=== PATIENT | female | born 1950 | race Caucasian/White ===

== ENCOUNTER 2022-01-05 12:50 | Day surgery (SDC) | payer MEDICARE, BC, SELFPAY ==
[2022-01-05] VITALS (12 sets, daily range): BP systolic 99–163; BP diastolic 64–82; PULSE 49–64; RESP 16–20; O2SAT 93–97; BMI 22.2
--- NOTE | 2022-01-05 | IR_ITS ---
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 Patient had recalcitrant angina therefore was transferred immediately to an interventional hospital for cardiac catheterization Informed consent was obtained prior to the procedure. COMPLICATIONS None Estimated Blood Loss: Less than 10 mls TECHNIQUE One percent lidocaine used to anesthetize the right anterior aspect of the wrist. The right radial artery was accessed via the Seldinger technique. A 6 Greenlandic sheath was placed in the right radial artery. 2.5 mg of verapamil, 800 mcg of nitroglycerin, 1mg Lidocaine and 5000 U Heparin were given through the arterial sheath. The papa catheter was also used to perform left heart catheterization, left ventriculogram and selective coronary angiogram. At the end of the procedure the sheath was removed good hemostasis was achieved using Traclet band, patient was transferred to the postop holding area in stable condition. ANGIOGRAPHIC RESULTS The left main artery Normal The left anterior descending artery Proximal 10% luminal irregularities with mid vessel 10% luminal regularities The circumflex artery Dominant normal The right coronary artery Nondominant yet still large with a proximal eccentric 30 to 40% stenosis The LIEBERMAN ventriculogram reveals Normal 65% The left ventricular end-diastolic pressure 10 mmHg IMPRESSION Mild to moderate single-vessel coronary disease as described above Normal ejection fraction Normal left ventricular end-diastolic pressure PLAN 1. Aggressive medical management 2. Maximize high intensity statin therapy with a goal LDL less than 55 3. Empiric usage of PPI 4. Evaluation of noncardiac symptoms Electronically signed by : Jose Schultz MD 01/05/2022 15:47:27
== END 2022-01-05 16:52 | disposition home or self-care (01) ==
PROVIDERS: PCP Family Medicine; Visit Provider Internal Medicine
DX: I25.118 Atherosclerotic heart disease of native coronary artery with other forms of angina pectoris (principal); I44.0 Atrioventricular block, first degree; I10 Essential (primary) hypertension; K21.9 Gastro-esophageal reflux disease without esophagitis
CPT/HCPCS: 93458; 99152; C1725; C1769; J1644; Q9967

== ENCOUNTER → 2022-01-12 12:57 | Outpatient (CLI) | payer MEDICARE, BC, SELFPAY ==
[2022-01-12 14:11] LABS: Monoscreen (Rapid) Negative (Negative)
[2022-01-12 14:25] LABS: Erythrocyte Sedimentation Rate 15 mm/hr (0-30)
[2022-01-12 14:36] LABS: C-Reactive Protein 0.8 mg/L (0-4)
[2022-01-12 15:36] LABS: Vitamin B12 810 pg/mL (239-931)
[2022-01-12 15:38] LABS: Folate > 20.00 ng/mL
[2022-01-14 14:10] LABS: EBV Ab VCA, IgG >600.0 U/mL (0.0-17.9); EBV Ab VCA, IgM <36.0 U/mL (0.0-35.9)
[2022-01-18 15:13] LABS: 1,25 Dihydroxy Vitamin D 60 pg/mL (.); 1,25-Dihydroxy, Vitamin D-2 <10 pg/mL (.); 1,25-Dihydroxy, Vitamin D-3 60 pg/mL (.)
== END ==
PROVIDERS: PCP Family Medicine; Visit Provider Internal Medicine
DX: I10 Essential (primary) hypertension (principal); I25.118 Atherosclerotic heart disease of native coronary artery with other forms of angina pectoris; K21.9 Gastro-esophageal reflux disease without esophagitis; R07.89 Other chest pain; I44.0 Atrioventricular block, first degree; R79.89 Other specified abnormal findings of blood chemistry
CPT/HCPCS: 36415; 82607; 82652; 82746; 85651; 86140; 86318; 86664; 86665; 93225; 93226

== ENCOUNTER → 2022-05-11 12:45 | Outpatient (CLI) | payer MEDICARE, BC, SELFPAY ==
[2022-05-11 13:35] VITALS: PULSE 66; PULSE 70
== END ==
PROVIDERS: PCP Family Medicine; Visit Provider Internal Medicine Pulmonary Disease
DX: R06.09 Other forms of dyspnea (principal)
CPT/HCPCS: 94060; 94618; 94640; 94727; 94729

== ENCOUNTER 2024-05-07 12:56 | Outpatient (CLI) | payer MEDICARE, BC, SELFPAY ==
--- OUTSIDE RECORDS SUMMARY | 2024-05-07 12:58 | XMS_ITS | Clinical Summary ---
Author Organization [facility] Address [address] [place] [address] Phone Care Team Providers Care Diesel Pile Driver Operator Name Role Phone LATA LERMA, ELISA Rodriguez Unavailable [phone] Cam LERMA, Giovanni Cortez Unavailable [phone] Reason for Visit and Chief Complaint The Chief Complaint is: thoracic pain Problems Includes: Problems addressed during this encounter and other active Problems Current Visit Onset Date Resolved Date Provider Kaylinitibarbara pham Status Pain Radiating To Thoracic Region 02/08/2024 Vern Vinson PA-C Active Last Documented On 4 11:20AM ; [facility] Plan of Treatment - Patient screened for future fall risk: documentation of any fall with injury in past year - Last Documented On 02/08/2024 12:50PM ; [facility] Fall Risk Assessment: This patient has been identified as a fall risk. Balance/gait along with postural blood pressure, vision and home fall hazards have been assessed. Medications have been reviewed, and recommendations made with regard to contributing factors for future falls. Plan of care: Consideration of vitamin D supplementation along with balance and strength training with consideration for formal physical therapy has been discussed with the patient. - Last Documented On 02/08/2024 12:50PM ; [facility] Patient was seen by myself Vern Vinson PA-C. Patient will follow up tomorrow with myself and Dr. Levy after we get a stat MRI of the lumbar spine and he had hurt his see him due to this signal that she is having in the thoracic spine. 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 - Last Documented On 02/08/2024 12:50PM ; [facility], [facility] L4-L5 spondylolisthesis - Last Documented On 02/08/2024 12:50PM ; [facility], [facility] Medical Equipment - Implanted Devices Includes: Current Devices No Medical Equipment Recorded Medications Includes: Medications discussed during this encounter and other current Medications Discontinued / Stopped on this date ELISA GUIDO MD on 07/24/2023 Lisinopril 5 MG Oral Tablet Provider: ELISA GUIDO MD Diagnosis: Last Documented On 4 11:21AM By Ann Zepeda ; [facility], [facility] Current Medications (continue as prescribed) Asmanex (60 Metered Doses) 2 20 MCG/ACT Inhalation Aerosol Powder Breath Activated 02/03/2024 Provider: ELISA GUIDO MD Diagnosis: Last Documented On 4 11:21AM By Ann Zepeda ; [facility], [facility] Ondansetron 8 MG Oral Tablet Disintegrating 02/02/2024 Provider: ELISA GUIDO MD Diagnosis: Last Documented On 4 11:21AM By Ann Zepeda ; [facility] Gabapentin 300 MG Oral Capsule 01/30/2024 Provider: ELISA GUIDO MD Diagnosis: Last Documented On 4 11:21AM By Ann Zepeda ; [facility], [facility] Albuterol Sulfate HFA 108 (9 0 Base) MCG/ACT Inhalation Aerosol Solution 01/23/2024 Provider: ELSIA GALVEZ MD Diagnosis: Last Documented On 4 11:21AM By Ann Zepeda ; [facility] Breyna 160-4.5 MCG/ACT Inhalation Aerosol 01/10/2024 Provider: ELISA GUIDO MD Diagnosis: Last Documented On 4 11:21AM By Ann Zepeda ; [facility], [facility] Meloxicam 7.5 MG Oral Tablet 01/09/2024 Provider: Clau Johnston DPM Diagnosis: Last Documented On 4 11:21AM By Ann Zepeda ; [facility] Drysol 20% External Solution 12/29/2023 Provider: Clau Johnston DPM Diagnosis: Last Documented On 4 11:21AM By Ann Zepeda ; [facility] Lisinopril 5 MG Oral Tablet 11/07/2023 Provider: ELISA GUIDO MD Diagnosis: Last Documented On 4 11:21AM By Ann Zepeda ; [facility] Rizatriptan Benzoate 10 MG O ral Tablet Disintegrating 09/12/2023 Provider: ELISA GUIDO MD Diagnosis: Last Documented On 4 11:21AM By Ann Zepeda ; [facility] Medications Administered Includes: Administered Medications from this encounter No Administered Medications Recorded Vital Signs Includes: Vital Signs from this encounter Vital Name 02/08/2024 11:21A Height (in) 65 Weight (lb) 130 Body Mass Index 21.6 Body Surface Area 1.6 Pain Level 10 Note: Last Documented: On 02/08/2024 11:22A M ; [facility] Results Includes: Results discussed during this encounter No Results Recorded For Specified Dates History of Present Illness Includes: History of Present Illness from this encounter BERTRAND Burton is a 74 year old female. - Symptoms muscle relaxers makes the pain better walking, lifting makes the pain worse. - Allergy list reviewed - Problem list reviewed - Medication list reviewed - Previous history of new onset pain 01/25/2024 Injury is not work related or an automotive accident - Sharp pain Symptoms - Stabbing - Pain is dull, aching - Patient pain level from 1-10: 10 - Yes, previous treatment. PCP - - Review of medications documented Patient is here today with complaints of thoracic back pain and bilateral leg pain that is some difficulties walking and numbness down both legs.. She was thrown up against wall while trying to hold a full for some vaccines. Since that time she has had back pain associated with this along with some numbness in both legs and some difficulties walking she has tried ketorolac baclofen in his on gabapentin. No previous back surgery no previous fracture for her back. She does feel that she has some balance issues. Pain will radiate across her chest area also. Social History Description Last Updated Caffeine use 02/08/2024 Last Documented On 4 12:50PM ; [facility] Exercising regularly 02/08/2024 Last Documented On 4 12:50PM ; [facility] No recent change in diet 02/08/2024 Last Documented On 4 12:50PM ; [facility] Not a current smoker. 02/08/2024 Last Documented On 4 12:50PM ; [facility] Not using alcohol 02/08/2024 Last Documented On 4 12:50PM ; [facility] Not using drugs 02/08/2024 Last Documented On 4 12:50PM ; [facility] Smoking Status Unknown Procedures and Surgical History Includes: Procedures from this encounter Procedures Code Diagnosis Performing Provider Service Location Service Date X-RAY EXAM OF LOWER SPINE 4-5 [id number] [id number] Spondylolisthes is, lumbar region Vern Vinson PA-C [facility] 02/08/2024 Last Documented On 4 3:50PM ; [facility] X-RAY EXAM OF THORACIC SPINE 2 [id number] [id number] Pain in thoracic spine eVrn Vinson PA-C [facility] 02/08/2024 Last Documented On 4 3:50PM ; [facility] CT scan 02/01/2024 [facility] [id number] Last Documented On 4 11:23AM ; [facility] an MRI was performed 02/04/2024 [facility] [id number] Last Documented On 4 11:23AM ; [facility] Surgical History Last Updated History of Previous Fractures 02/08/2024 Last Documented On 4 12:50PM ; [facility] Past Surgical History: Right ACL Repair ~Fusion of distal phalangeal joint ~Right hand 3rd digit 02/08/2024 Last Documented On 4 12:50PM ; [facility] Medical History Includes: Medical History addressed during this encounter Description Last Updated History of arthritis 02/08/2024 Last Documented On 4 12:50PM ; [facility], [facility] History of asthma 02/08/2024 Last Documented On 4 12:50PM ; [facility], [facility] History of diverticulitis of colon 02/07 Last Documented On 4 12:50PM ; [facility], [facility] History of Fractures 02/08/2024 Last Documented On 4 12:50PM ; [facility], [facility] History of Heartburn / Acid Reflux 02/07 Last Documented On 4 12:50PM ; [facility], [facility] History of History of Blood Clots 2023 Last Documented On 4 12:50PM ; [facility], [facility] History of History of Blood Transfusion 02/08/2024 Last Documented On 4 12:50PM ; [facility], [facility] History of History of Cancer 02/08/2024 Last Documented On 4 12:50PM ; [facility], [facility] Family History Includes: Family History addressed during this encounter Description Last Updated Family history of cancer 02/08/2024 Last Documented On 4 12:50PM ; [facility], [facility] Family history of heart disease 02/08/20 24 Last Documented On 4 12:50PM ; [facility], [facility] Family history of osteoporosis 4 Last Documented On 4 12:50PM ; [facility], [facility] Family history of systemic hypertension 02/08/2024 Last Documented On 4 12:50PM ; [facility], [facility] Family history of thromboembolic disease 02/08/2024 Last Documented On 4 12:50PM ; [facility], [facility] Review of Systems Includes: Review of Systems from this encounter Systemic: Not feeling tired, no recent weight loss, and no recent weight gain. Head: Headache. No sinus pain. Eyes: No vision problems, no Cataracts, no Glasses/Contacts, and no Glaucoma. Otolaryngeal: No hearing loss and no tinnitus. Cardiovascular: No chest pain or discomfort, no palpitations, no Hypertension, and no High Cholesterol. Pulmonary: Daytime asthma symptoms. No chronic cough. No wheezing. Gastrointestinal: No heartburn and no abdominal pain. No Indigestion, no Peptic Ulcer, no GI Stomach Bleed, and no Ulcers. Acid Reflux. Endocrine: No hot flashes, no muscle weakness, no Diabetes, no Hypothyroid, and no Hyperthyroid. Hematologic: No easy bleeding, no tendency for easy bruising, and no Anemia. Musculoskeletal: Arthritis. No lower back pain. No soft tissue swelling. Pain localized to one or more joints. Neurological: No dizziness, no convulsions, and no numbness. Psychological: No anxiety, no emotional lability, no depression, and no insomnia. Not crying for no reason. Skin: No dry skin. No Ulcers, no Scars, and no rash. Allergic and Immunologic: No complaint of seasonal allergic reaction. Mental Status Includes: Mental Status from this encounter Description No anxiety Functional Status Includes: Functional Status from this encounter No Functional Status Recorded Physical Exam Includes: Physical Exam from this encounter Allergies Includes: Active Allergies Substance Type Reaction Onset Date Resolved Date Statu s Nitrofurantoin Macrocrystal Allergy 02/08/2024 Active Last Documented On 4 11:18AM ; [facility], [facility] Encounters Encounter Provider Location Date Check-In Time Check-Out Time Diagnosis Physician Specified Vern Vinson PA-C [facility] 02/08/20 24 10:58AM 11:48AM Insurance Includes: Active Insurance Policies Plan Name Member ID Group # Subscriber Relationship Effect sana Dates 1 - Medicare Part B [facility] [id number] Jasmyn Burton Self 2 - [facility] [id number] Jasmyn Burton Self Clinical Notes Includes: Clinical Notes from this encounter * Progress note Date Encounter Last Documented by 02/08/2024 Physician Specified Last andry bishop on 02/08/2024; 12:50 PM, Vern Vinson PA-C; [facility] Active Problems & Conditions - Pain Radiating To Thoracic Region Chief Complaint The Chief Complaint is: Thoracic pain. Referred Here Referred by PCP. History of Present Illness Jasmyn Burton is a 74 year old female. - Symptoms muscle relaxers makes the pain better walking, lifting makes the pain worse. - Allergy list reviewed - Problem list reviewed - Medication list reviewed - Previous history of new onset pain 01/25/2024 Injury is not work related or an automotive accident - Sharp pain Symptoms - Stabbing - Pain is dull, aching - Patient pain level from 1-10: 10 - Yes, previous treatment. PCP - - Review of medications documented Patient is here today with complaints of thoracic back pain and bilateral leg pain that is some difficulties walking and numbness down both legs.. She was thrown up against wall while trying to hold a full for some vaccines. Since that time she has had back pain associated with this along with some numbness in both legs and some difficulties walking she has tried ketorolac baclofen in his on gabapentin. No previous back surgery no previous fracture for her back. She does feel that she has some balance issues. Pain will radiate across her chest area also. Current Medication - Albuterol Sulfate HFA 108 (90 Base) MCG/ACT Inhalation Aerosol Solution 16 days, 0 refills - Asmanex (60 Metered Doses) 220 MCG/ACT Inhalation Aerosol Powder Breath Activated 30 days, 0 refills - Breyna 160-4.5 MCG/ACT Inhalation Aerosol 90 days, 0 refills - Drysol 20% External Solution 15 days, 0 refills - Gabapentin 300 MG Oral Capsule 30 days, 0 refills - Lisinopril 5 MG Oral Tablet 90 days, 0 refills - Meloxicam 7.5 MG Oral Tablet 30 days, 0 refills - Ondansetron 8 MG Oral Tablet Disintegrating 10 days, 0 refills - Rizatriptan Benzoate 10 MG Oral Tablet Disintegrating 9 days, 0 refills Past Medical/Surgical History Reported: History of Fractures. Diagnoses: Asthma History of Blood Clots History of Blood Transfusion History of Cancer Heartburn / Acid Reflux. Diverticulitis of colon. Arthritis Surgical: - Past Surgical History: Right ACL Repair Fusion of distal phalangeal joint Right hand 3rd digit - Previous Fractures Social History Not a current smoker. Current diet: No recent change in diet. Caffeine use: Caffeine use. Alcohol: Not using alcohol. Drug Use: Not using drugs. Habits: Exercising regularly. Allergies - Nitrofurantoin Macrocrystal Family History Cancer Heart disease Systemic hypertension Thromboembolic disease Osteoporosis Review Of Systems Systemic: Not feeling tired, no recent weight loss, and no recent weight gain. Head: Headache. No sinus pain. Eyes: No vision problems, no Cataracts, no Glasses/Contacts, and no Glaucoma. Otolaryngeal: No hearing loss and no tinnitus. Cardiovascular: No chest pain or discomfort, no palpitations, no Hypertension, and no High Cholesterol. Pulmonary: Daytime asthma symptoms. No chronic cough. No wheezing. Gastrointestinal: No heartburn and no abdominal pain. No Indigestion, no Peptic Ulcer, no GI Stomach Bleed, and no Ulcers. Acid Reflux. Endocrine: No hot flashes, no muscle weakness, no Diabetes, no Hypothyroid, and no Hyperthyroid. Hematologic: No easy bleeding, no tendency for easy bruising, and no Anemia. Musculoskeletal: Arthritis. No lower back pain. No soft tissue swelling. Pain localized to one or more joints. Neurological: No dizziness, no convulsions, and no numbness. Psychological: No anxiety, no emotional lability, no depression, and no insomnia. Not crying for no reason. Skin: No dry skin. No Ulcers, no Scars, and no rash. Allergic and Immunologic: No complaint of seasonal allergic reaction. Physical Findings - Vitals taken 02/08/2024 11:21 am lc Height 65 in Weight 130 lbs Body Mass Index 21.6 kg/m2 Body Surface Area 1.6 m2 Pain Level 10 She does walk with a wide-based gait Some tenderness across midthoracic spine 4+ out of 5 EHL gastrocs quadriceps tibialis anterior strength bilaterally No long tract findings 1+ Achilles and patellar reflexes bilaterally negative beats of clonus Tests Four views lumbar spine shows a spondylolisthesis at L4-L5 which he is aware of the she has had before 02/08/2024 Two views of the thoracic spine show no significant collapse of any level. 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 MRI Scan: An MRI was performed 02/04/2024 [facility]. Available previous imaging studies were reviewed Available previous history reviewed Counseling/Education - Tobacco non-user - Use of tobacco assessment performed Plan StartCited - Pain, unspecified Radiology/MRI: MRI Lumbar Spine Instructions: *STAT* MRI LSPINE EndCited - Patient screened for future fall risk: documentation of any fall with injury in past year Fall Risk Assessment: This patient has been identified as a fall risk. Balance/gait along with postural blood pressure, vision and home fall hazards have been assessed. Medications have been reviewed, and recommendations made with regard to contributing factors for future falls. Plan of care: Consideration of vitamin D supplementation along with balance and strength training with consideration for formal physical therapy has been discussed with the patient. Patient was seen by myself Vern Vinson PA-C. Patient will follow up tomorrow with myself and Dr. Levy after we get a stat MRI of the lumbar spine and he had hurt his see him due to this signal that she is having in the thoracic spine. Notes This dictation was done with voice recognition software and may contain errors and omissions. Care Team - ELISA GUIDO MD - Distribution Systems Serviceperson
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
--- OUTSIDE RECORDS SUMMARY | 2024-05-07 12:58 | XMS_ITS | Clinical Summary ---
Author Organization [facility] , [facility] Address [address] [place] [address] Phone Care Team Providers Care Colorer Hides And Skins Name Role Phone LATA LERMA, ELISA Rodriguez Unavailable [phone] Cam LERMA, Giovanni Cortez Unavailable [phone] Reason for Visit and Chief Complaint MRI Problems Includes: Problems addressed during this encounter and other active Problems All Visits Onset Date Resolved Date Provider Condition S tatus Pain Radiating To Thoracic Region 02/08/2024 Vern Vinson PA-C Active Last Documented On 4 11:20AM ; [facility], [facility] Plan of Treatment No Plan of Treatment Recorded Assessments Includes: Assessments from this encounter No Assessments Recorded Medical Equipment - Implanted Devices Includes: Current Devices No Medical Equipment Recorded Medications Includes: Medications discussed during this encounter and other current Medications Current Medications (continue as prescribed) Asmanex (60 Metered Doses) 2 20 MCG/ACT Inhalation Aerosol Powder Breath Activated 02/03/2024 Provider: ELISA GUIDO MD Diagnosis: Last Documented On 4 11:21AM By Ann Zepeda ; [facility] Ondansetron 8 MG Oral Tablet Disintegrating 02/02/2024 Provider: ELISA GUIDO MD Diagnosis: Last Documented On 4 11:21AM By Ann Zepeda ; [facility] Gabapentin 300 MG Oral Capsule 01/30/2024 Provider: ELISA GUIDO MD Diagnosis: Last Documented On 4 11:21AM By Ann Zepeda ; [facility] Albuterol Sulfate HFA 108 (9 0 Base) MCG/ACT Inhalation Aerosol Solution 01/23/2024 Provider: ELISA GALVEZ MD Diagnosis: Last Documented On 4 11:21AM By Ann Zepeda ; [facility] Breyna 160-4.5 MCG/ACT Inhalation Aerosol 01/10/2024 Provider: ELISA GUIDO MD Diagnosis: Last Documented On 4 11:21AM By Ann Zepeda ; [facility] Meloxicam 7.5 MG Oral Tablet 01/09/2024 Provider: Clau Johnston DPM Diagnosis: Last Documented On 4 11:21AM By Ann Zepeda ; [facility] Drysol 20% External Solution 12/29/2023 Provider: Clau Johnston DPM Diagnosis: Last Documented On 4 11:21AM By Ann Zepeda ; [facility] Lisinopril 5 MG Oral Tablet 11/07/2023 Provider: ELISA GUIDO MD Diagnosis: Last Documented On 4 11:21AM By Ann Zepeda ; [facility] Rizatriptan Benzoate 10 MG O ral Tablet Disintegrating 09/12/2023 Provider: ELISA GUIDO MD Diagnosis: Last Documented On 4 11:21AM By Ann Zepeda ; [facility] Medications Administered Includes: Administered Medications from this encounter No Administered Medications Recorded Results Includes: Results discussed during this encounter No Results Recorded For Specified Dates History of Present Illness Includes: History of Present Illness from this encounter No History of Present Illness Recorded Social History No Social History Recorded - Smoking Status Unknown Procedures and Surgical History Includes: Procedures from this encounter Procedures Code Diagnosis Performing Provider Service Location Service Date MRI LUMBAR SPINE W/O DYE 33050 Low back pain, unspecified Giovanni Levy MD [facility] 02/09/2024 Last Documented On 4 5:31AM ; [facility] Medical History Includes: Medical History addressed during this encounter No Medical History Recorded Family History Includes: Family History addressed during this encounter No Family History Recorded Review of Systems Includes: Review of Systems from this encounter No Review of Systems Recorded Mental Status Includes: Mental Status from this encounter No Mental Status Recorded Functional Status Includes: Functional Status from this encounter No Functional Status Recorded Physical Exam Includes: Physical Exam from this encounter No Physical Exam Recorded Allergies Includes: Active Allergies Substance Type Reaction Onset Date Resolved Date Statu s Nitrofurantoin Macrocrystal Allergy 02/08/2024 Active Last Documented On 11:18AM ; [facility] Encounters Encounter Provider Location Date Check-In Time Check-Out Time Diagnosis MRI [facility] 02/09/2024 6:44AM 7:29AM Insurance Includes: Active Insurance Policies Plan Name Member ID Group # Subscriber Relationship Effect sana Dates 1 - Medicare Part B [facility] [id number] Jasmyn Potter Self 2 - [facility] [id number] Jasmyn Potter Self Clinical Notes Includes: Clinical Notes from this encounter No Clinical Notes Recorded
--- OUTSIDE RECORDS SUMMARY | 2024-05-07 12:58 | XMS_ITS ---
Author Organization [facility] , [facility] Address [address] [place] [address] Phone Care Team Providers Care Exercise Physiologist Name Role Phone LATA LERMA, ELISA Rodriguez Unavailable [phone] Cam LERMA, Giovanni Cortez Unavailable [phone] Problems Includes: Active, inactive, and resolved Problems All Visits Onset Date Resolved Date Provider Condition S tatus Pain Radiating To Thoracic Region 02/08/2024 Vern Vinson PA-C Active Last Documented On 4 11:20AM ; [facility] Plan of Treatment Findings Encounter Date Patient screened for future fall risk: documentation of any fall with injury in past year Follow Up with Giovanni Levy MD 02/09/2024 Last Documented On 4 2:01PM ; [facility] Patient screened for future fall risk: documentation of any fall with injury in past year Physician Specified with Vern Vinson PA-C 02/08/2024 Last Documented On 4 12:50PM ; [facility] Pending Tests Order Diagnosis Results Due Ordering P rovider Radiology - MRI MRI Lumbar Spine Pain, unspecified 4 Vern Vinson PA-C Last Documented On 4 12:50PM ; [facility] Assessments Includes: Assessments for all patient encounters No Assessments Recorded Medical Equipment - Implanted Devices Includes: Current and historical Devices No Medical Equipment Recorded Medications Includes: Current and historical Medications Current Medications (continue as prescribed) Asmanex (60 Metered Doses) 2 20 MCG/ACT Inhalation Aerosol Powder Breath Activated 02/03/2024 Provider: ELISA GUIDO MD Diagnosis: Last Documented On 4 11:21AM By Ann Zepeda ; [facility] Ondansetron 8 MG Oral Tablet Disintegrating 02/02/2024 Provider: ELISA GUIDO MD Diagnosis: Last Documented On 4 11:21AM By Ann Zepeda ; [facility], [facility] Gabapentin 300 MG Oral Capsule 01/30/2024 Provider: ELISA GUIDO MD Diagnosis: Last Documented On 4 11:21AM By Ann Zepeda ; [facility], [facility] Albuterol Sulfate HFA 108 (9 0 Base) MCG/ACT Inhalation Aerosol Solution 01/23/2024 Provider: ELISA GALVEZ MD Diagnosis: Last Documented On 4 11:21AM By Ann Zepeda ; [facility], [facility] Breyna 160-4.5 MCG/ACT Inhalation Aerosol 01/10/2024 Provider: ELISA GUIDO MD Diagnosis: Last Documented On 4 11:21AM By Ann Zepeda ; [facility], [facility] Meloxicam 7.5 MG Oral Tablet 01/09/2024 Provider: Clau Johnston DPM Diagnosis: Last Documented On 4 11:21AM By Ann Zepeda ; [facility], [facility] Drysol 20% External Solution 12/29/2023 Provider: Clau Johnston DPM Diagnosis: Last Documented On 4 11:21AM By Ann Zepeda ; [facility], [facility] Lisinopril 5 MG Oral Tablet 11/07/2023 Provider: ELISA GUIDO MD Diagnosis: Last Documented On 4 11:21AM By Ann Zepeda ; [facility], [facility] Rizatriptan Benzoate 10 MG O ral Tablet Disintegrating 09/12/2023 Provider: ELISA GUIDO MD Diagnosis: Last Documented On 4 11:21AM By Ann Zepeda ; [facility], [facility] Past Medications on file Lisinopril 5 MG Oral Tablet 07/24/2023 - 02/08/2024 Pr ovider: ELISA GUIDO MD Diagnosis: Last Documented On 4 11:21AM By Ann Zepeda ; [facility], [facility] Medications Administered Includes: Administered Medications in patient's chart No Administered Medications Recorded Vital Signs Includes: Vital Signs from 05/07/2023 through 05/07/2024 Vital Name 02/08/2024 11:21A Height (in) 65 Weight (lb) 130 Body Mass Index 21.6 Body Surface Area 1.6 Pain Level 10 Note: Last Documented: On 02/08/2024 11:22A M ; [facility] Results Includes: Results from 05/07/2023 through 05/07/2024 No Results Recorded For Specified Dates History of Present Illness History of Present Illness not supported for this document type No History of Present Illness Recorded Social History Description Last Updated Caffeine use 02/08/2024 Last Documented On 4 12:50PM ; [facility] Exercising regularly 02/08/2024 Last Documented On 4 12:50PM ; [facility] No recent change in diet 02/08/2024 Last Documented On 4 12:50PM ; [facility] Not a current smoker. 02/08/2024 Last Documented On 4 12:50PM ; [facility] Not using alcohol 02/08/2024 Last Documented On 4 12:50PM ; [facility] Not using drugs 02/08/2024 Last Documented On 4 12:50PM ; [facility] Smoking Status Unknown Procedures and Surgical History Includes: Procedures from 05/07/2023 through 05/07/2024 Procedures Code Diagnosis Performing Provider Service Location Service Date MRI LUMBAR SPINE W/O DYE 96648 Low back pain, unspecified Giovanni Levy MD [facility] 02/09/2024 Last Documented On 4 5:31AM ; [facility] X-RAY EXAM OF LOWER SPINE 4-5 VIEWS 94062 Spondylolisthesis, lumbar region Vern Vinson PA-C [facility] 02/08/2024 Last Documented On 4 3:50PM ; [facility] X-RAY EXAM OF THORACIC SPINE 2 VIEWS 94764 Pain in thoracic spine Vern Vinson PA-C [facility] 02/08/2024 Last Documented On 4 3:50PM ; [facility], [facility] Surgical History Last Updated History of Previous Fractures 02/08/2024 Last Documented On 4 12:50PM ; [facility], [facility] Past Surgical History: Right ACL Repair ~Fusion of distal phalangeal joint ~Right hand 3rd digit 02/08/2024 Last Documented On 4 12:50PM ; [facility], [facility] Medical History Includes: Medical History in patient's chart Description Last Updated History of arthritis 02/08/2024 Last Documented On 4 12:50PM ; [facility], [facility] History of asthma 02/08/2024 Last Documented On 4 12:50PM ; [facility], [facility] History of diverticulitis of colon 02/07 Last Documented On 4 12:50PM ; [facility], [facility] History of Fractures 02/08/2024 Last Documented On 4 12:50PM ; [facility], [facility] History of Heartburn / Acid Reflux 02/07 Last Documented On 4 12:50PM ; [facility], [facility] History of History of Blood Clots 2023 Last Documented On 4 12:50PM ; [facility], [facility] History of History of Blood Transfusion 02/08/2024 Last Documented On 4 12:50PM ; [facility], [facility] History of History of Cancer 02/08/2024 Last Documented On 4 12:50PM ; [facility], [facility] Family History Includes: Family History in patient's chart Description Last Updated Family history of cancer 02/08/2024 Last Documented On 4 12:50PM ; [facility] Family history of heart disease 02/08/20 24 Last Documented On 4 12:50PM ; [facility], [facility] Family history of osteoporosis 4 Last Documented On 4 12:50PM ; [facility], [facility] Family history of systemic hypertension 02/08/2024 Last Documented On 4 12:50PM ; [facility] Family history of thromboembolic disease 02/08/2024 Last Documented On 4 12:50PM ; [facility] Review of Systems Review of Systems not supported for this document type No Review of Systems Recorded Mental Status Description No anxiety Functional Status No Functional Status Recorded Physical Exam Physical Exam not supported for this document type No Physical Exam Recorded Allergies Includes: Active, inactive, and resolved Allergies Substance Type Reaction Onset Date Resolved Date Statu s Nitrofurantoin Macrocrystal Allergy 02/08/2024 Active Last Documented On 4 11:18AM ; [facility] Encounters Includes: Encounters from 05/07/2023 through 05/07/2024 Encounter Provider Location Date Check-In Time Check-Out Time Diagnosis Follow Up Giovanni Levy MD [facility] 02/09/20 11:18AM 12:24PM MRI [facility] 02/09/20 6:44AM 7:29AM Physician Specified Vern Vinson PA-C [facility] 02/08/20 10:58AM 11:48AM Insurance Includes: Active Insurance Policies Plan Name Member ID Group # Subscriber Relationship Effect sana Dates 1 - Medicare Part B [facility] [id number] Jasmyn Burton Self 2 - [facility] [id number] Jasmyn Agee Clinical Notes Includes: Signed Clinical Notes starting from 06/03/2022 * Progress note Date Encounter Last Documented by 02/08/2024 Physician Specified Last documen dario on 02/08/2024; 12:50 PM, Vern Vinson PA-C; [facility] Active Problems & Conditions - [...] Tests Imaging: CT Scan: CT scan 02/01/2024 [facility]. MRI Scan: An MRI was performed 02/04/2024 [facility]. Available previous imaging studies were [...] Care Team - ELISA GUIDO MD - Observatory Director
--- OUTSIDE RECORDS SUMMARY | 2024-05-07 12:58 | XMS_ITS | Encounter Summary ---
Author Organization [facility] Address [address] [place] [address] Care Team Providers Care Commercial Loan Underwriter Name Role Phone Jeanine Forbes MD Primary Care Provider + Encounter Details Date Type Department Care Team (Latest Contact Info) Description 04/03/2024 Travel Social History Tobacco Use Types Packs/Day Years Used Date Smoking Tobacco: Never Passive Smoke Exposure: Never Smokeless Tobacco: Never Alcohol Use Standard Drinks/Week Comments Yes 7 (1 standard drink = 0.6 oz pur e alcohol) AUDIT-C Answer Date Recorded Q1: How often do you have a drink containing alc ohol? Never 11/06/2019 Q2: How many drinks containi ng alcohol do you have on a typical day when you are drinking? 1 or 2 11/06/2019 Q3: How often do you have six or more drinks on one occasion? Weekly 11/06/2019 Abuse Screen Answer Date Recorded Unsafe at Home or Work/School Not on file Feels Threatened by Someone? Not on file 05/2023 Does Anyone Keep You from Co ntacting Others or Doint Things Outside the Home? Not on file 03/31/2023 Physical Sign of Abuse Present Not on file 1 Housing Stability Answer Date Recorded Current Living Arrangements Not on file 03/20 Potentially Unsafe Housing Conditions Not on ranjana e 03/31/2023 Family and Community Support Answer Rajiv e Recorded Help with Day-to-Day Activities Not on file 03/31/2023 Lonely or Isolated Not on file 03/31/2023 Employment Answer Date Recorded Do you want help finding or keeping work or a shannan b? Not on file 03/31/2023 Disabilities Answer Date Recorded Concentrating, Remembering, or Making Decisions Difficulty Not on file 03/31/2023 Doing Errands Independently Difficulty Not on fi le 03/31/2023 Education Answer Date Recorded Help with school or training? Not on file Preferred Language Not on file 03/31/2023 Comments No Sex and Gender Information Value Date Recorded Sex Assigned at Not on file Legal Sex Female 9:40 AM EDT Gender Identity Not on file Sexual Orientation Not on file documented as of this encounter Plan of Treatment Upcoming Encounters Date Type Department Care Team (Late st Contact Info) Description 08/09/2024 3:00 PM EST Office Visit [facility] MED[facility] RHEUMATOLOGY [address] [facility] [address] [place] [address] Ken Devries MD [address] [facility] [address] [place] [address] documented as of this encounter Visit Diagnoses Not on filedocumented in this encounter Care Teams Commercial Loan Underwriter Relationship Specialty Start Date End Date Jeanine Forbes MD [address] [address] PCP - General Family Medicine 11/06/19 documented as of this encounter
--- OUTSIDE RECORDS SUMMARY | 2024-05-07 12:58 | XMS_ITS ---
Care Plan - [facility], [facility] Created on: May 07, 2024 Jasmyn Burton : 1950 Sex: Female Author Organization [facility] Address [address] [place] [address] Phone Care Team Providers Care Directional Bore Operator Name Role Phone LATA LERMA, ELISA Rodriguez Unavailable [phone] Cam LERMA, Giovanni Cortez Unavailable [phone]
--- OUTSIDE RECORDS SUMMARY | 2024-05-07 12:58 | XMS_ITS | Clinical Summary ---
Author Organization [facility] Address [address] [place] [address] Care Team Providers Care Case Manager Specialist Name Role Phone Jeanine Forbes MD Primary Care Provider + Allergies Active Allergy Reactions Criticality Noted Date Comments Nitrofurantoin Unknown - High Severity 02/08/20 24 Medications ASMANEX, 30 METERED DOSES, 220 MCG/INH inhaler INL 1 PUFF PO BID UTD PRN 11/01/19 20 Active omeprazole (priLOSEC) 20 MG capsule Take 1 capsule by mouth Daily. Active Multiple Vitamins-Minerals (MULTIVITAMIN WITH MINERALS) tablet tablet Take 1 tablet by mouth Daily. Active cholecalciferol (VITAMIN D3) 25 MCG (1000 UT) tablet Take 1 tablet by mouth Daily. Active vitamin C (ASCORBIC ACID) 250 MG tablet Take 1 tablet by mouth Daily. Active Biotin 10 MG tablet Take 1 tablet by mouth Daily. Active rizatriptan QUALITY ASSURANCE SUPERVISOR BODY (MAXALT-QUALITY ASSURANCE SUPERVISOR BODY) [address] 1 T ON THE TONGUE UNTIL DISSOLVED ONCE DAILY IF NEEDED 08/28/19 20 Active ondansetron ODT (ZOFRAN-ODT) 8 MG disintegrating tablet 1 tablet. 02/02/20 24 Active albuterol (ACCUNEB) 0.63 MG/3ML nebulizer solution Inhale 3 mL Every 6 (Six) Hours As Needed. Active albuterol (PROVENTIL) (2.5 MG/3ML) 0.083% nebulizer solution Inhale 3 mL 3 times a day by nebulization route as needed for 30 days. 01/13/20 24 Active azelastine (ASTELIN) 0.1 % nasal spray azelastine 137 mcg (0.1 %) nasal spray aerosol INSTILL 1 SPRAY INTO BOTH NOSTRILS TWICE DAILY 12/23/19 23 Active baclofen (LIORESAL) 10 MG tablet 1 tablet. 01/30/20 24 Active EPINEPHrine (EPIPEN) 0.3 MG/0.3ML solution auto-injector injection Take 1 auto as needed by injection route as needed. Active gabapentin (NEURONTIN) 300 MG capsule 1 capsule. 01/30/20 24 Active montelukast (SINGULAIR) 10 MG tablet Take 1 tablet by mouth Every Evening. Active predniSONE (DELTASONE) 20 MG tablet 1 tablet. 03/23/20 24 Active Active Problems Problem Noted Date Diagnosed Date Chest pain, atypical 11/06/2019 Hyperlipidemia LDL goal <100 11/06/2019 Family history of early CAD 11/06/2019 Abnormal EKG 11/06/2019 Encounters Date Type Department Care Team Description 04/03/2024 3:20 PM EDT Office Visit [facility] NEUROSURGERY [address] [address] Zeke Saleh MD Mid back pain (Primary Dx); Lumbar disc disease 04/03/2024 Travel 03/14/2024 4:22 PM EDT - 03/14/2024 11:59 PM EDT Hospital Encounter [facility] MRI AT [address] [place] [id number] Zeke Saleh MD Cervical radicular pain Discharge Disposition: Home or Self Care 03/02/2024 3:20 PM EDT Office Visit [facility] NE[facility]ERY [facility] [address] [place] [address] Zeke Saleh MD Mid back pain (Primary Dx); Multilevel degenerative disc disease; Cervical radicular pain from Last 3 Months Family History Medical History Relation Name Comments Heart disease Father Heart failure Father Hypertension Father Heart disease Mother Heart failure Mother Hypertension Mother Breast cancer Neg Hx Ovarian cancer Neg Hx Relation Name Status Comments Father Mother Social History Tobacco Use Types Packs/Day Years Used Date Smoking Tobacco: Never Passive Smoke Exposure: Never Smokeless Tobacco: Never Tobacco Cessation:Counseling Given: Not Answered Alcohol Use Standard Drinks/Week Comments Yes 7 [...] on file Sexual Orientation Not on file Last Filed Vital Signs Vital Sign Reading Time Taken Comments Blood Pressure 128/72 11/06/2019 2:25 PM EDT Pulse 62 11/06/2019 2:25 PM EDT Temperature 36.3 ??C (97.3 ??F) 04/03/2024 3:22 PM ED T Respiratory Rate - - Oxygen Saturation - - Inhaled Oxygen Concentration - - Weight 61.7 kg (136 lb) 04/03/2024 3:22 PM EDT Height 167.6 cm (5' 6 ) 04/03/2024 3:22 PM EDT Body Mass Index 21.95 04/03/2024 3:22 PM EDT Plan of Treatment Upcoming Encounters Date Type Department Care Team (Late st Contact Info) Description 08/09/2024 3:00 PM EST Office Visit [facility] RHEUMATOLOGY [address] [facility] [address] [place] [id number] Ken Devries MD [address] [facility] [address] [place] [address] Health Maintenance Due Date Last Done Comments COLOGUARD 1950 COLON CANCER SCREENING 5 YEA R SIGMOIDOSCOPY 1950 CT COLONOGRAPHY 1950 DXA SCAN 1950 FECAL OCCULT BLOOD TEST 1950 FIT Testing (1 year) 1950 LIPID PANEL 1950 Pneumococcal Vaccine 65+ (1 of 2 - PCV) 02/01/1956 ANNUAL WELLNESS VISIT 08/30/2019 HEPATITIS C SCREENING 08/30/2019 PT PLAN OF CARE 01/26/2023 MAMMOGRAM 01/12/2024 01/11/2023 COVID-19 Vaccine (4 - 2023-2 5 season) 2024 05/11/2021, 08/12/2020, 07/19/2020 TDAP/TD VACCINES (2 - Td or Tdap) 05/23/2027 017 COLONOSCOPY 01/27/2032 01/26/2022, 06/20, 06/20/2011 COLORECTAL CANCER SCREENING 01/27/2032 ZOSTER VACCINE Completed 05/26/2023, 10/20, 10/18/2022 INFLUENZA VACCINE Completed 03/06/2024, , 02/19/2022, Additional history exists Procedures Procedure Name Priority Date/Time Associated Diagnosis Comments SCANNED - LABS 03/24/2024 MRI CERVICAL SPINE WO CONTRAST Routine 03/14/2024 5:25 PM EDT Cervical radicular pain MRI OUTSIDE FILMS Routine 02/09/2024 12: 00 AM EDT SCANNED - IMAGING 02/09/2024 MAMMO DIAGNOSTIC DIGITAL TOMOSYNTHESIS BILATERAL W CAD Routine 01/11/2023 9:46 AM EDT Abnormal findings on diagnostic imaging of breast from Last 3 Months or Most Recently Relevant to Health Maintenance Results * LABS SCANNED (03/24/2024) [facility] Onbase LAB BLOOD ORDERABLES Final Re sult * MRI Cervical Spine Without Contrast (03/14/2024 5:25 PM EDT) Anatomical Region Laterality Modality Spine, C-spine N/A Magnetic Resonan ce 03/15/2024 10:0 7 AM EDT Impressions 03/15/2024 10:12 AM EDT Impression: Multilevel cervical spondylosis is noted as above. There is no evidence of high- grade spinal canal narrowing. There is moderate to severe narrowing of the left-sided neural foramina at C4-5 and C5-6. Electronically Signed: Sandeep Solis MD 03/15/2024 10:12 AM EDT Workstation ID: [id number] Narrative 03/15/2024 10:12 AM EDT MRI CERVICAL SPINE WO CONTRAST Date of Exam: 03/14/2024 4:42 PM EDT Indication: neuropathic pain. Comparison: None available. Technique: ??Routine multiplanar/multisequence sequence images of the cervical spine were obtained without contrast administration. ?? Findings: T1 marrow signal is preserved, without evidence of fracture or suspicious marrow replacing lesion. Straightening is present, without evidence of listhesis or subluxation. The cervical spinal cord demonstrates no focal areas of intramedullary signal abnormality. The paraspinal soft tissues demonstrate no acute or suspicious findings. Multilevel spondylosis change is present, with areas of involvement noted including C2-3, no significant spinal canal or neuroforaminal impingement. C3-4, left-sided facet arthropathy with some mild left neuroforaminal narrowing. Patent spinal canal. C4-5, disc osteophyte complex formation, eccentric to the left with some mild narrowing of the left aspect of the spinal canal and moderate to severe narrowing of the left neural foramen. C5-6, disc osteophyte complex and bilateral facet arthropathy. There is mild to moderate spinal canal narrowing in addition to moderate to severe left and mild to moderate right neuroforaminal narrowing. C6-7, disc osteophyte complex and bilateral facet arthropathy. There is mild spinal canal narrowing in addition to mild to moderate left and mild right neuroforaminal stenosis. Procedure Note Sukhdev Solis MD - 03/15/2024 MRI CERVICAL SPINE WO CONTRAST Date of Exam: 03/14/2024 4:42 PM EDT Indication: neuropathic pain. Comparison: None available. Technique: Routine multiplanar/multisequence sequence images of thecervical spine were obtained without contrast administration. Findings: T1 marrow signal is preserved, without evidence of fracture or suspiciousmarrow replacing lesion. Straightening is present, without evidence oflisthesis or subluxation. The cervical spinal cord demonstrates no focalareas of intramedullary signal abnormality. The paraspinal soft tissues demonstrate no acute orsuspicious findings. Multilevel spondylosis change is present, with areasof involvement noted including C2-3, no significant spinal canal or neuroforaminal impingement. C3-4, left-sided facet arthropathy with some mild left neuroforaminalnarrowing. Patent spinal canal. C4-5, disc osteophyte complex formation, eccentric to the left with somemild narrowing of the left aspect of the spinal canal and moderate tosevere narrowing of the left neural foramen. C5-6, disc osteophyte complex and bilateral facet arthropathy. There ismild to moderate spinal canal narrowing in addition to moderate to severeleft and mild to moderate right neuroforaminal narrowing. C6-7, disc osteophyte complex and bilateral facet arthropathy. There ismild spinal canal narrowing in addition to mild to moderate left and mildright neuroforaminal stenosis. IMPRESSION: Impression: Multilevel cervical spondylosis is noted as above. There is no evidence ofhigh- grade spinal canal narrowing. There is moderate to severe narrowingof the left-sided neural foramina at C4-5 and C5-6. Electronically Signed: Sandeep Solis MD 03/15/2024 10:12 AM EDT Workstation ID: [id number] us Zeke Saleh MD IMG MRI ORDERABLES Final Resu lt * IMAGING SCANNED (02/09/2024) Anatomical Region Laterality Modality Radiographic Cathi ging [facility] New Onbase IMG DIAGNOSTIC IMAGING ORDERA BLES Final Result * MRI outside films (02/09/2024 12:00 AM EDT) Narrative SYSTEMGENERATED, DOCUMENTATION - 03/02/2024 3:27 PM EDT This procedure was auto-finalized with no dictation required. Zeke Saleh MD IMG MRI ORDERABLES Final Resu lt * (ABNORMAL) Mammo Diagnostic Digital Tomosynthesis Bilateral With CAD (01/11/2023 9:46 AM EDT) Anatomical Region Laterality Modality Breast Bilateral Mammography 01/11/2023 11:2 2 AM EDT Addenda Addendum by Onelia Flores MD on 01/24/2023 9:28 AM EDT Pathology is now available for the recently performed biopsies and is as follows: Right breast, 5/6:00, coil clip: Invasive ductal carcinoma. Atypical lobular hyperplasia. Malignant pathology is concordant with the imaging findings. Recommend appropriate surgical/oncologic action. It is noted on the MRI there is immediately subjacent similar-appearing subcentimeter areas of enhancement, possibly of the same process, and to consider at time of study if breast conservation is desired. 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 No evidence of malignancy. High risk pathology is concordant with the imaging findings. Recommend surgical excision. Please note that the patient has fixed left nipple inversion as detailed on the original diagnostic and procedure report. In light of above findings, clinical management is recommended. Results and recommendations were called to the patient by the breast care nurse. This report was finalized on 01/24/2023 10:28 AM by Onelia Flores MD. Impressions 01/11/2023 11:30 AM EDT 1. Right breast: Hypoechoic mass in the 5/6:00 right breast thought to represent the correlate for the MRI enhancement in this region. Ultrasound-guided core needle biopsy is recommended for tissue sampling. This was performed today please see subsequent report below. 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 Pending pathology of above recommended biopsy, additional recommendations can be made. 2. Left breast: Persistent distortion in the left breast with subtle correlate in the 2:00 left breast on ultrasound, thought to represent the correlate for the enhancement distortion on recent breast MRI. As this is better seen on mammography, tomosynthesis guided biopsy is recommended. This was performed today. Please see subsequent report below. On clinical evaluation the patient's nipple is inverted, change to the patient noted 18 months to 2 years ago. This is nonspecific. On today's ultrasound no subareolar mass is identified. The asymmetric enhancement of the nipple on MRI may be related to the fact that the nipple is inverted and fixed. Recommend clinical management of this finding. 3. Today's findings and recommendations were discussed with the patient at the time of the examination by myself. SITE A: 5:00/6:00 RIGHT BREAST, COIL CLIP ULTRASOUND GUIDED CORE NEEDLE BIOPSY, PROCEDURE: The procedure was explained to the patient. Written and verbal consent was. A timeout was performed. Preprocedure ultrasound confirmed the finding. The breast was prepped and draped in the usual sterile fashion. Local anesthesia was obtained with 1% lidocaine and 1% lidocaine with epinephrine. A small skin incision was made with a scalpel. A 12-gauge spring-loaded biopsy device was inserted and into the mass under direct sonographic guidance. A total of 3 core samples were obtained and sent to pathology. A coil shaped biopsy marker clip was placed. Pressure was held until hemostasis was obtained. A sterile bandage was applied. Post procedure mammogram demonstrated the biopsy marker clip in the expected location. SITE B, LEFT BREAST UPPER OUTER QUADRANT: 10G SENO-RX VACUUM ASSISTED STEREOTACTIC/TOMOSYNTHESIS GUIDED BIOPSY: ??AFFIRM PROCEDURE: The procedure was explained to the patient. Written and verbal consent was obtained for stereotactic biopsy/tomosynthesis guided biopsy of the left breast. ?? Time-out was observed to verify patient's identity and correct location of the breast abnormality. The patient was placed on the prone on the tomographic/stereotactic core biopsy table and superintendent stations images were obtained. The area undergoing biopsy was identified and targeted. The breast was sterilized with Chloraprep and 1% lidocaine with (10 cc) and without (15 cc) epinephrine was utilized for local anesthesia. ??A small skin incision was made with a scalpel and a 10 gauge Seno-Rx biopsy probe was advanced into the breast. ??The position of the needle was confirmed with tomosynthesis/stereotactic images. A total of 6 core samples were obtained at the biopsy site. Specimen radiograph demonstrated calcifications and varying densities contained within the sample. A twenty-nine palms shaped biopsy marker clip was placed. Pressure was held hemostasis was obtained. A sterile bandage was applied. Postprocedure mammogram demonstrated the biopsy marker clip in the expected location with small postbiopsy hematoma. Post biopsy instructions were reviewed with the patient by our clinical breast imaging staff. A written copy of these instructions was also given to the patient. The patient tolerated the procedure well and no immediate complications occurred. SUMMARY: 1. Technically successful ultrasound-guided core needle biopsy right breast. Pathology is pending. Please see radiology pathology addendum for final recommendations. 2. technically successful stereotactic/tomosynthesis guided vacuum assisted core biopsy of distortion located in the left breast. Pathology results are pending. Please see radiology pathology addendum for final recommendations. This report was finalized on 01/11/2023 12:30 PM by Onelia Flores MD. Narrative 01/11/2023 11:30 AM EDT EXAM: MAMMO DIAGNOSTIC DIGITAL TOMOSYNTHESIS BILATERAL W CAD, Limited bilateral breast ultrasound, ultrasound-guided right breast biopsy, stereotactic left breast biopsy, post clip mammogram bilaterally, specimen radiograph left breast.- DATE:01/11/2023 8:51 AM INDICATION: Patient is a 72-year-old female who presents for second look diagnostic mammogram and bilateral breast ultrasound for enhancement on recent breast MRI. COMPARISON: Comparison is made to recent breast MRI dated 12/23/2022 as well as multiple prior mammograms dating back to 06/11/2019. TECHNIQUE: 2D/3D CC and MLO views of each breast were obtained. 2D/3D spot right and left CC and MLO views as well as 2D/3D true lateral images of each breast were obtained. FINDINGS: The breast tissue is heterogeneously dense. Right breast: Suspected density in the 5/6:00 right breast subtly persist on today's spot compression imaging and is best seen on spot compression right CC #17 of 61 and spot compression right MLO image #23 of 58. Suspected density in the superior right breast completely presses out with today's spot compression imaging. ??Biopsy marker clip is noted in the 9:00 region of the right breast. Left breast: Questioned distortion in the 2/3:00 region of the left breast persists on today's spot compression imaging and is best seen on spot compression left CC image #26 of 60 and left true lateral image #17 of 56. A few loosely grouped calcifications are seen in association. The left nipple appears partially inverted but mammographically appears similar compared to prior studies. This may be a chronic finding. Targeted sonographic imaging of each breast was performed by the technologist and myself. On clinical evaluation the patient's left nipple is inverted. She reports that it has been this way for 18 months to 2 years. Right breast: In the 5/6:00 right breast adjacent to the nipple periareolar region there is an oval hypoechoic mass. On some of the images the margins are quite indistinct. This measures up to 11 mm in maximum dimension. This is thought to correlate with the enhancement seen in this region on breast MRI. In the 9:00 right breast 3 to 4 cm from the nipple there is an oval circumscribed nearly isoechoic mass measuring up to 8 mm. There appears to be subtle clip on real-time imaging in this region. This is thought to correlate with the possible fibroadenoma noted in the 9:00 region on the breast MRI. Left breast: Sonographic imaging of the subareolar left breast demonstrates normal arborizing anechoic ducts. The nipple appears inverted, although no discrete mass is identified in this region. In the 2:00 left breast 6 to 7 cm from the nipple there is a vague non-mass area of subtle distortion difficult to measure but subcentimeter on ultrasound. This is thought to correlate with the area of distortion noted on the recent mammogram and breast MRI. Onelia Flores MD IMG MAMMOGRAPHY NISHA MUJICA Edited Result - Final from Last 3 Months or Most Recently Relevant to Health Maintenance Insurance MEDICARE A & B Member Subscriber Plan / Payer (Ef fective 2015-Present) Name:Jasmyn Burton Member ID:[id number] Relation to Subscriber:Self Name:Jasmyn Burton Subscriber ID:[id number] Payer ID:[id number] Group ID:Not on file Type:Not on file Address: [facility] [id number] [address] PPO Care Teams Case Manager Specialist Relationship Specialty Start Date End Date Jeanine Forbes MD [address] [address] PCP - General Family Medicine 11/06/19
--- OUTSIDE RECORDS SUMMARY | 2024-05-07 12:59 | XMS_ITS | Encounter Summary ---
Author Organization [facility] Address [address] [place] [address] Care Team Providers Care Bridge Repairer Name Role Phone Jeanine Forbes MD Primary Care Provider + Reason for Referral * MRI/CAT/PET Scan (Routine) - Closed Specialty Diagnoses / Procedures Referred By Contac t Referred To Contact Radiology Diagnoses Cervical radicular pain Procedures MRI Cervical Spine Without Contrast Zeke Saleh MD [address] [place] [address] Phone: tel: fax: [facility] [address] [place] [address] Phone: tel: Referral ID Status Reason Start Date Expiration Date Visits Re quested Visits Authorized [id number] Closed 03/02/2024 03/02/2025 1 1 Reason for Visit * Reason Comments Back Pain Neck Pain Arm Pain Numbness Tingling BUE/RLE * Consultation (Routine) - Pending Review Specialty Diagnoses / Procedures Referred By Contac t Referred To Contact Neurosurgery Diagnoses ANTERIOR WEDGING AT T9, T10, T11 Jeanine Forbes MD [address] [address] Phone: tel: fax: Zeke Saleh MD [address] [place] [address] Phone: tel: fax: Referral ID Status Reason Start Date Expiration Date V isits Requested Visits Authorized [id number] Pending Review 02/02/2024 02/01/2025 2 2 Encounter Details Date Type Department Care Team (Late st Contact Info) Description 03/02/2024 3:20 PM EDT Office Visit [facility] NEUR[facility]ERY [address] [facility] [address] [place] [address] Zeke Saleh MD [address] [facility] [address] [place] [address] Mid back pain (Primary Dx); Multilevel degenerative disc disease; Cervical radicular pain Social History Tobacco Use Types Packs/Day Years [...] on file documented as of this encounter Last Filed Vital Signs Vital Sign Reading Time Taken Comments Blood Pressure - - Pulse - - Temperature 36.6 ??C (97.8 ??F) 03/02/2024 3:07 PM ED T Respiratory Rate - - Oxygen Saturation - - Inhaled Oxygen Concentration - - Weight 61.7 kg (136 lb) 03/02/2024 3:07 PM EDT Height 167.6 cm (5' 6 ) 03/02/2024 3:07 PM EDT Body Mass Index 21.95 03/02/2024 3:07 PM EDT documented in this encounter Progress Notes * Zeke Saleh MD - 03/02/2024 3:20 PM EDT Patient: Jasmyn Burton : 1950 Primary Care Provider: Jeanine Forbes MD Requesting Provider: As above History Chief Complaint: Mid back and bilateral arm/hand pain. 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 She was thrown up against a wall. She developed severe fullness and pain in the thoracic region just medial to the left scapula. She describes a bandlike feeling that extends aroundher chest. For last 7 to 10 days she has had a burning dysesthetic pain involving her hands and forearms. She does have neck pain. She has low back pain. She has some pain radiating in a stabbing fashion into the right leg. The physical therapy session made her worse. She has been taking gabapentinand titrating that medicine up. She is now up to 1200 mg a day. She is taking baclofen. She took a Medrol Dosepak which helped a little bit. She has taken NSAIDs. She is worse with sitting, lying flat, or with movement. Of note in the mid she had bilateral pulmonary emboli and then developedbilateral brachial plexitis with prominent symptoms for a while. She had bilateral phrenic nerve involvement at that time as well. In the past she underwent bilateral carpal tunnel release. The last 7-10 days she has had some bowel and bladder incontinence. Review of Systems Constitutional: Negative for activity change, appetite change, chills, diaphoresis, fatigue, fever and unexpected weight change. HENT: Negative for congestion, dental problem, drooling, ear discharge, ear pain, facial swelling, hearing loss, mouth sores, nosebleeds, postnasal drip, rhinorrhea, sinus pressure, sinus pain, sneezing, sore throat, tinnitus, trouble swallowing and voice change. Eyes: Negative for photophobia, pain, discharge, redness, itching and visual disturbance. Respiratory: Negative for apnea, cough, choking, chest tightness, shortness of breath, wheezing andstridor. Cardiovascular: Negative for chest pain, palpitations and leg swelling. Gastrointestinal: Negative for abdominal distention, abdominal pain, anal bleeding, blood in stool,constipation, diarrhea, nausea, rectal pain and vomiting. Endocrine: Negative for cold intolerance, heat intolerance, polydipsia, polyphagia and polyuria. Genitourinary: Negative for decreased urine volume, difficulty urinating, dyspareunia, dysuria, enuresis, flank pain, frequency, genital sores, hematuria, menstrual problem, pelvic pain, urgency, vaginal bleeding, vaginal discharge and vaginal pain. Musculoskeletal: Positive for neck pain and neck stiffness. Negative for arthralgias, back pain, gait problem, joint swelling and myalgias. Skin: Negative for color change, pallor, rash and wound. Allergic/Immunologic: Negative for environmental allergies, food allergies and immunocompromised state. Neurological: Positive for weakness. Negative for dizziness, tremors, seizures, syncope, facial asymmetry, speech difficulty, light-headedness, numbness and headaches. Hematological: Negative for adenopathy. Does not bruise/bleed easily. Psychiatric/Behavioral: Negative for agitation, behavioral problems, confusion, decreased concentration, dysphoric mood, hallucinations, self-injury, sleep disturbance and suicidal ideas. The patientis not nervous/anxious and is not hyperactive. The patient's past medical history, past surgical history, family history, and social history have been reviewed at length in the electronic medical record. Physical Exam: Temp 97.8 ??F (36.6 ??C) (Infrared) Ht 167.6 cm (66 ) Wt 61.7 kg (136 lb) BMI 21.95 kg/m?? CONSTITUTIONAL: Patient is well-nourished, pleasant and appears stated age. MUSCULOSKELETAL: Neck tenderness to palpation is not observed. ROM in the neck is normal. There is some tenderness just left of midline in the upper thoracic region adjacent to the scapula. Straight leg raising is negative. Guerrero signs are negative. NEUROLOGICAL: Orientation, memory, attention span, language function, and cognition have been examined and are intact. Strength is intact in the upper and lower extremities to direct testing. Muscle tone is normal throughout. Station and gait are normal. Sensation is intact to light touch testing throughout. Deep tendon reflexes are 2+ and symmetrical. Zev's Sign is negative bilaterally. No clonus is elicited. Coordination is intact. Medical Decision Making Data Review: (All imaging studies were personally reviewed unless stated otherwise) MRI of the thoracic spine dated 02/04/2024 demonstrates a kyphosis with some degenerative wedging. There was some question about compression fractures but frankly I think those are more degenerative in nature and not more subacute to acute fractures. Minimal findings are noted on the STIR sequences.There is some more rightward disc bulging at what I believed to be T9-10. There may be slight effacement of the cord. This is more visible on the sagittal imaging. The radiologist raise the specter of there being some signal change within the cord but I am not particularly impressed with that. MRI of the lumbar spine dated 02/09/2024 demonstrates a very low-grade listhesis of L4 on L5 there is some paracentral prominent disc bulging on the left at L5-S1. Diagnosis: 1. Diffuse spinal pain. 2. Dysesthetic symptoms involving the arms and hands. 3. Lumbar spondylolisthesis. 4. Lumbar degenerative disc disease. Treatment Options: I am going to check an MRI of the cervical spine to ensure that there is not overt cord compressionthat could explain some of her symptoms although I do not see long track signs on examination. I think it is too early to pursue electrodiagnostic studies to further address her arm and hand symptoms. I agree with the gabapentin and with increasing the dose as necessary. Further recommendations will ensue and follow-up. There may not be a structural lesion that requires surgical intervention. Scribed for Zeke Saleh MD by Kalani Ybarra CMA on 03/02/2024 15:40 EDT I, Dr. Saleh, personally performed the services described in the documentation, as scribed in my presence, and it is both accurate and complete. documented in this encounter Plan of Treatment Upcoming Encounters Date Type Department Care Team (Late st Contact Info) Description 08/09/2024 3:00 PM EST Office Visit [facility] RHEUMATOLOGY [address] [facility] [address] [place] [address] Ken Devries MD [address] [facility] [address] [place] [address] documented as of this encounter Results * MRI Cervical Spine Without Contrast (03/14/2024 [...] MD 03/15/2024 10:12 AM EDT Workstation ID: [id number] Narrative 03/15/2024 10:12 AM EDT MRI CERVICAL [...] MD 03/15/2024 10:12 AM EDT Workstation ID: [id number] Zeke Saleh MD IMG MRI ORDERABLES Final Resu lt * MRI outside films (02/09/2024 12:00 AM EDT) Narrative SYSTEMGENERATED, DOCUMENTATION - 03/02/2024 3:27 PM EDT This procedure was auto-finalized with no dictation required. us Zeke Saleh MD IMG MRI ORDERABLES Final Resu lt * MRI outside films (02/04/2024 12:00 AM EDT) Narrative SYSTEMGENERATED, DOCUMENTATION - 03/02/2024 3:23 PM EDT This procedure was auto-finalized with no dictation required. Zeke Saleh MD IMG MRI ORDERABLES Final Resu lt * CT outside films (02/01/2024 12:00 AM EDT) Narrative SYSTEMGENERATED, DOCUMENTATION - 03/02/2024 3:20 PM EDT This procedure was auto-finalized with no dictation required. Zeke Saleh MD IMG CT ORDERABLES Final Resul t documented in this encounter Visit Diagnoses Diagnosis Mid back pain- Primary Multilevel degenerative disc disease Cervical radicular pain Cervical radicular pain documented in this encounter Care Teams Bridge Repairer Relationship Specialty Start Date End Date Jeanine Forbes MD [address] [place] [id number] PCP - General Family Medicine 11/06/19 documented as of this encounter
--- OUTSIDE RECORDS SUMMARY | 2024-05-07 12:59 | XMS_ITS | Encounter Summary ---
Author Organization [facility] Address [address] [place] [address] Care Team Providers Care University Registrar Name Role Phone Jeanine Forbes MD Primary Care Provider + Reason for Referral * Diagnostic Imaging (Routine) - Closed Specialty Diagnoses / Procedures Referred By Willow howard Referred To Contact Radiology Diagnoses Abnormal findings on diagnostic imaging of breast Procedures Mammo Post Device Placement Right Aniyah Falcon MD [address] [place] [address] Phone: tel: fax: Referral ID Status Reason Start Date Expiration Date Visits Re quested Visits Authorized [id number] Closed 01/11/2023 01/11/2024 1 1 Reason for Visit * Diagnostic Imaging (Routine) - Closed Specialty Diagnoses / Procedures Referred By Willow howard Referred To Contact Radiology Diagnoses Abnormal findings on diagnostic imaging of breast Procedures Mammo Post Device Placement Right Aniyah Falcon MD [address] [place] [phone] Phone: tel: fax: Referral ID Status Reason Start Date Expiration Date Visits Re quested Visits Authorized [id number] Closed 01/11/2023 01/11/2024 1 1 Encounter Details Date Type Department Care Team (Latest Contact Info) Description 01/11/2023 11:17 AM EDT - 01/11/2023 11:59 PM EDT Hospital Encounter [facility] [address] [place] [address] Abnormal findings on diagnostic imaging of breast Discharge Disposition: Home or Self Care Social History Tobacco Use Types Packs/Day Years Used Date Smoking Tobacco: Never Smokeless Tobacco: Never Alcohol Use Standard [...] more drinks on one occasion? Weekly 11/06/2019 Comments No Sex and Gender Information Value Date Recorded Sex Assigned at Not on file Legal Sex Female 9:40 AM EDT Gender Identity Not on file Sexual Orientation Not on file documented as of this encounter Medications at Time of Discharge ASMANEX, 30 METERED DOSES, 220 MCG/INH inhaler INL 1 PUFF PO BID UTD PRN 11/01/2019 azelastine (ASTELIN) 0.1 % nasal spray azelastine 137 mcg (0.1 %) nasal spray aerosol INSTILL 1 SPRAY INTO BOTH NOSTRILS TWICE DAILY 12/22/2022 Biotin 10 MG tablet Take 1 tablet by mouth Daily. cholecalciferol (VITAMIN D3) 25 MCG (1000 UT) tablet Take 1 tablet by mouth Daily. Multiple Vitamins-Minerals (MULTIVITAMIN WITH MINERALS) tablet tablet Take 1 tablet by mouth Daily. omeprazole (priLOSEC) 20 MG capsule Take 1 capsule by mouth Daily. rizatriptan TELEMARKETING FUNDRAISER (MAXALT-TELEMARKETING FUNDRAISER) [address] 1 T ON THE TONGUE UNTIL DISSOLVED ONCE DAILY IF NEEDED 08/28/2019 vitamin C (ASCORBIC ACID) 250 MG tablet Take 1 tablet by mouth Daily. diphenhydrAMINE (BENADRYL) 25 mg capsule Take 25 mg by mouth Every 6 (Six) Hours As Needed for Itching. 4 ezetimibe (ZETIA) 10 MG tablet Take 10 mg by mouth Daily. 08/28/2019 4 fluticasone (FLONASE) 50 MCG/ACT nasal spray SHAKE LQ AND U 1 SPR IEN QD PRN 11/01/2019 4 documented as of this encounter Plan of Treatment Upcoming Encounters Date Type Department Care Team (Late st Contact Info) Description 08/09/2024 3:00 PM EST Office Visit [facility] [address] [facility] [address] [place] [address] Ken Devries MD [address] [facility] [address] [place] [address] documented as of this encounter Procedures Procedure Name Priority Date/Time Associated Diagnosis Comments MAMMO POST DEVICE PLACEMENT RIGHT Routine 01/11/2023 11:42 AM EDT Abnormal findings on diagnostic imaging of breast documented in this encounter Results * (ABNORMAL) Mammo Post Device Placement Right (01/11/2023 11:42 AM EDT) Anatomical Region Laterality Modality Breast Right Mammography 01/11/2023 11:2 2 AM EDT Addenda [...] conservation is desired. Left breast: Stereotactic biopsy, poarch clip: Lobular carcinoma in situ involving a [...] on the tomographic/stereotactic core biopsy table and merchandise clerk images were obtained. The area undergoing biopsy [...] varying densities contained within the sample. A poarch shaped biopsy marker clip was placed. Pressure [...] MAMMOGRAPHY NISHA MUJICA Edited Result - Final documented in this encounter Visit Diagnoses Diagnosis Abnormal findings on diagnostic imaging of breast Other (abnormal) findings on radiological examination of breast documented in this encounter Care Teams University Registrar Relationship Specialty Start Date End Date Jeanine Forbes MD [address] [address] PCP - General Family Medicine 11/06/19 documented as of this encounter
--- OUTSIDE RECORDS SUMMARY | 2024-05-07 12:59 | XMS_ITS | Encounter Summary ---
Author Organization [facility] Address [address] [place] [address] Care Team Providers Care Peoplesoft Name Role Phone Jeanine Forbes MD Primary Care Provider + Reason for Referral * Diagnostic Imaging (Routine) - Closed Specialty Diagnoses / Procedures Referred By Willow howard Referred To Contact Radiology Diagnoses Abnormal findings on diagnostic imaging of breast Procedures Mammo Breast Specimen Aniyah Falcon MD [address] [place] [address] Phone: tel: fax: Referral ID Status Reason Start Date Expiration Date Visits Re quested Visits Authorized [id number] Closed 01/11/2023 01/11/2024 1 1 Reason for Visit * Diagnostic Imaging (Routine) - Closed Specialty Diagnoses / Procedures Referred By Willow howard Referred To Contact Radiology Diagnoses Abnormal findings on diagnostic imaging of breast Procedures Mammo Breast Specimen Aniyah Falcon MD [address] [place] [address] Phone: tel: fax: Referral ID Status Reason Start Date Expiration Date Visits Re quested Visits Authorized [id number] Closed 01/11/2023 01/11/2024 1 1 Encounter Details Date Type Department Care Team (Latest Contact Info) Description 01/11/2023 11:44 AM EDT - 01/11/2023 11:59 PM EDT Hospital Encounter [facility] [address] [facility] [address] [place] [phone] Abnormal findings on diagnostic imaging of breast [...] Take 1 capsule by mouth Daily. rizatriptan BORDER INSPECTOR (MAXALT-BORDER INSPECTOR) [address] 1 T [...] Description 08/09/2024 3:00 PM EST Office Visit [facility] R[facility]UM[facility]OLOGY [address] [facility] [address] [place] [address] Ken Devries MD [address] [facility] [address] [place] [address] documented as of this encounter Procedures Procedure Name Priority Date/Time Associated Diagnosis Comments MAMMO BREAST SPECIMEN Routine 01/11/2023 12:04 PM EDT Abnormal findings on diagnostic imaging of breast documented in this encounter Results * (ABNORMAL) Mammo Breast Specimen (01/11/2023 12:04 PM EDT) Anatomical Region Laterality Modality Breast N/A Other 01/11/2023 11:2 2 AM EDT Addenda Addendum [...] conservation is desired. Left breast: Stereotactic biopsy, [place] apache clip: Lobular carcinoma in situ involving a [...] on the tomographic/stereotactic core biopsy table and jewelry bearing maker images were obtained. The area undergoing biopsy [...] varying densities contained within the sample. A [place] apache shaped biopsy marker clip was placed. Pressure [...] mammogram and breast MRI. Onelia Flores MD IM MAMMOGRAPHY NISHA MUJICA Edited Result - Final documented in this encounter Visit Diagnoses Diagnosis Abnormal findings on diagnostic imaging of breast Other (abnormal) findings on radiological examination of breast documented in this encounter Care Teams Peoplesoft Relationship Specialty Start Date End Date Jeanine Forbes MD [address] [place] [id number] PCP - General Family Medicine 11/06/19 documented as of this encounter
--- OUTSIDE RECORDS SUMMARY | 2024-05-07 12:59 | XMS_ITS | Encounter Summary ---
Author Organization [facility] Address [address] [place] [address] Care Team Providers Care Oil Well Service Unit Operator Name Role Phone Jeanine Forbes MD Primary Care Provider + Reason for Referral * MRI/CAT/PET Scan (Emergency) - Closed Specialty Diagnoses / Procedures Referred By Willow howard Referred To Contact Radiology Diagnoses Abnormal findings on diagnostic imaging of breast Procedures MRI breast bilateral diagnostic [place] [address] [place] [address] Phone: tel: fax: Referral ID Status Reason Start Date Expiration Date Visits Re quested Visits Authorized [id number] Closed 12/17/2022 12/17/2023 1 1 Reason for Visit * MRI/CAT/PET Scan (Emergency) - Closed Specialty Diagnoses / Procedures Referred By Willow howard Referred To Contact Radiology Diagnoses Abnormal findings on diagnostic imaging of breast Procedures MRI breast bilateral diagnostic w wo contrast Aniyah Falcon MD [address] [facility] [place] [address] Phone: tel: fax: Referral ID Status Reason Start Date Expiration Date Visits Re quested Visits Authorized [id number] Closed 12/17/2022 12/17/2023 1 1 Encounter Details Date Type Department Care Team (Late st Contact Info) Description 12/23/2022 2:06 PM EDT - 12/23/2022 11:59 PM EDT Hospital Encounter [facility] [address] [place] [address] Aniyah Falcon MD [address] [place] [address] Abnormal findings on diagnostic imaging of breast [...] Take 1 capsule by mouth Daily. rizatriptan HOSPICE REGISTERED NURSE (MAXALT-HOSPICE REGISTERED NURSE) [address] 1 T [...] Description 08/09/2024 3:00 PM EST Office Visit [facility]HE[facility]OLOGY [address] [facility] [address] [place] [address] Ken Devries MD [address] [facility] [address] [place] [address] documented as of this encounter Procedures Procedure Name Priority Date/Time Associated Diagnosis Comments MRI BREAST BILATERAL DIAGNOSTIC W WO CONTRAST(INACTIVE) STAT 12/23/2022 3:34 PM EDT Abnormal findings on diagnostic imaging of breast POCT CREATININE Routine 12/23/2022 3:01 PM EDT documented in this encounter Results * (ABNORMAL) MRI Breast Bilateral Diagnostic With & Without Contrast(INACTIVE) (12/23/2022 3:34 PM EDT) Anatomical Region Laterality Modality Breast Bilateral Magnetic Resonan ce 12/27/2022 4:03 PM EDT Impressions 12/27/2022 4:25 PM EDT 1. Right breast: Oval mass in the 9:00 right breast, possibly a fibroadenoma. Recommend diagnostic mammogram with tomosynthesis and second look ultrasound is recommended for further evaluation and to assess for associated clip artifact as a biopsy marker clip is noted on mammogram but not seen in this area on MRI. Additionally, there is a dominant mass with indistinct margins in the 5:30/6:00 right breast. Second look ultrasound is recommended for further evaluation to assess for correlate. If a sonographic correlate is not found, MRI guided biopsy should be considered. There are 2 subjacent subcentimeter enhancing foci just lateral and superior. Further evaluation with second look ultrasound is recommended as well. 2. Left breast: Focal non-mass enhancement with subtle suggestion of distortion in the lateral left breast. Recommend diagnostic left mammogram with tomosynthesis and possible left breast ultrasound for further evaluation. If a mammographic/sonographic correlate is not found, MRI guided biopsy should be considered. Asymmetric enhancement of the left nipple which appears partially inverted. Recommend correlation with a diagnostic left mammogram and second Look left breast ultrasound for further evaluation. BI-RADS Category 0: Need additional imaging. Bilateral diagnostic imaging is recommended as detailed above. This report was finalized on 12/27/2022 5:25 PM by Onelia Flores MD. Narrative 12/27/2022 4:25 PM EDT BILATERAL BREAST MRI WITH AND WITHOUT ??CONTRAST CLINICAL HISTORY: Patient is a 72-year-old female who presents for diagnostic MRI for history of abnormal findings on outside mammogram. TECHNIQUE: ??Pre-contrast spin-echo T1 weighted and T2 sequences were obtained in the axial plane. ??Routine dynamic images were performed following the administration of 13 ml of Multihance contrast. ??No contrast complications occurred. ??Delayed high resolution post contrast T1 weighted sagittal images were also obtained. ?? A CAD system ([employer]ern[employer]ift) was utilized for data analysis. COMPARISON: Exam is correlated to outside prior mammogram dated 06/11/2019, 06/17/2020, 07/01/2021, 07/28/2022 as well as diagnostic left mammogram dated 08/04/2022 and left breast ultrasound dated 08/04/2022. FINDINGS: Contrast is seen in the heart and great vessels consistent with adequate contrast bolus. There is moderate symmetric background parenchymal enhancement of the patient's heterogeneously dense breast tissue. Right breast: There is an oval circumscribed enhancing mass in the upper outer quadrant of the right breast at posterior depth, 9:00 region, measuring up to 8 mm. There is subtle suggestion of internal dark septations. This may represent a fibroadenoma. This is best seen on PACS series 7 image #92. A biopsy marker clip is seen in the upper outer quadrant on mammogram, although clip artifact is not definitely seen on today's MRI. ??In the 5:30/6:00 right breast, there is a dominant enhancing mass with indistinct margins measuring up to 10 mm in maximum dimension. This is best seen on PACS series 7 image #104. There are 2 similar-appearing subcentimeter dominant enhancing foci just lateral and slightly superior, best seen on PACS series 7 images #94 and #103. There is no axillary lymphadenopathy. Left breast: There is focal non-mass enhancement and subtle suggestion of distortion in the central lateral left breast 3:00 region measuring up to 17 mm. This is best seen on PACS series 7, image #83. Additionally, there is asymmetric enhancement of the left nipple and subareolar region. 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 This is best appreciated on PACS series 7 image #91. There is no axillary lymphadenopathy. Procedure Note Onelia Flores MD - 01/03/2024 BILATERAL BREAST MRI WITH AND WITHOUT CONTRAST CLINICAL HISTORY: Patient is a 72-year-old female who presents for diagnostic MRI for history of abnormal findings on outside mammogram. TECHNIQUE: Pre-contrast spin-echo T1 weighted and T2 sequences were obtained in the axial plane. Routine dynamic images were performed following the administration of 13 ml of Multihance contrast. No contrast complications occurred. Delayed high resolution post contrast T1 weighted sagittal images were also obtained. A CAD system ([employer]ernstift) was utilized for data analysis. COMPARISON: Exam is correlated to outside prior mammogram dated 06/11/2019, 06/17/2020, 07/01/2021, 07/28/2022 as well as diagnostic left mammogram dated 08/04/2022 and left breast ultrasound dated 08/04/2022. FINDINGS: Contrast is seen in the heart and great vessels consistent with adequate contrast bolus. There is moderate symmetric background parenchymal enhancement of the patient's heterogeneously dense breast tissue. Right breast: There is an oval circumscribed enhancing mass in the upper outer quadrant of the right breast at posterior depth, 9:00 region, measuring up to 8 mm. There is subtle suggestion of internal dark septations. This may represent a fibroadenoma. This is best seen on PACS series 7 image #92. A biopsy marker clip is seen in the upper outer quadrant on mammogram, although clip artifact is not definitely seen on today's MRI. In the 5:30/6:00 right breast, there is a dominant enhancing mass with indistinct margins measuring up to 10 mm in maximum dimension. This is best seen on PACS series 7 image #104. There are 2 similar-appearing subcentimeter dominant enhancing foci just lateral and slightly superior, best seen on PACS series 7 images #94 and #103. There is no axillary lymphadenopathy. Left breast: There is focal non-mass enhancement and subtle suggestion of distortion in the central lateral left breast 3:00 region measuring up to 17 mm. This is best seen on PACS series 7, image #83. Additionally, there is asymmetric enhancement of the left nipple and subareolar region. 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 This is best appreciated on PACS series 7 image #91. There is no axillary lymphadenopathy. IMPRESSION: 1. Right breast: Oval mass in the 9:00 right breast, possibly a fibroadenoma. Recommend diagnostic mammogram with tomosynthesis and second look ultrasound is recommended for further evaluation and to assess for associated clip artifact as a biopsy marker clip is noted on mammogram but not seen in this area on MRI. Additionally, there is a dominant mass with indistinct margins in the 5:30/6:00 right breast. Second look ultrasound is recommended for further evaluation to assess for correlate. If a sonographic correlate is not found, MRI guided biopsy should be considered. There are 2 subjacent subcentimeter enhancing foci just lateral and superior. Further evaluation with second look ultrasound is recommended as well. 2. Left breast: Focal non-mass enhancement with subtle suggestion of distortion in the lateral left breast. Recommend diagnostic left mammogram with tomosynthesis and possible left breast ultrasound for further evaluation. If a mammographic/sonographic correlate is not found, MRI guided biopsy should be considered. Asymmetric enhancement of the left nipple which appears partially inverted. Recommend correlation with a diagnostic left mammogram and second Look left breast ultrasound for further evaluation. BI-RADS Category 0: Need additional imaging. Bilateral diagnostic imaging is recommended as detailed above. This report was finalized on 12/27/2022 5:25 PM by Onelia Flores MD. us Aniyah Falcon MD IMG MRI ORDERABLES Edited Result - Final * POC Creatinine (12/23/2022 3:01 PM EDT) Creatinine 0.90 0.60 - 1.30 mg/dL 12/23/2022 3:49 PM EDT [facility] Comment:Serial Number: [id number] [id number] Blood 12/23/2022 3:01 PM EDT 12/23/2022 3:49 PM EDT Aniyah Falcon MD POINT OF CARE TEST ORDERA BLES Final Result [facility]
[address] [place] [address], documented in this encounter Visit Diagnoses Diagnosis Abnormal findings on diagnostic imaging of breast Other (abnormal) findings on radiological examination of breast documented in this encounter Administered Medications Inactive Administered Medications - up to 3 most recent administrations Medication Order MAR Action Action Date Dose Rate Site gadobenate dimeglumine (MULTIHANCE) injection 13 mL 13 mL, Intravenous, Once in Imaging, On Amanda 12/23/22 at 1519, For 1 dose, Vesicant; admin as rapid bolus; flush with 5 mL NS after admin or 20 mL for renal or aortoiliofemoral vasculature Given 12/23/2022 3:27 PM EDT 13 mL documented in this encounter Care Teams Oil Well Service Unit Operator Relationship Specialty Start Date End Date Jeanine Forbes MD [address] [place], [place] [phone] PCP - General Family Medicine 11/06/19 documented as of this encounter
--- OUTSIDE RECORDS SUMMARY | 2024-05-07 12:59 | XMS_ITS | Encounter Summary ---
Author Organization [facility] Address [address] [place] [address] Care Team Providers Care Paper Maker Name Role Phone Jeanine Forbes MD Primary Care Provider + Reason for Referral * Diagnostic Imaging (Routine) - Closed Specialty Diagnoses / Procedures Referred By Contac t Referred To Contact Diagnoses Chest pain, atypical Abnormal EKG Procedures Adult Stress Echo W/ Cont or Stress Agent if Necessary Per Protocol Adult Stress Echo W/ Cont or Stress Agent if Necessary Per Protocol Zunilda Guajardo APRN Phone: tel: fax: [address] [address] Phone: tel: Referral ID Status Reason Start Date Expiration Date Visits Re quested Visits Authorized [id number] Closed 11/06/2019 11/05/2020 1 1 Reason for Visit * Diagnostic Imaging (Routine) - Closed Specialty Diagnoses / Procedures Referred By Contac t Referred To Contact Diagnoses Chest pain, atypical Abnormal EKG Procedures Adult Stress Echo W/ Cont or Stress Agent if Necessary Per Protocol Adult Stress Echo W/ Cont or Stress Agent if Necessary Per Protocol Zunilda Guajardo APRN Phone: tel: fax: [address] [address] Phone: tel: Referral ID Status Reason Start Date Expiration Date Visits Re quested Visits Authorized [id number] Closed 11/06/2019 11/05/2020 1 1 Encounter Details Date Type Department Care Team (Late st Contact Info) Description 12/10/2019 2:00 PM EDT - 12/10/2019 11:59 PM EDT Hospital Encounter [facility] [address] [facility] 3rd floor [place] [phone] Zunilda Guajardo, STATE ASSESSED PROPERTIES DIRECTOR [address] [place] [address] Chest pain, atypical; Abnormal EKG Discharge Disposition: Home or Self Care Social [...] drinks on one occasion? Weekly 11/06/2019 Comments Unknown Sex and Gender Information Value Date Recorded Sex Assigned at Not on file Legal Sex Female 9:40 AM EDT Gender Identity Not on file Sexual Orientation Not on file documented as of this encounter Last Filed Vital Signs Vital Sign Reading Time Taken Comments Blood Pressure - - Pulse - - Temperature - - Respiratory Rate - - Oxygen Saturation - - Inhaled Oxygen Concentration - - Weight 66.2 kg (146 lb) 12/10/2019 4:24 PM EDT Height 167.6 cm (5' 6 ) 12/10/2019 4:24 PM EDT Body Mass Index 23.57 12/10/2019 4:24 PM EDT documented in this encounter Medications at Time of Discharge ASMANEX, 30 METERED DOSES, 220 MCG/INH inhaler INL 1 PUFF PO BID UTD PRN 11/01/2019 Biotin 10 MG tablet Take 1 tablet by mouth Daily. cholecalciferol (VITAMIN D3) 25 MCG (1000 UT) tablet Take 1 tablet by mouth Daily. Multiple Vitamins-Minerals (MULTIVITAMIN WITH MINERALS) tablet tablet Take 1 tablet by mouth Daily. omeprazole (priLOSEC) 20 MG capsule Take 1 capsule by mouth Daily. rizatriptan THROAT CUTTER (MAXALT-THROAT CUTTER) [address] 1 T [...] Description 08/09/2024 3:00 PM EST Office Visit [facility] [address] [facility] [place] [address] [place] [phone] Ken Devries MD [address] [place] [address] [place] [phone] documented as of this encounter Procedures Procedure Name Priority Date/Time Associated Diagnosis Comments SE QUAD ONLY W/ CONTRAST AND EXERCISE Routine 12/10/2019 3:47 PM EDT Chest pain, atypical Abnormal EKG documented in this encounter Results * SE QUAD ONLY W/ CONTRAST AND EXERCISE (12/10/2019 3:47 PM EDT) [facility] CV STRESS PROTOCOL 1 Leon [facility] Stage 1 1 [facility] Duration Min Stage 1 3 [facility] Grade Stage 1 10 [facility] Speed Stage 1 1.7 [facility] CV STRESS METS STAGE 1 5 [facility] Baseline HR 63 bpm [facility] Baseline BP 126/86 mmHg [facility] HR Stage 1 89 [facility] BP Stage 1 146/90 [facility] O2 Stage 1 98 [facility] Stage 2 2 [facility] HR Stage 2 101 [facility] BP Stage 2 162/94 [facility] O2 Stage 2 [facility] Min [facility] 2 [facility] Grade Stage 2 12 [facility] Speed Stage 2 2.5 [facility] CV STRESS METS STAGE 2 7.5 [facility] Stage 3 3 [facility] HR Stage 3 142 [facility] BP Stage 3 170/102 [facility] O2 Stage 3 [facility] Duration Min Stage 3 3 [facility] Grade Stage 3 14 [facility] Speed Stage 3 3.4 [facility] CV STRESS METS STAGE 3 10.0 [facility] Stage 4 4 [facility] O2 Stage 4 98 [facility] Duration Sec Stage 4 33 [facility] Grade Stage 4 16 [facility] Speed Stage 4 4.2 [facility] CV STRESS METS STAGE 4 13.5 [facility] O2 sat peak 98 % [facility] Recovery BP 154/82 mmHg [facility] Recovery O2 99 % [facility] HR Stage 4 153 [facility] Peak HR 153 bpm [facility] Peak BP 170/102 mmHg [facility] Recovery HR 73 bpm [facility] Exercise duration (min) 9 min [facility] Exercise duration (sec) 33 sec [facility] Estimated workload 11.8 METS [facility] BSA 1.7 m^2 [facility] IVSd 0.85 cm [facility] LVIDd 4.8 cm [facility] LVIDs 3.0 cm [facility] LVPWd 1.0 cm [facility] IVS/LVPW 0.85 [facility] FS 37.7 % [facility] EDV(Teich) 109.0 [facility] ESV(Teich) 35.2 ml [facility] EF(Teich) 67.7 % [facility] EDV(cubed) 112.5 ml [facility] ESV(cubed) 27.2 ml [facility] EF(cubed) 75.9 % [facility] LV mass(C)d 155.6 grams [facility] LV mass(C)dI 88.9 grams/m^2 [facility] SV(Teich) 73.8 ml [facility] SI(Teich) 42.2 ml/m^2 [facility] SV(cubed) 85.4 ml [facility] SI(cubed) 48.8 ml/m^2 [facility] CV ECHO NBA - BZI_BMI 23.6 kilograms/ m^2 [facility] CV ECHO BNA - BSA(ZOLFO [place]) 1.8 m^2 [facility] CV ECHO NBA - BZI_METRIC_WEI GHT 66.2 kg [facility] CV ECHO NBA - BZI_METRIC_HEI GHT 167.6 cm [facility] Percent Target HR 119 % [facility] Percent Max Pred HR 101.32 % [facility] Target HR (85%) 128 bpm [facility] Max. Pred. HR (100%) 151 bpm [facility] CV VAS BP RIGHT ARM 126/86 mmHg [facility] Echo EF Estimated 55 % [facility] Anatomical Region Laterality Modality Other 12/10/2019 3:24 PM EDT Narrative 12/12/2019 12:32 PM EDT ?? Estimated EF = 55%. ?? Left ventricular systolic function is normal. ?? Pt denied chest pain, pressure and dyspnea during procedure ?? Expected exercise duration = 5:50, Actual exercise duration = 9:33 ?? THR of 128 achieved at 7:36, pt request to stop due to fatigue ?? No ST segment shift from baseline with exercise ?? An appropriate augmentation of myocardial contractility was seen in all segments with exercise. ?? No evidence of inducible ischemia by clinical, electrocardiographic or echocardiographic criteria. ?? This is a low risk study for future cardiac events. Left Ventricle Left ventricular systolic function is normal. Estimated EF appears to be in the range of 56 - 60%. Estimated EF = 55%. Normal left ventricular cavity size and wall thickness noted. Right Ventricle Appears normal. Left Atrium Appears normal. Right Atrium Appears normal. Mitral Valve The mitral valve is normal in structure. [id number] mitral valve regurgitation is present. No significant mitral valve stenosis is present. Tricuspid Valve The tricuspid valve is normal. Trace tricuspid valve regurgitation is present. Aortic Valve The aortic valve is structurally normal. The valve appears trileaflet. Trace aortic valve regurgitation is present. No aortic valve stenosis is present. Pulmonic Valve The pulmonic valve is structurally normal. There is no significant pulmonic valve stenosis present. There is no significant pulmonic valve regurgitation present. Pericardium The pericardium is normal. There is no evidence of pericardial effusion. Additional Study Details A two-dimensional stress echocardiogram with complete color flow and Doppler was performed. Echocardiographic images were obtained before and after stress. The study is technically good for diagnosis.Verbal consent was obtained from the patient to use Lumason contrast in order to optimize the study. The use of Lumason was indicated to improve delineation of the left ventricular endocardial border. A total of 5 mL Lumason was administered. Normal sinus was the predominant rhythm observed during the procedure. Greater Vessels No dilation of the aortic root is present. No dilation of the sinuses of Valsalva is present. Rest ECG EKG at baseline showed normal sinus rhythm at a rate of 62 bpm with a first- degree AV block and a low voltage QRS throughout but was otherwise normal EKG.. PACs and PVCs noted. Stress ECG During exercise occasional PVCs were seen. Several ventricular couplets were seen in stage III as well as isolated PVCs. The EKG at peak heart rate showed sinus tachycardia at a rate of 151 bpm with 1 PVC and no significant ST segment shift from baseline.. Arrhythmias during stress: occasional PVCs, couplets. Ventricle Size / Description Segment augmentation had a normal response to stress. Stress Description A stress test was performed following the Leon protocol. The patient achieved the target heart rate. The patient requested the test to be stopped because the patient experienced fatigue. The patient reported no symptoms during the stress test. Recovery ECG During recovery, the patient complained of no significant symptoms following stress. Sinus rhythm was noted during recovery. Arrhythmias during stress: rare PVC's, couplets. Procedure Note Anat Moreira MD - 12/12/2019 ?? Estimated EF = 55%. ?? Left ventricular systolic function is normal. ?? Pt denied chest pain, pressure and dyspnea during procedure ?? Expected exercise duration = 5:50, Actual exercise duration = 9:33 ?? THR of 128 achieved at 7:36, pt request to stop due to fatigue ?? No ST segment shift from baseline with exercise ?? An appropriate augmentation of myocardial contractility was seen in allsegments with exercise. ?? No evidence of inducible ischemia by clinical, electrocardiographic orechocardiographic criteria. ?? This is a low risk study for future cardiac events. Zunilda Guajardo APRN CV ECHO ORDERABLES Fi nal Result documented in this encounter Visit Diagnoses Diagnosis Chest pain, atypical Abnormal EKG Nonspecific abnormal electrocardiogram (ECG) (EKG) documented in this encounter Administered Medications Inactive Administered Medications - up to 3 most recent administrations Medication Order MAR Action Action Date Dose Rate Site Sulfur Hexafluoride Microsph 60.7-25 MG reconstituted suspension 5 mL 5 mL, Intravenous, Once, On 12/10/19 at 1627, For 1 dose Given 12/10/2019 4:27 PM EDT 5 mL documented in this encounter Care Teams Paper Maker Relationship Specialty Start Date End Date Jeanine Forbes MD [address] [place] [address] [phone] PCP - General Family Medicine 11/06/19 documented as of this encounter
--- OUTSIDE RECORDS SUMMARY | 2024-05-07 12:59 | XMS_ITS | Encounter Summary ---
Author Organization [facility] Address [address] [place] [address] Care Team Providers Care Shipping And Receiving Associate Name Role Phone Jeanine Forbes MD Primary Care Provider + Encounter Details Date Type Department Care Team (Late st Contact Info) Description 01/14/2023 Telephone [facility] [address] [place], [place] [phone] Che Stark RN MSN Social History Tobacco Use Types Packs/Day Years [...] on file documented as of this encounter Miscellaneous Notes * Telephone Encounter - Che Stark RN MSN - 01/14/2023 10:21 AM EDT Late Note: 01.13.23 @ 1550: Referring provider's office notified pathology returned as cancer and patient will be notified. Patient notified of pathology results and recommendation. Verbalizes understanding. Denies discomfort.. Denies signs and symptoms of infection. Patient established with Dr Joleen Falcon. Patient notified of surgical consult appointment on 01.26.23 @ 6751. Patient verbalized understanding. Patient given office contact & location information. Told to bring photo ID, list of prescription & OTC medications and insurance information. May be accompanied by family member or friend for support. Reviewed what would be discussed at surgical consult visit, including detailed explanation of pathology report & imaging reports; treatment options & pros/cons, availability of breast nurse navigator. Patient encouraged to call back or contact breast nurse navigator with questions or concerns. Patient verbalized understanding. Breast cancer information packet offered and accepted. Patientinformation sent to breast nurse navigator for evaluation. documented in this encounter Plan of Treatment Upcoming Encounters Date Type Department Care Team (Late st Contact Info) Description 08/09/2024 3:00 PM EST Office Visit [facility] RHEUMATOLOGY [address] [phone] Ken Devries MD [address] [place] [address] [place] [address] [place] [address] documented as of this encounter Visit Diagnoses Not on filedocumented in this encounter Care Teams Shipping And Receiving Associate Relationship Specialty Start Date End Date Jeanine Forbes MD [address] [place] [address] PCP - General Family Medicine 11/06/19 documented as of this encounter
--- OUTSIDE RECORDS SUMMARY | 2024-05-07 12:59 | XMS_ITS | Encounter Summary ---
Author Organization [facility] Address [address] [place] [address] Care Team Providers Care Gluer And Wedger Name Role Phone Jeanine Forbes MD Primary Care Provider + Reason for Referral * Diagnostic Imaging (Routine) - Closed Specialty Diagnoses / Procedures Referred By Willow howard Referred To Contact Radiology Diagnoses Abnormal findings on diagnostic imaging of breast Procedures Mammo Stereotactic Breast Biopsy Initial With & Without Device Aniyah Falcon MD [address] [place] [address] Phone: tel: fax: Referral ID Status Reason Start Date Expiration Date Visits Re quested Visits Authorized [id number] Closed 01/11/2023 01/11/2024 1 1 Reason for Visit * Diagnostic Imaging (Routine) - Closed Specialty Diagnoses / Procedures Referred By Willow howard Referred To Contact Radiology Diagnoses Abnormal findings on diagnostic imaging of breast Procedures Mammo Stereotactic Breast Biopsy Initial With & Without Device Aniyah Falcon MD [address] [place] [address] Phone: tel: fax: Referral ID Status Reason Start Date Expiration Date Visits Re quested Visits Authorized [id number] Closed 01/11/2023 01/11/2024 1 1 Encounter Details Date Type Department Care Team (Latest Contact Info) Description 01/11/2023 11:23 AM EDT - 01/11/2023 11:59 PM EDT Hospital Encounter [facility] BREAST [facility]ENTER [address] [place] [address] Abnormal findings on diagnostic imaging of breast [...] Take 1 capsule by mouth Daily. rizatriptan AVIATION SURVIVAL TECHNICIAN (MAXALT-AVIATION SURVIVAL TECHNICIAN) [address] 1 T [...] 11/01/2019 4 documented as of this encounter Progress Notes * Celia Parnell RN - 01/11/2023 11:25 AM EDT Alert and orientated. Denies discomfort, no active bleeding, steri-strips not visualized, gauze dressing intact at both sites. Cold packs given. Verbalizes and demonstrates understanding of post-careinstructions, written copy given. documented in this encounter Plan of Treatment Upcoming Encounters Date Type Department Care Team (Late st Contact Info) Description 08/09/2024 3:00 PM EST Office Visit [facility] RHEUMATOLOGY [address] [phone] Ken Devries MD 3000 [facility] [address] [place] [address] documented as of this encounter Procedures Procedure Name Priority Date/Time Associated Diagnosis Comments MAMMO STEREOTACTIC BREAST BIOPSY INITIAL W WO DEVICE Routine 01/11/2023 12:03 PM EDT Abnormal findings on diagnostic imaging of breast TISSUE PATHOLOGY EXAM Routine 01/11/2023 12:01 PM EDT documented in this encounter Results * (ABNORMAL) Mammo Stereotactic Breast Biopsy Initial With & Without Device (01/11/2023 12:03 PM EDT) Anatomical Region Laterality Modality Breast [...] conservation is desired. Left breast: Stereotactic biopsy, tejon clip: Lobular carcinoma in situ involving a [...] on the tomographic/stereotactic core biopsy table and criminal research specialist images were obtained. The area undergoing biopsy [...] varying densities contained within the sample. A tejon shaped biopsy marker clip was placed. Pressure [...] on the recent mammogram and breast MRI. us Onelia Flores MD IMG MAMMOGRAPHY NISHA MUJICA Edited Result - Final * Tissue Pathology Exam (01/11/2023 12:01 PM EDT) Case Report Surgical Pathology Report ? Case: [id number] ? Authorizing Provider: ??Onelia Flores, Collected: ? 01/11/2023 12:01 PM ? MD ? Ordering Location: ? [facility] ?? Received: ?01/11/2023 12:55 PM ? BREAST CENTER ? Pathologist: ? Ras Lucas MD ? Specimen: ?Breast, Left, left breast area of distortion ? 01/13/2023 12:05 PM EDT [facility] Clinical Information Left breast area of distortion 01/13/2023 12:05 PM EDT [facility] Final Diagnosis 1. 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 No evidence of malignancy. 01/13/2023 12:05 PM T [facility] Comment This report was sent to the radiologist at [facility] on 01/13/2023. 01/13/2023 12:05 PM EDT [facility] Gross Description 1. Breast, Left. Received in formalin labeled left breast stereotactic biopsy are 2 cassettes, 1 of which is designated with Steri-Strip. The undesignated cassette contains a 2.2 x 2 x 0.5 cm aggregate of stroud-pink fibrofatty breast tissue cores placed in formalin at 1201 on 01/11/2023 and submitted in block 1A. The designated cassette contains a 2 x 2 x 0.4 cm aggregate of stroud-pink fibrofatty breast tissue cores placed in formalin at 1201 on 01/11/2023 now submitted in block 1B. The cold ischemic time is less than 60 minutes, the total time in formalin is greater than 6 and less than 72 hours. HDM 01/13/2023 12:05 PM EDT [facility] Special Stains Four immunohistochemical stains are performed with appropriate controls. P63 and smooth muscle myosin heavy chain on block 1A show an intact myoepithelial layer around the epithelial proliferation. P40 on block 1B also shows an intact myoepithelial layer. The proliferation is negative for E-cadherin. 01/13/2023 12:05 PM EDT [facility] Microscopic Description The slides are reviewed and demonstrate histopathologic features supporting the above rendered diagnosis. 01/13/2023 12:05 PM EDT [facility] Tissue Left breast structure / Unknown Collection / Unknown 01/11/2023 12:01 PM EDT 01/11/2023 12:55 PM EDT Onelia Flores MD PATHOLOGY/CYTOLOGY O RDERABLES Final Result [facility]
[address] [place] [address], documented in this encounter Visit Diagnoses Diagnosis Abnormal findings on diagnostic imaging of breast Other (abnormal) findings on radiological examination of breast documented in this encounter Administered Medications Inactive Administered Medications - up to 3 most recent administrations Medication Order MAR Action Action Date Dose Rate Site lidocaine (XYLOCAINE) 1 % injection 10 mL 10 mL, Injection, Once, On Tue01/11/23 at 1149, For 1 dose Given 01/11/2023 11:49 AM EDT 10 mL lidocaine (XYLOCAINE) 1 % injection 5 mL 5 mL, Injection, Once, On Tue01/11/23 at 1153, For 1 dose Given 01/11/2023 11:51 AM EDT 5 mL lidocaine 1% - EPINEPHrine 1:585563 (XYLOCAINE W/EPI) 1 %-1:918666 injection 10 mL 10 mL, Injection, Once, On Tue01/11/23 at 1149, For 1 dose Given 01/11/2023 11:49 AM EDT 10 mL documented in this encounter Care Teams Gluer And Wedger Relationship Specialty Start Date End Date Jeanine Forbes MD [address] [place], [place] [phone] PCP - General Family Medicine 11/06/19 documented as of this encounter
--- OUTSIDE RECORDS SUMMARY | 2024-05-07 12:59 | XMS_ITS | Encounter Summary ---
Author Organization [facility] Address [address] [place] [address] Care Team Providers Care Trust Officer Name Role Phone Unavailable Primary Care Provider Unavailabl e Reason for Visit * Reason Onset Date Comments REFERRAL 08/30/2019 Encounter Details Date Type Department Care Team (Late st Contact Info) Description 08/30/2019 Telephone [facility] CARDIOLOG[facility] [address] [facility] [address] [place] [phone] Anat Moreira MD [address] [facility] [address] [place] [address] REFERRAL Social History Tobacco Use Types Packs/Day Years Used Date Smoking Tobacco: Never Assessed Comments Unknown Sex and Gender Information Value Date Recorded Sex Assigned at Not on file Legal Sex Female 9:40 AM EDT Gender Identity Not on file Sexual Orientation Not on file documented as of this encounter Miscellaneous Notes * Telephone Encounter - Jeff Nguyễn RegSched Rep - 08/30/2019 9:48 AM EDT REFERRED BY ELISA GUIDO PH. [phone] (ALL REC REQ 08/29) *PREVIOUS AMMONIA NITRATE OPERATOR: NO *TESTING: LABS documented in this encounter Plan of Treatment Upcoming Encounters Date Type Department Care Team (Late st Contact Info) Description 08/09/2024 3:00 PM EST Office Visit [facility] RHE[facility] 3000 [facility] [address] [place] [address] Ken Devries MD 3000 [facility] [address] [place], [place] [phone] documented as of this encounter Visit Diagnoses Not on filedocumented in this encounter
--- OUTSIDE RECORDS SUMMARY | 2024-05-07 12:59 | XMS_ITS | Encounter Summary ---
Author Organization [facility] Address [address] [place] [address] Care Team Providers Care Tool And Die Assembler Name Role Phone Jeanine Forbes MD Primary Care Provider + Reason for Visit * Reason Comments Peripheral Neuropathy Encounter Details Date Type Department Care Team (Late st Contact Info) Description 04/03/2024 3:20 PM EDT Office Visit [facility] NEUROSURGERY [address] [phone] Zeke Saleh MD [address] [facility] [address] [place] [phone] Mid back pain (Primary Dx); Lumbar disc disease Social History Tobacco Use Types Packs/Day Years [...] Pressure - - Pulse - - Temperature 36.3 ??C (97.3 ??F) 04/03/2024 3:22 PM ED T Respiratory Rate - - Oxygen Saturation - - Inhaled Oxygen Concentration - - Weight 61.7 kg (136 lb) 04/03/2024 3:22 PM EDT Height 167.6 cm (5' 6 ) 04/03/2024 3:22 PM EDT Body Mass Index 21.95 04/03/2024 3:22 PM EDT documented in this encounter Progress Notes * Zeke Saleh MD - 04/03/2024 3:20 PM EDT Patient: Jasmyn Burton : 1950 Primary Care Provider: Jeanine Forbes MD Requesting Provider: As above History Chief Complaint: Mid back and bilateral arm/hand pain. 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 She was thrown up against a wall. She had presented with the above-noted complaints. She had a bandlike feeling around her chest. She had dysesthetic symptoms involvingher hands and forearms. She also had neck and low back pain. She did utilize gabapentin and baclofen. In the interim she has had COVID. At 1 point all of her finger swelled up severely and she has been on prednisone and many of her complaints have dissipated. Reportedly her sed rate was significantly elevated. Review of Systems Constitutional: Negative for activity [...] bleeding, vaginal discharge and vaginal pain. Musculoskeletal: Negative for arthralgias, back pain, gait problem, joint swelling, myalgias, neck pain and neck stiffness. Skin: Negative for color change, pallor, rash and wound. Allergic/Immunologic: Negative for environmental allergies, food allergies and immunocompromised state. Neurological: Positive for numbness. Negative for dizziness, tremors, seizures, syncope, facial asymmetry, speech difficulty, weakness, light-headedness and headaches. Hematological: Negative for adenopathy. Does not bruise/bleed easily. Psychiatric/Behavioral: Negative for agitation, behavioral problems, confusion, decreased concentration, dysphoric mood, hallucinations, self-injury, sleep disturbance and suicidal ideas. The patientis not nervous/anxious and is not hyperactive. The patient's past medical history, past surgical history, family history, and social history have been reviewed at length in the electronic medical record. Physical Exam: Temp 97.3 ??F (36.3 ??C) Ht 167.6 cm (66 ) Wt 61.7 kg (136 lb) BMI 21.95 kg/m?? Zev signs are negative. Her gait is normal. Medical Decision Making Data Review: (All imaging studies were personally reviewed unless stated otherwise) MRI of the cervical spine demonstrates some subtle disc disease and spondylosis. There is a little bit of recess narrowing on the left at C4-5 and C5-6. There is no high-grade root or certainly cord compromise. MRI of the thoracic spine dated 02/04/2024 [...] L5-S1. Diagnosis: 1. Diffuse spinal pain. 2. Myofascial symptoms. 3. Potential rheumatologic disease. Treatment Options: I do not see a structural compressive lesion in her spinal axis and I think her symptoms are in part due to trauma and in part due to an inflammatory process. She does not require surgical intervention. She might benefit from rheumatology evaluation. Scribed for Zeke Saleh MD by Kalani Ybarra CMA on 04/03/2024 15:27 EDT I, Dr. Saleh, personally performed the services described in the documentation, as scribed in my presence, and it is both accurate and complete. documented in this encounter Plan of Treatment Upcoming Encounters Date Type Department Care Team (Late st Contact Info) Description 08/09/2024 3:00 PM EST Office Visit [facility] RHEUM[facility]OLOGY 3000 [facility] [address] [place] [phone] Ken Devries MD 3000 [facility] [address] [place], [place] [phone] documented as of this encounter Visit Diagnoses Diagnosis Mid back pain- Primary Lumbar disc disease Other and unspecified disc disorder of lumbar region documented in this encounter Care Teams Tool And Die Assembler Relationship Specialty Start Date End Date Jeanine Forbes MD [address] [place] [address] PCP - General Family Medicine 11/06/19 documented as of this encounter
--- OUTSIDE RECORDS SUMMARY | 2024-05-07 12:59 | XMS_ITS | Encounter Summary ---
Author Organization [facility] Address [address] [place] [address] Care Team Providers Care Reservations Manager Name Role Phone Jeanine Forbes MD Primary Care Provider Peggy Rogers MD Unavailable [phone] Encounter Details Date Type Department Care Team (Late st Contact Info) Description 01/05/2024 Documentation [facility] - [place] [address] [place] [phone] Donna Webb, CHRIS Social History Tobacco Use Types Packs/Day Years Used Date Smoking Tobacco: Never Smokeless Tobacco: Never Alcohol Use Standard Drinks/Week Comments Yes 0 (1 standard drink = 0.6 oz pur e alcohol) Occasional PHQ-2 Answer Date Recorded PHQ-2 Total Score 0 02/04/2023 PRAPARE - Transportation Answer Date Re corded In the past 12 months, has l ack of transportation kept you from medical appointments or from getting medications? No 02/15/2023 Lack of Transportation (Non-Medical) Not on file 02/15/2023 Housing Stability Vital Sign Answer Rajiv e Recorded In the last 12 months, was t here a time when you were not able to pay the mortgage or rent on time? No 02/15/2023 Number of Places Lived in the Last Year Not on f ile 02/15/2023 In the last 12 months, was t here a time when you did not have a steady place to sleep or slept in a fpc (including now)? No 02/15/2023 Interpersonal Safety Answer Date Record ed Family or friends hurt you Not on file 06/29 Family or friends insult you Not on file 03/2024 Family or friends threaten you Not on file 0 06/29/2023 Family or friends scream or curse at you Not on file 06/29/2023 Housing Stability Answer Date Recorded Living situation today Not on file Living situation problems Not on file 2023 Food Insecurity Answer Date Recorded Food run out past 12 months Not on file 06/20 Food did not last past 12 months Not on file 06/29/2023 Employment Answer Date Recorded Help finding and keeping a job Not on file 0 06/29/2023 Family and Community Support Answer Rajiv e Recorded Help with Day to Day Activities Not on file 06/29/2023 Feeling Lonely or Isolated Not on file 06/29 Educational Attainment Answer Date Alvaro rded Speak language other than Turkish at home Not on file 06/29/2023 Want help with school or training Not on file 06/29/2023 Depression Answer Date Recorded PHQ-2 Risk Not on file 06/29/2023 Disabilities Answer Date Recorded Difficulty concentrating Not on file 024 Difficulty doing errands alone Not on file 0 06/29/2023 Substance Use Answer Date Recorded Used prescription meds for non-medical reasons N ot on file 06/29/2023 Used illegal drugs past 12 months Not on file 06/29/2023 Comments No Sex and Gender Information Value Date Recorded Sex Assigned at Not on file Legal Sex Female 5:48 PM CDT Gender Identity Not on file Sexual Orientation Not on file Occupation Industry Job Start Date Job End Date Not on file Not on file Not on file Not on file documented as of this encounter Progress Notes * Donna Webb RN - 01/05/2024 9:17 AM EDT Xray report scanned into patient chart. documented in this encounter Plan of Treatment Upcoming Encounters Date Type Department Care Team (Late st Contact Info) Description 08/30/2024 2:30 PM EDT Office Visit [facility] [address] [place] [phone] Sudhir Barnett MD [address] [facility] [address] [place] [address] 08/30/2024 3:00 PM EDT Office Visit [facility] - [address] [facility] [address] [place] [address] Peggy Rogers MD [address] [place] [address] documented as of this encounter Visit Diagnoses Not on filedocumented in this encounter Care Teams Reservations Manager Relationship Specialty Start Date End Date Jeanine Forbes MD [address] [place] [address] [address] [place] [phone] PCP - General Family Medicine 01/27/23 Peggy Rogers MD [address] [place] [address] Medical Oncologist Hematology and Oncology 02/02/23 documented as of this encounter
--- OUTSIDE RECORDS SUMMARY | 2024-05-07 12:59 | XMS_ITS | Encounter Summary ---
Author Organization [facility] Address [address] [place] [address] Care Team Providers Care Angledozer Operator Name Role Phone Jeanine Forbes MD Primary Care Provider + Encounter Details Date Type Department Care Team (Late Contact Info) Description 01/27/[address] [facility] HEMATOLOGY & ONCOLOGY [address] [facility] [address] [place] [phone] Zita Bingham, RN Social History Tobacco Use Types Packs/Day Years [...] Description 08/09/2024 3:00 PM EST Office Visit [facility] RHEUMATOLOGY 3000 [facility] [address] [place] [phone] Ken Devries MD 3000 [facility] [address] [place] [address] documented as of this encounter Visit Diagnoses Not on filedocumented in this encounter Care Teams Angledozer Operator Relationship Specialty Start Date End Date Jeanine Forbes MD [address] [address] PCP - General Family Medicine 11/06/19 documented as of this encounter
--- OUTSIDE RECORDS SUMMARY | 2024-05-07 12:59 | XMS_ITS | Referral Summary ---
Author Organization [facility] Address [address] [place] [address] Care Team Providers Care Meat Slicer Name Role Phone Jeanine Forbes MD Primary Care Provider Peggy Rogers MD Unavailable [phone] Allergies Active Allergy Reactions Criticality Noted Date Comments Nitrofurantoin Other (See Comments) High 11/17/2022 Other reaction(s): headache, Other Medications omeprazole (PriLOSEC) 20 MG capsule Take 1 capsule (20 mg total) by mouth daily as needed. 3 Active mometasone (Asmanex Twisthaler) 220 mcg/ actuation (60) AePB breath activated powder inhaler Asmanex Twisthaler 220 mcg/actuation(6 0 doses) breath activated inhalr Active lisinopriL (PRINIVIL,ZESTR IL) 5 MG tablet Take 1 tablet (5 mg total) by mouth daily. 3 Active rosuvastatin (CRESTOR) 20 MG tablet SMARTSI Tablet(s) By Mouth Every Evening 3 Active montelukast (SINGULAIR) 10 mg tablet SMARTSI Tablet(s) By Mouth Every Evening 3 Active aspirin 81 MG EC tablet Take 1 tablet (81 mg total) by mouth every other day. Active ascorbic acid, vitamin C, (VITAMIN C) 250 MG tablet Take 2 tablets (500 mg total) by mouth 2 (two) times daily. Active cholecalciferol (VITAMIN D3) 25 mcg (1,000 unit) tablet Take 1 tablet (1,000 Units total) by mouth. 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, estrogen receptor positive 02/04/2023 Cancer Staging:Clinical:Stage IA(cT1c, cN0, cM0, G1, ER+, GA+, HER2-) - Signed by Peggy Rogers MD on 02/04/2023 Encounter for general adult medical examination without abnormal findings 01/27/2023 Gastroesophageal reflux disease 01/27/2023 Essential hypertension 11/25/2022 Mild CAD 11/25/2022 Abdominal pain 11/17/2022 Acute bronchitis 11/17/2022 Asthma 11/17/2022 Difficult or painful urination 11/17/2022 Disorder of tendon of biceps 11/17/2022 Disorder of urinary tract 11/17/2022 Diverticulitis of colon 11/17/2022 Fatigue 11/17/2022 Increased frequency of urination 11/17/2022 Malaise and fatigue 11/17/2022 Migraine 11/17/2022 Multiple joint pain 11/17/2022 Onychomycosis 11/17/2022 Skin nodule 11/17/2022 Abnormal EKG 11/06/2019 Chest pain, atypical 11/06/2019 Family history of early CAD 11/06/2019 Hyperlipidemia 11/06/2019 Social History Tobacco Use Types Packs/Day Years Used Date Smoking Tobacco: Never Smokeless Tobacco: Never Tobacco Cessation:Counseling Given: Not Answered Alcohol Use Standard Drinks/Week Comments Yes 0 [...] place to sleep or slept in a penitentiary (including now)? No 02/15/2023 Interpersonal Safety Answer [...] Date Alvaro rded Speak language other than Estonian at home Not on file 06/29/2023 Want [...] file Not on file Not on file Last Filed Vital Signs Vital Sign Reading Time Taken Comments Blood Pressure 106/62 12/26/2023 2:57 PM EDT Pulse 61 12/26/2023 2:57 PM EDT Temperature 37 ??C (98.6 ??F) 12/26/2023 2:57 PM EDT Respiratory Rate 16 12/26/2023 2:57 PM EDT Oxygen Saturation 96% 12/26/2023 2:57 PM EDT RA Inhaled Oxygen Concentration - - Weight 60 kg (132 lb 3.2 oz) 12/26/2023 2:57 PM EDT Height 165.1 cm (5' 5 ) 12/26/2023 2:57 PM EDT Body Mass Index 22 12/26/2023 2:57 PM EDT Plan of Treatment Upcoming Encounters Date Type Department Care Team (Late st Contact Info) Description 08/30/2024 2:30 PM EDT Office Visit [facility] [address] [place] [address] Sudhir Barnett MD [address] [place] [address] 08/30/2024 3:00 PM EDT Office Visit [facility] [address] [place] [address] Peggy Rogers MD [address] [place] [address] Medical Devices Implanted Type Area Demonstrator Sewing [employer] Device Identifier Shelf Expiration Date Model / Serial / Lot Clip Lig Hemclp Med Ti X1 [id number] - [id number] Implanted:Qty: 2 on 02/15/2023 by Sudhir Barnett MD at [facility] N/A: Breast TELEFLEX MED:W[employer]K [employer] SYS [id number] / / 123 Insurance MEDICARE PART A B BLUE CROSS/BLUE SHIELD Care Teams Meat Slicer Relationship Specialty Start Date End Date Jeanine Forbes MD [address] [place] [id number] PCP - General Family Medicine 01/27/23 Peggy Rogers MD [address] [facility] [address] [place] [address] Medical Oncologist Hematology and Oncology 02/02/23
--- OUTSIDE RECORDS SUMMARY | 2024-05-07 12:59 | XMS_ITS | Encounter Summary ---
Author Organization [facility] Address [address] [place] [id number] Care Team Providers Care Senior Accounting Specialist Name Role Phone Jeanine Forbes MD [...] Protocol Zunilda Guajardo APRN Phone: tel: fax: [address] [phone] Phone: tel: Referral ID Status Reason Start Date Expiration Date Visits Re quested Visits Authorized [id number] Closed 11/06/2019 11/05/2020 1 1 Reason for Visit * Reason Comments Chest Pain * Consultation (Routine) - Closed Specialty Diagnoses / Procedures Referred By Contac t Referred To Contact Cardiology Diagnoses Chest pain CON DX CHEST PAIN REF R JIMENA [phone] (NO CARDIO) Procedures CONSULT Jeanine Forbes MD [address] [address] Phone: tel: fax: Anat Moreira MD [address] [place] [address] Phone: tel: fax: Referral ID Status Reason Start Date Expiration Date Visits Re quested Visits Authorized [id number] Closed 10/31/2019 10/30/2020 1 1 Encounter Details Date Type Department Care Team (Late st Contact Info) Description 11/06/2019 2:00 PM EDT Consult [facility] CARDIOLOGY [address] [place] [address] Anat Moreira MD [address] [facility] [address] [place] [address] Chest pain, atypical (Primary Dx); Hyperlipidemia LDL goal <100; Family history of early CAD; Abnormal EKG Social History Tobacco Use Types Packs/Day Years [...] Pulse 62 11/06/2019 2:25 PM EDT Temperature - - Respiratory Rate - - Oxygen Saturation - - Inhaled Oxygen Concentration - - Weight 66.2 kg (146 lb) 11/06/2019 2:25 PM EDT Height 167.6 cm (5' 6 ) 11/06/2019 2:25 PM EDT Body Mass Index 23.57 11/06/2019 2:25 PM EDT documented in this encounter Progress Notes * Anat Moreira MD - 11/06/2019 2:00 PM EDTAssociated Order(s): ECG 12 Lead [facility] Cardiology Subjective: Encounter Date:11/06/2019 Patient ID: Jasmyn Burton is a 69 y.o. female. Referring provider: Jeanine Forbes MD Reason for consultation: Chief Complaint Patient presents with ??? Chest Pain PROBLEM LIST: 1. Chest pain a. Stress test 2006, no ischemia -data deficit b. Stress test 2010, no ischemia- data deficit 2. Hyperlipidemia a. FLP 08/2019: TC 260, HDL 69, Trig 93, LDL 170. Started on Zetia. b. Previously intolerant to statins. 3. Diverticulosis, sigmoid. 4. Asthma 5. GERD 6. History of bilateral pulmonary embolus. a. S/p ACL when she developed the PE. 7. Benign esophageal strictures a. S/p balloon dilation No Known Allergies Current Outpatient Medications: ??? ASMANEX, 30 METERED DOSES, 220 MCG/INH inhaler, INL 1 PUFF PO BID UTD PRN, Disp: , Rfl: ??? Biotin 10 MG tablet, Take 1 tablet by mouth Daily., Disp: , Rfl: ??? cholecalciferol (VITAMIN D3) 25 MCG (1000 UT) tablet, Take 1,000 Units by mouth Daily., Disp: ,Rfl: ??? diphenhydrAMINE (BENADRYL) 25 mg capsule, Take 25 mg by mouth Every 6 (Six) Hours As Needed forItching., Disp: , Rfl: ??? ezetimibe (ZETIA) 10 MG tablet, Take 10 mg by mouth Daily., Disp: , Rfl: ??? fluticasone (FLONASE) 50 MCG/ACT nasal spray, SHAKE LQ AND U 1 SPR IEN QD PRN, Disp: , Rfl: ??? Multiple Vitamins-Minerals (MULTIVITAMIN WITH MINERALS) tablet tablet, Take 1 tablet by mouth Daily., Disp: , Rfl: ??? omeprazole (priLOSEC) 20 MG capsule, Take 20 mg by mouth Daily., Disp: , Rfl: ??? vitamin C (ASCORBIC ACID) 250 MG tablet, Take 250 mg by mouth Daily., Disp: , Rfl: ??? rizatriptan PROPERTY MANAGEMENT BOOKKEEPER (MAXALT-PROPERTY MANAGEMENT BOOKKEEPER) 10 MG disintegrating tablet, PLACE 1 T ON THE TONGUE UNTIL DISSOLVED ONCE DAILY IF NEEDED, Disp: , Rfl: HPI: Jasmyn Burton is a 69 y.o. female who is seen in consultation today at the request of Jeanine Forbes MD for chest pain. Several stress tests and echo done in the past. 2006, 2010. [facility] [place]. Both were normal. Never had LHC. Both stress tests were ordered for non chest pain related issues. She started having chest pain offand on a few months ago. She describes left sided. Comes on at rest. Gripping sensation. Some SOB. No radiation. Passes with time. Not like her GERD or esophageal spasm. Some improvement with rest. Usually lasts for about 1-2 minutes. None for the last 4 weeks. Father had his first SD in 50's. Cardiac Risk Factors: HLD Family h/o CAD Social History Socioeconomic History ??? Marital status: Spouse name: Not on file ??? Number of children: Not on file ??? Years of education: Not on file ??? Highest education level: Not on file Tobacco Use ??? Smoking status: Never Smoker ??? Smokeless tobacco: Never Used Substance and Sexual Activity ??? Alcohol use: Yes Alcohol/week: 7.0 standard drinks Types: 7 Standard drinks or equivalent per week Frequency: Never Drinks per session: 1 or 2 Binge frequency: Weekly ??? Drug use: Never ??? Sexual activity: Defer Family History Problem Relation Age of Onset ??? Heart disease Mother ??? Heart failure Mother ??? Hypertension Mother ??? Hypertension Father ??? Heart failure Father ??? Heart disease Father Review of Systems: The following portions of the patient's history were reviewed and updated as appropriate: allergies, current medications and problem list. Constitution: Negative for chills, fatigue, fever, and generalized weakness. Cardiovascular: See HPI Respiratory: See HPI HENT: Negative for ear pain, nosebleeds, and tinnitus. Gastrointestinal: Negative for abdominal pain, constipation, diarrhea, nausea and vomiting. Genitourinary: No urinary symptoms. Musculoskeletal: Negative for muscle cramps. Neurological: Negative for dizziness, headaches, loss of balance, numbness, and symptoms of stroke. Psychiatric: Negative for depression, anxiety. Objective: Vitals: 11/06/19 1425 BP: 128/72 Pulse: 62 GENERAL: This is a well-developed, well-nourished, male who is in no acute distress. Alert and oriented x3. Normal mood and affect. SKIN: [place] and warm without rash or abnormality noted. HEENT: Head is normocephalic and atraumatic. Pupils are equal and reactive to light bilaterally. Mucous membranes are pink and moist. NECK: Supple without lymphadenopathy or thyromegaly. There is no jugular venous distention at 30??. LUNGS: Clear to auscultation bilaterally without wheezing, rhonchi, or rales noted. CARDIOVASCULAR: The heart has a regular rate with a normal S1 and S2. There is no murmur, gallop, rub, or click appreciated. The PMI is nondisplaced. Carotid upstrokes are 2+ and symmetrical without bruits. ABDOMEN: Soft and nondistended with positive bowel sounds x4. The patient denies tenderness of palpitation. MUSCULOSKELETAL: There are no obvious bony abnormalities. Normal range of tenderness to palpation. NEUROLOGICAL: Nonfocal. PERIPHERAL VASCULAR: Femoral pulses are 2+ and symmetrical without bruits. Posterior tibial and dorsalis pedis pulses are 2+ and symmetrical. There is no peripheral edema. ECG 12 Lead Date/Time: 11/06/2019 3:07 PM Performed by: Zunilda Guajardo APRN Authorized by: Zunilda Guajardo APRN Comparison: not compared with previous ECG Previous ECG: no previous ECG available Rhythm: sinus rhythm BPM: 62 Conduction: 1st degree AV block Clinical impression: abnormal EKG Comments: Late transition in precordial leads Advance Care Planning ACP discussion was declined by the patient. Patient does not have an advance directive, declines further assistance. Assessment: ICD-10-CM ICD-9-CM 1. Chest pain, atypical R07.89 786.59 2. Hyperlipidemia LDL goal <100 E78.5 272.4 3. Family history of early CAD Z82.49 V17.3 4. Abnormal EKG R94.31 794.31 Plan: 1. Continue Zetia for HLD 2. Patient was counseled to begin aerobic exercise 30 min per day for at least 4 days per week. 3. Will arrange for stress echocardiogram to further evaluate ischemia for which I would like to bepresent. 4. Follow-up PRN. Scribed for Anat Moreira MD by Brittany Guajardo, LISBETH. 11/06/2019 15:25 I Anat Moreira MD personally performed the services described in this documentation as scribed by the above individual in my presence, and it is both accurate and complete. Anat Moreira MD, FACC documented in this encounter Plan of Treatment Upcoming Encounters Date Type Department Care Team (Late st Contact Info) Description 08/09/2024 3:00 PM EST Office Visit [facility] R[facility]UMATOLOGY [address] [facility] [address] [place] [address] Ken Devries MD [address] [facility] [address] [place] [address] documented as of this encounter Procedures Procedure Name Priority Date/Time Associated Diagnosis Comments ECG 12-LEAD Routine 11/06/2019 Chest pain, atypical documented in this encounter Results * SE QUAD ONLY W/ CONTRAST AND EXERCISE (12/10/2019 3:47 PM EDT) Pathologist [facility] CV STRESS PROTOCOL 1 Leon [facility] RAD[facility] Stage 1 1 [facility] Duration Min Stage 1 3 [facility] RAD[facility] Grade Stage 1 10 [facility] RAD[facility] Speed Stage 1 1.7 [facility] CV STRESS METS STAGE 1 5 [facility] Baseline HR 63 bpm [facility] Baseline BP 126/86 mmHg [facility] HR Stage 1 89 [facility] BP Stage 1 146/90 [facility] O2 Stage 1 98 [facility] Stage 2 2 [facility] HR Stage 2 101 [facility] BP Stage 2 162/94 [facility] O2 Stage 2 98 [facility] Duration Min Stage 2 3 [facility] Grade Stage 2 12 [facility] Speed Stage 2 2.5 [facility] CV STRESS METS STAGE 2 7.5 [facility] Stage 3 3 [facility] HR Stage 3 142 [facility] BP Stage 3 170/102 [facility] O2 Stage 3 98 [facility] Duration Min Stage 3 3 [facility] Grade Stage 3 14 [facility] Speed Stage 3 3.4 [facility] CV STRESS METS STAGE 3 10.0 [facility] Stage 4 4 [facility] O2 Stage 4 98 [facility] Duration Sec Stage 4 33 [facility] Grade Stage 4 16 [facility] Speed Stage 4 4.2 [facility] CV STRESS METS STAGE 4 13.5 [facility] RAD[facility] O2 sat peak 98 % [facility] Recovery BP 154/82 mmHg [facility] Recovery O2 99 % [facility] HR Stage 4 153 [facility] Peak HR 153 bpm [facility] Peak BP 170/102 mmHg [facility] Recovery HR 73 bpm [facility] Exercise duration (min) 9 min [facility] Exercise duration (sec) 33 sec [facility] Estimated workload 11.8 METS [facility] BSA 1.7 m^2 [facility] IVSd 0.85 cm [facility] LVIDd 4.8 cm [facility] LVIDs 3.0 cm [facility] LVPWd 1.0 cm [facility] IVS/LVPW 0.85 [facility] FS 37.7 % [facility] EDV(Teich) 109.0 ml [facility] ESV(Teich) 35.2 ml [facility] EF(Teich) 67.7 % [facility] EDV(cubed) 112.5 ml [facility] ESV(cubed) 27.2 ml [facility] EF(cubed) 75.9 % [facility] LV mass(C)d 155.6 grams [facility] LV mass(C)dI 88.9 grams/m^2 [facility] SV(Teich) 73.8 ml [facility] SI(Teich) 42.2 ml/m^2 [facility] SV(cubed) 85.4 ml [facility] SI(cubed) 48.8 ml/m^2 [facility] CV ECHO NBA - BZI_BMI 23.6 kilograms/ m^2 [facility] CV ECHO NBA - BSA([place]) 1.8 m^2 [facility] CV ECHO NBA - BZI_METRIC_WEI GHT 66.2 kg [facility] CV ECHO NBA - BZI_METRIC_HEI GHT 167.6 cm [facility] Percent Target HR 119 % [facility] Percent Max Pred HR 101.32 % [facility] Target HR (85%) 128 bpm [facility] Max. Pred. HR (100%) 151 bpm [facility] CV VAS BP RIGHT ARM 126/86 mmHg [facility] Echo EF Estimated 55 % [facility] Anatomical Region Laterality Modality Other 12/10/2019 3:24 [...] The mitral valve is normal in structure. [id number]-de-[id number] mitral valve regurgitation is present. No significant [...] APRN CV ECHO ORDERABLES Fi nal Result * (ABNORMAL) ECG 12-LEAD (11/06/2019) Narrative 11/06/2019 Anat Moreira MD ? 11/06/2019 ??3:27 PM ECG 12 Lead Date/Time: 11/06/2019 3:07 PM Performed by: Zunilda Guajardo APRN Authorized by: Zunilda Guajardo APRN Comparison: not compared with previous ECG Previous ECG: no previous ECG available Rhythm: sinus rhythm BPM: 62 Conduction: 1st degree AV block Clinical impression: abnormal EKG Comments: Late transition in precordial leads Procedure Note Anat Moreira MD - 11/06/2019 2:00 PM EDT [facility] Cardiology Subjective: Encounter Date:11/06/2019 Patient ID: Jasmyn Burton is a 69 y.o. female. Referring provider: Jeanine Forbes MD Reason for consultation: Chief Complaint Patient presents with ? ? Chest Pain PROBLEM LIST: 1. Chest pain a. Stress test 2006, no ischemia -data deficit b. Stress test 2010, no ischemia- data deficit 2. Hyperlipidemia a. FLP 08/2019: TC 260, HDL 69, Trig 93, LDL 170. Started on Zetia. b. Previously intolerant to statins. 3. Diverticulosis, sigmoid. 4. Asthma 5. GERD 6. History of bilateral pulmonary embolus. a. S/p ACL when she developed the PE. 7. Benign esophageal strictures a. S/p balloon dilation No Known Allergies Current Outpatient Medications: ? ? ASMANEX, 30 METERED DOSES, 220 MCG/INH inhaler, INL 1 PUFF PO BID UTDPRN, Disp: , Rfl: ? ? Biotin 10 MG tablet, Take 1 tablet by mouth Daily., Disp: , Rfl: ? ? cholecalciferol (VITAMIN D3) 25 MCG (1000 UT) tablet, Take 1,000 Unitsby mouth Daily., Disp: , Rfl: ? ? diphenhydrAMINE (BENADRYL) 25 mg capsule, Take 25 mg by mouth Every 6(Six) Hours As Needed for Itching., Disp: , Rfl: ? ? ezetimibe (ZETIA) 10 MG tablet, Take 10 mg by mouth Daily., Disp: ,Rfl: ? ? fluticasone (FLONASE) 50 MCG/ACT nasal spray, SHAKE LQ AND U 1 SPR IENQD PRN, Disp: , Rfl: ? ? Multiple Vitamins-Minerals (MULTIVITAMIN WITH MINERALS) tablet tablet,Take 1 tablet by mouth Daily., Disp: , Rfl: ? ? omeprazole (priLOSEC) 20 MG capsule, Take 20 mg by mouth Daily., Disp:, Rfl: ? ? vitamin C (ASCORBIC ACID) 250 MG tablet, Take 250 mg by mouth Daily.,Disp: , Rfl: ? ? rizatriptan PROPERTY MANAGEMENT BOOKKEEPER (MAXALT-PROPERTY MANAGEMENT BOOKKEEPER) 10 MG disintegrating tablet, PLACE 1 T ONTHE TONGUE UNTIL DISSOLVED ONCE DAILY IF NEEDED, Disp: , Rfl: HPI: Jasmyn Burton is a 69 y.o. female who is seen in consultation today atthe request of Jeanine Forbes MD for chest pain. Several stress tests and echo done in the past. 2006, 2010. [facility] [place]. Both were normal. Never had LHC. Both stress tests were ordered for non chest pain related issues. Shestarted having chest pain off and on a few months ago. She describes leftsided. Comes on at rest. Gripping sensation. Some SOB. No radiation.Passes with time. Not like her GERD or esophageal spasm. Some improvementwith rest. Usually lasts for about 1-2 minutes. None for the last 4 weeks.Father had his first SD in 50's. Cardiac Risk Factors: HLD Family h/o CAD Social History Socioeconomic History ? ? Marital status: Spouse name: Not on file ? ? Number of children: Not on file ? ? Years of education: Not on file ? ? Highest education level: Not on file Tobacco Use ? ? Smoking status: Never Smoker ? ? Smokeless tobacco: Never Used Substance and Sexual Activity ? ? Alcohol use: Yes Alcohol/week: 7.0 standard drinks Types: 7 Standard drinks or equivalent per week Frequency: Never Drinks per session: 1 or 2 Binge frequency: Weekly ? ? Drug use: Never ? ? Sexual activity: Defer Family History Problem Relation Age of Onset ? ? Heart disease Mother ? ? Heart failure Mother ? ? Hypertension Mother ? ? Hypertension Father ? ? Heart failure Father ? ? Heart disease Father Review of Systems: The following portions of the patient's history were reviewed and updatedas appropriate: allergies, current medications and problem list. Constitution: Negative for chills, fatigue, fever, and generalizedweakness. Cardiovascular: See HPI Respiratory: See HPI HENT: Negative for ear pain, nosebleeds, and tinnitus. Gastrointestinal: Negative for abdominal pain, constipation, diarrhea,nausea and vomiting. Genitourinary: No urinary symptoms. Musculoskeletal: Negative for muscle cramps. Neurological: Negative for dizziness, headaches, loss of balance,numbness, and symptoms of stroke. Psychiatric: Negative for depression, anxiety. Objective: Vitals: 11/06/19 1425 BP: 128/72 Pulse: 62 GENERAL: This is a well-developed, well-nourished, male who is in no acutedistress. Alert and oriented x3. Normal mood and affect. SKIN: [place] and warm without rash or abnormality noted. HEENT: Head is normocephalic and atraumatic. Pupils are equal and reactiveto light bilaterally. Mucous membranes are pink and moist. NECK: Supple without lymphadenopathy or thyromegaly. There is no jugularvenous distention at 30??. LUNGS: Clear to auscultation bilaterally without wheezing, rhonchi, orrales noted. CARDIOVASCULAR: The heart has a regular rate with a normal S1 and S2.There is no murmur, gallop, rub, or click appreciated. The PMI isnondisplaced. Carotid upstrokes are 2+ and symmetrical without bruits. ABDOMEN: Soft and nondistended with positive bowel sounds x4. The patientdenies tenderness of palpitation. MUSCULOSKELETAL: There are no obvious bony abnormalities. Normal range oftenderness to palpation. NEUROLOGICAL: Nonfocal. PERIPHERAL VASCULAR: Femoral pulses are 2+ and symmetrical without bruits.Posterior tibial and dorsalis pedis pulses are 2+ and symmetrical. Thereis no peripheral edema. ECG 12 Lead Date/Time: 11/06/2019 3:07 PM Performed by: Zunilda Guajardo APRN Authorized by: Zunilda Guajardo APRN Comparison: not compared with previous ECG Previous ECG: no previous ECG available Rhythm: sinus rhythm BPM: 62 Conduction: 1st degree AV block Clinical impression: abnormal EKG Comments: Late transition in precordial leads Advance Care Planning ACP discussion was declined by the patient. Patient does not have anadvance directive, declines further assistance. Assessment: ICD-10-CM ICD-9-CM 1. Chest pain, atypical R07.89 786.59 2. Hyperlipidemia LDL goal <100 E78.5 272.4 3. Family history of early CAD Z82.49 V17.3 4. Abnormal EKG R94.31 794.31 Plan: 1. Continue Zetia for HLD 2. Patient was counseled to begin aerobic exercise 30 min per day for atleast 4 days per week. 3. Will arrange for stress echocardiogram to further evaluate ischemia forwhich I would like to be present. 4. Follow-up PRN. Scribed for Anat Moreira MD by Brittany Guajardo APRN.11/06/2019 15:25 I Anat Moreira MD personally performed the services described inthis documentation as scribed by the above individual in my presence, andit is both accurate and complete. Anat Moreira MD, [facility] Zunilda Guajardo APRN ECG ORDERABLES Edite d Result - Final documented in this encounter Visit Diagnoses Diagnosis Chest pain, atypical- Primary Hyperlipidemia LDL goal <100 Other and unspecified hyperlipidemia Family history of early CAD Family history of ischemic heart disease Abnormal EKG Nonspecific abnormal electrocardiogram (ECG) (EKG) Chest pain, atypical Abnormal EKG Nonspecific abnormal electrocardiogram (ECG) (EKG) documented in this encounter Care Teams Senior Accounting Specialist Relationship Specialty Start Date End Date Jeanine Forbes MD [address] [place] [id number] PCP - General Family Medicine 11/06/19 documented as of this encounter
--- OUTSIDE RECORDS SUMMARY | 2024-05-07 12:59 | XMS_ITS | Clinical Summary ---
Author Organization [employer] Address [address] [place] [address] Care Team Providers Care Supervisor Anodizing Name Role Phone Jeanine Forbes MD Primary Care Provider Peggy Rogers MD Unavailable [phone] Allergies Active Allergy Reactions Criticality Noted [...] Cancer Staging:Clinical:Stage IA(cT1c, cN0, cM0, G1, ER+, VA+, HER2-) - Signed by Peggy Rogers MD [...] history of early CAD 11/06/2019 Hyperlipidemia 11/06/2019 Family History Medical History Relation Name Comments Colon cancer Brother 1 Bill Prostate cancer Brother 1 Bill Heart disease Father Hypertension Father Clotting disorder Mother Heart disease Mother Hypertension Mother Melanoma Son Relation Name Status Comments Brother 1 Bill Alive Brother 2 Anuel Alive Father Maternal Aunt Maternal Grandfather Maternal Grandmother Maternal Uncle Mother Paternal Aunt Paternal Grandfather Paternal Grandmother Sister Jacqueline Alive Son Alive Social History Tobacco Use Types Packs/Day Years [...] place to sleep or slept in a senior living (including now)? No 02/15/2023 Interpersonal Safety Answer [...] Date Alvaro rded Speak language other than Chinese at home Not on file 06/29/2023 Want [...] 2:30 PM EDT Office Visit [facility] [address] [place] [address] Sudhir Barnett MD [address] [place] [phone] 08/30/2024 3:00 PM EDT Office Visit [facility] [address] [facility] [address] [place] [phone] Peggy Rogers MD [address] [place] [address] Health Maintenance Due Date Last Done Comments CT Colonography 1950 Colonoscopy 1950 Colorectal Cancer Screening 1950 DXA SCAN 1950 FOBT/FIT 1950 Fit-DNA (Cologuard) 1950 Sigmoidoscopy 1950 Depression Screening (12+) 1962 Hepatitis C Screening 02/01/1968 Respiratory Syncytial Virus (RSV) Adult or (1 - Risk 60-74 years 1-dose series) 2010 Medicare Initial AWV [id number] 01/20/2016 Falls Risk Screening 06/20/2023 COVID-19 VACCINE (4 2023-2 5 season) 2024 05/11/2021, 08/12/2020, 08/12/2020, Additional history exists Influenza Vaccine (#1) 2024 3, 02/19/2022, 03/05/2021, Additional history exists Tobacco Cessation Counseling and Screening (12+) 12/25/2024 12/26/2023 DTAP/TDAP/TD VACCINES (2 - T d or Tdap) 05/23/2027 05/23/2017 Pneumococcal 65+ years Completed 3, 05/10/2016, 04/14/2015, Additional history exists Breast Cancer Screening Discontinued 01/12/20, 01/11/2023, 01/11/2023 Shingles Vaccine (Zoster) Completed 2022, 11/17/2022, 10/18/2022 Medical Devices Implanted Type Area Window Framer Device Identifier Shelf Expiration Date Model / Serial / Lot Clip Lig Hemclp Med Ti X1 [id number] - [id number] Implanted:Qty: 2 on 02/15/2023 by Sudhir Barnett MD at [facility] N/A: Breast TELEFLEX MED:WECK CLOSURE SYS [id number] / / 123 Insurance MEDICARE PART A B BLUE CROSS/BLUE SHIELD Care Teams Supervisor Anodizing Relationship Specialty Start Date End Date Jeanine Forbes MD [address] [place] [phone] PCP - General Family Medicine 01/27/23 Peggy Rogers MD [address] [address] Medical Oncologist Hematology and Oncology 02/02/23
--- OUTSIDE RECORDS SUMMARY | 2024-05-07 12:59 | XMS_ITS | Encounter Summary ---
Author Organization [facility] Address [address] [place] [address] Care Team Providers Care Slumber Room Attendant Name Role Phone Jeanine Forbes MD Primary Care Provider + Reason for Referral * Diagnostic Imaging (Routine) - Closed Specialty Diagnoses / Procedures Referred By Willow howard Referred To Contact Radiology Diagnoses Abnormal findings on diagnostic imaging of breast Procedures Mammo Diagnostic Digital Tomosynthesis Bilateral With CAD Aniyah Falcon MD [address] [place] [address] Phone: tel: fax: Referral ID Status Reason Start Date Expiration Date Visits Re quested Visits Authorized [id number] Closed 12/28/2022 12/28/2023 1 1 Reason for Visit * Diagnostic Imaging (Routine) - Closed Specialty Diagnoses / Procedures Referred By Willow howard Referred To Contact Radiology Diagnoses Abnormal findings on diagnostic imaging of breast Procedures Mammo Diagnostic Digital Tomosynthesis Bilateral With CAD Aniyah Falcon MD [address] [facility] [place] [address] Phone: tel: fax: Referral ID Status Reason Start Date Expiration Date Visits Re quested Visits Authorized [id number] Closed 12/28/2022 12/28/2023 1 1 Encounter Details Date Type Department Care Team (Latest Contact Info) Description 01/11/2023 7:46 AM EDT - 01/11/2023 11:59 PM EDT Hospital Encounter [facility] [address] [place] [address] Abnormal findings on diagnostic imaging of breast [...] Take 1 capsule by mouth Daily. rizatriptan ADVERTISING INSERTER (MAXALT-ADVERTISING INSERTER) [address] 1 T [...] Description 08/09/2024 3:00 PM EST Office Visit [facility] RHEUM[facility]OLOGY [address] [facility] [address] [place] [address] Ken Devries MD [address] [facility] [address] [place] [address] documented as of this encounter Procedures Procedure Name Priority Date/Time Associated Diagnosis Comments MAMMO DIAGNOSTIC DIGITAL TOMOSYNTHESIS BILATERAL W CAD Routine 01/11/2023 9:46 AM EDT Abnormal findings on diagnostic imaging of breast documented in this encounter Results * (ABNORMAL) Mammo Diagnostic Digital Tomosynthesis Bilateral [...] conservation is desired. Left breast: Stereotactic biopsy, shawnee clip: Lobular carcinoma in situ involving a [...] on the tomographic/stereotactic core biopsy table and electronic publishing specialist images were obtained. The area undergoing [...] varying densities contained within the sample. A shawnee shaped biopsy marker clip was placed. Pressure [...] breast documented in this encounter Care Teams Slumber Room Attendant Relationship Specialty Start Date End Date Jeanine Forbes MD [address] [place] [address] PCP - General Family Medicine 11/06/19 documented as of this encounter
--- OUTSIDE RECORDS SUMMARY | 2024-05-07 12:59 | XMS_ITS | Encounter Summary ---
Author Organization [facility] Address [address] [place] [address] Care Team Providers Care Children'S Tutor Nursery Name Role Phone Jeanine Forbes MD Primary Care Provider [phone] Peggy Rogers MD Unavailable [phone] Encounter Details Date Type Department Care Team (Latest Contact Info) Description 12/26/2023 Travel Social History Tobacco Use Types Packs/Day [...] place to sleep or slept in a assisted (including now)? No 02/15/2023 Interpersonal Safety Answer [...] Date Alvaro rded Speak language other than Colombian at home Not on file 06/29/2023 Want [...] Description 08/30/2024 2:30 PM EDT Office Visit [facility] [address] [place] [address] Sudhir Barnett MD [address] [facility] [address] [place] [address] 08/30/2024 3:00 PM EDT Office Visit [facility] [place] [address] [place] [address] Peggy Rogers MD [address] [facility] [address] [place] [address] documented as of this encounter Visit Diagnoses Not on filedocumented in this encounter Care Teams Children'S Tutor Nursery Relationship Specialty Start Date End Date Jeanine Forbes MD [address] [place] [phone] PCP - General Family Medicine 01/27/23 Peggy Rogers MD [address] [facility] [address] [place] [address] Medical Oncologist Hematology and Oncology 02/02/23 documented as of this encounter
--- OUTSIDE RECORDS SUMMARY | 2024-05-07 12:59 | XMS_ITS | Encounter Summary ---
Author Organization [facility] Address [address] [place] [address] Care Team Providers Care Supervisor Parach[employer] Manufacturing Name Role Phone Jeanine Forbes MD Primary Care Provider + Reason for Visit * Physical Therapy (Routine) - Closed Specialty Diagnoses / Procedures Referred By Contthang t Referred To Contact Physical Therapy Diagnoses Malignant neoplasm of right female breast, unspecified estrogen receptor status, unspecified site of breast Procedures CO OFFICE/OUTPATIENT NEW MODERATE MDM 45-59 MINUTES Aniyah Falcon MD [address] [address] Phone: tel: fax: [facility] [address] [place] [address] Phone: tel: fax: Referral ID Status Reason Start Date Expiration Date V isits Requested Visits Authorized [id number] Closed Specialty Services Required 01/25/2023 01/25/2024 1 1 Encounter Details Date Type Department Care Team (Late st Contact Info) Description 01/26/2023 2:30 PM EDT - 01/26/2023 11:59 PM EDT Hospital Encounter [facility] [address] [place] [address] Linda Newton Malignant neoplasm of right female breast, unspecified estrogen receptor status, unspecified site of breast (Primary Dx) Discharge Disposition: Home or Self Care Social [...] - Inhaled Oxygen Concentration - - Weight 65.3 kg (144 lb) 01/26/2023 2:30 PM EDT Height 167.6 cm (5' 6 ) 01/26/2023 2:30 PM EDT Body Mass Index 23.24 01/26/2023 2:30 PM EDT documented in this encounter Discharge Summaries * Linda Newton - 01/26/2023 2:30 PM EDT Outpatient Physical Therapy Lymphedema Initial Evaluation & Discharge [facility] Patient Name: Jasmyn Burton : 1950 Today's Date: 01/26/2023 Visit Date: 01/26/2023 Visit Dx: ICD-10-CM ICD-9-CM 1. Malignant neoplasm of right female breast, unspecified estrogen receptor status, unspecified site of breast C50.911 174.9 Patient Active Problem List Diagnosis Chest pain, atypical Hyperlipidemia LDL goal <100 Family history of early CAD Abnormal EKG Past Medical History: Diagnosis Date Acid reflux Asthma Heart murmur Hyperlipidemia Past Surgical History: Procedure Laterality Date BREAST BIOPSY Bilateral MTP JOINT FUSION Lymphedema Row Name 01/26/23 1430 Subjective Pain Able to rate subjective pain? yes -KG Pre-Treatment Pain Level 0 -KG Post-Treatment Pain Level 0 -KG Subjective Comments Subjective Comments Pt is 72 yo old female with R sided BrCA planning for mastectomy and SLNB. 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 Currently no UE deficitsother than slight R elbow contracture. -KG Lymphedema Assessment Lymphedema Assessment Comments RUE at risk -KG Posture/Observations Posture- WNL Posture is WNL -KG General ROM GENERAL ROM COMMENTS WNL -KG MMT (Manual Muscle Testing) General MMT Comments WNL -KG Lymphedema Edema Assessment Edema Assessment Comment no edema currently present -KG Skin Changes/Observations Location/Assessment Upper Quadrant;Lower Extremity -KG Upper Quadrant Conditions bilateral:;normal -KG Upper Quadrant Color/Pigment bilateral:;normal -KG Lower Extremity Conditions bilateral:;normal -KG Lower Extremity Color/Pigment bilateral:;normal -KG Lymphedema Sensation Lymphedema Sensation Comments normal -KG L-Dex Bioimpedence Screening L-Dex Measurement Extremity RUE -KG L-Dex Patient Position Standing -KG L-Dex UE Dominate Side Right -KG L-Dex UE At Risk Side Right -KG L-Dex UE Baseline Score 0 -KG L-Dex UE Comment The patient had SOZO measurement which I reviewed today. The score is in normal limits, see scanned to EMR. Bioimpedance spectroscopy helps identify the onset of lymphedema in an armor leg before patients experience noticeable swelling. Research has shown that the early detection of lymphedema using L-Dex combined with treatment can reduce progression to chronic lymphedema by 95% in breast cancer patients. Whenever possible, patients are tested for baseline L-Dex score before cancer treatment begins and then are reassessed during regular follow-up visits using the SOZO device. Otherwise, this can be started postoperatively and continued during regular follow-up visits. If the patient???s L-Dex score increases above normal levels, that is a sign that lymphedema is developing and a referral is made to occupational or physical therapy for further evaluation and early compression treatment. Lymphedema assessment with the SOZO L-Dex score is recommended to be done every 3months for the first 3 years and then every 6 months for years 4 and 5 followed by annually afterwards. -KG Skeletal Muscle Mass (%) 27.8 % -KG Fat Mass (%) 28.2 % -KG Hy-dex 3.6 -KG Height 167.6 cm (66 ) -KG Weight 65.3 kg (144 lb) -KG BMI (Calculated) 23.3 -KG User Chance (r) = Recorded By, (t) = Taken By, (c) = Cosigned By Initials Name Provider Type Linda Clifton Physical Therapist Therapy Education Education Details: Pt edu on prehab evaluation assessments including bioimpedance. Pt was provided w/ HABs materials where she will attend free education class to learn more about lymphedema, exercises, etc Given: Symptoms/condition management, Posture/body mechanics Program: New How Provided: Verbal Provided to: Patient Level of Understanding: Verbalized OP Exercises Row Name 01/26/23 1430 Subjective Comments Subjective Comments Pt is 72 yo old female with R sided BrCA planning for mastectomy and SLNB. 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 Currently no UE deficitsother than slight R elbow contracture. -KG Subjective Pain Able to rate subjective pain? yes -KG Pre-Treatment Pain Level 0 -KG Post-Treatment Pain Level 0 -KG User Chance (r) = Recorded By, (t) = Taken By, (c) = Cosigned By Initials Name Provider Type Linda Clifton Physical Therapist PT OP Goals Row Name 01/26/23 1600 PT Short Term Goals STG Date to Achieve 02/25/23 -KG STG 1 Goal 1: Pt demonstrates awareness of post-operative movement restrictions and HEP to facilitate lymphatic regeneration and reduce the risk of seroma formation, axillary web syndrome, and lymphedema while ensuring shoulder joint mobility. -KG STG 1 Progress Met -KG STG 2 goal 2: pt demonstrates understeanding of post-operative basic lymphedema precautions -KG STG 2 Progress Met -KG User Chance (r) = Recorded By, (t) = Taken By, (c) = Cosigned By Initials Name Provider Type Linda Clifton Physical Therapist PT Assessment/Plan Row Name 01/26/23 1430 PT Assessment Assessment Comments Ms Burton presents to PT pre-operatively for planned BrCA surgery scheduled in a couple weeks. baseline ROM, postureal and bioimpedance measurements were taken today to be compared to measurements retaken 3-4 weeks post surgery. At that time, any reduced movement, decline in function or postural issues will be addressed wtih skilled care and new goals will be estabilished. Personal risk factors for lymphedema post-operatively for the R* upper extremity and trunk were also assessed and lymphedema precautions were dischussed. A more detailed discussion regarding personal lymphedema risk factors will take place post-operatively once the number of lymp nodes removed and planfor further medical care is known -KG Please refer to paper survey for additional self-reported information Yes -KG Rehab Potential Good -KG Patient/caregiver participated in establishment of treatment plan and goals Yes -KG Patient would benefit from skilled therapy intervention Yes -KG PT Plan Planned CPT's? PT EVAL MOD COMPLELITY: 75010;PT BIS XTRACELL FLUID ANALYSIS: 18422 -KG Physical Therapy Interventions (Optional Details) patient/family education;postural re-education;ROM (Range of Motion);stretching -KG PT Plan Comments Ms. Burton may return to PT 3-4 weeks post operatively for re- evaluation measurements to be compared to measurements taken today, at her pre- operative evaluation. In addition, she will be examined for possible post-BrCA surgery sequelae such as axillary web syndrome, scar adhesions, edema, worsened posture, scapular winging, pain, and reduced ROM and function. At that time, a future plan and goals will be established and skilled care continued if indicated. Currently, Ms. Burton has been provided with additional information for healing after BrCA surgery in order to facilitate recovery and reduce the risk of post-operative sequelae -KG User Chance (r) = Recorded By, (t) = Taken By, (c) = Cosigned By Initials Name Provider Type Linda Clifton Physical Therapist Outcome Measure Options: Quick DASH Quick DASH Open a tight or new jar.: Moderate Difficulty Do heavy deck and hull assembler (e.g., wash [place], wash floors): No Difficulty Carry a shopping bag or briefcase: No Difficulty Wash your back: No Difficulty Use a knife to cut food: No Difficulty Recreational activities in which you take some force or impact through your arm, should or hand (e.g. golf, hammering, tennis, etc.): No Difficulty During the past week, to what extent has your arm, shoulder, or hand problem interfered with your normal social activites with family, friends, neighbors or groups?: Not at all During the past week, were you limited in your work or other regular daily activities as a result of your arm, shoulder or hand problem?: Not limited at all Arm, Shoulder, or hand pain: None Tingling (pins and needles) in your arm, shoulder, or hand: None During the past week, how much difficulty have you had sleeping because of the pain in your arm, shoulder or hand?: No difficulty Number of Questions Answered: 11 Quick DASH Score: 4.55 Time Calculation: Start Time: 1430 Therapy Charges for Today Code Description Service Date Service Provider Modifiers Qty [id number] HC PT EVAL MOD COMPLEXITY 4 01/26/2023 Linda Newton GP 1 [id number] HC PT BIS XTRACELL FLUID ANALYSIS 01/26/2023 Linda Newton 1 PT G-Codes Outcome Measure Options: Quick DASH Quick DASH Score: 4.55 Linda Newton 01/26/2023 documented in this encounter Medications at Time [...] Take 1 capsule by mouth Daily. rizatriptan UNDERCAR SPECIALIST (MAXALT-UNDERCAR SPECIALIST) [address] 1 T [...] Description 08/09/2024 3:00 PM EST Office Visit [facility] [address] [facility] [address] [place] [phone] Ken Devries MD [address] [facility] [address] [place] [address] documented as of this encounter Visit Diagnoses Diagnosis Malignant neoplasm of right female breast, unspecified estrogen receptor status, unspecified site of breast- Primary documented in this encounter Care Teams Supervisor [employer] Relationship Specialty Start Date End Date Jeanine Forbes MD [address] [place] [address] PCP - General Family Medicine 11/06/19 documented as of this encounter
--- OUTSIDE RECORDS SUMMARY | 2024-05-07 12:59 | XMS_ITS | Encounter Summary ---
Author Organization [facility] Address [address] [place] [address] Care Team Providers Care Retail Visual Merchandiser Name Role Phone eJanine Forbes MD Primary Care Provider + Reason for Referral * Diagnostic Imaging (Routine) - Closed Specialty Diagnoses / Procedures Referred By Willow howard Referred To Contact Radiology Diagnoses Abnormal findings on diagnostic imaging of breast Procedures Mammo Post Device Placement Left Aniyah Falcon MD [address] [place] [address] Phone: tel: fax: Referral ID Status Reason Start Date Expiration Date Visits Re quested Visits Authorized [id number] Closed 01/11/2023 01/11/2024 1 1 Reason for Visit * Diagnostic Imaging (Routine) - Closed Specialty Diagnoses / Procedures Referred By Willow howard Referred To Contact Radiology Diagnoses Abnormal findings on diagnostic imaging of breast Procedures Mammo Post Device Placement Left Aniyah Falcon MD [address] [facility] [place] [address] Phone: tel: fax: Referral ID Status Reason Start Date Expiration Date Visits Re quested Visits Authorized [id number] Closed 01/11/2023 01/11/2024 1 1 Encounter Details Date Type Department Care Team (Latest Contact Info) Description 01/11/2023 11:31 AM EDT - 01/11/2023 11:59 PM EDT Hospital Encounter [facility] [address] [place] [address] Abnormal findings on diagnostic imaging of breast [...] Take 1 capsule by mouth Daily. rizatriptan COAT BASTER (MAXALT-COAT BASTER) [address] 1 T [...] Description 08/09/2024 3:00 PM EST Office Visit [facility] RHE[facility] [address] [facility] [address] [place] [address] Ken Devries MD [address] [facility] [address] [place], [place] [id number] documented as of this encounter Procedures Procedure Name Priority Date/Time Associated Diagnosis Comments MAMMO POST DEVICE PLACEMENT LEFT Routine 01/11/2023 12:13 PM EDT Abnormal findings on diagnostic imaging of breast documented in this encounter Results * (ABNORMAL) Mammo Post Device Placement Left (01/11/2023 12:13 PM EDT) Anatomical Region Laterality Modality Breast Left Mammography 01/11/2023 11:2 2 AM EDT Addenda [...] conservation is desired. Left breast: Stereotactic biopsy, paimiut clip: Lobular carcinoma in situ involving a [...] on the tomographic/stereotactic core biopsy table and piston maker images were obtained. The area undergoing [...] varying densities contained within the sample. A paimiut shaped biopsy marker clip was placed. Pressure [...] breast MRI. Onelia Flores MD IMG MAMMOGRAPHY ORDE RABLES Edited Result - Final documented in this encounter Visit Diagnoses Diagnosis Abnormal findings on diagnostic imaging of breast Other (abnormal) findings on radiological examination of breast documented in this encounter Care Teams Retail Visual Merchandiser Relationship Specialty Start Date End Date Jeanine Forbes MD [address] [place] [address] PCP - General Family Medicine 11/06/19 documented as of this encounter
--- OUTSIDE RECORDS SUMMARY | 2024-05-07 12:59 | XMS_ITS | Encounter Summary ---
Author Organization [facility] Address [address] [place] [address] Care Team Providers Care Emergency Department Clinician Name Role Phone Jeanine Forbes MD Primary Care Provider + Encounter Details Date Type Department Care Team (Late st Contact Info) Description 12/28/2022 Telephone [facility] MRI AT [address] [address] Lisa Jung Social History Tobacco Use Types Packs/Day Years [...] encounter Miscellaneous Notes * Telephone Encounter - Lisa Jung - 12/28/2022 3:47 PM EDT Patient was recommended from her MRI Breast for a Bilateral Diagnostic Mammogram and Bilateral 2nd look ultrasound. Scheduled for 01/11/2023 at 8:00 with 7:45 arrival at [address] [place] [address]. 81mg Aspirin and instructed not to stop with radiologist requirements. Encouraged to call with any further questions. documented in this encounter Plan of Treatment Upcoming Encounters Date Type Department Care Team (Late st Contact Info) Description 08/09/2024 3:00 PM EST Office Visit [facility] [address] [facility] [address] [place] [phone] Ken Devries MD [address] [facility] [address] [place] [address] documented as of this encounter Visit Diagnoses Not on filedocumented in this encounter Care Teams Emergency Department Clinician Relationship Specialty Start Date End Date Jeanine Forbes MD [address] [place] [address] PCP - General Family Medicine 11/06/19 documented as of this encounter
--- OUTSIDE RECORDS SUMMARY | 2024-05-07 12:59 | XMS_ITS | Encounter Summary ---
Author Organization [facility] Address [address] [place] [address] Care Team Providers Care Traffic Agent Name Role Phone Jeanine Forbes MD Primary Care Provider + Reason for Referral * Diagnostic Imaging (Routine) - Closed Specialty Diagnoses / Procedures Referred By Willow howard Referred To Contact Radiology Diagnoses Abnormal findings on diagnostic imaging of breast Procedures US Guided Breast Biopsy With & Without Device initial Aniyah Falcon MD [address] [place] [address] Phone: tel: fax: Referral ID Status Reason Start Date Expiration Date Visits Re quested Visits Authorized [id number] Closed 12/28/2022 12/28/2023 1 1 Reason for Visit * Diagnostic Imaging (Routine) - Closed Specialty Diagnoses / Procedures Referred By Willow howard Referred To Contact Radiology Diagnoses Abnormal findings on diagnostic imaging of breast Procedures US Guided Breast Biopsy With & Without Device initial Aniyah Falcon MD [address] [facility] [place] [address] Phone: tel: fax: Referral ID Status Reason Start Date Expiration Date Visits Re quested Visits Authorized [id number] Closed 12/28/2022 12/28/2023 1 1 Encounter Details Date Type Department Care Team (Late st Contact Info) Description 01/11/2023 7:47 AM EDT - 01/11/2023 11:59 PM EDT Hospital Encounter [facility] [address] [place] [address] Onelia Flores MD [address] [place] [address] Abnormal findings on diagnostic imaging of breast [...] Take 1 capsule by mouth Daily. rizatriptan PADDED BOX SEWER (MAXALT-PADDED BOX SEWER) [address] 1 T [...] 3:00 PM EST Office Visit [facility] R[facility]OLOGY [address] [facility] [address] [place] [address] Ken Devries MD [address] [facility] [address] [place] [address] documented as of this encounter Procedures Procedure Name Priority Date/Time Associated Diagnosis Comments US GUIDED BREAST BIOPSY W WO DEVICE INITIAL Routine 01/11/2023 11:41 AM EDT Abnormal findings on diagnostic imaging of breast TISSUE PATHOLOGY EXAM Routine 01/11/2023 11:17 AM EDT documented in this encounter Results * (ABNORMAL) US Guided Breast Biopsy With & Without Device initial (01/11/2023 11:41 AM EDT) Anatomical Region Laterality Modality Breast N/A Ultrasound Tissue 01/11/2023 11:2 2 AM EDT Addenda Addendum [...] conservation is desired. Left breast: Stereotactic biopsy, muckleshoot clip: Lobular carcinoma in situ involving a [...] on the tomographic/stereotactic core biopsy table and brown stock washer images were obtained. The area undergoing biopsy [...] varying densities contained within the sample. A muckleshoot shaped biopsy marker clip was placed. Pressure [...] and breast MRI. us Onelia Flores MD [facility] ORDERABLES Ed ited Result - Final * Tissue Pathology Exam (01/11/2023 11:17 AM EDT) Case Report Surgical Pathology Report ? Case: [id number] ? Authorizing Provider: ??Onelia Flores, Collected: ? 01/11/2023 11:17 AM ? MD ? Ordering Location: ? [facility] ?? Received: ?01/11/2023 12:55 PM ? BREAST CENTER [address] ? ULTRASOUND ? Pathologist: ? Ras Lucas MD ? Specimen: ?Breast, Right, mass right breast 5:00 - 6:00 region ? 01/13/2023 12:06 PM EDT [facility] Clinical Information Right breast mass 5:00-6:00 region 01/13/2023 12:06 PM EDT [facility] Final Diagnosis 1. RIGHT BREAST, 5-6:00, MASS, ULTRASOUND-GUIDED CORE NEEDLE BIOPSIES: Invasive ductal carcinoma, preliminary Maxine grade 1 (tubular score 1, nuclear score 1, mitotic score 1), measuring up to 3.5 mm on glass slides. Biomarkers: ER positive, ND positive, HER2 negative. Atypical lobular hyperplasia. 01/13/2023 12:06 PM EDT [facility] Comment This report was sent to the radiologist at [facility] on 01/13/2023. 01/13/2023 12:06 PM EDT [facility] Gross Description 1. Breast, Right. Received in formalin labeled right breast mass 5-6:00 ultrasound biopsy is a 1 x 0.6 x 0.3 cm aggregate of yellow-pink fibrofatty breast tissue fragments placed in formalin at 1117 on 01/11/2023, now submitted in block 1A. The cold ischemic time is less than 60 minutes, total time in formalin is greater than 6 and less than 72 hours. HDM 01/13/2023 12:06 PM [facility] Special Stains Immunohistochemical stains are performed with appropriate controls. P63 and smooth muscle myosin heavy chain demonstrate an absence of a myoepithelial cell layer around the invasive carcinoma E-cadherin appears intact in the invasive carcinoma and shows partial loss on the intraductal proliferation, consistent with atypical lobular hyperplasia.. See below for hormone receptors: IMMUNOHISTOCHEMICAL RESULTS (IHC): Estrogen Receptor RESULT: positive 100% 3+ (INTENSITY SCORE) Progesterone Receptor RESULT: positive 2% 80+ (INTENSITY SCORE) Her2/Addy oncoprotein RESULT: negative 10% 1+ (INTENSITY SCORE) Tissue cold time prior to fixation: less than 60 minutes Total fixation time (neutral buffered formalin): greater than 6 hours and less than 72 hours HER-2/addy oncoprotein (Puxico clone [id number], polymer, IVD). Test is performed on formalin fixed, paraffin embedded tissue. NEGATIVE TEST is 0+ or 1+ staining. POSITIVE TEST is 3+ staining, with at least 10% of tumor showing strong and uniform membranous staining. EQUIVOCAL TEST is 2+ or questionable 3+ staining and is submitted for testing by DEYANIRA method for HER2/addy oncogene amplification. ER clone Puxico SP1, ND clone IE2, polymer, IVD approved immunohistochemical stains are performed on formalin-fixed, paraffin-embedded tissue. 1-10% of nuclei staining of any intensity is considered a low positive test, and 11% or greater nuclear staining of any intensity is considered positive in our laboratory. Estrogen, Progesterone Receptors and Her2/addy testing is scored and reported as per ASCO/CAP guidelines published in Arch Pathol Lab Med. doi: 10.5858/arpa.2019-090 4-SA (2019 update). The reference values for positive, low positive, negative and equivocal are listed above. These assays are FDA cleared when performed on formalin-fixed, paraffin-embedded (FFPE) tissues within the latest ASCO/CAP guideline limits on fixation time. The reliability of the assays for therapeutic predictive value in other circumstances is diminished. This includes short or extended fixation time, decalcification, or fixation in other than 10% neutral buffered formalin. 01/13/2023 12:06 PM [facility] Microscopic Description The slides are reviewed and demonstrate histopathologic features supporting the above rendered diagnosis. 01/13/2023 12:06 PM [facility] Tissue Right breast structure / Unknown Collection / Unknown 01/11/2023 11:17 AM EDT 01/11/2023 12:55 PM EDT Onelia Flores MD PATHOLOGY/CYTOLOGY O RDERABLES Final Result [facility]
[address] [place] [address], documented in this encounter Visit Diagnoses Diagnosis Abnormal findings on diagnostic imaging of breast Other (abnormal) findings on radiological examination of breast documented in this encounter Administered Medications Inactive Administered Medications - up to 3 most recent administrations Medication Order MAR Action Action Date Dose Rate Site lidocaine (XYLOCAINE) 1 % injection 5 mL 5 mL, Injection, Once, On Tue01/11/23 at 1141, For 1 dose Given 01/11/2023 11:39 AM EDT 3 mL lidocaine 1% - EPINEPHrine 1:946874 (XYLOCAINE W/EPI) 1 %-1:341779 injection 10 mL 10 mL, Injection, Once, On Tue01/11/23 at 1141, For 1 dose Given 01/11/2023 11:39 AM EDT 4 mL documented in this encounter Care Teams Traffic Agent Relationship Specialty Start Date End Date Jeanine Forbes MD [address] [place] [address] PCP - General Family Medicine 11/06/19 documented as of this encounter
--- OUTSIDE RECORDS SUMMARY | 2024-05-07 12:59 | XMS_ITS | Encounter Summary ---
Author Organization [facility] Address [address] [place] [address] Care Team Providers Care Plant Operations Manager Name Role Phone Jeanine Forbes MD Primary Care Provider + Reason for Referral * MRI/CAT/PET Scan (Routine) - Closed Specialty Diagnoses / Procedures Referred By Contac t Referred To Contact Radiology Diagnoses Cervical radicular pain Procedures MRI Cervical Spine Without Contrast Zeke Saleh MD [address] [place] [address] Phone: tel: fax: [facility] [address] [place] [address] Phone: tel: Referral ID Status Reason Start Date Expiration Date Visits Re quested Visits Authorized [id number] Closed 03/02/2024 03/02/2025 1 1 Reason for Visit * MRI/CAT/PET Scan (Routine) - Closed Specialty Diagnoses / Procedures Referred By Contac t Referred To Contact Radiology Diagnoses Cervical radicular pain Procedures MRI Cervical Spine Without Contrast Zeke Saleh MD [address] [place] [id number] Phone: tel: fax: [facility] [address] [place] [address] Phone: tel: Referral ID Status Reason Start Date Expiration Date Visits Re quested Visits Authorized [id number] Closed 03/02/2024 03/02/2025 1 1 Encounter Details Date Type Department Care Team (Late st Contact Info) Description 03/14/2024 4:22 PM EDT - 03/14/2024 11:59 PM EDT Hospital Encounter [facility] AT [address] [place] [address] Zeke Saleh MD [address] [facility] [address] [place] [id number] Cervical radicular pain Discharge Disposition: Home or Self Care Social [...] this encounter Medications at Time of Discharge albuterol (ACCUNEB) 0.63 MG/3ML nebulizer solution Inhale 3 mL Every 6 (Six) Hours As Needed. albuterol (PROVENTIL) (2.5 MG/3ML) 0.083% nebulizer solution Inhale 3 mL 3 times a day by nebulization route as needed for 30 days. 4 ASMANEX, 30 METERED DOSES, 220 MCG/INH inhaler INL 1 PUFF PO BID UTD PRN 0 azelastine (ASTELIN) 0.1 % nasal spray azelastine 137 mcg (0.1 %) nasal spray aerosol INSTILL 1 SPRAY INTO BOTH NOSTRILS TWICE DAILY 3 baclofen (LIORESAL) 10 MG tablet 1 tablet. 4 Biotin 10 MG tablet Take 1 tablet by mouth Daily. cholecalciferol (VITAMIN D3) 25 MCG (1000 UT) tablet Take 1 tablet by mouth Daily. EPINEPHrine (EPIPEN) 0.3 MG/0.3ML solution auto-injector injection Take 1 auto as needed by injection route as needed. gabapentin (NEURONTIN) 300 MG capsule 1 capsule. 4 montelukast (SINGULAIR) 10 MG tablet Take 1 tablet by mouth Every Evening. Multiple Vitamins-Minerals (MULTIVITAMIN WITH MINERALS) tablet tablet Take 1 tablet by mouth Daily. omeprazole (priLOSEC) 20 MG capsule Take 1 capsule by mouth Daily. ondansetron ODT (ZOFRAN-ODT) 8 MG disintegrating tablet 1 tablet. 4 rizatriptan SOUND SYSTEM INSTALLER (MAXALT-SOUND SYSTEM INSTALLER) [address] 1 T ON THE TONGUE UNTIL DISSOLVED ONCE DAILY IF NEEDED 0 vitamin C (ASCORBIC ACID) 250 MG tablet Take 1 tablet by mouth Daily. aspirin 81 MG EC tablet Take 1 tablet by mouth. 04/03/20 24 ketorolac (TORADOL) 10 MG tablet Take 1 tablet every day by oral route at bedtime for 5 days. 4 04/03/20 lisinopril (PRINIVIL,ZESTRIL) 5 MG tablet 1 tablet. 4 04/03/20 rosuvastatin (CRESTOR) 20 MG tablet Take 1 tablet by mouth Every Evening. 04/03/20 documented as of this encounter Plan of Treatment Upcoming Encounters Date Type Department Care Team (Late st Contact Info) Description 08/09/2024 3:00 PM EST Office Visit [facility] RHEUMATOLOGY [address] [facility] [address] [place] [phone] Ken Devries MD [address] [facility] [address] [place] [address] documented as of this encounter Procedures Procedure Name Priority Date/Time Associated Diagnosis Comments MRI CERVICAL SPINE WO CONTRAST Routine 03/14/2024 5:25 PM EDT Cervical radicular pain documented in this encounter Results * MRI Cervical Spine [...] MD 03/15/2024 10:12 AM EDT Workstation ID: [id number] Narrative 03/15/2024 10:12 AM EDT MRI CERVICAL [...] MD 03/15/2024 10:12 AM EDT Workstation ID: [id number] us Zeke Saleh MD IMG MRI ORDERABLES Final Resu lt documented in this encounter Visit Diagnoses Diagnosis Cervical radicular pain documented in this encounter Care Teams Plant Operations Manager Relationship Specialty Start Date End Date Jeanine Forbes MD [address] [place] [id number] PCP - General Family Medicine 11/06/19 documented as of this encounter
--- OUTSIDE RECORDS SUMMARY | 2024-05-07 13:00 | XMS_ITS | Encounter Summary ---
Author Organization [employer] Address [address] [place] [address] Care Team Providers Care Commercial Baker Helper Name Role Phone Jeanine Forbes MD Primary Care Provider Peggy Rogers MD Unavailable [phone] Lisa Arreola RN Unavailable Unavailable Encounter Details Date Type Department Care Team (Late st Contact Info) Description 06/08/2023 Patient Outreach [facility] [address] [place] [address] Lisa Arreola, RN Social History Tobacco Use Types Packs/Day [...] place to sleep or slept in a halfway (including now)? No 02/15/2023 Interpersonal Safety Answer [...] Date Alvaro rded Speak language other than [place] at home Not on file 06/29/2023 Want [...] as of this encounter Progress Notes * Lisa Arreola, RN - 06/08/2023 11:59 PM EST Survivorship Care Plan PATIENT NAME: Jasmyn Burton DATE OF : 1950 Introduction This Survivorship plan has been created for you by your oncology team. It contains information on how to contact your team, a summary of your diagnosis and treatment, a list of any appointments you have scheduled, recommendations for your follow up care as well as information about maintaining a healthy lifestyle. Over time, the plan for your care and recommendations may change. We will provide you with a new plan as needed. This plan contains your medical history and you should keep the information confidential. Care Team Department Medical Oncologist: Peggy Rogers MD. Nurse Navigator: MARCIAL Conley, RN, Transmission Tester: Shelbi Capo, Financial Counselor: Allen Knight, Cancer Surgeon: Sudhir Barnett MD, Primary care physician: Jeanine Forbes MD Diagnosis & Staging Cancer Staging Malignant neoplasm of lower-inner quadrant of right breast of female, estrogen receptor positive (HCC) Staging form: Breast, AJCC 8th Edition - Clinical: Stage IA (cT1c, cN0, cM0, G1, ER+, NJ+, HER2-) - Signed by Peggy Rogers MD on 02/04/2023 Estrogen Receptor Status: positive Progesterone Receptor Status: positive Her2 addy Status: negative Mammoprint FFPE results, +0.574 low risk Cancer Surgery and Biopsies: 01/11/2023: Right breast biopsy, invasive ductal carcinoma, grade 1, ER+ NJ+HER2- 02/15/2023: Right breast mastectomy, invasive ductal carcinoma, grade1, 1.4cm in greatest dimension, margins uninvolved, Right axilla sentinel lymph node biopsy, 1 lymph nodes negative for metastaticcarcinoma, Left breast mastectomy, ductal carcinoma in situ, grade3, 1cm in greatest dimension, margins uninvolved T N M Pathologic staging pT1c pN0 cM0 Genetic Testing Recommended: yes Assay: CancerNext-Expanded?? +RNAinsight??: Analyses of 77 Genes Associated with Hereditary Cancer Results: negative Treatment Plan History Chemotherapy: not indicated Oral Chemotherapy: not indicated Radiation: not indicated Hormone Therapy: Recommended, pt declined Active Medication List Current Outpatient Medications Medication Instructions ??? anastrozole (ARIMIDEX) 1 mg, Oral, Daily ??? ascorbic acid (vitamin C) (VITAMIN C) 250 mg, Oral ??? aspirin 81 mg, Oral ??? cholecalciferol (VITAMIN D3) 1,000 Units, Oral ??? gabapentin (NEURONTIN) 100 mg, Oral, 3 times daily ??? HYDROcodone-acetaminophen (NORCO 5-325) 5-325 mg per tablet 1 tablet, Oral, Every 4 hours PRN ??? lisinopriL (PRINIVIL,ZESTRIL) 5 mg, Oral, Daily ??? mometasone (Asmanex Twisthaler) 220 mcg/ actuation (60) AePB breath activated powder inhaler Asmanex Twisthaler 220 mcg/actuation(60 doses) breath activated inhalr ??? montelukast (SINGULAIR) 10 mg tablet SMARTSI Tablet(s) By Mouth Every Evening ??? omeprazole (PRILOSEC) 20 mg, Oral, Daily as needed ??? rosuvastatin (CRESTOR) 20 MG tablet SMARTSI Tablet(s) By Mouth Every Evening Medication Allergies Allergies Allergen Reactions ??? Nitrofurantoin Other (See Comments) Other reaction(s): headache, Other Recommendations - Visit your doctor every 3 to 6 months for the first 3 years after the first treatment, every 6 to12 months for years 4 and 5, and every year thereafter. - No additional breast imaging is required, but recommend close follow up with oncologist for chestwall exams. - Perform a breast self examination every month. This procedure is not a substitute for mammograms. Upcoming Appointments Next office visit: 12/26/2023 at 2:30 Next bone density: Need to schedule [facility] Resources: - farmworker field crop, can help with access to practical assistance, including counseling, support groups, and services for home care and transportation. Assistance with disability and leave of absence available as well. - Certified travel director to help with continued eating and hydration concerns, weight loss/gain, chewing and swallowing challenges. - Financial navigators, to assist with understanding health insurance, bills, and financial detailsof cancer journey. - Mari Palmer support group for women with any cancer. Features speakers, activities such as art therapy, relaxation, and pottery, and shared conversation. Virtual group, weekly. - Oncology rehabilitation program referral for any patients suffering ongoing loss of function/continued pain/swelling after cancer treatment or surgery. - Many [facility] facilities partner with [facility] to offer a cancer exercise program to customize exercise as patients regain strength from cancer treatment. Breast Cancer Navigator: Available for continued need related to potential ongoing issues survivorsmay experience. Examples of Potential Ongoing Issues: emotional or mental health, physical functioning, insurance, financial advice or assistance, schoolor work, parenting, fertility, weight changes or stopping smoking. If you have any concerns in these or other areas, please speak with your doctors or oncology team to find out how you can get help with them. Symptoms of Recurrence All survivors should be doing a monthly exam of breast tissue, skin, and lymph node areas. Report any new symptoms to your doctor: new lumps in the breast, nipple discharge, rash on breast, changes in skin, bone pain, chest pain, shortness of breath or difficulty breathing, abdominal pain or persistent headaches. Risk You should continue to follow up with your physician because the risk of breast cancer returning continues for more than 15 years after remission, and because, if you have not had bilateral mastectomies, you are at higher risk to develop new, unrelated, breast cancer at some time in the future. Cancer Surveillance and Other Recommended Related Tests Please continue to see your primary care provider for all general health care recommended for a person your age, including cancer screening tests. Any new or persistent symptoms should be brought to the attention of your oncology team. No surveillance imaging (CT scans or PET scans) or labs are recommended for breast cancer follow up aside from mammography. Risk Modification A number of lifestyles/behaviors can affect your ongoing health, including the risk for the cancer coming back or developing another cancer. Lifestyle recommendations for cancer prevention include: - Avoid tobacco products. Smoking cessation resources are available at 1-800-QUIT NOW. Please notify your provider if interested in nicotine replacement or other medicines to help you quit. Long termsmokers over age 55 should undergo yearly low dose CT scans to detect lung cancer early. - Use alcohol in moderation or not at all - Strive for ideal body weight - Well balanced diet - Sunscreen use-SPF 30 or above - Regular physical activity Follow up with primary care provider regularly for other cancer screenings such as skin exams, Pap smears, colonoscopy, low dose CT for lung cancer screening. Potential Late and Combination Machine Tool Operator Effects of Treatments Make certain to document symptoms to discuss at your next visit. Call your care team if symptoms change suddenly, or call 911 if necessary. Appetite (hunger) changes Breathing Problems Bone pain Change in concentration Dental concerns Headaches Hearing changes Heart problems Hormone changes Sexual health changes Low energy or fatigue Memory changes Pain Sadness Skin changes Changes in sleep Swollen arms or legs Urinary problems Worry Numbness of hands or feet Other: Resources Life After Cancer https://www.cancer.org/treatment/iflwnezbnzjb-mrengr-xmq-after-treatment/be-heal yok-bmpxu-xdrqkltnn/svpp-zuesh-ccftnq.html What is Cancer Rehab https://www.cancer.org/treatment/thcbtflbzlaj-pkxqpt-jql-after-treatment/be-hea dvlz-ebonp-sojvtiykw/mviy-bq-umfcpz-rehabilitation.html [employer], Healthy 10 Challenge Https://prkuvpt48jzsvhdglk.org/ Lymphedema Risk https://www.oncolink.org/support/side-effects/lymphedema/qiwtewafdb-oupu-kuk-nee d-to-know/xeohzetnoisuy-htu-jiqkevkbjg-lymphedema-risk Body Image and Sexuality after Breast Cancer https://www.cancer.org/cancer/breast-cancer/qzdtaj-tm-b-bhcsyq-zqdqxm-yaaeobki/b iah-suxki-hgm-kavpczrdm-byxki-rrynsl-cancer.html Smoking Cessation https://www.cancer.org/healthy/yhqj-jqig-rhcj-tobacco.html Y INTERVENTION SPECIALIST Y INTERVENTION SPECIALIST Y INTERVENTION SPECIALIST * Lisa Arreola RN - 06/08/2023 11:59 PM EST Patient seen by Provider during appointment. Patient seen by Navigator during appointment SCP plan, along with resources on Nutrition, Livestrong program, Mari Ring support group, and Physical Therapy given.. Encouraged to continue monthly self exams with hanging calendar tool. Navigatorcard given for continued questions. Patient has not been taking her anastrozole, so will re-evaluate and update SCP at next appt. Lisa Arreola RN Y INTERVENTION SPECIALIST documented in this encounter Plan of Treatment Upcoming Encounters Date Type Department Care Team (Late st Contact Info) Description 08/30/2024 2:30 PM EDT Office Visit [facility] [address] [place] [phone] Sudhir Barnett MD [address] [facility] [address] [place] [address] 08/30/2024 3:00 PM EDT Office Visit [facility] [address] [facility] [address] [place] [address] Peggy Rogers MD [address] [facility] [address] [place], [place] [phone] documented as of this encounter Visit Diagnoses Not on filedocumented in this encounter Care Teams Commercial Baker Helper Relationship Specialty Start Date End Date Jeanine Forbes MD [address] [place] [address] [address] [place] [address] PCP - General Family Medicine 01/27/23 Peggy Rogers MD [address] [facility] [address] [place] [address] Medical Oncologist Hematology and Oncology 02/02/23 Maxwell, Lisa Morales, RN Nurse Navigator 02/02/23 12/18/23 documented as of this encounter
--- OUTSIDE RECORDS SUMMARY | 2024-05-07 13:00 | XMS_ITS | Encounter Summary ---
Author Organization [employer] Address [address] [place] [address] Care Team Providers Care Financial Institution Manager Name Role Phone Jeanine Forbes MD Primary Care Provider [phone] Gaby Rogers MD Unavailable [phone] Lisa Arreola RN Unavailable Unavailable Reason for Visit * Reason Comments Follow-up Surg path f/u Breast Cancer Encounter Details Date Type Department Care Team (Late st Contact Info) Description 02/24/2023 2:30 PM EDT Office Visit [facility] [address] [place] [address] [address] [place] [id number] Gaby Rogers MD [address] [facility] [address] [place] [address] Malignant neoplasm of lower-inner quadrant of right breast of female, estrogen receptor positive (HCC) (Primary Dx); Osteopenia of lumbar spine Social History Tobacco Use Types Packs/Day Years [...] in a penitentiary (including now)? No 02/15/2023 Comments No Sex and Gender Information Value Date Recorded Sex Assigned at Not on file Legal Sex Female 5:48 PM CDT Gender Identity Not on file Sexual Orientation Not on file Occupation Industry Job Start Date Job End Date Not on file Not on file Not on file Not on file COVID-19 Exposure Response Date Recorded In the last 10 days, have yo u been in contact with someone who was confirmed or suspected to have Coronavirus/COVID-19? No / Unsure 02/24/2023 1:41 PM EDT documented as of this encounter Last Filed Vital Signs Vital Sign Reading Time Taken Comments Blood Pressure 110/56 02/24/2023 2:30 PM EDT Pulse 63 02/24/2023 2:30 PM EDT Temperature 36.5 ??C (97.7 ??F) 02/24/2023 2:30 PM ED T Respiratory Rate 18 02/24/2023 2:30 PM EDT Oxygen Saturation 98% 02/24/2023 2:30 PM EDT Inhaled Oxygen Concentration - - Weight 64.4 kg (142 lb) 02/24/2023 2:30 PM EDT Height 165.1 cm (5' 5 ) 02/24/2023 2:30 PM EDT Body Mass Index 23.63 02/24/2023 2:30 PM EDT documented in this encounter Progress Notes * Gaby Rogers MD - 02/24/2023 2:30 PM EDT [facility] On[facility] Clinic Note Cancer History: 1. Screening mammography with vague abnormality in dense breast tissue. MRI with 1 cm mass in rightbreast and distortion in left. 2. Right breast with G1 IDC, ER/AK positive and HER2 negative, background ALH. Left breast with ALHand radial scar. Follow-up (Surg path f/u) and Breast Cancer History of Present Illness: Jasmyn Burton is a 73 y.o. female Returns for follow up of breast cancer after bilateral mastectomy. She is healing well, denies any pain. Drains removed earlier today. Past Medical History: Diagnosis Date ??? Asthma ??? Ectopic ??? High cholesterol History of PE Past Surgical History: Procedure Laterality Date ??? ANTERIOR CRUCIATE LIGAMENT REPAIR ??? HAND FUSION ??? MASTECTOMY,TOTAL UNILATERAL Left 02/15/2023 Procedure: MASTECTOMY, UNILATERAL, SIMPLE; Surgeon: Dina Odonnell MD; Location: [facility] OR; Service: General Surgery; Laterality: Left; Social History Socioeconomic History ??? Marital status: Spouse name: Not on file ??? Number of children: Not on file ??? Years of education: Not on file ??? Highest education level: Not on file Occupational History Comment: Retired physican Tobacco Use ??? Smoking status: Never ??? Smokeless tobacco: Never Vaping Use ??? Vaping Use: Never used Substance and Sexual Activity ??? Alcohol use: Yes Comment: Occasional ??? Drug use: Not on file ??? Sexual activity: Not on file Other Topics Concern ??? Not on file Social History Narrative ??? Not on file Social Determinants of Health Financial Resource Strain: Not on file Food Insecurity: Not on file Transportation Needs: Unknown ??? Lack of Transportation (Medical): No ??? Lack of Transportation (Non-Medical): Not on file Physical Activity: Not on file Stress: Not on file Social Connections: Not on file Intimate Partner Violence: Not on file Housing Stability: Unknown ??? Unable to Pay for Housing in the Last Year: No ??? Number of Places Lived in the Last Year: Not on file ??? Unstable Housing in the Last Year: No Family History Problem Relation Age of Onset ??? Hypertension Mother ??? Heart disease Mother ??? Clotting disorder Mother ??? Hypertension Father ??? Heart disease Father ??? Colon cancer Brother Allergies: Nitrofurantoin Medications: Current Outpatient Medications on File Prior to Visit Medication Sig Dispense Refill ??? ascorbic acid, vitamin C, (VITAMIN C) 250 MG tablet Take 1 tablet (250 mg total) by mouth. ??? aspirin 81 MG EC tablet Take 1 tablet (81 mg total) by mouth. ??? cholecalciferol (VITAMIN D3) 25 mcg (1,000 unit) tablet Take 1 tablet (1,000 Units total) by mouth. ??? HYDROcodone-acetaminophen (NORCO 5-325) 5-325 mg per tablet Take 1 tablet by mouth every 4 (four) hours as needed for Pain for up to 20 doses. Max Daily Amount: 6 tablets 20 tablet 0 ??? lisinopriL (PRINIVIL,ZESTRIL) 5 MG tablet Take 1 tablet (5 mg total) by mouth daily. ??? mometasone (Asmanex Twisthaler) 220 mcg/ actuation (60) AePB breath activated powder inhaler Asmanex Twisthaler 220 mcg/actuation(60 doses) breath activated inhalr ??? montelukast (SINGULAIR) 10 mg tablet SMARTSI Tablet(s) By Mouth Every Evening ??? omeprazole (PriLOSEC) 20 MG capsule Take 1 capsule (20 mg total) by mouth daily as needed. ??? rosuvastatin (CRESTOR) 20 MG tablet SMARTSI Tablet(s) By Mouth Every Evening No current facility-administered medications on file prior to visit. Review of Systems: 10 systems reviewed and negative except as noted per HPI Vitals Vitals: 02/24/23 1430 BP: 110/56 Pulse: 63 Resp: 18 Temp: 97.7 ??F (36.5 ??C) SpO2: 98% Weight: 64.4 kg (142 lb) Height: 1.651 m (5' 5 ) Gain/Loss Since Last Wt (Kgs): -1 kg Physical Exam Vitals and nursing note reviewed. Constitutional: General: She is not in acute distress. Appearance: Normal appearance. She is not toxic-appearing. HENT: Head: Normocephalic and atraumatic. Nose: Nose normal. Mouth/Throat: Mouth: Mucous membranes are moist. Pharynx: Oropharynx is clear. Eyes: Extraocular Movements: Extraocular movements intact. Pupils: Pupils are equal, round, and reactive to light. Cardiovascular: Rate and Rhythm: Normal rate and regular rhythm. Heart sounds: Normal heart sounds. Pulmonary: Effort: Pulmonary effort is normal. No respiratory distress. Breath sounds: Normal breath sounds. No wheezing, rhonchi or rales. Abdominal: General: Bowel sounds are normal. There is no distension. Palpations: Abdomen is soft. Tenderness: There is no abdominal tenderness. Musculoskeletal: General: No swelling or deformity. Normal range of motion. Cervical back: Normal range of motion and neck supple. Right lower leg: No edema. Left lower leg: No edema. Lymphadenopathy: Cervical: No cervical adenopathy. Skin: General: Skin is warm and dry. Coloration: Skin is not jaundiced or pale. Findings: No rash. Neurological: General: No focal deficit present. Mental Status: She is alert and oriented to person, place, and time. Motor: No weakness. Psychiatric: Mood and Affect: Mood normal. Behavior: Behavior normal. Thought Content: Thought content normal. Judgment: Judgment normal. Relevant Results: Admission on 02/15/2023, Discharged on 02/16/2023 Component Date Value Ref Range Status ??? AP RESULT 02/15/2023 See Note: Final Comment: [facility] [address] [place] [address] or [phone] Rivera Paz M.D., Mixing Place Supervisor PATIENT NAME LAB[facility]ATORY [address] [id number] [id number] AGE SEX SSN CLIENT REF # [facility] 73 [phone] F [id number] [address] REQUESTING Barbie [place] [address] DINA ODONNELL DATE COLLECTED DATE RECEIVED DATE REPORTED 02/15/2023 02/16/2023 02/22/2023 DIAGNOSIS: A. BREAST, SIMPLE MASTECTOMY, RIGHT: Invasive ductal adenocarcinoma Maximum dimensions: 14 x 11 x 7 mm Margins negative for tumor Negative for dermal/epidermal involvement Areas of atypical lobular hyperplasia See CAP template B. SENTINEL NODE, RIGHT AXILLA: One l ymph node negative for metastatic carcinoma, (0/1) C. 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 Receptors performed on initial biopsy ([id number]): IMMUNOHISTOCHEMICAL RESULTS (IHC): Estrogen Receptor RESULT: positive 100% 3+ (INTENSITY SCORE) Progesterone Receptor RESULT: positive 2% 80+ (INTENSITY SCORE) Her2/Natalie oncoprotein RESULT: negative 10% 1+ (INTENSITY SCORE) Tissue cold time prior to fixation: less than 60 minutes Total fixation time (neutral buffered formalin): greater than 6 hours and less than 72 hours HER-2/natalie oncoprotein (Emlyn clone 4B5, polymer, IVD). Test is performed on formalin fixed, paraffin embedded tissue. NEGATIVE TEST is 0+ or 1+ staining. POSITIVE TEST is 3+ staining, with at least 10% of tumor showing strong and uniform membranous staining. EQUIVOCAL TEST is 2+ or questionable 3+ staining and is submitted for testing by DEYANIRA method for HER2/natalie oncogene amplification. ER clone Emlyn SP1, AK clone IE2, polymer, IVD approved immunohistochemical stains are performed on formalin-fixed, paraffin- embedded tissue. 1-10% of nuclei staining of any intensity is considered a low positive test, and 11% or greater nuclear staining of any intensity is considered positive in our laboratory. C. A selection of (3) immunohistochemical stains is performed, evaluated with the appropriate controls, with the following results: (C3) I-azbdybvc-eowpmfwd positive within area of interest, calponin B-highlights retained myoepithelial cells, smooth muscle myosin heavy chain-highlights retained myoepithelial cells. INVASIVE CARCINOMA OF THE BREAST SPECIMEN: A Proc edure: Total mastectomy Specimen Laterality: Right TUMOR: Tumor Site: - Clock position; 5 o'clock, 6 o'clock Histologic Type: Invasive carcinoma of no special type (ductal) Histologic Grade (Fitzgerald Histologic Score): Glandular (Acinar) / Tubular Differentiation: Score 1 Nuclear Pleomorphism: Score 2 Mitotic Rate: Score 1 Overall Grade: Grade 1 (scores of 3, 4 or 5) Tumor Size: 14 mm x 11 mm x 7 mm Tumor Focality: Single focus of invasive carcinoma Ductal Carcinoma In Situ (DCIS): Not identified Lobular Carcinoma In Situ (LCIS): Not identified Lymphovascular Invasion: Not identified Treatment Effect in the Breast: No known presurgical therapy MARGINS: Margin Status for Invasive Carcinoma: - All margins negative for invasive carcinoma Distance from Invasive Carcinoma to Closest Margin: Exact distance Closest Margin(s) to Invasive Carcinoma: Posterior REGIONAL LYMPH NODES: Regional Lymph Node Status: All regional lymph nodes negative for tumor Total Numb er of Lymph Nodes Examined (sentinel and non-sentinel): 1 Number of Stowell Nodes Examined: 1 PATHOLOGIC STAGE CLASSIFICATION (pTNM, AJCC 8th Edition): pT1c N0(sn) Reporting of pT, pN, and (when applicable) pM categories is based on information available to the pathologist at the time the report is issued. As per the AJCC (Chapter 1, 8th Ed.) it is the managing physician-s responsibility to establish the final pathologic stage based upon all pertinent information, including but potentially not limited to this pathology report. DCIS OF THE BREAST SPECIMEN: C Procedure: Total mastectomy Specimen Laterality: Left TUMOR: Tumor Site: Central Histologic Type: Ductal carcinoma in situ Size (Extent) of DCIS: 10 mm x 7 mm x 10 mm Architectural Patterns: Comedo, Solid Nuclear Grade: Grade II (intermediate) to Grade III (high grade) Necrosis: Present, central (expansive comedo necrosis) MARGINS: Margin Status: - All margins negative for DCIS Distance from DC IS to Closest Margin: 10 mm Closest Margin(s) to DCIS: Posterior REGIONAL LYMPH NODES: Regional Lymph Node Status: Not applicable (no regional lymph nodes submitted or found) PATHOLOGIC STAGE CLASSIFICATION (pTNM, AJCC 8th Edition): pTis NX Reporting of pT, pN, and (when applicable) pM categories is based on information available to the pathologist at the time the report is issued. As per the AJCC (Chapter 1, 8th Ed.) it is the managing physician-s responsibility to establish the final pathologic stage based upon all pertinent information, including but potentially not limited to this pathology report. CLINICAL HISTORY: Malignant neoplasm of unspecified site of right female breast SPECIMENS RECEIVED: A. BREAST, SIMPLE MASTECTOMY, RIGHT B. SENTINEL NODE, RIGHT AXILLA C. BREAST, SIMPLE MASTECTOMY, LEFT MICROSCOPIC DESCRIPTION: A. Tissue blocks are prepared and slides are examined microscopically on all specimens. See diagnosis for details. C. IMMUNOHI STOCHEMICAL RESULTS (IHC): Estrogen Receptor RESULT: Positive >95% 3+ (INTENSITY SCORE) Progesterone Receptor RESULT: Positive 80% 2+ (INTENSITY SCORE) Tissue cold time prior to fixation: Estimated <10 minutes Total fixation time (neutral buffered formalin): Estimated 24 hours HER-2/natalie oncoprotein (Emlyn clone 4B5, polymer, IVD). Test is performed on formalin fixed, paraffin embedded tissue. NEGATIVE TEST is 0+ or 1+ staining. POSITIVE TEST is 3+ staining, with at least 10% of tumor showing strong and uniform membranous staining. EQUIVOCAL TEST is 2+ or questionable 3+ staining and is submitted for testing by DEYANIRA method for HER2/natalie oncogene amplification. ER clone Emlyn SP1, AK clone IE2, polymer, IVD approved immunohistochemical stains are performed on formalin-fixed, paraffin- embedded tissue. 1-10% of nuclei staining of any intensity is considered a low positive test, and 11% or greater nuclear staining of any intensity is considered posit sana in our laboratory. Estrogen, Progesterone Receptors and Her2/natalie testing is scored and reported as per ASCO/CAP guidelines published in Arch Pathol Lab Med. doi: 10.5858/arpa.1998-2949-CU (2019 update). The reference values for positive, [...] in other than 10% neutral buffered formalin. The internal and external (both positive and negative) controls reacted appropriately. Some of our immunohistochemical and in situ hybridization studies are performed as analyte specific reagents. The following statement applies to those tests: This test was developed, and its performance characterist ics determined by [facility]. It has not been cleared or approved by the US Food and Drug Administration. However, the FDA has determined that approval and clearance are not necessary. Professional interpretation rendered by Juliet Serrano M.D., F.C.A.P. at [facility], [facility], [address] [place] [address]. GROSS DESCRIPTION: A. Specimen received in formalin labeled right breast and consists of a 467 g, 15.0 x 15.0 x 4.0 cm breast mastectomy specimen having an attached ellipse of skin (11.5 x 6.0 cm) oriented with a suture at 12:00. The skin surface is stroud and wrinkled with a centrally located 1.0 x 1.0 x 0.3 cm nipple. The remainder of the skin surface is grossly unremarkable. The anterior surgical margin is inked blue, the posterior surgical margin is inked green. Sectioning reveals located within the inferior medial quadrant a 1.0 x 1.0 x 0.9 cm dense fibrotic mass lesion that extends to within 0.5 cm from the nearest posterior margin having an embedded coiled metallic clip. The surrounding tissue appears partially fibrous. Centrally located within the breast parenchyma is a separate (3.5 cm away) pink-stroud nodule measuring 0.5 x 0.5 x 0.5 cm. This nodule measures 1.5 cm from the nearest posterior margin. The remainder of the breast parenchyma is otherwise grossly unremarkable. No infarcts or other discrete mass lesions are grossly identified. Solutions Manager sections are submitted in 10 cassettes as follows: A1-nipple [id number] of mass with nearest posterior margin in A2, A5-entirety of central nodule A6-posterior margin nearest central nodule [id number] sections with superior lateral in A7, superior medial in A8, inferior lateral in A9, inferior medial in A10. Time in formalin approximately 24 hours. B. Received in formalin labeled right axillary sentinel lymph node is a fatty encased sentinel lymph node excision containing a lymph node candidate measuring 1.0 x 0.7 x 0.6 cm. The ca ndidate is step sectioned perpendicular to the long axis at approximately 2-mm intervals. The cut surface shows no discrete lesion. Sections are submitted entirely in 2 cassettes. C. Specimen received in formalin labeled left breast and consists of a 492 g, 16.0 x 16.0 x 3.8 cm breast mastectomy specimen having an attached ellipse of skin (12.0 x 5.0 cm) oriented with a suture at 12:00. The skin surface is stroud and wrinkled with a invaginated nipple (0.7 x 0.6 x 0.4 cm). There is a 0.2 x 0.2 cm pink papule located 1.5 cm medial to the nipple. The remainder of the skin surface is otherwise grossly unremarkable. The anterior surgical margin is inked blue, the posterior surgical margin is inked green. Sectioning reveals centrally located within the specimen a 0.7 x 0.6 x 0.6 cm dense fibrotic mass lesion surrounded by fibrous tissue extending to within 1.0 cm from the nearest posterior margin. At the posterior aspect of the mass is a 0.3 x 0.3 x 0.2 cm apparent biopsy site containing a oval shaped metallic clip. There are focal areas of fibrocystic tissue also located within the central fibrous area of breast. The remainder of the breast parenchyma is otherwise grossly unremarkable. No infarcts or other discrete mass lesions are grossly identified. Solutions Manager sections are submitted in 11 cassettes as follows: C1-nipple C2-skin papule C3-C5-mass with nearest posterior margin in C3, [id number]-kluqkfj tissue including fibrocystic areas and C7, [id number]-udtmnbdo sections with superior lateral in C8, superior medial in C9, inferior lateral in C10, inferior medial in C11. Time in formalin approximately 24 hours. JTM/RLL REVIEWED, DIAGNOSED AND ELECTRONICALLY SIGNED BY: Juliet Serrano M.D., F.C.A.P. CPT CODES: [id number], [id number], [id number], [id number] DEXA reviewed from 10/09 osteopenia with lowest T score -1.1 in the lumbar spine Assessment/Plan: Cancer Staging Malignant neoplasm of lower-inner quadrant of right breast of female, estrogen receptor positive (HCC) Staging form: Breast, AJCC 8th Edition - Clinical: Stage IA (cT1c, cN0, cM0, G1, ER+, AK+, HER2-) - Signed by Gaby Rogers MD on 02/04/2023 73 y.o. female here for follow up of bilateral breast cancer. Stage I, hormone receptor positive onright and hormone receptor positive DCIS on left. Negative margins. Negative sentinel lymph node biopsy on right. Does not need adjuvant radiation, but would recommend adjuvant aromatase inhibitor for 5-10 years (tamoxifen contraindicated given her prior venous thromboembolism). Anastrozole prescribed today. Risks including but not limited to vasomotor symptoms arthralgias and accelerated bone density loss were reviewed. Prior bone densitometry reviewed, only very slight osteopenia. She also indicates a history of reaction to prior Zometa. Would repeat study 10/11. if significant worsening of osteopenia, would recommend Prolia every 6 months for duration of aromatase inhibitor. Patient does indicate a desire to undergo genetic testing. She does have a brother with both colon and prostate cancer, son with melanoma, but no breast or ovarian cancer in the family. Given her bilateral breast cancer, I would agree with testing. She will see genetics later today. Signed: Electronically signed by GABY ROGERS MD 02/25/23 8:50 AM EDT Total visit time 30 minutes. documented in this encounter Plan of Treatment Upcoming Encounters Date Type Department Care Team (Late st Contact Info) Description 08/30/2024 2:30 PM EDT Office Visit [facility] [address] [place] [address] Dina Odonnell MD [address] [place] [phone] 08/30/2024 3:00 PM EDT Office Visit [facility] [place] [address] [place] [address] Gaby Rogers MD [address] [facility] [address] [place] [address] documented as of this encounter Visit Diagnoses Diagnosis Malignant neoplasm of lower-inner quadrant of right breast of female, estrogen receptor positive (HCC)- Primary Osteopenia of lumbar spine documented in this encounter Care Teams Financial Institution Manager Relationship Specialty Start Date End Date Jeanine Forbes MD [address] [place] [phone] PCP - General Family Medicine 01/27/23 Gaby Rogers MD [address] [facility] [address] [place] [address] Medical Oncologist Hematology and Oncology 02/02/23 Lisa Arreola RN Nurse Navigator 02/02/23 12/18/23 documented as of this encounter
--- OUTSIDE RECORDS SUMMARY | 2024-05-07 13:00 | XMS_ITS | Encounter Summary ---
Author Organization [facility] [employer] Address [address] [place] [address] Care Team Providers Care English Language Arts Teacher Name Role Phone Jeanine Forbes MD Primary Care Provider Peggy Rogers MD Unavailable [phone] Lisa Arreola RN Unavailable Unavailable Reason for Visit * Reason Comments Post-Op Follow-up Encounter Details Date Type Department Care Team (Late st Contact Info) Description 02/24/2023 12:30 PM EDT Office Visit [facility] [address] [place] [address] Sudhir Barnett MD [address] [place] [address] Post-operative state (Primary Dx) Social History Tobacco Use Types Packs/Day Years [...] in a fpc (including now)? No 02/15/2023 Comments No Sex [...] suspected to have Coronavirus/COVID-19? No / Unsure 02/15/2023 8:38 AM EDT documented as of this encounter Progress Notes * Sudhir Barnett MD - 02/24/2023 12:30 PM EDT Subjective: Jasmyn Burton is a 73 y.o. female. Chief Complaint Patient presents with ??? 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 Pathology on the right revealed a 1.4 cm invasive ductal carcinoma with negative margins.The sentinel lymph node was negative. Pathology on the left revealed a 10 mm focus of intermediate to high- grade DCIS with negative margins. She states that she is recovering very well with minimal KAYLA drain output. Review of Systems All other systems reviewed and are negative. Objective: There were no vitals taken for this visit. Physical Exam she has well-healing mastectomy incisions bilaterally without evidence of infection. Assessment: 1. Post-operative state Plan: I am pleased that she is recovering well. I am also pleased with the results of her surgical pathology. She has oncology follow-up pending. We removed both KAYLA drains today. I will see her back next week for another postoperative visit. No follow-ups on file. documented in this encounter Plan of Treatment Upcoming Encounters Date Type Department Care Team (Late st Contact Info) Description 08/30/2024 2:30 PM EDT Office Visit [facility] [address] [facility] [address] [place] [phone] Sudhir Barnett MD [address] [place] [phone] 08/30/2024 3:00 PM EDT Office Visit [facility] - [place] [place] [phone] Peggy Rogers MD [address] [facility] [address] [place] [address] documented as of this encounter Visit Diagnoses Diagnosis Post-operative state- Primary Other postprocedural status documented in this encounter Care Teams English Language Arts Teacher Relationship Specialty Start Date End Date Jeanine Forbes MD [address] [place] [address] PCP - General Family Medicine 01/27/23 Peggy Rogers MD [address] [facility] [address] [place] [address] Medical Oncologist Hematology and Oncology 02/02/23 Maxwell, Lisa Morales RN Nurse Navigator 02/02/23 12/18/23 documented as of this encounter
--- OUTSIDE RECORDS SUMMARY | 2024-05-07 13:00 | XMS_ITS | Encounter Summary ---
Author Organization [facility] [employer] [facility] Address [address] [place] [address] Care Team Providers Care Cuff Maker Name Role Phone Jeanine Forbes MD Primary Care Provider Peggy Rogers MD Unavailable [phone] Lisa Arreola RN Unavailable Unavailable Encounter Details Date Type Department Care Team (Latest Contact Info) Description 02/15/2023 Travel Social History Tobacco Use Types Packs/Day [...] place to sleep or slept in a long-term (including now)? No 02/15/2023 Comments No Sex [...] AM EDT documented as of this encounter Plan of Treatment Upcoming Encounters Date Type Department Care Team (Late st Contact Info) Description 08/30/2024 2:30 PM EDT [facility] [address] [place] [address] Sudhir Barnett MD [address] [place] [address] 08/30/2024 3:00 PM EDT Office Visit [facility] [address] [facility] [address] [place] [address] Peggy Rogers MD [address] [place] [address] documented as of this encounter Visit Diagnoses Not on filedocumented in this encounter Care Teams Cuff Maker Relationship Specialty Start Date End Date Jeanine Forbes MD [address] [place] [address] [address] [place] [address] PCP - General Family Medicine 01/27/23 Peggy Rogers MD [address] [place], [place] [id number] Medical Oncologist Hematology and Oncology 02/02/23 Maxwell, Lisa Morales, RN Nurse Navigator 02/02/23 12/18/23 documented as of this encounter
--- OUTSIDE RECORDS SUMMARY | 2024-05-07 13:00 | XMS_ITS | Encounter Summary ---
Author Organization [facility] Address [address] [place] [address] Care Team Providers Care Gear Hobber Name Role Phone Jeanine Forbes MD Primary Care Provider Peggy Rogers MD Unavailable [phone] Lisa Arreola RN Unavailable Unavailable Encounter Details Date Type Department Care Team (Latest Contact Info) Description 06/08/2023 Travel Social History Tobacco Use Types Packs/Day [...] place to sleep or slept in a usp (including now)? No 02/15/2023 Comments No Sex [...] Description 08/30/2024 2:30 PM EDT Office Visit [facility] [address] [place] [phone] Sudhir Barnett MD [address] [place] [phone] 08/30/2024 3:00 PM EDT Office Visit [facility] [address] [place] [address] [address] [place] [address] Peggy Rogers MD [address] [facility] [address] [place] [address] documented as of this encounter Visit Diagnoses Not on filedocumented in this encounter Care Teams Gear Hobber Relationship Specialty Start Date End Date Jeanine Forbes MD [address] [place] [address] 7 [place] [phone] PCP - General Family Medicine 01/27/23 Peggy Rogers MD [address] [facility] [address] [place], [place] [phone] Medical Oncologist Hematology and Oncology 02/02/23 Lisa Arreola RN Nurse Navigator 02/02/23 12/18/23 documented as of this encounter
--- OUTSIDE RECORDS SUMMARY | 2024-05-07 13:00 | XMS_ITS | Encounter Summary ---
Author Organization [facility] [employer] Address [address] [place] [address] Care Team Providers Care Hot Dog Vendor Name Role Phone Jeanine Forbes MD Primary Care Provider Gaby Rogers MD Unavailable [phone] Lisa Arreola RN Unavailable Unavailable Reason for Visit * Reason Comments Follow-up Breast Cancer 3 month follow up east check. Encounter Details Date Type Department Care Team (Late st Contact Info) Description 06/08/2023 1:45 PM EST Office Visit [facility] - [address] [place] [address] Gaby Rogers MD [facility] [address] [place] [address] Malignant neoplasm of lower-inner quadrant of right breast of female, estrogen receptor positive (HCC) (Primary Dx) Social History Tobacco Use Types [...] place to sleep or slept in a skilled nursing (including now)? No 02/15/2023 Comments No Sex [...] Sign Reading Time Taken Comments Blood Pressure 116/67 06/08/2023 2:49 PM EST Pulse 60 06/08/2023 2:49 PM EST Temperature 36.7 ??C (98.1 ??F) 06/08/2023 2:49 PM ES T Respiratory Rate 16 06/08/2023 2:49 PM EST Oxygen Saturation 96% 06/08/2023 2:49 PM EST Inhaled Oxygen Concentration - - Weight 66.2 kg (146 lb) 06/08/2023 2:49 PM EST Height 165.1 cm (5' 5 ) 06/08/2023 2:49 PM EST Body Mass Index 24.3 06/08/2023 2:49 PM EST documented in this encounter Progress Notes * Gaby Rogers MD - 06/08/2023 1:45 PM EST [facility] Note Cancer History: 1. Screening mammography with vague abnormality in dense breast tissue. MRI with 1 cm mass in rightbreast and distortion in left. 2. Right breast with G1 IDC, ER/AZ positive and HER2 negative, background ALH. Left breast with ALHand radial scar. 3. Bilateral mastectomy 02/09 with pT1cN0 IDC right breast and pTis DCIS and left breast. Margins negative. 4. Adjuvant anastrozole 03/12 to current. 5. Status post genetic testing and counseling 03/12, negative. Follow-up and Breast Cancer (3 month follow up breast check. ) History of Present Illness: Jasmyn Burton is a 73 y.o. female Returns for follow up of breast cancer after bilateral mastectomy. Feels well. No complaints today. She never started anastrozole due to concerns about blood clot risk. Past Medical History: Diagnosis Date ??? Asthma ??? Ectopic ??? High cholesterol History of PE Past Surgical History: Procedure Laterality Date ??? ANTERIOR CRUCIATE LIGAMENT REPAIR ??? HAND FUSION ??? MASTECTOMY,TOTAL UNILATERAL Left 02/15/2023 Procedure: MASTECTOMY, UNILATERAL, SIMPLE; Surgeon: Dina Odonnell MD; Location: [facility] OR; Service: General Surgery; Laterality: Left; [...] Insecurity: Not on file Transportation Needs: Unknown (02/15/2023) PRAPARE - Transportation ??? Lack of Transportation (Medical): No ??? Lack of Transportation (Non-Medical): Not on file Physical Activity: Not on file Stress: Not on file Social Connections: Not on file Intimate Partner Violence: Not on file Housing Stability: Unknown (02/15/2023) Housing Stability Vital Sign ??? Unable to Pay for Housing in the Last Year: No ??? Number of Places Lived in the Last Year: Not on file ??? Unstable Housing in the Last Year: No Family History Problem Relation Age of Onset ??? Hypertension Mother ??? Heart disease Mother ??? Clotting disorder Mother ??? Hypertension Father ??? Heart disease Father ??? Colon cancer Brother 66 ??? Prostate cancer Brother 66 ??? Melanoma Son 25 Allergies: Nitrofurantoin Medications: Current Outpatient Medications on File Prior to Visit Medication Sig Dispense Refill ??? anastrozole (ARIMIDEX) 1 mg tablet Take 1 tablet (1 mg total) by mouth daily. 90 tablet 3 ??? ascorbic acid, vitamin C, (VITAMIN C) 250 MG tablet Take 1 tablet (250 mg total) by mouth. ??? aspirin 81 MG EC tablet Take 1 tablet (81 mg total) by mouth. ??? cholecalciferol (VITAMIN D3) 25 mcg (1,000 unit) tablet Take 1 tablet (1,000 Units total) by mouth. ??? gabapentin (NEURONTIN) 100 MG capsule Take 1 capsule (100 mg total) by mouth 3 (three) times daily. Max Daily Amount: 300 mg 90 capsule 0 ??? lisinopriL (PRINIVIL,ZESTRIL) 5 MG tablet [...] SMARTSI Tablet(s) By Mouth Every Evening ??? [DISCONTINUED] HYDROcodone-acetaminophen (NORCO 5-325) 5-325 mg per tablet Take 1 tablet by mouth every 4 (four) hours as needed for Pain for up to 20 doses. Max Daily Amount: 6 tablets 20 tablet0 No current facility-administered medications on file prior to visit. Review of Systems: 10 systems reviewed and negative except as noted per HPI Vitals Vitals: 06/08/23 1449 BP: 116/67 BP Location: Right arm Patient Position: Sitting Pulse: 60 Resp: 16 Temp: 98.1 ??F (36.7 ??C) SpO2: 96% Weight: 66.2 kg (146 lb) Height: 1.651 m (5' 5 ) Gain/Loss Since Last Wt (Kgs): 1 kg Physical Exam Vitals and nursing note [...] breath sounds. No wheezing, rhonchi or rales. Chest: Breasts: Right: Absent. Left: Absent. Comments: Bilateral mastectomy, well-healed, no nodules or adenopathy. Abdominal: General: Bowel sounds are normal. There [...] content normal. Judgment: Judgment normal. Relevant Results: No visits with results within 10 Day(s) from this visit. Latest known visit with results is: Admission on 02/15/2023, Discharged on 02/16/2023 Component Date Value Ref Range Status ??? AP RESULT 02/15/2023 See Note: Final Comment: [facility] [address] [place] [address] or [phone] Rivera Paz M.D., Qc Scientist PATIENT NAME [facility] [id number] AGE SEX SSN CLIENT REF # [facility] [id number] F [id number] [address] [place] [address] REQUESTING MGlenn ATTENDING [place] [address] DINA ODONNELL DATE COLLECTED DATE RECEIVED DATE [...] COMMENT: A. Receptors performed on initial biopsy ([id number]): IMMUNOHISTOCHEMICAL RESULTS (IHC): Estrogen Receptor RESULT: positive 100% 3+ (INTENSITY SCORE) Progesterone Receptor RESULT: positive 2% 80+ (INTENSITY SCORE) Her2/Natalie oncoprotein RESULT: negative 10% 1+ (INTENSITY SCORE) Tissue cold time prior to fixation: less than 60 minutes Total fixation time (neutral buffered formalin): greater than 6 hours and less than 72 hours HER-2/natalie oncoprotein ([place] clone 4B5, polymer, IVD). Test is performed on formalin fixed, paraffin embedded tissue. NEGATIVE TEST is 0+ or 1+ staining. POSITIVE TEST is 3+ staining, with at least 10% of tumor showing strong and uniform membranous staining. EQUIVOCAL TEST is 2+ or questionable 3+ staining and is submitted for testing by DEYANIRA method for HER2/natalie oncogene amplification. ER clone [place] SP1, AZ clone IE2, polymer, IVD approved immunohistochemical stains are performed on formalin-fixed, paraffin- embedded tissue. 1-10% of nuclei staining of any intensity is considered a low positive test, and 11% or greater nuclear staining of any intensity is considered positive in our laboratory. C. A selection of (3) immunohistochemical stains is performed, evaluated with the appropriate controls, with the following results: (C3) E-ayabwxoj-gphlhnvb positive within area of interest, calponin B-highlights retained myoepithelial cells, smooth muscle myosin heavy chain-highlights retained myoepithelial cells. INVASIVE CARCINOMA OF THE BREAST SPECIMEN: A Proc edure: Total mastectomy Specimen Laterality: Right TUMOR: Tumor Site: - Clock position; 5 o'clock, 6 o'clock Histologic Type: Invasive carcinoma of no special type (ductal) Histologic Grade ([place] Histologic Score): Glandular (Acinar) / Tubular Differentiation: [...] Examined (sentinel and non-sentinel): 1 Number of [place] Nodes Examined: 1 PATHOLOGIC STAGE CLASSIFICATION (pTNM, [...] buffered formalin): Estimated 24 hours HER-2/natalie oncoprotein ([place] clone 4B5, polymer, IVD). Test is performed on formalin fixed, paraffin embedded tissue. NEGATIVE TEST is 0+ or 1+ staining. POSITIVE TEST is 3+ staining, with at least 10% of tumor showing strong and uniform membranous staining. EQUIVOCAL TEST is 2+ or questionable 3+ staining and is submitted for testing by DEYANIRA method for HER2/natalie oncogene amplification. ER clone [place] SP1, AZ clone IE2, polymer, IVD approved immunohistochemical stains [...] published in Arch Pathol Lab Med. doi: 10.5858/arpa.9571-3814-RQ (2019 update). The reference values for positive, [...] rendered by Juliet Serrano M.D., F.C.A.P. at [facility] [employer], [address] [place] [address]. GROSS DESCRIPTION: A. Specimen received in formalin [...] other discrete mass lesions are grossly identified. Corrugator sections are submitted in 10 cassettes as follows: A1-nipple Z1-T7-vrrhukca of mass with nearest posterior margin in A2, A5-entirety of central nodule A6-posterior margin nearest central nodule K1-G11-thiggthx sections with superior lateral in A7, superior [...] other discrete mass lesions are grossly identified. Corrugator sections are submitted in 11 cassettes as follows: C1-nipple C2-skin papule C3-C5-mass with nearest posterior margin in C3, N3-A9-lxnaneu tissue including fibrocystic areas and C7, X6-S28-nvvdsnjj sections with superior lateral in C8, superior medial in C9, inferior lateral in C10, inferior medial in C11. Time in formalin approximately 24 hours. JTM/RLL REVIEWED, DIAGNOSED AND ELECTRONICALLY SIGNED BY: Juliet Serrano M.D., F.C.A.P. CPT CODES: [id number], [id number], [id number], [id number] DEXA reviewed from 10/09 osteopenia with lowest T score -1.1 in the lumbar spine Assessment/Plan: Cancer Staging Malignant neoplasm of lower-inner quadrant of right breast of female, estrogen receptor positive (HCC) Staging form: Breast, AJCC 8th Edition - Clinical: Stage IA (cT1c, cN0, cM0, G1, ER+, AZ+, HER2-) - Signed by Gaby Rogers MD on 02/04/2023 73 y.o. female here for follow up of bilateral breast cancer. -Long discussion today about the risks and benefits of endocrine therapy. I strongly encouraged 5 years of anastrozole. We discussed that risk of VTE is not increased with aromatase inhibitors as it would be with tamoxifen which I would avoid given her prior PEs. -Patient also has concerns about her bone health and arthralgias which may come with aromatase inhibitors. 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 -We did discuss MammaPrint testing and the concept of ultralow disease with very low recurrence rate even in the absence of endocrine therapy. Will send this testing today and readdress endocrine plan in 2 weeks. -Genetic testing completed and negative. -DEXA due 10/11. Signed: Electronically signed by GABY ROGERS MD 06/08/23 4:48 PM EST Total visit time 30 minutes. INSPECTOR documented in this encounter Plan of Treatment Upcoming Encounters Date Type Department Care Team (Late st Contact Info) Description 08/30/2024 2:30 PM EDT [facility] [address] [place] [address] Dina Odonnell MD [address] [facility] [address] [place] [phone] 08/30/2024 3:00 PM EDT Office Visit [facility] [address] [place] [address] Gaby Rogers MD [address] [employer] [place] [address] [place] [address] Scheduled Orders Name Type Priority Associated Diagnoses Orde r Schedule [facility] Genomic Testing - Non-PCL Pathology and Cytology Routine Malignant neoplasm of lower-inner quadrant of right breast of female, estrogen receptor positive (HCC) Expected: 06/08/2023, Expires: 06/08/2024 documented as of this encounter Visit Diagnoses Diagnosis Malignant neoplasm of lower-inner quadrant of right breast of female, estrogen receptor positive (HCC)- Primary documented in this encounter Care Teams Hot Dog Vendor Relationship Specialty Start Date End Date Jeanine Forbes MD [address] [place] [address] [address] [place] [address] PCP - General Family Medicine 01/27/23 Gaby Rogers MD [address] [employer] [address] [place] [address] Medical Oncologist Hematology and Oncology 02/02/23 Maxwell, Lisa Morales RN Nurse Navigator 02/02/23 12/18/23 documented as of this encounter
--- OUTSIDE RECORDS SUMMARY | 2024-05-07 13:00 | XMS_ITS | Encounter Summary ---
Author Organization [employer] Address [address] [place] [address] Care Team Providers Care Restaurant Busser Name Role Phone Jeanine Forbes MD Primary Care Provider [phone] Peggy Rogers MD Unavailable [phone] Lisa Arreola RN Unavailable Unavailable Reason for Referral * Nuclear Medicine (Routine) - Closed Specialty Diagnoses / Procedures Referred By Willow t Referred To Contact Diagnoses Malignant neoplasm of right female breast, unspecified estrogen receptor status, unspecified site of breast (HCC) Procedures NM sentinel node study (injection only) Sudhir Barnett MD [address] [address] Phone: tel: fax: Referral ID Status Reason Start Date Expiration Date Visits Re quested Visits Authorized [id number] Closed 02/04/2023 08/03/2023 1 1 Reason for Visit * Auth/Cert Specialty Diagnoses / Procedures Referred By Willow howard Referred To Contact Diagnoses Malignant neoplasm of right female breast, unspecified estrogen receptor status, unspecified site of breast (HCC) R breast cancer Procedures GA MASTECTOMY, SIMPLE, COMPLETE GA MASTECTOMY, SIMPLE, COMPLETE MASTECTOMY, WITH SENTINEL LYMPH NODE BIOPSY MASTECTOMY, UNILATERAL, SIMPLE [facility] Department [address] [place] [address] Phone: tel: fax: [facility] Department [address] [place] [address] Phone: tel: fax: Referral ID Status Reason Start Date Expiration Date Visits Re quested Visits Authorized [id number] 1 1 Encounter Details Date Type Department Care Team (Latest Contact Info) Description 02/15/2023 8:19 AM EDT - 02/15/2023 11:59 PM EDT Hospital Encounter [facility] Nuclear Medicine Imaging [address] [place] [place] [address] Sudhir Barnett MD [address] [place] [address] Malignant neoplasm of right female breast, unspecified estrogen receptor status, unspecified site of breast (HCC) Discharge Disposition: Home or Self Care Social [...] Recorded In the last 10 days, have salena u been in contact with someone who was confirmed or suspected to have Coronavirus/COVID-19? No / Unsure 02/15/2023 8:38 AM EDT documented as of this encounter Medications at Time of Discharge ascorbic acid, vitamin C, (VITAMIN C) 250 MG tablet Take 2 tablets (500 mg total) by mouth 2 (two) times daily. aspirin 81 MG EC tablet Take 1 tablet (81 mg total) by mouth every other day. cholecalciferol (VITAMIN D3) 25 mcg (1,000 unit) tablet Take 1 tablet (1,000 Units total) by mouth. lisinopriL (PRINIVIL,ZESTRIL) 5 MG tablet Take 1 tablet (5 mg total) by mouth daily. 01/07/2023 mometasone (Asmanex Twisthaler) 220 mcg/ actuation (60) AePB breath activated powder inhaler Asmanex Twisthaler 220 mcg/actuation(6 0 doses) breath activated inhalr montelukast (SINGULAIR) 10 mg tablet SMARTSI Tablet(s) By Mouth Every Evening 01/04/2023 omeprazole (PriLOSEC) 20 MG capsule Take 1 capsule (20 mg total) by mouth daily as needed. 11/29/2022 rosuvastatin (CRESTOR) 20 MG tablet SMARTSI Tablet(s) By Mouth Every Evening 01/08/2023 ondansetron (ZOFRAN-ODT) 4 MG disintegrating tablet Take 1 tablet (4 mg total) by mouth every 8 (eight) hours as needed for Nausea for up to 7 days. 20 tablet 02/16/2023 3 HYDROcodone-acetami nophen (NORCO 5-325) 5-325 mg per tablet Take 1 tablet by mouth every 4 (four) hours as needed for Pain for up to 20 doses. Max Daily Amount: 6 tablets 20 tablet 02/16/2023 3 documented as of this encounter Plan of Treatment Upcoming Encounters Date Type Department Care Team (Late st Contact Info) Description 08/30/2024 2:30 PM EDT Office Visit [facility] Breast Surgery Clinic [address] [address] Sudhir Barnett MD [address] [place] [address] 08/30/2024 3:00 PM EDT Office Visit [facility] - [address] [place] [address] Peggy Rogers MD [address] [place], [place] [phone] documented as of this encounter Procedures Procedure Name Priority Date/Time Associated Diagnosis Comments NM SENTINEL NODE STUDY (INJECTION ONLY) Routine 02/15/2023 10:23 AM EDT Malignant neoplasm of right female breast, unspecified estrogen receptor status, unspecified site of breast (HCC) documented in this encounter Results * NM sentinel node study (injection only) (02/15/2023 10:23 AM EDT) Anatomical Region Laterality Modality Nuclear Medicine 02/15/2023 2:07 PM EDT Impressions 02/15/2023 2:27 PM EDT [place] node injection of the right breast as discussed above. Films reviewed, interpreted, and dictated by Dr. Jennings. Transcribed by Brandi Sanches PA-C. Narrative 02/15/2023 2:27 PM EDT SENTINEL NODE INJECTION HISTORY: Right breast neoplasm. ATTENDING PHYSICIAN: Dr. Jennings PHYSICIAN INTERMODAL DISPATCHER: Brandi Sanches PA-C FINDINGS: After informed consent was obtained and time-out procedure performed, approximately 916 uCi of technetium Lymphoseek was injected intradermally into the right breast. Injections were performed in a periareolar fashion. No films were obtained during this procedure. The patient tolerated the procedure with no immediate complication. Procedure Note Mathew Jennings MD - 02/15/2023 SENTINEL NODE INJECTION HISTORY: Right breast neoplasm. ATTENDING PHYSICIAN: Dr. Jennings PHYSICIAN INTERMODAL DISPATCHER: Brandi Sanches PA-C FINDINGS: After informed consent was obtained and time-out procedure performed, approximately 916 uCi of technetium Lymphoseek was injected intradermally into the right breast. Injections were performed in a periareolar fashion. No films were obtained during this procedure. The patient tolerated the procedure with no immediate complication. IMPRESSION: [place] node injection of the right breast as discussed above. Films reviewed, interpreted, and dictated by Dr. Jennings. Transcribed by Brandi Sanches PA-C. Sudhir Barnett MD IM NM ORDERABLES Final Resu lt documented in this encounter Visit Diagnoses Diagnosis Malignant neoplasm of right female breast, unspecified estrogen receptor status, unspecified site of breast (HCC) documented in this encounter Administered Medications Inactive Administered Medications - up to 3 most recent administrations Medication Order MAR Action Action Date Dose Rate Site Tc-99m - tilmanocept (LYMPHOSEEK) 0.916 millicurie 0.916 millicurie Once (916 microcurie), intravenous, On Tu02/15/23 at 1100, For 1 dose Given 02/15/2023 10:23 AM EDT 916 microcuries documented in this encounter Care Teams Restaurant Busser Relationship Specialty Start Date End Date Jeanine Forbes MD [address] [place] [address] PCP - General Family Medicine 01/27/23 Peggy Rogers MD [address] [address] Medical Oncologist Hematology and Oncology 02/02/23 Lisa Arreola RN Nurse Navigator 02/02/23 12/18/23 documented as of this encounter
--- OUTSIDE RECORDS SUMMARY | 2024-05-07 13:00 | XMS_ITS | Encounter Summary ---
Author Organization [employer] Address [address] [place] [address] Care Team Providers Care Reefer Truck Driver Name Role Phone Jeanine Forbes MD Primary Care Provider Peggy Rogers MD Unavailable [phone] Lisa Arreola RN Unavailable Unavailable Reason for Visit * Reason Comments Follow-up Patient presents for a 1 week follow up. Encounter Details Date Type Department Care Team (Late st Contact Info) Description 03/03/2023 12:45 PM EDT Office Visit [facility] [address] [facility] [address] [place] [address] Sudhir Barnett MD [address] [facility] 101 [place] [address] Post-operative state (Primary Dx) Social [...] place to sleep or slept in a detention (including now)? No 02/15/2023 Comments No Sex [...] PM EDT documented as of this encounter Progress Notes * Sudhir Barnett MD - 03/03/2023 12:45 PM EDT Subjective: Jasmyn Burton is a 73 y.o. female. Chief Complaint Patient presents with ??? Follow-up Patient presents for a 1 week follow up. I have reviewed and/or updated the following: HPI Dr. Burton is back today for another postoperative visit. She states that she is doing well butreports some mild bilateral neuropathic pain. Review of Systems All other systems reviewed and are negative. Objective: There were no vitals taken for this visit. Physical Exam she has well-healing mastectomy incisions bilaterally. There is no evidence of infection or underlying hematoma or seroma. Assessment: 1. Post-operative state Plan: I am pleased that she is doing well. She has requested gabapentin for her neuropathic pain. Unless she develops any new problems or concerns I will see her back in 6 months. No follow-ups on file. documented in this encounter Plan of Treatment Upcoming Encounters Date Type Department Care Team (Late st Contact Info) Description 08/30/2024 2:30 PM EDT Office Visit [facility] [address] [place] [address] [place] [address] Sudhir Barnett MD [address] [facility] 101 [place] [phone] 08/30/2024 3:00 PM EDT Office Visit [facility] - [address] [facility] 300 [place] [phone] Peggy Rogers MD [address] [facility] [address] [place], [place] [phone] documented as of this encounter Visit Diagnoses Diagnosis Post-operative state- Primary Other postprocedural status documented in this encounter Care Teams Reefer Truck Driver Relationship Specialty Start Date End Date Jeanine Forbes MD [address] [place] [phone] PCP - General Family Medicine 01/27/23 Peggy Rogers MD [address] [facility] [address] [place] [address] Medical Oncologist Hematology and Oncology 02/02/23 Maxwell, Lisa Morales RN Nurse Navigator 02/02/23 12/18/23 documented as of this encounter
--- OUTSIDE RECORDS SUMMARY | 2024-05-07 13:00 | XMS_ITS | Encounter Summary ---
Author Organization [employer] Address [address] [place] [address] Care Team Providers Care Director Of Family Service Center Name Role Phone Jeanine Forbes MD Primary Care Provider Peggy Rogers MD Unavailable [phone] Lisa Arreola RN Unavailable Unavailable Encounter Details Date Type Department Care Team (Late st Contact Info) Description 03/08/2023 Audio - Telemedicine [facility] - [place] [address] [place] [address] Elsy Jaramillo, MS [address] [place], [place] [phone] Malignant neoplasm of lower-inner quadrant of right breast of female, estrogen receptor positive (HCC) (Primary Dx); FHx: colon cancer; FHx: prostate carcinoma Social History Tobacco Use Types Packs/Day Years [...] place to sleep or slept in a chcf (including now)? No 02/15/2023 Comments No Sex [...] as of this encounter Progress Notes * Elsy Jaramillo, - 03/08/2023 3:08 PM EDT Cancer Genetic Counseling - Results Note Patient: Jasmyn Burton : 1950 Date of Visit: 03/08/2023 Genetic Counselor: ELSY JARAMILLO, [place], [facility] Individual(s) present during appointment: patient I called Jasmyn Melisa Walterjulian to disclose the results of the following genetic testing: CancerNext-Expanded +RNAinsight (next generation sequencing including deletion/duplication analysis of 77 genes):AIP, ALK, APC, FREDDY, AXIN2, BAP1, BARD1, BLM, BMPR1A, BRCA1, BRCA2, BRIP1, CDC73, CDH1, CDK4, CDKN1B, CDKN2A, CHEK2, CTNNA1, DICER1, FANCC, FH, FLCN, GALNT12, KIF1B, LZTR1, MAX, MEN1, MET, MLH1, MSH2,MSH3, MSH6, MUTYH, NBN, NF1, NF2, NTHL1, PALB2, PHOX2B, PMS2, POT1, PAZOA4L, PTCH1, PTEN, RAD51C, RAD51D, RB1, RECQL, RET, SDHA, SDHAF2, SDHB, SDHC, SDHD, SMAD4, SMARCA4, SMARCB1, SMARCE1, STK11, SUFU, EGNN804, TP53, TSC1, TSC2, VHL and XRCC2 (sequencing and deletion/duplication); EGFR, EGLN1, HOXB13, KIT, MITF, PDGFRA, POLD1 and POLE (sequencing only); EPCAM and GREM1 (deletion/duplication only). RNA data is routinely analyzed for use in variant interpretation for all genes. Results Negative (no mutation was detected) Discussion Negative test results provide us with reassuring information that the patient's cancer and/or family history of cancer was likely not due to a hereditary factor and was more likely due to environmental factors and/or chance. Other possible explanations for the patient's negative test results include family members carry a genetic mutation that was not inherited by this patient, there is a geneticmutation in one of the genes tested that this test cannot detect, or there is a genetic mutation quique gene that was not analyzed that is causing an increased risk for cancer in the patient and their family. Additional genetic testing may become available in the future, and so the patient is encouraged to contact our office periodically for updates to testing recommendations. Negative test results mean that this patient could not pass on to their children a detectable mutation in one of the tested genes. However, negative test results do not mean that the patient will never develop cancer in the future. Based on the family history, individuals in the family may have a higher risk for developing cancer, but likely not as high as individuals with a positive genetic testing result. Screening Recommendations Breast cancer: The patient's female relatives are encouraged to talk to their physicians or a genetic counselor about their personal risk of breast cancer. The National Comprehensive Cancer Network (NCCN) Guidelines recommend that women with a lifetime risk of greater than 20%, based on family history, have ??? Clinical breast exams every 6-12 months beginning when they are identified as high risk, but not before age 21 ??? Annual screening mammogram, with tomosynthesis if possible, to begin 10 years prior to when theyoungest family member was diagnosed with breast cancer, but not before age 30, or at age 40 whichever comes first ??? Annual breast MRI, to begin 10 years prior to when the youngest family member was diagnosed with breast cancer, but not before age 25, or age 40 whichever comes first. Contrast enhanced mammography or whole breast ultrasound can be considered for those that cannot have an MRI. Ovarian cancer: Currently, there are no ovarian cancer screening recommendations for women considered to be at an average risk to develop ovarian cancer. The [facility] currently has an ovarian cancer research study available to all women over the age of 50. Younger women with a family history of ovarian cancer may also qualify. Appointments can be made by calling or . Endometrial cancer: Currently, there are no uterine cancer screening recommendations for women considered to be at an average risk to develop uterine cancer. It is encouraged that women known the signs and symptoms of uterine cancer, where the most common symptom is abnormal vaginal bleeding. For post- menopausal women, all vaginal bleeding, regardless of amount, should be evaluated by a physician. Cervical cancer: The [place] Cancer Society (ACS) recommend cervical cancer screening for women over the age of 21 years. For women over the age of 65 years who have had negative prior screening or no abnormal screening in the last twenty years, no screening is recommended. Colon cancer: The National Comprehensive Cancer Network (NCCN) Guidelines recommend that individuals who have a first degree relative diagnosed with colon cancer at any age have a colonoscopy beginning at age 40 or 10 years before the earliest diagnosis of colon cancer. Colonoscopy should be repeated every 5 years, or if positive, repeated depending on the colonoscopy findings. Skin cancer: It is important to learn the warning signs of skin cancer and what to look for during a self-examination. The Skin Cancer Foundation recommends monthly head-to-toe self-examinations of the skin to look for any new or changing lesions. For more information, visit www.skincancer.org. Patient Concerns The patient was happy to hear her negative results. She had no questions at this time. Follow-up Plan Continue to follow physicians' recommendations for cancer treatment and screening. Contact our office with updated personal/family history information, additional questions, and to receive updates from our office. A copy of the results and interpretation will be sent to the patient. Electronically signed by: ELSY JARAMILLO MS, [facility], Licensed Genetic Counselor 03/08/23 3:08 PM EDT Cc: No ref. provider found documented in this encounter Plan of Treatment Upcoming Encounters Date Type Department Care Team (Late st Contact Info) Description 08/30/2024 2:30 PM EDT [facility] [address] [place] [phone] Sudhir Barnett MD [address] [facility] 101 [place] [address] 08/30/2024 3:00 PM EDT Office Visit [facility] - [place] [address] [facility] [address] [place] [phone] Peggy Rogers MD [address] [place] [address] [address] [place] [address] documented as of this encounter Visit Diagnoses Diagnosis Malignant neoplasm of lower-inner quadrant of right breast of female, estrogen receptor positive (HCC)- Primary FHx: colon cancer Family history of malignant neoplasm of gastrointestinal tract FHx: prostate carcinoma documented in this encounter Care Teams Director Of Family Service Center Relationship Specialty Start Date End Date Jeanine Forbes MD [address] [place] [phone] PCP - General Family Medicine 01/27/23 Peggy Rogers MD [facility] 300 [place] [address] Medical Oncologist Hematology and Oncology 02/02/23 Lisa Arreola RN Nurse Navigator 02/02/23 12/18/23 documented as of this encounter
--- OUTSIDE RECORDS SUMMARY | 2024-05-07 13:00 | XMS_ITS | Encounter Summary ---
Author Organization [facility] [employer] Address [address] [place] [address] Care Team Providers Care Agency Sales Management Assistant Name Role Phone Jeanine Forbes MD Primary Care Provider Peggy Rogers MD Unavailable [phone] Lisa Arreola RN Unavailable Unavailable Encounter Details Date Type Department Care Team (Latest Contact Info) Description 02/24/2023 Travel Social History Tobacco Use Types Packs/Day [...] place to sleep or slept in a custodial (including now)? No 02/15/2023 Comments No Sex [...] PM EDT documented as of this encounter Plan of Treatment Upcoming Encounters Date Type Department Care Team (Late st Contact Info) Description 08/30/2024 2:30 PM EDT Office Visit [facility] [address] [place] [address] Sudhir Barnett MD [address] [place] [address] 08/30/2024 3:00 PM EDT Office Visit [facility] [place] [address] [facility] [address] [place] [phone] Peggy Rogers MD [address] [place] [address] documented as of this encounter Visit Diagnoses Not on filedocumented in this encounter Care Teams Agency Sales Management Assistant Relationship Specialty Start Date End Date Jeanine Forbes MD [address] [place] [address] [address] [place] [address] PCP - General Family Medicine 01/27/23 Peggy Rogers MD [address] [place], [place] [phone] Medical Oncologist Hematology and Oncology 02/02/23 Maxwell, Lisa Morales, RN Nurse Navigator 02/02/23 12/18/23 documented as of this encounter
--- OUTSIDE RECORDS SUMMARY | 2024-05-07 13:00 | XMS_ITS | Encounter Summary ---
Author Organization [employer] Address [address] [place] [address] Care Team Providers Care Vp Communications Name Role Phone Jeanine Forbes MD Primary Care Provider [phone] Peggy Rogers MD Unavailable [phone] Lisa Arreola RN Unavailable Unavailable Reason for Visit * Reason Comments Follow-up Patient presents to the breast clinic for a 6 month follow up visit. Encounter Details Date Type Department Care Team (Late st Contact Info) Description 09/01/2023 2:30 PM EDT [facility] [address] [facility] [address] [place] [address] Sudhir Barnett MD [address] [facility] 101 [place] [address] History of breast cancer (Primary Dx); History of bilateral mastectomy Social History Tobacco Use Types Packs/Day Years [...] to sleep or slept in a senior care (including now)? No 02/15/2023 Interpersonal Safety Answer [...] Date Alvaro rded Speak language other than Cook Islander at home Not on file 06/29/2023 Want [...] Progress Notes * Sudhir Barnett MD - 09/01/2023 2:30 PM EDT Subjective: Jasmyn Burton is a 73 y.o. female. Chief Complaint Patient presents with ??? Follow-up Patient presents to the breast clinic for a 6 month follow up visit. I have reviewed and/or updated the following: HPI Dr. Burton is now 6 months status post right total mastectomy and left prophylactic mastectomy.She states that she is doing well and is not on endocrine therapy. Review of Systems All other systems reviewed and are negative. Objective: There were no vitals taken for this visit. Physical Exam she has well-healed mastectomy incisions bilaterally. There is no evidence of recurrence. There are no masses or adenopathy. Assessment: 1. History of breast cancer 2. History of bilateral mastectomy Plan: I am pleased that she continues to do well. Unless she develops any new problems or concerns I willsee her back in 1 year. No follow-ups on file. documented in this encounter Plan of Treatment Upcoming Encounters Date Type Department Care Team (Late st Contact Info) Description 08/30/2024 2:30 PM EDT [facility] [address] [facility] [address] [place] [address] Sudhir Barnett MD [address] [facility] 101 [place] [address] 08/30/2024 3:00 PM EDT Office Visit [facility] - [place] [facility] [address] [facility] 300 [place] [address] Peggy Rogers MD [address] [place] [address] documented as of this encounter Visit Diagnoses Diagnosis History of breast cancer- Primary Personal history of malignant neoplasm of breast History of bilateral mastectomy Acquired absence of breast and nipple documented in this encounter Care Teams Vp Communications Relationship Specialty Start Date End Date Jeanine Forbes MD 2017 [facility] 7 [place] [phone] PCP - General Family Medicine 01/27/23 Peggy Rogers MD [address] [place] [address] Medical Oncologist Hematology and Oncology 02/02/23 Lisa Arreola RN Nurse Navigator 02/02/23 12/18/23 documented as of this encounter
--- OUTSIDE RECORDS SUMMARY | 2024-05-07 13:00 | XMS_ITS | Encounter Summary ---
Author Organization [employer] Address [address] [place] [address] Care Team Providers Care Vp Digital Marketing Name Role Phone Jeanine Forbes MD Primary Care Provider Peggy Rogers MD Unavailable [phone] Lisa Arreola RN Unavailable Unavailable Encounter Details Date Type Department Care Team (Late st Contact Info) Description 02/24/2023 3:00 PM EDT Clinical Support [facility] - [place] [address] [place] [address] Elsy Jaramillo, MS [address] [place], [place] [id number] Malignant neoplasm of lower-inner quadrant of right [...] of this encounter Progress Notes * Elsy Jaramillo MS - 02/24/2023 3:00 PM EDT Images from the original note were not included. 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 The left breast had ALH and a radial scar. She chose to have bilateral mastectomies and met with Dr. Rogers today for adjuvant treatment recommendations. Family History: A complete four-generational pedigree was obtained. The pertinent information is outlined below andthe remainder of the maternal and paternal family history is noncontributory. The maternal lineage is of Western/Northern descent. The paternal lineage is of Western/Northern descent. The patient denies Ashkenazi Restoration ancestry. Immediate: 2 Brother(s), 1 Sister(s), 1 Son(s), 0 Daughter(s), ??? Brother had Prostate Cancer at age 66 ??? Brother had Colon or Rectal Cancer at age 66 ??? Son had Skin (Melanoma) Cancer at age 25 Maternal: 1 Uncle(s), 1 Aunt(s), Paternal: 0 Uncle(s), 1 Aunt(s), ??? Male First Cousin (Paternal) had Lymphoma Cancer at age 35 Reproductive History: ??? Menarche: 13 ??? : 2 ??? Para: 1 ??? First live : 26 ??? Oral contraceptives 5+ years: No ??? Hormone replacement therapy: No ??? Menopause: postmenopausal o Reason for Menopause: Natural Menopause o Age of Menopause: 55 ??? Hysterectomy: No ??? Oophorectomy: No Cancer Screening History: The patient reports the following screening history. Colonoscopy - More than 3 Years ??? Colon Polyps: 3 Mammogram - Annually ??? Patient reports the following abnormalities: Cystic cluster in left breast ??? Breast Density: ??? Breast Biopsies: 3 o Biopsy Result: cancer as diagnosed above Self Breast Exam - Occasionally Clinical Breast Exam - Annually Breast MRI - As Needed ??? Patient reports the following abnormalities: Radial scar and distortion in left breast. One centimeter mass in right breast The patient also reports: Breast Ultrasound, Pap Smear Medical/Surgical History: The patient reports Bilateral Mastectomy at age 73 Social History: ??? Non-Smoker ??? Environmental Exposures: None Genetic Counseling Discussion: I discussed with the patient the characteristics of sporadic cancer versus familial cancer versus hereditary cancer syndromes, including an overview of DNA and genetic material. Hereditary cancer comprises 5-10% of cancer diagnoses, with the remaining being comprised of familial and sporadic cancer. Family histories typical of hereditary cancer syndromes usually include multiple close relatives diagnosed with the same type of cancer or cancer types that are part of a defined hereditary condition. Hereditary cancer may be diagnosed at a younger than expected age and may involve more than one primary site in a single individual. The majority of genes associated with hereditary cancer syndromes are associated with regulation ofcell division and tumor suppression. Identification of a mutation in these genes would implicate that the gene cannot properly function and would therefore increase the patient's risk to develop cancer. The vast majority of hereditary cancer syndromes are inherited in an autosomal dominant fashion.When an individual is identified as having a hereditary cancer syndrome, their first-degree relatives have a 50% risk of having the same hereditary cancer syndrome. These individuals would then be appropriate for genetic counseling and testing. We reviewed in detail the cancer risks associated with a positive genetic testing result for the genes tested, as well as the recommended screening and treatment options associated with an increased risk for the corresponding hereditary cancer syndrome. We also reviewed the possible results that can be obtained from genetic testing. While a positive genetic testing result would identify an increased risk of cancer in an individual, a negative test result would not eliminate a risk for cancer. An individual with a negative genetic test result would still be at risk to develop cancer and this risk may even be higher than the general population risk if the individual has a family history of cancer. While the two most common genetic testing results are positive and negative results personal risk factors and/or results, there is a chance that a variant of uncertain clinical significance (VUS) maybe identified. These results are genetic mutations that have not yet been classified as deleteriousor benign. The [place] [employer] (ACMG) recommends that VUS results should not be used for medical decision making. If a VUS is identified in a patient, recommendations for cancer risk management will be made based on the patient's personal and family history. If the VUS is reclassified as deleterious or benign based on additional evidence, an amended test report is sent to theordering provider who would communicate that information to the patient. Genetic Testing: Based upon the patient???s reported personal and family histories, we discussed: Hereditary breast cancer accounts for approximately 5-10% of all breast cancers. Of that 5-10%, approximately 50% is caused by mutations in the BRCA1 and BRCA2 genes. Women who have a mutation in BRCA1 or BRCA2 have a significantly increased risk to develop breast cancer and ovarian cancer. Women with a BRCA1 or BRCA2 mutation who have already been diagnosed with breast cancer also have an increased risk to develop a second primary breast cancer. Men with a BRCA1 or BRCA2 mutation have an increased lifetime risk to develop male breast cancer and prostate cancer. Both men and women with a BRCA1 or BRCA2 mutation may be at an increased risk to develop pancreatic cancer and melanoma, dependingon their genetic testing result and reported family history. There are other genes that are associated with high risks to develop breast cancer, which include but are not limited to, CDH1, NF1, PTEN, and TP53. While these genes are typically seen in distinct hereditary cancer syndromes, they have also been detected in individuals who do not meet clinical criteria for testing. Genes such as FREDDY, CHEK2, and PALB2, are considered to be moderate to high risk genes for hereditary breast cancer. Mutations in these genes can increase an individual???s risk to develop breast cancer to an extent to which changes may be made to screening recommendations. Newer genes, such as BARD1, BRIP1, FANCC, MRE11A, NBN, RAD50, RAD51C, and RAD51D, have been implicated in hereditary breast cancer but exact risks are not currently known. Individuals with mutations in these genes have recommendations made based upon their genetic test result, personal medical history, and reported family history. We reviewed the risks, benefits, and limitations of genetic testing as well as the Genetic Information Non-Discrimination Act (DEBBIE), which is protective against genetic discrimination in regards to health insurance and employer discrimination. Plan: 1. Informed consent was obtained and a blood sample was obtained today. 2. Test(s) ordered from [facility]: o CancerNext-Expanded +RNAinsight (next generation sequencing including deletion/duplication analysis of 77 genes): AIP, ALK, APC, FREDDY, AXIN2, BAP1, BARD1, BLM, BMPR1A, BRCA1, BRCA2, BRIP1, CDC73, CDH1, CDK4, CDKN1B, CDKN2A, CHEK2, CTNNA1, DICER1, FANCC, FH, FLCN, GALNT12, KIF1B, LZTR1, MAX, MEN1, MET, MLH1, MSH2, MSH3, MSH6, MUTYH, NBN, NF1, NF2, NTHL1, PALB2, PHOX2B, PMS2, POT1, XHYJH4N, PTCH1,PTEN, RAD51C, RAD51D, RB1, RECQL, RET, SDHA, SDHAF2, SDHB, SDHC, SDHD, SMAD4, SMARCA4, SMARCB1, SMARCE1, STK11, SUFU, EBEC093, TP53, TSC1, TSC2, VHL and XRCC2 (sequencing and deletion/duplication); EGFR, EGLN1, HOXB13, KIT, MITF, PDGFRA, POLD1 and POLE (sequencing only); EPCAM and GREM1 (deletion/du plication only). RNA data is routinely analyzed for use in variant interpretation for all genes. 3. The patient does not meet NCCN criteria for testing but is still interested in having testing done due to her personal and family history. She wants the information for herself and her son and grandchildren. We discussed that Mary has a self-pay pickens of $250. She is agreeable to move ahead with testing at this pickens. 4. I will call the patient to disclose the results when they are available, approximately 2-4 weeksfrom the testing date. If needed, a follow up appointment will be scheduled at that time. Time Spent [id number] with patient: 35 minutes Electronically signed by: ELSY JARAMILLO MS, [facility], Licensed Genetic Counselor 02/24/23 5:15 PM EDT documented in this encounter Plan of Treatment Upcoming Encounters Date Type Department Care Team (Late st Contact Info) Description 08/30/2024 2:30 PM EDT Office Visit [facility] [address] [facility] [address] [place] [address] Sudhir Barnett MD [address] [facility] [address] [place] [phone] 08/30/2024 3:00 PM EDT Office Visit [facility] - [address] [place] [address] Peggy Rogers MD [address] [facility] [address] [place] [address] documented as of this encounter Results * [facility] Hereditary Genetic Testing (03/07/2023 1:04 PM EDT) Blood (Peripheral Blood) us Peggy Rogers MD PATHOLOGY/CYTOLOGY ORDERABLES Final Result OTHER (EXTERNAL) documented in this encounter Visit Diagnoses Diagnosis Malignant neoplasm of lower-inner quadrant of right breast of female, estrogen receptor positive (HCC)- Primary FHx: colon cancer Family history of malignant neoplasm of gastrointestinal tract FHx: prostate carcinoma documented in this encounter Care Teams Vp Digital Marketing Relationship Specialty Start Date End Date Jeanine Forbes MD [address] [phone] PCP - General Family Medicine 01/27/23 Peggy Rogers MD [address] [facility] [address] [place] [address] Medical Oncologist Hematology and Oncology 02/02/23 Maxwell, Lisa Morales RN Nurse Navigator 02/02/23 12/18/23 documented as of this encounter
--- OUTSIDE RECORDS SUMMARY | 2024-05-07 13:00 | XMS_ITS | Encounter Summary ---
Author Organization [employer] Address [address] [place] [address] Care Team Providers Care Plastic Extruding Machine Operator Name Role Phone Jeanine Forbes MD Primary Care Provider Peggy Rogers MD Unavailable [phone] Lisa Arreola RN Unavailable Unavailable Encounter Details Date Type Department Care Team (Late st Contact Info) Description 03/11/2023 Orders Only [facility] - [place] [address] [place] [address] Elsy Jaramillo, MS [address] [place], [place] [id number] Malignant neoplasm of lower-inner quadrant of right breast of female, estrogen receptor positive (HCC); FHx: colon cancer; FHx: prostate carcinoma Social [...] place to sleep or slept in a [place] facility (including now)? No 02/15/2023 Comments No Sex [...] Description 08/30/2024 2:30 PM EDT Office Visit [facility] [address] [facility] [address] [place] [address] Sudhir Barnett MD [address] [facility] [address] [place] [address] 08/30/2024 3:00 PM EDT Office Visit [facility] - [facility] [address] [place] [address] Peggy Rogers MD [facility] [place] [address] [place] [address] documented as of this encounter Procedures Procedure Name Priority Date/Time Associated Diagnosis Comments [facility] HEREDITARY GENETIC TESTING Routine 03/07/2023 1:04 PM EDT Malignant neoplasm of lower-inner quadrant of right breast of female, estrogen receptor positive (HCC) FHx: colon cancer FHx: prostate carcinoma documented in this encounter Results * [facility] Oncology Hereditary Genetic Testing (03/07/2023 1:04 PM EDT) Blood (Peripheral Blood) us Peggy Rogers MD PATHOLOGY/CYTOLOGY ORDERABLES Final Result OTHER (EXTERNAL) documented in this encounter Visit Diagnoses Diagnosis Malignant neoplasm of lower-inner quadrant of right breast of female, estrogen receptor positive (HCC) FHx: colon cancer Family history of malignant neoplasm of gastrointestinal tract FHx: prostate carcinoma documented in this encounter Care Teams Plastic Extruding Machine Operator Relationship Specialty Start Date End Date Jeanine Forbes MD [address] [place] [phone] PCP - General Family Medicine 01/27/23 Peggy Rogers MD [facility] [address] [place] [address] Medical Oncologist Hematology and Oncology 02/02/23 Maxwell, Lisa Morales RN Nurse Navigator 02/02/23 12/18/23 documented as of this encounter
--- OUTSIDE RECORDS SUMMARY | 2024-05-07 13:00 | XMS_ITS | Encounter Summary ---
Author Organization [employer] Address [address] [place] [address] Care Team Providers Care Striper Name Role Phone Jeanine Forbes MD Primary Care Provider Peggy Rogers MD Unavailable [phone] Lisa Arreola RN Unavailable Unavailable Reason for Visit * Reason Onset Date Comments Bump on elbow 11/18/2023 Encounter Details Date Type Department Care Team (Late st Contact Info) Description 11/18/2023 Telephone [facility] - [place] [address] [place] [address] Lisa Arreola, RN Bump on elbow Social History Tobacco Use Types Packs/Day Years [...] place to sleep or slept in a longterm (including now)? No 02/15/2023 Interpersonal Safety Answer [...] Date Alvaro rded Speak language other than Maltese at home Not on file 06/29/2023 Want [...] encounter Miscellaneous Notes * Telephone Encounter - Analisa Purdy PA-C - 11/18/2023 1:27 PM EDT Which elbow is it? When did it appear? Does it hurt? I can see her Tuesday if she wishes. * Telephone Encounter - Lisa Arreola RN - 11/18/2023 1:18 PM EDT Pt LM on navigator phone that she has a new bump on the bone in her elbow that she is concerned about. She is wondering if she needs to get it evaluated. Called patient back, no answer. documented in this encounter Plan of Treatment Upcoming Encounters Date Type Department Care Team (Late st Contact Info) Description 08/30/2024 2:30 PM EDT Office Visit [facility] [address] [facility] [address] [place] [address] Sudhir Barnett MD [address] [place] [phone] 08/30/2024 3:00 PM EDT Office Visit [facility] - [place] [address] [facility] [address] [place] [address] Peggy Rogers MD [address] [place] [address] documented as of this encounter Visit Diagnoses Not on filedocumented in this encounter Care Teams Striper Relationship Specialty Start Date End Date Jeanine Forbes MD [address] [place] [address] [address] [place] [phone] PCP - General Family Medicine 01/27/23 Peggy Rogers MD [address] [place] [address] Medical Oncologist Hematology and Oncology 02/02/23 Lisa Arreola RN Nurse Navigator 02/02/23 12/18/23 documented as of this encounter
--- OUTSIDE RECORDS SUMMARY | 2024-05-07 13:00 | XMS_ITS | Encounter Summary ---
Author Organization [employer] Address [address] [place] [address] Care Team Providers Care Criminal Judge Name Role Phone Jeanine Forbes MD Primary Care Provider [phone] Peggy Rogers MD Unavailable [phone] Lisa Arreola RN Unavailable Unavailable Encounter Details Date Type Department Care Team (Late st Contact Info) Description 11/22/2023 Orders Only [facility] - [place] [address] [facility] [address] [place] [address] Analisa Purdy PA-C [address] [facility] [address] [place] [address] Social History Tobacco Use Types Packs/Day Years [...] place to sleep or slept in a intermediate (including now)? No 02/15/2023 Interpersonal Safety Answer [...] Date Alvaro rded Speak language other than Sinhala at home Not on file 06/29/2023 Want [...] Description 08/30/2024 2:30 PM EDT Office Visit [facility] [address] [place] [address] Sudhir Barnett MD [address] [place] [phone] 08/30/2024 3:00 PM EDT Office Visit [facility] - [facility] [address] [facility] [address] [place] [address] Peggy Rogers MD [address] [facility] [address] [place] [address] documented as of this encounter Visit Diagnoses Not on filedocumented in this encounter Care Teams Criminal Judge Relationship Specialty Start Date End Date Jeanine Forbes MD [address] [place] [address] PCP - General Family Medicine 01/27/23 Peggy Rogers MD [address] [facility] [address] [place] [address] Medical Oncologist Hematology and Oncology 02/02/23 Maxwell, Lisa Morales, RN Nurse Navigator 02/02/23 12/18/23 documented as of this encounter
--- OUTSIDE RECORDS SUMMARY | 2024-05-07 13:00 | XMS_ITS | Encounter Summary ---
Author Organization [facility] [employer] Address [address] [place] [address] Care Team Providers Care Barrel Straightener Name Role Phone Jeanine Forbes MD Primary Care Provider [phone] Peggy Rogers MD Unavailable [phone] Lisa Arreola RN Unavailable Unavailable Reason for Visit * Reason Onset Date Comments Results 12/02/2023 Encounter Details Date Type Department Care Team (Late st Contact Info) Description 12/02/2023 Telephone [facility] [address] [facility] [address] [place] [address] Analisa Purdy, B[place]IVAR [address] [facility] [address] [place] [address] Results Social History Tobacco Use Types Packs/Day Years [...] in a [facility] (including now)? No 02/15/2023 Interpersonal Safety Answer [...] Telephone Encounter - Analisa Purdy PA-C - 12/02/2023 10:50 AM EDT Please let her know that the x-ray did not show anything but degenerative changes in her elbow. 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 documented in this encounter Plan of Treatment Upcoming Encounters Date Type Department Care Team (Late st Contact Info) Description 08/30/2024 2:30 PM EDT Office Visit [facility] [address] [place] [address] Sudhir Barnett MD [address] [place] [phone] 08/30/2024 3:00 PM EDT Office Visit [facility] - [facility] [address] [place] [address] [address] [place] [phone] Peggy Rogers MD [address] [facility] [address] [place] [address] documented as of this encounter Visit Diagnoses Not on filedocumented in this encounter Care Teams Barrel Straightener Relationship Specialty Start Date End Date Jeanine Forbes MD [address] [facility] [address] [place] [phone] PCP - General Family Medicine 01/27/23 Peggy Rogers MD [address] [facility] [address] [place] [address] Medical Oncologist Hematology and Oncology 02/02/23 Lisa Arreola RN Nurse Navigator 02/02/23 12/18/23 documented as of this encounter
--- OUTSIDE RECORDS SUMMARY | 2024-05-07 13:00 | XMS_ITS | Encounter Summary ---
Author Organization [employer] Address [address] [place] [address] Care Team Providers Care Camera Mechanic Name Role Phone Jeanine Forbes MD Primary Care Provider [phone] Peggy Rogers MD Unavailable [phone] Lisa Arreola RN Unavailable Unavailable Reason for Visit * Auth/Cert Specialty Diagnoses / Procedures Referred By Willow t Referred To Contact Diagnoses Malignant neoplasm of right female breast, unspecified estrogen receptor status, unspecified site of breast (HCC) R breast cancer Procedures FL MASTECTOMY, SIMPLE, COMPLETE FL MASTECTOMY, SIMPLE, COMPLETE MASTECTOMY, WITH SENTINEL LYMPH NODE BIOPSY MASTECTOMY, UNILATERAL, SIMPLE [facility] Surgery Department [address] [place] [address] Phone: tel: fax: [facility] Surgery Department [address] [place] [address] Phone: tel: fax: Referral ID Status Reason Start Date Expiration Date Visits Re quested Visits Authorized [id number] 1 1 Encounter Details Date Type Department Care Team (Latest Contact Info) Description 02/15/2023 8:18 AM EDT - 02/16/2023 9:32 AM EDT Hospital Encounter [facility] Telemetry Unit [address] [place] [address] Dina Barnett MD [address] [place] [address] Malignant neoplasm of right female breast, unspecified [...] place to sleep or slept in a nursing home (including now)? No 02/15/2023 Comments No Sex [...] AM EDT documented as of this encounter Last Filed Vital Signs Vital Sign Reading Time Taken Comments Blood Pressure 119/59 02/16/2023 8:25 AM EDT Pulse 64 02/16/2023 6:38 AM EDT Temperature 36.5 ??C (97.7 ??F) 02/16/2023 6:38 AM ED T Respiratory Rate 16 02/16/2023 6:38 AM EDT Oxygen Saturation 97% 02/16/2023 6:38 AM EDT Inhaled Oxygen Concentration - - Weight 65.8 kg (145 lb) 02/15/2023 9:12 AM EDT Height 165.1 cm (5' 5 ) 02/15/2023 9:12 AM EDT Body Mass Index 24.13 02/15/2023 9:12 AM EDT documented in this encounter Discharge Summaries * Neville Nava PA-C - 02/16/2023 9:32 AM EDT Patient Name: Jasmyn Burton : 1950 Date of Admission: 02/15/2023 Date of Discharge: 02/16/2023 9:32 AM Primary Care Physician: Jeanine Forbes MD Consultations: None Discharge Diagnoses: Breast cancer in female (HCC) Malignant neoplasm of right female breast, unspecified estrogen receptor status Reason for Admission: Jasmyn Burton is an 73 y.o. female who was recently diagnosed with invasive right breast cancer as well as a left breast radial scar with LCIS. She requested bilateral mastectomy. She declined reconstruction. The risks, benefits, and alternatives of the above procedure were discussed and the patient has elected to proceed. Hospital Course: On the day of admission the patient was taken the operating room by Dr. Barnett where she underwent surgical procedures listed below. All these procedures were tolerated by the patient without any complications. Postoperatively she was taken to the recovery room followed by admission to the medical surgical floor. On the first postoperative day patient was afebrile and her vital signs are stable. She was complaining of absolutely no pain. Her chest incisions were clean dry and intact without any signs or symptoms of underlying hematoma. Her Bryce-Mina drains were draining appropriate amounts of serosanguineous drainage. She was tolerating her diet without any nausea or vomiting. She was ambulating independently. On the first postoperative day following evaluation by Dr. Barnett the patient was stable for discharge home. Procedures Performed: 1. Right total mastectomy. 2. Right axillary sentinel lymph node biopsy. 3. Left total mastectomy. Discharge Medications: Your medication list START taking these medications Instructions Comments Quantity Refills HYDROcodone-acetaminophen 5-325 mg per tablet Commonly known as: NORCO 5-325 Take 1 tablet by mouth every 4 (four) hours as needed for Pain for up to 20 doses. Max Daily Amount: 6 tablets 20 tablet 0 ondansetron 4 MG disintegrating tablet Commonly known as: ZOFRAN-ODT Take 1 tablet (4 mg total) by mouth every 8 (eight) hours as needed for Nausea for up to 7 days. 20 tablet 0 CONTINUE taking these medications Instructions Comments Quantity Refills ascorbic acid (vitamin C) 250 MG tablet Commonly known as: VITAMIN C Take 1 tablet (250 mg total) by mouth. 0 Asmanex Twisthaler 220 mcg/ actuation (60) Aepb breath activated powder inhaler Generic drug: mometasone Asmanex Twisthaler 220 mcg/actuation(60 doses) breath activated inhalr 0 aspirin 81 MG EC tablet Take 1 tablet (81 mg total) by mouth. 0 cholecalciferol 25 mcg (1,000 unit) tablet Commonly known as: VITAMIN D3 Take 1 tablet (1,000 Units total) by mouth. 0 lisinopriL 5 MG tablet Commonly known as: PRINIVIL,ZESTRIL Take 1 tablet (5 mg total) by mouth daily. 0 montelukast 10 mg tablet Commonly known as: SINGULAIR SMARTSI Tablet(s) By Mouth Every Evening 0 omeprazole 20 MG capsule Commonly known as: PriLOSEC Take 1 capsule (20 mg total) by mouth daily as needed. 0 rosuvastatin 20 MG tablet Commonly known as: CRESTOR SMARTSI Tablet(s) By Mouth Every Evening 0 Where to Get Your Medications These medications were sent to [id number] - [place], [place] - [facility] [address] [facility] [address] [place] [address] ?? HYDROcodone-acetaminophen 5-325 mg per tablet ?? ondansetron 4 MG disintegrating tablet Discharge Instructions Discharge Diet: Usual home diet as tolerated Discharge Activity: Light activity as specifically instructed until seen in follow-up Discharge Follow UP: Patient will follow up in the breast center office with Dr. Barnett next . Electronically signed by NEVILLE NAVA PA-C, 02/17/23, 10:30 AM EDT Cosigned by Dina Barnett MD at 02/17/2023 3:04 PM EDT documented in this encounter Discharge Instructions * Attachments The following attachments cannot be sent through Care Everywhere. * Acetaminophen; Hydrocodone Capsules or Tablets (Beninese) * Ondansetron Tablets (Beninese) * Total or Modified Radical Mastectomy Care After (Beninese) * Surgical Drain Home Care (Beninese) * Form - Surgical Drain Record (Beninese) documented in this encounter Medications at Time [...] 02/16/2023 3 documented as of this encounter Progress Notes * Dina Barnett MD - 02/16/2023 8:09 AM EDT Subjective She is doing very well. She does not complain of any pain. There were no overnight events. Review of Systems Objective Last Recorded Vitals Blood pressure 119/59, pulse 64, temperature 97.7 ??F (36.5 ??C), resp. rate 16, height 1.651 m (5'5 ), weight 65.8 kg (145 lb), SpO2 97 %. Physical Exam her chest is flat with KAYLA drains in place. There is no evidence of postoperative hematoma or seroma. Labs: No results found for this visit on 02/15/23 (from the past 24 hour(s)). NM sentinel node study (injection only) Narrative: SENTINEL NODE INJECTION HISTORY: Right breast neoplasm. ATTENDING PHYSICIAN: Dr. Jennings PHYSICIAN [employer] MANAGER: Brandi Sanches PA-C FINDINGS: After informed consent was obtained and time-out procedure performed, approximately 916 uCi of technetium Lymphoseek was injected intradermally into the right breast. Injections were performed in a periareolar fashion. No films were obtained during this procedure. The patient tolerated the procedure with no immediate complication. Impression: Pemberton node injection of the right breast as discussed above. Films reviewed, interpreted, and dictated by Dr. Jennings. Transcribed by Brandi Sanches PA-C. Assessment Postoperative day #1 status post bilateral mastectomy. Plan She is doing very well. We will discharge her home today. I will see her back in the office at the breast center on . Discharge Planning: Home today. documented in this encounter H&P Notes * Dina Barnett MD - 02/15/2023 9:57 AM EDT H&P reviewed. The patient was examined and there are no changes to the H&P. Source Note - Dina Barnett MD - 02/14/2023 7:49 AM EDT documented in this encounter Miscellaneous Notes * Plan of Care - Toya Goldberg RN - 02/15/2023 11:58 PM EDT Problem: Pain Goal: Patient's pain/discomfort is manageable Description: Assess and monitor patient's pain using appropriate pain scale. Collaborate with interdisciplinary team and initiate plan and interventions as ordered. Re-assess patient's pain level after pain management intervention. Outcome: Progressing Problem: Safety Goal: Patient will be injury free during hospitalization Description: Assess and monitor vitals signs, neurological status including level of consciousness and orientation. Assess patient's risk for falls and implement fall prevention plan of care and interventions per hospital policy. Ensure arm band on, uncluttered walking paths in room, adequate room lighting, call light and overbed table within reach, bed in low position, wheels locked, side rails up per policy, and non-skid footwear provided. Outcome: Progressing Problem: Potential for Developing a Blood Clot Goal: Tissue perfusion is adequate - venous Description: Assess and monitor skin color and temperature, skin integrity, pulses, capillary refill, edema, pain in extremities, Homans' sign, labs (D- dimer), and diagnostic tests (ultrasound, CT scan, VQ scan). Monitor for signs and symptoms of deep vein thrombosis (swelling of calf/thigh, redness, pain, tenderness). Monitor for signs and symptoms of pulmonary embolism (dyspnea, tachypnea, tachycardia). Collaborate with interdisciplinary team and initiate plans and interventions as needed Outcome: Progressing Problem: Discharge Barriers Goal: Patient's discharge needs are met Description: Collaborate with interdisciplinary team and initiate plans and interventions as needed. Outcome: Progressing * Plan of Care - Toya Britton RN - 02/15/2023 6:42 PM EDT Problem: Knowledge Deficit Goal: Patient/family/caregiver demonstrates understanding of disease process, treatment plan, medications, and discharge instructions Description: Complete learning assessment and assess knowledge base. Outcome: Adequate for Discharge Problem: Potential for Falls Goal: Patient will remain free of falls Description: Assess and monitor vitals signs, neurological status including level of consciousness and orientation. Reassess fall risk per hospital policy. Ensure arm band on, uncluttered walking paths in room, adequate room lighting, call light and overbed table within reach, bed in low position, wheels locked, side rails up per policy, and non-skid footwear provided. Outcome: Adequate for Discharge Problem: Risk for Falls Goal: No falls during hospitalization Description: Patient will not fall during hospitalization. Outcome: Adequate for Discharge Problem: Knowledge Deficit Goal: Knowledge - personal safety Description: Patient will verbalize understanding of fall prevention. Outcome: Adequate for Discharge * Nursing Progress Notes - Toya Britton RN - 02/15/2023 4:45 PM EDT Received patient upon the floor from post op with bilateral masectomy. Bilateral KAYLA drains in place. SCUDS placed on patient. Incentive spirometer given to patient and instructed use. Patient appearsto be comfortable and no distress noted. Offered to get patient something to eat but patient declined at this time. Patient is drinking fluids without difficulty. 1700-patient assisted to bathroom. Patient tolerated well. * Op Note - Dina Barnett MD - 02/15/2023 3:33 PM EDT Date: 02/15/2023 Procedures: Procedure(s): 1. Right total mastectomy. 2. Right axillary sentinel lymph node biopsy. 3. Left total mastectomy. Diagnosis: Pre-Op Diagnosis Codes: * Malignant neoplasm of right female breast, unspecified estrogen receptor status, unspecified siteof breast (HCC) [C50.911] Post-Op Diagnosis Codes: * Malignant neoplasm of right female breast, unspecified estrogen receptor status, unspecified siteof breast (HCC) [C50.911] Indications: Jasmyn Burton is an 73 y.o. female who was recently diagnosed with invasive rightbreast cancer as well as a left breast radial scar with LCIS. She requested bilateral mastectomy. She declined reconstruction. The risks, benefits, and alternatives of the above procedure were discussed and the patient has elected to proceed. Surgeons: Surgeon(s) and Role: * Dina Barnett MD - Primary Findings: She had grossly normal breast tissue on both the right and left sides without any palpable masses. A single deep axillary sentinel lymph node was identified and removed from the right and sent to pathology. Procedure Details: The patient was seen in the preoperative area. The site of surgery was properly noted/marked if necessary per policy. The patient has been actively warmed in preoperative area. Preoperative antibiotics have been ordered and given within 1 hours of incision. Venous thrombosis prophylaxis have been ordered including bilateral sequential compression devices. Her chest was prepped and draped in the usual sterile fashion. Attention was turned to the right side where an elliptical skin incision was made to include the nipple areolar complex and the specimen. Skin flaps were then created using electrocautery. The superior flap was taken to the clavicle, the medial flap to the sternum, the inferiorflap to the inframammary crease, and a lateral flap to the latissimus dorsi muscle. Next the breasttissue was removed from the pectoralis major muscle to include the muscle fascia and the specimen. The breast tissue was then removed and marked with a stitch in the 12 o'clock position. It was passed off and sent pathology. Meticulous hemostasis was achieved throughout using electrocautery. Attention was then turned to axillary sentinel lymph node biopsy. The gamma probe was used to identify thearea of greatest uptake in the axilla. Dissection up into the axillary tissue was achieved using electrocautery. The gamma probe was then used to identify 1 deep sentinel lymph node(s). These were removed using electrocautery and surgical clips. It was passed off and sent to pathology. There was noother significant uptake in the axilla. Meticulous hemostasis was ensured using electrocautery. A flat KAYLA drain was placed and secured. The skin incision was then closed in 2 layers followed by Dermabond. Attention was turned to the left side where an elliptical skin incision was made to include the nipple areolar complex and the specimen. Skin flaps were then created using electrocautery. The superior flap was taken to the clavicle, the medial flap to the sternum, the inferior flap to the inframammary crease, and a lateral flap to the latissimus dorsi muscle. Next the breast tissue was removed from the pectoralis major muscle to include the muscle fascia and the specimen. The breast tissuewas then removed and marked with a stitch in the 12 o'clock position. It was passed off and sent pathology. Meticulous hemostasis was achieved throughout using electrocautery. A flat KAYLA drain was placed and secured. The skin incision was then closed in 2 layers followed by Dermabond. All sponge, needle, and instrument counts were correct at the end the procedure. There were no complications. She tolerated the procedure well. Breast Biopsy Synoptic Details: Operation performed with curative intent: Yes Tracer(s) used to identify sentinel nodes in the upfront surgery (non- neoadjuvant) setting (select all that apply): Radioactive tracer Tracer(s) used to identify sentinel nodes in the neoadjuvant setting (select all that apply): N/A All nodes (colored or non-colored) present at the end of a dye-filled lymphatic channel were removed: N/A All significantly radioactive nodes were removed: Yes All palpably suspicious nodes were removed: Yes Biopsy-proven positive nodes marked with clips prior to chemotherapy were identified and removed: N/A Anesthesia: General Estimated Blood Loss: * No values recorded between 02/15/2023 1:07 PM and 02/15/2023 3:33 PM * Drains: Closed/Suction Drain Inferior;Right Breast Bulb (Active) Closed/Suction Drain Inferior;Lateral;Left Breast Bulb (Active) Specimens: Specimens (From admission, onward) Start Ordered 02/15/23 1410 Tissue Exam RELEASE UPON ORDERING 02/15/23 1410 Complications: None * No complications entered in OR log * Disposition: PACU - hemodynamically stable. Condition: stable Attending Attestation: I was present and scrubbed for the entire procedure. * Nursing Progress Notes - Juliet Tian RN - 02/15/2023 7:55 AM EDTSummary: Patient contacted Patient has not arrived to [facility] for surgery; Called lead front desk agent then called patient's cell phone number; Patient stated they were on the way and ran into traffic. documented in this encounter Plan of Treatment Upcoming Encounters Date Type Department Care Team (Late st Contact Info) Description 08/30/2024 2:30 PM EDT Office Visit [facility] [address] [place] [address] Dina Barnett MD [address] [place] [address] 08/30/2024 3:00 PM EDT Office Visit [facility] Oncology - [facility] [address] [facility] [address] [place] [id number] Peggy Rogers MD [address] [place] [address] documented as of this encounter Procedures Procedure Name Priority Date/Time Associated Diagnosis Comments TISSUE EXAM [facility] Routine 02/15/2023 2:10 PM EDT Malignant neoplasm of right female breast, unspecified estrogen receptor status, unspecified site of breast (HCC) FL MASTECTOMY, SIMPLE, COMPLETE 02/15/2023 1:07 PM EDT Malignant neoplasm of right female breast, unspecified estrogen receptor status, unspecified site of breast (HCC) FL MASTECTOMY, SIMPLE, COMPLETE 02/15/2023 1:07 PM EDT Malignant neoplasm of right female breast, unspecified estrogen receptor status, unspecified site of breast (HCC) documented in this encounter Results * Tissue Exam (02/15/2023 2:10 PM EDT) [facility] AP RESULT See Note: [facility] Comment: [facility] [address] ?[place], [place] ??[address] or [phone] Rivera Paz M.D., Adult Probation Officer PATIENT NAME ? LABORATORY NO. [id number] ??JASMYN BURTON ? [id number] ? AGE ? SEX ??SSN ? CLIENT REF # [facility] ? 73 ?1950 ??F ?[id number] [address] ?REQUESTING M.D. ? ATTENDING M.D. [place] [address] ?DINA BARNETT DATE COLLECTED ?DATE RECEIVED ?DATE REPORTED 02/15/2023 ?02/16/2023 ? 02/22/2023 ADDENDUM PRESENT ADDENDUM: See outside report [facility] for additional information regarding endocrine therapy benefit (reduced benefit), chemotherapy benefit (no expected benefit) etc. Verified by Juliet Serrano M.D., F.C.A.P. on 06/22/2023 Professional interpretation rendered by Juliet Serrano M.D., F.C.A.P. at [facility], [address] [place] [address]. DIAGNOSIS: A. ?? BREAST, SIMPLE MASTECTOMY, RIGHT: Invasive ductal adenocarcinoma Maximum dimensions: 14 x 11 x 7 mm Margins negative for tumor Negative for dermal/epidermal involvement Areas of atypical lobular hyperplasia See CAP template B. ?? SENTINEL NODE, RIGHT AXILLA: One lymph node negative for metastatic carcinoma, (0/1) C. ?? 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 ??Receptors performed on initial biopsy ([id number]): IMMUNOHISTOCHEMICAL RESULTS (IHC): Estrogen Receptor ?RESULT: positive ?100% ?3+ (INTENSITY SCORE) Progesterone Receptor ? RESULT: positive ?2% ?80+ (INTENSITY SCORE) Her2/Natalie oncoprotein ? RESULT: negative ?10% ?1+ (INTENSITY SCORE) Tissue cold time prior to fixation: less than 60 minutes Total fixation time (neutral buffered formalin): greater than 6 hours and less than 72 hours HER-2/natalie oncoprotein (Oaks clone 4B5, polymer, IVD). Test is performed on formalin fixed, paraffin embedded tissue. NEGATIVE TEST is 0+ or 1+ staining. POSITIVE TEST is 3+ staining, with at least 10% of tumor showing strong and uniform membranous staining. EQUIVOCAL TEST is 2+ or questionable 3+ staining and is submitted for testing by DEYANIRA method for HER2/natalie oncogene amplification. ER clone Oaks SP1, FL clone IE2, polymer, IVD approved immunohistochemical stains are performed on formalin-fixed, paraffin- embedded tissue. 1-10% of nuclei staining of any intensity is considered a low positive test, and 11% or greater nuclear staining of any intensity is considered positive in our laboratory. C. ??A selection of (3) immunohistochemical stains is performed, evaluated with the appropriate controls, with the following results: (C3) W-[id number]-[id number] positive within area of interest, calponin B-highlights retained myoepithelial cells, smooth muscle myosin heavy chain-highlights retained myoepithelial cells. INVASIVE CARCINOMA OF THE BREAST SPECIMEN: A Procedure: Total mastectomy Specimen Laterality: Right TUMOR: Tumor Site: - Clock position; 5 o'clock, 6 o'clock Histologic Type: Invasive carcinoma of no special type (ductal) Histologic Grade (Maxine Histologic Score): Glandular (Acinar) / Tubular Differentiation: [...] regional lymph nodes negative for tumor Total Number of Lymph Nodes Examined (sentinel and non-sentinel): 1 Number of Pemberton Nodes Examined: 1 PATHOLOGIC STAGE CLASSIFICATION (pTNM, [...] All margins negative for DCIS Distance from DCIS to Closest Margin: 10 mm Closest Margin(s) [...] of right female breast SPECIMENS RECEIVED: A. ??BREAST, SIMPLE MASTECTOMY, RIGHT B. ??SENTINEL NODE, RIGHT AXILLA C. ??BREAST, SIMPLE MASTECTOMY, LEFT MICROSCOPIC DESCRIPTION: A. ??Tissue blocks are prepared and slides are examined microscopically on all specimens. See diagnosis for details. C. ??IMMUNOHISTOCHEMICAL RESULTS (IHC): Estrogen Receptor ? RESULT: Positive ?? >95% 3+ (INTENSITY SCORE) Progesterone Receptor ?? RESULT: Positive ?? 80% ??2+ (INTENSITY SCORE) Tissue cold time prior to fixation: Estimated <10 minutes Total fixation time (neutral buffered formalin): Estimated 24 hours HER-2/natalie oncoprotein (Oaks clone 4B5, polymer, IVD). Test is performed on formalin fixed, paraffin embedded tissue. ??NEGATIVE TEST is 0+ or 1+ staining. POSITIVE TEST is 3+ staining, with at least 10% of tumor showing strong and uniform membranous staining. ??EQUIVOCAL TEST is 2+ or questionable 3+ staining and is submitted for testing by EDYANIRA method for HER2/natalie oncogene amplification. ER clone Oaks SP1, FL clone IE2, polymer, IVD approved immunohistochemical stains are performed on formalin-fixed, paraffin- embedded tissue. 1-10% of nuclei staining of any intensity is considered a low positive test, and 11% or greater nuclear staining of any intensity is considered positive in our laboratory. Estrogen, Progesterone Receptors and Her2/natalie testing is scored and reported as per ASCO/CAP guidelines published in Arch Pathol Lab Med. doi: 10.5858/arpa.6891-4951-AI (2019 update). The reference values for positive, [...] This test was developed, and its performance characteristics determined by [facility]. It has not been cleared or approved by the US Food and Drug Administration. However, the FDA has determined that approval and clearance are not necessary. Professional interpretation rendered by Juliet Serrano M.D., F.C.A.P. at [facility], [place], [address] [place] [address]. GROSS DESCRIPTION: A. ??Specimen received in formalin labeled right breast and consists of a 467 g, 15.0 x 15.0 x 4.0 cm breast mastectomy specimen having an attached ellipse of skin (11.5 x 6.0 cm) oriented with a suture at 12:00. ??The skin surface is stroud and wrinkled with a centrally located 1.0 x 1.0 x 0.3 cm nipple. ??The remainder of the skin surface is grossly unremarkable. ??The anterior surgical margin is inked blue, the posterior surgical margin is inked green. ??Sectioning reveals located within the inferior medial quadrant a 1.0 x 1.0 x 0.9 cm dense fibrotic mass lesion that extends to within 0.5 cm from the nearest posterior margin having an embedded coiled metallic clip. ??The surrounding tissue appears partially fibrous. ??Centrally located within the breast parenchyma is a separate (3.5 cm away) pink-stroud nodule measuring 0.5 x 0.5 x 0.5 cm. ??This nodule measures 1.5 cm from the nearest posterior margin. ??The remainder of the breast parenchyma is otherwise grossly unremarkable. ??No infarcts or other discrete mass lesions are grossly identified. ??Brush Holder Inspector sections are submitted in 10 cassettes as follows: A1-nipple X4-F7-jndmalzp of mass with nearest posterior margin in A2, A5-entirety of central nodule A6-posterior margin nearest central nodule W4-[id number]-qjlmqkha sections with superior lateral in A7, superior medial in A8, inferior lateral in A9, inferior medial in A10. Time in formalin approximately 24 hours. B. ??Received in formalin labeled right axillary sentinel lymph node is a fatty encased sentinel lymph node excision containing a lymph node candidate measuring 1.0 x 0.7 x 0.6 cm. The candidate is step sectioned perpendicular to the long axis at approximately 2-mm intervals. The cut surface shows no discrete lesion. Sections are submitted entirely in 2 cassettes. C. ??Specimen received in formalin labeled left breast and consists of a 492 g, 16.0 x 16.0 x 3.8 cm breast mastectomy specimen having an attached ellipse of skin (12.0 x 5.0 cm) oriented with a suture at 12:00. ??The skin surface is stroud and wrinkled with a invaginated nipple (0.7 x 0.6 x 0.4 cm). There is a 0.2 x 0.2 cm pink papule located 1.5 cm medial to the nipple. The remainder of the skin surface is otherwise grossly unremarkable. ??The anterior surgical margin is inked blue, the posterior surgical margin is inked green. ??Sectioning reveals centrally located within the specimen a 0.7 x 0.6 x 0.6 cm dense fibrotic mass lesion surrounded by fibrous tissue extending to within 1.0 cm from the nearest posterior margin. ??At the posterior aspect of the mass is a 0.3 x 0.3 x 0.2 cm apparent biopsy site containing a oval shaped metallic clip. ??There are focal areas of fibrocystic tissue also located within the central fibrous area of breast. ??The remainder of the breast parenchyma is otherwise grossly unremarkable. ??No infarcts or other discrete mass lesions are grossly identified. ??Brush Holder Inspector sections are submitted in 11 cassettes as follows: C1-nipple C2-skin papule C3-C5-mass with nearest posterior margin in C3, F6-I4-nfqbvmt tissue including fibrocystic areas and C7, D2-E46-zbmqbmoa sections with superior lateral in C8, superior medial in C9, inferior lateral in C10, inferior medial in C11. ??Time in formalin approximately 24 hours. ??JTM/RLL REVIEWED, DIAGNOSED AND ELECTRONICALLY SIGNED BY: Juliet Serrano M.D., F.C.A.P. CPT CODES: ??[id number], [id number], [id number], [id number] Tissue RIGHT BREAST STRUCTURE / Unknown 02/15/2023 2:10 PM EDT Tissue specimen (specimen) SENTINEL LYMPH NODE / Unknown 02/15/2023 2:16 PM EDT Tissue specimen (specimen) LEFT BREAST STRUCTURE / Unknown 02/15/2023 2:57 PM EDT us Dina Barnett MD PATHOLOGY/CYTOLOGY ORDERABLE S Edited Result - Final [facility] [address] [place] [address] documented in this encounter Visit Diagnoses Diagnosis Malignant neoplasm of right female breast, unspecified estrogen receptor status, unspecified site of breast (HCC) Pulmonary embolism (HCC) Other pulmonary embolism and infarction documented in this encounter Admitting Diagnoses Diagnosis Breast cancer in female (HCC) documented in this encounter Administered Medications Inactive Administered Medications - up to 3 most recent administrations Medication Order MAR Action Action Date Dose Rate Site ascorbic acid (vitamin C) (VITAMIN C) tablet 250 mg 250 mg Daily, oral, First dose on Tue02/16/23 at 0900 Given 02/16/2023 8:22 AM EDT 250 mg aspirin EC tablet 81 mg 81 mg Daily, oral, First dose on Tue02/16/23 at 0900, * DO NOT CRUSH THIS DOSAGE FORM * Given 02/16/2023 8:24 AM EDT 81 mg cholecalciferol (VITAMIN D3) tablet 1,000 Units 1,000 Units Daily, oral, First dose on Tue02/16/23 at 0900, Given 02/16/2023 8:24 AM EDT 1,000 Units electrolyte-R (PLASMA-LYTE R) infusion intravenous, Continuous, Starting on Tue02/15/23 at 0900, Pre-op New Bag 02/15/2023 9:02 AM EDT 1,000 mLs famotidine (PEPCID) tablet 20 mg 20 mg Once, oral, On Tue02/15/23 at 0900, For 1 dose, Pharmacist to renally dose if CrCl is less than 50 mL/min or on CRRT., Pre-op Given 02/15/2023 9:04 AM EDT 20 mg fentaNYL (SUBLIMAZE) injection 50 mcg 50 mcg Once, intravenous, On Tue02/15/23 at 0900, For 1 dose, Pre-op Given 02/15/2023 10:14 AM EDT 50 mcg fentaNYL (SUBLIMAZE) injection 50 mcg 50 mcg Once, intravenous, On Tue02/15/23 at 1130, For 1 dose, Pre-op Given 02/15/2023 10:42 AM EDT 50 mcg HYDROmorphone (DILAUDID) injection 0.5 mg 0.5 mg Every 5 min PRN, intravenous, severe pain (7-10), Starting on Tue02/15/23 at 1555, For 4 doses, , PACU Given 02/15/2023 4:07 PM EDT 0.5 mg lisinopriL (PRINIVIL,ZESTRIL) tablet 5 mg 5 mg Daily, oral, First dose on Tue02/16/23 at 0900, Antihypertensive - Check BP - Check Pulse Given 02/16/2023 8:25 AM EDT 5 mg midazolam (PF) (VERSED) injection 2 mg 2 mg Once, intravenous, On Tue02/15/23 at 0900, For 1 dose, , Pre-op Given 02/15/2023 10:14 AM EDT 2 mg midazolam (PF) (VERSED) injection 2 mg 2 mg Once, intravenous, On Tue02/15/23 at 1130, For 1 dose, , Pre-op Given 02/15/2023 10:54 AM EDT 2 mg mometasone HFA (ASMANEX) 200 mcg/puff 1 puff 2 times daily (RT), inhalation, First dose on Tue02/15/23 at 2000, Shake well before using. Given 02/16/2023 9:06 AM EDT 1 puff Given 02/15/2023 9:09 PM EDT 1 puff morphine injection 4 mg 4 mg Every 4 hours PRN, intravenous, moderate pain (4-6), Starting on Tue02/15/23 at 1659, ondansetron (ZOFRAN) tablet 4 mg 4 mg Every 6 hours PRN, oral, nausea, vomiting, Starting on Tue02/15/23 at 1659 oxyCODONE-acetaminophen (PERCOCET) tablet 5-325 mg 2 tablet Every 4 hours PRN, oral, moderate pain (4-6), Starting on Tue02/15/23 at 1659, Recommended maximum dose of acetaminophen is 4000 mg from all sources in 24 hours oxyCODONE-acetaminophen (PERCOCET) tablet 5-325 mg 1 tablet Once, oral, On Tue02/15/23 at 1630, For 1 dose, Recommended maximum dose of acetaminophen is 4000 mg from all sources in 24 hours , PACU Given 02/15/2023 4:07 PM EDT 1 tablet pantoprazole (PROTONIX) DR tablet 40 mg 40 mg Daily, oral, First dose on Tue02/16/23 at 0900, Therapeutic Interchange for Proton Pump Inhibitors. * DO NOT CRUSH THIS DOSAGE FORM * Given 02/16/2023 8:24 AM EDT 40 mg rosuvastatin (CRESTOR) tablet 20 mg 20 mg Daily, oral, First dose on Tue02/16/23 at 0900 Given 02/16/2023 8:22 AM EDT 20 mg sodium chloride 0.45% (1/2NS) infusion Continuous, intravenous, at 75 mL/hr, Starting on Tue02/15/23 at 1730 New Bag 02/15/2023 5:36 PM EDT 75 mL/hr documented in this encounter Active and Recently Administered Medications Times are shown in EDT. Scheduled Medication Order 02/14/2023 02/15/2023 02/16/2023 ascorbic acid (vitamin C) (VITAMIN C) tablet 250 mg 250 mg Daily, oral, First dose on Tue02/16/23 at 0900 0822 (Given - Provider: Mona Gaston LPN) aspirin EC tablet 81 mg 81 mg Daily, oral, First dose on Tue02/16/23 at 0900, * DO NOT CRUSH THIS DOSAGE FORM * 0824 (Given - Provider: Mona Gaston LPN) ceFAZolin (ANCEF) 2g IVPB (DUPLEX) in D5W 50 mL (COMPLETED) 2 g Once, intravenous, Administer over 30 Minutes, On Tue02/15/23 at 0900, For 1 dose, Proof Operator To O.R., Pre-op, Please choose an indication: Surgical Prophylaxis 1332 (Given - Provider: Aruna Cerrato CRNA) cholecalciferol (VITAMIN D3) tablet 1,000 Units 1,000 Units Daily, oral, First dose on Tue02/16/23 at 0900, 0824 (Given - Provider: Mona Gaston LPN) famotidine (PEPCID) tablet 20 mg (COMPLETED) 20 mg Once, oral, On Tue02/15/23 at 0900, For 1 dose, Pharmacist to renally dose if CrCl is less than 50 mL/min or on CRRT., Pre-op 903 (Given - Provider: Juliet Tian RN) fentaNYL (SUBLIMAZE) injection 50 mcg (COMPLETED) 50 mcg Once, intravenous, On Tue02/15/23 at 0900, For 1 dose, Pre-op 1014 (Given - Provider: Juliet Tian RN) fentaNYL (SUBLIMAZE) injection 50 mcg (COMPLETED) 50 mcg Once, intravenous, On Tue02/15/23 at 1130, For 1 dose, Pre-op 1042 (Given - Provider: Cecile Noe RN) lisinopriL (PRINIVIL,ZESTRIL) tablet 5 mg 5 mg Daily, oral, First dose on Tue02/16/23 at 0900, Antihypertensive - Check BP - Check Pulse 0825 (Given - Provider: Mona Gaston LPN) midazolam (PF) (VERSED) injection 2 mg (COMPLETED) 2 mg Once, intravenous, On Tue02/15/23 at 0900, For 1 dose, , Pre-op 1014 (Given - Provider: Juliet Tian RN) midazolam (PF) (VERSED) injection 2 mg (COMPLETED) 2 mg Once, intravenous, On Tue02/15/23 at 1130, For 1 dose, , Pre-op 1054 (Given - Provider: Cecile Noe, CHRIS) mometasone HFA (ASMANEX) 200 mcg/puff 1 puff 2 times daily (RT), inhalation, First dose on Tue02/15/23 at 2000, Shake well before using. 2108 (Given - Provider: Paula Perez, MARY LOU) 905 (Given - Provider: Ivory Dillon RRT) montelukast (SINGULAIR) tablet 10 mg 10 mg Every Night, oral, First dose on Tue02/16/23 at 2100 oxyCODONE-acetaminophen (PERCOCET) tablet 5-325 mg (COMPLETED) 1 tablet Once, oral, On Tue02/15/23 at 1630, For 1 dose, Recommended maximum dose of acetaminophen is 4000 mg from all sources in 24 hours , PACU 1607 (Given - Provider: Karon Hartley RN) pantoprazole (PROTONIX) DR tablet 40 mg 40 mg Daily, oral, First dose on Tue02/16/23 at 0900, Therapeutic Interchange for Proton Pump Inhibitors. * DO NOT CRUSH THIS DOSAGE FORM * 0824 (Given - Provider: Mona Gaston LPN) rosuvastatin (CRESTOR) tablet 20 mg 20 mg Daily, oral, First dose on Tue02/16/23 at 0900 0822 (Given - Provider: Mona Gaston LPN) Continuous Medication Order 02/14/2023 02/15/2023 02/16/2023 electrolyte-R (PLASMA-LYTE R) infusion intravenous, Continuous, Starting on Tue02/15/23 at 0900, Pre-op 0902 (New Bag - Provider: Sa montserrat Tian RN) sodium chloride 0.45% (1/2NS) infusion Continuous, intravenous, at 75 mL/hr, Starting on Tue02/15/23 at 1730 1736 (New Bag - Provider: Toya Britton RN) PRN Medication Order 02/14/2023 02/15/2023 02/16/2023 HYDROmorphone (DILAUDID) injection 0.5 mg (CANCELED) 0.5 mg Every 5 min PRN, intravenous, severe pain (7-10), Starting on Tue02/15/23 at 1555, For 4 doses, , PACU 1607 (Given - Provider: Karon Hartley, CHRIS) morphine injection 4 mg 4 mg Every 4 hours PRN, intravenous, moderate pain (4-6), Starting on Tue02/15/23 at 1659, ondansetron (ZOFRAN) tablet 4 mg 4 mg Every 6 hours PRN, oral, nausea, vomiting, Starting on Tue02/15/23 at 1659 oxyCODONE-acetaminophen (PERCOCET) tablet 5-325 mg 2 tablet Every 4 hours PRN, oral, moderate pain (4-6), Starting on Tue02/15/23 at 1659, Recommended maximum dose of acetaminophen is 4000 mg from all sources in 24 hours documented in this encounter Care Teams Camera Mechanic Relationship Specialty Start Date End Date Jeanine Forbes MD [address] [place] [phone] PCP - General Family Medicine 01/27/23 Peggy Rogers MD [address] [facility] [address] [place] [address] Medical Oncologist Hematology and Oncology 02/02/23 Lisa Arreola RN Nurse Navigator 02/02/23 12/18/23 documented as of this encounter
--- OUTSIDE RECORDS SUMMARY | 2024-05-07 13:00 | XMS_ITS | Encounter Summary ---
Author Organization [employer] Address [address] [place] [address] Care Team Providers Care Water Fabricator Operator Name Role Phone Jeanine Forbes MD Primary Care Provider [phone] Peggy Rogers MD Unavailable [phone] Reason for Visit * Reason Comments Follow-up Breast Cancer Encounter Details Date Type Department Care Team (Late st Contact Info) Description 12/26/2023 2:30 PM EDT Office Visit [facility] - [address] [place] [address] Peggy Rogers MD [address] [facility] [address] [place] [address] Malignant neoplasm of lower-inner quadrant of right breast of female, estrogen receptor positive (HCC); Post-menopausal Social History Tobacco Use Types Packs/Day Years [...] in a chcf (including now)? No 02/15/2023 Interpersonal Safety Answer [...] Mass Index 22 12/26/2023 2:57 PM EDT documented in this encounter Progress Notes * Peggy Rogers MD - 12/26/2023 2:30 PM EDT Images from the original note were not included. [facility] Note Cancer History: 1. Screening mammography with vague abnormality in dense breast tissue. MRI with 1 cm mass in rightbreast and distortion in left. 2. Right breast with G1 IDC, ER/TX positive and HER2 negative, background ALH. Left breast with ALHand radial scar. 3. Bilateral mastectomy 02/09 with pT1cN0 IDC right breast and pTis DCIS and left breast. Margins negative. 4. Trial of adjuvant anastrozole, arthralgias, declined further adjuvant therapy. MammaPrint ultra low risk. 5. Status post genetic testing and counseling 03/12, negative. Follow-up and Breast Cancer History of Present Illness: Jasmyn Burton is a 73 y.o. female here for follow-up of lump on her left elbow. She had not noticed any trauma or injuries but developed swelling/lump a tenderness around a month ago. Symptoms persisted for several weeks but have now resolved. No chest wall concerns. Past Medical History: Diagnosis Date ??? Asthma ??? Breast cancer (HCC) ??? Ectopic ??? High cholesterol History of PE Past Surgical History: Procedure Laterality Date ??? ANTERIOR CRUCIATE LIGAMENT REPAIR ??? BREAST SURGERY ??? HAND FUSION ??? MASTECTOMY ??? MASTECTOMY,TOTAL UNILATERAL Left 02/15/2023 Procedure: MASTECTOMY, UNILATERAL, SIMPLE; Surgeon: Sudhir Barnett MD; Location: [facility] OR; Service: General Surgery; Laterality: Left; [...] Resource Strain: Not on file Food Insecurity: No Food Insecurity (06/29/2023) Food Insecurity ??? : Not on file ??? : Not on file Transportation Needs: Unknown (02/15/2023) PRAPARE - Transportation ??? Lack of Transportation (Medical): No ??? Lack of Transportation (Non-Medical): Not on file Physical Activity: Not on file Stress: Not on file Social Connections: Low Risk (06/29/2023) Family and Community Support ??? : Not on file ??? : Not on file Intimate Partner Violence: Not on file Housing Stability: Low Risk (09/07/2023) Housing Stability ??? : Not on file ??? : Not on file Recent Concern: Housing Stability - High Risk (08/21/2023) Housing Stability ??? : Not on file ??? : Not on file Family History Problem Relation Age of Onset [...] total) by mouth 2 (two) times daily. ??? aspirin 81 MG EC tablet Take 1 tablet (81 mg total) by mouth every other day. ??? cholecalciferol (VITAMIN D3) 25 mcg (1,000 unit) tablet Take 1 tablet (1,000 Units total) by mouth. ??? lisinopriL (PRINIVIL,ZESTRIL) 5 MG tablet Take [...] except as noted per HPI Vitals Vitals: 12/26/23 1457 BP: 106/62 BP Location: Left arm Patient Position: Sitting Pulse: 61 Resp: 16 Temp: 98.6 ??F (37 ??C) SpO2: 96% Weight: 60 kg (132 lb 3.2 oz) Height: 1.651 m (5' 5 ) Gain/Loss Since Last Wt (Kgs): -2 kg Physical Exam Vitals and nursing note [...] content normal. Judgment: Judgment normal. Relevant Results: Assessment/Plan: Cancer Staging Malignant neoplasm of lower-inner quadrant of right breast of female, estrogen receptor positive (HCC) Staging form: Breast, AJCC 8th Edition - Clinical: Stage IA (cT1c, cN0, cM0, G1, ER+, TX+, HER2-) - Signed by Peggy Rogers MD on 02/04/2023 73 y.o. female here for follow up of bilateral breast cancer. -First, no evidence of recurrence on the chest wall. -We did discuss the lump on her left elbow which is now essentially completely resolved. X-ray of the area was unremarkable. [facility] MRI for recurrent symptoms. -I will see her back in 6 months for ongoing cancer surveillance. Signed: Electronically signed by Peggy Rogers MD 12/26/23 3:41 PM EDT documented in this encounter Plan of Treatment Upcoming Encounters Date Type Department Care Team (Late st Contact Info) Description 08/30/2024 2:30 PM EDT Office Visit [facility] [address] [place] [address] Sudhir Barnett MD [address] [place] [address] 08/30/2024 3:00 PM EDT Office Visit [facility] - [address] [facility] [address] [place] [address] Peggy Rogers MD [address] [place] [address] [place] [address] documented as of this encounter Visit Diagnoses Diagnosis Malignant neoplasm of lower-inner quadrant of right breast of female, estrogen receptor positive (HCC) Post-menopausal Asymptomatic postmenopausal status (age-related) (natural) documented in this encounter Care Teams Water Fabricator Operator Relationship Specialty Start Date End Date Jeanine Forbes MD [address] [phone] PCP - General Family Medicine 01/27/23 Peggy Rogers MD [address] [place], [place] [phone] Medical Oncologist Hematology and Oncology 02/02/23 documented as of this encounter
--- OUTSIDE RECORDS SUMMARY | 2024-05-07 13:00 | XMS_ITS | Encounter Summary ---
Author Organization [facility] [employer] Address [address] [place] [address] Care Team Providers Care Metal Sprayer Name Role Phone Jeanine Forbes MD Primary Care Provider [phone] Peggy Rogers MD Unavailable [phone] Lisa Arreola RN Unavailable Unavailable Reason for Visit * Reason Onset Date Comments Results 03/08/2023 Encounter Details Date Type Department Care Team (Late st Contact Info) Description 03/08/2023 Telephone [facility] - [address] [place] [address] Elsy Jaramillo, MS [address] [place], [place] [id number] Results Social History Tobacco Use Types Packs/Day [...] in a assisted (including now)? No 02/15/2023 Comments No Sex [...] PM EDT documented as of this encounter Miscellaneous Notes * Telephone Encounter - Elsy Cortez Jaramillo, - 03/08/2023 3:02 PM EDT I spoke with the patient about her negative test results. She is happy to hear this. We reviewed that she should have a colonoscopy at least every 5 years. Her nieces may also qualify for breast MRI based on the family history and depending on their personal risk factors. She has no further questions at this time. I will mail her a copy of her results packet. documented in this encounter Plan of Treatment Upcoming Encounters Date Type Department Care Team (Late st Contact Info) Description 08/30/2024 2:30 PM EDT Office Visit [facility] [address] [place] [address] Sudhir Barnett MD [address] [place] [address] 08/30/2024 3:00 PM EDT Office Visit [facility] - [address] [place] [phone] Peggy Rogers MD [address] [place] [address] documented as of this encounter Visit Diagnoses Not on filedocumented in this encounter Care Teams Metal Sprayer Relationship Specialty Start Date End Date Jeanine Forbes MD [address] [place] [phone] PCP - General Family Medicine 01/27/23 Peggy Rogers MD [facility] [place] [address] Medical Oncologist Hematology and Oncology 02/02/23 Maxwell, Lisa Morales RN Nurse Navigator 02/02/23 12/18/23 documented as of this encounter
--- OUTSIDE RECORDS SUMMARY | 2024-05-07 13:00 | XMS_ITS | Encounter Summary ---
Author Organization [employer] Address [address] [place] [address] Care Team Providers Care Manager Of Revenue Name Role Phone Jeanine Forbes MD Primary Care Provider [phone] Peggy Rogers MD Unavailable [phone] Lisa Arreola RN Unavailable Unavailable Reason for Referral * Diagnostic X-Ray (Emergency) - Authorized Specialty Diagnoses / Procedures Referred By Willow howard Referred To Contact Radiology Diagnoses Mass of left elbow Procedures XR elbow 3 views min left Analisa Purdy PA-C [address] [place] [address] Phone: tel: fax: [facility] [address] [place] [id number] Phone: tel: fax: Referral ID Status Reason Start Date Expiration Date V isits Requested Visits Authorized [id number] Authorized 11/22/2023 11/21/2024 1 1 Reason for Visit * Reason Comments Breast Cancer Follow-up Follow-up for bone i ssue Encounter Details Date Type Department Care Team (Late st Contact Info) Description 11/22/2023 9:00 AM EDT Office Visit [facility] [address] [place] [address] Analisa Purdy PA-C [address] [place] [address] Mass of left elbow (Primary Dx) Social History Tobacco Use Types [...] Date Alvaro rded Speak language other than Filipino at home Not on file 06/29/2023 Want [...] Sign Reading Time Taken Comments Blood Pressure 106/60 11/22/2023 8:55 AM EDT Pulse 65 11/22/2023 8:55 AM EDT Temperature 36.3 ??C (97.3 ??F) 11/22/2023 8:55 AM ED T Respiratory Rate 18 11/22/2023 8:55 AM EDT Oxygen Saturation 97% 11/22/2023 8:55 AM EDT Inhaled Oxygen Concentration - - Weight 61.6 kg (135 lb 12.8 oz) 11/22/2023 8:55 AM EDT Height 165.1 cm (5' 5 ) 11/22/2023 8:55 AM EDT Body Mass Index 22.6 11/22/2023 8:55 AM EDT documented in this encounter Progress Notes * Analisa Purdy PA-C - 11/22/2023 9:00 AM EDT Images from the original note were not included. [facility] Note Cancer History: 1. Screening mammography with vague abnormality in dense breast tissue. MRI with 1 cm mass in rightbreast and distortion in left. 2. Right breast with G1 IDC, ER/OK positive and HER2 negative, background ALH. Left breast with ALHand radial scar. 3. Bilateral mastectomy 02/09 with pT1cN0 IDC right breast and pTis DCIS and left breast. Margins negative. 4. Adjuvant anastrozole 03/12 to current. 5. Status post genetic testing and counseling 03/12, negative. Breast Cancer and Follow-up (Follow-up for bone issue) History of Present Illness: Jasmyn Burton is a 73 y.o. female Here for symptom management visit. About 2 weeks ago, she noticed a bump above her left elbow on dorsal surface of left arm. The area is hard and only hurts when pressing hard. She notes a history of lipomas in the past, but they were not hard like this. No other masses or lumps currently. No issues with her chest wall or axillae. Past Medical History: Diagnosis Date ??? Asthma ??? Breast cancer (HCC) ??? Ectopic ??? High cholesterol History of PE Past Surgical History: Procedure Laterality Date ??? ANTERIOR CRUCIATE LIGAMENT REPAIR ??? BREAST SURGERY ??? HAND FUSION ??? MASTECTOMY ??? MASTECTOMY,TOTAL UNILATERAL Left 02/15/2023 Procedure: MASTECTOMY, UNILATERAL, SIMPLE; Surgeon: Dina Odonnell MD; Location: [facility]; Service: General Surgery; Laterality: Left; Social History [...] negative except as noted per HPI Vitals There were no vitals filed for this visit. Physical Exam Vitals and nursing note reviewed. [...] swelling or deformity. Normal range of motion. Arms: Cervical back: Normal range of motion and [...] Final Comment: [facility] [address] [place] [address] or [phone] Rivera Paz M.D., Dormitory Counselor PATIENT NAME [facility] [id number] AGE SEX SSN CLIENT REF # [facility] 73 [id number] F [id number] [address] REQUESTING Barbie [place] [address] DINA ODONNELL DATE COLLECTED DATE RECEIVED DATE REPORTED 02/15/2023 02/16/2023 02/22/2023 ADDENDUM PRESENT ADDENDUM: See outside report from [employer] for additional information regarding endocrine therapy benefit (reduced benefit), chemotherapy benefit (no expected benefit) etc. Verified by Juliet Serrano M.D., Jose on 06/22/2023 Professional interpretation r endered by Juliet Serrano M.D., Jose at [facility], [address] [place] [address]. DIAGNOSIS: A. BREAST, SIMPLE MASTECTOMY, RIGHT: Invasive ductal adenocarcinoma Maximum dimensions: 14 x 11 x 7 mm Margins negative for tumor Negative for dermal/epidermal involvement Areas of atypical lobular hyperplasia See CAP template B. SENTINEL NODE, RIGHT AXILLA: One lymph node negative for metastatic carcinoma, (0/1) C. 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 Receptors performed on initial biopsy ([id number]): IMMUNOHISTOCHEMICAL RESULTS (IHC): Estrogen Receptor RESULT: positive 100% 3+ (INTENSITY SCORE) Progesterone Receptor RESULT: pos itive 2% 80+ (INTENSITY SCORE) Her2/Natalie oncoprotein RESULT: negative 10% 1+ (INTENSITY SCORE) Tissue cold time prior to fixation: less than 60 minutes Total fixation time (neutral buffered formalin): greater than 6 hours and less than 72 hours HER-2/natalie oncoprotein ([place] clone 4B5, polymer, IVD). Test is performed on formalin fixed, paraffin embedded tissue. NEGATIVE TEST is 0+ or 1+ staining. POSITIVE TEST is 3+ staining, with at least 10% of tumor showing strong and uniform membranous staining. EQUIVOCAL TEST is 2+ or questionable 3+ staining and is submitted for testing by DEY[employer]A method for HER2/natalie oncogene amplification. ER clone [place] SP1, [place] clone IE2, polymer, IVD approved immunohistochemical stains are performed on formalin-fixed, paraffin- embedded tissue. 1-10% of nuclei staining of any intensity is considered a low positive test, and 11% or greater nuclear staining of any intensity is considered positive in our laboratory. C. A selection of (3) immunohistochemical stains is performed, evaluated with the appropriate controls, with the following results: (C3) N-wpfkbomq-kmiektfs positive within area of interest, calponin B-highlights retained myoepithelial cells, smooth muscle myosin heavy chain-highlights retained myoepithelial cells. INVASIVE CARCINOMA OF THE BREAST SPECIMEN: A Procedure: Total mastectomy Specimen Laterality: Right TUMOR: Tumor Site: - Clock position; 5 o'clock, 6 o'clock Histologic Type: Invasive carcinoma of no special type (ductal) Histologic Grade ([place] Histologic Score): Glandular (Acinar) / Tubular Differentiation: Score 1 Nuclear Pleomorphism: Score 2 Mitotic Rate: Score 1 Overall Grade: Grade 1 (scores of 3, 4 or 5) Tumor Size: 14 mm x 11 mm x 7 mm Tumor Focality: Single focus of invasive carcinoma Ductal Carcinoma In Situ (DCIS): Not identified Lobular Carcinoma In Situ (LCIS): Not identified Lymphovascular Invasion: Not ident ified Treatment Effect in the Breast: No known presurgical therapy MARGINS: Margin Status for Invasive Carcinoma: - All margins negative for invasive carcinoma Distance from Invasive Carcinoma to Closest Margin: Exact distance Closest Margin(s) to Invasive Carcinoma: Posterior REGIONAL LYMPH NODES: Regional Lymph Node Status: All regional lymph nodes negative for tumor Total Number of Lymph Nodes Examined (sentinel and non-sentinel): 1 Number of [place] Nodes Examined: 1 PATHOLOGIC STAGE CLASSIFICATION (pTNM, [...] OF THE BREAST SPECIMEN: C Procedure: Total ma stectomy Specimen Laterality: Left TUMOR: Tumor Site: Central [...] information, including but potentially not limited to t his pathology report. CLINICAL HISTORY: Malignant neoplasm of unspecified site of right female breast SPECIMENS RECEIVED: A. BREAST, SIMPLE MASTECTOMY, RIGHT B. SENTINEL NODE, RIGHT AXILLA C. BREAST, SIMPLE MASTECTOMY, LEFT MICROSCOPIC DESCRIPTION: A. Tissue blocks are prepared and slides are examined microscopically on all specimens. See diagnosis for details. C. IMMUNOHISTOCHEMICAL RESULTS (IHC): Estrogen Receptor RESULT: Positive >95% 3+ (INTENSITY SCORE) Progesterone Receptor RESULT: Positive 80% 2+ (INTENSITY SCORE) Tissue cold time prior to fixation: Estimated <10 minutes Total fixation time (neutral buffered formalin): Estimated 24 hours HER-2/natalie oncoprotein ([place] clone 4B5, polymer, IVD). Test is performed on formalin fixed, paraffin embedded tissue. NEGATIVE TEST is 0+ or 1+ staining. POSITIVE TEST is 3+ staining, with at least 10% of tumor showing strong and uniform membranous staining. EQUIVOCAL TEST is 2+ or questionabl e 3+ staining and is submitted for testing by DEYANIRA method for HER2/natalie oncogene amplification. ER clone [place] SP1, [place] clone IE2, polymer, IVD approved immunohistochemical stains are performed on formalin-fixed, paraffin- embedded tissue. 1-10% of nuclei staining of any intensity is considered a low positive test, and 11% or greater nuclear staining of any intensity is considered positive in our laboratory. Estrogen, Progesterone Receptors and Her2/natalie testing is scored and reported as per ASCO/CAP guidelines published in Arch Pathol Lab Med. doi: 10.5858/arpa.1395-7846-DG (2019 update). The reference values for positive, low positive, negative and equivocal are listed above. These assays are FDA cleared when performed on formalin-fixed, paraffin-embedded (FFPE) tissues within the latest ASCO/CAP guideline limits on fixation time. The reliability of the assays for therapeutic predictive value in other circumstances is diminished. This includes short or extended fix ation time, decalcification, or fixation in other than [...] rendered by Juliet Serrano M.D., F.C.A.P. at [facility], [employer], [address] [place] [address]. GROSS DESCRIPTION: A. Specimen received in formalin [...] other discrete mass lesions are grossly identified. [employer] sections are submitted in 10 cassettes as follows: A1-nipple G6-D4-kmauvykb of mass with nearest posterior margin in A2, A5-entirety of central nodule A6-post erior margin nearest central nodule R5-Z77-xtuppmgg sections with superior lateral in A7, superior [...] The remainder of the skin surface is otherw ise grossly unremarkable. The anterior surgical margin is [...] other discrete mass lesions are grossly identified. [employer] sections are submitted in 11 cassettes as follows: C1-nipple C2-skin papule C3-C5-mass with nearest posterior margin in C3, J8-S5-bukmtsm tissue including fibrocystic areas and C7, J2-C17-hreimoyf sections with superior lateral in C8, superior medial in C9, inferior lateral in C10, inferior medial in C11. Time in formalin approximately 24 hours. JTM/RLL REVIEWED, DIAGNOSED AND ELECTRONICALLY SIGNED BY: Juliet Serrano M.D., F.C.A.P. CPT CODES: [id number], [id number], [id number], [id number] DEXA reviewed from 10/09 osteopenia with lowest T score -1.1 in the lumbar spine Assessment/Plan: Cancer Staging Malignant neoplasm of lower-inner quadrant of right breast of female, estrogen receptor positive (HCC) Staging form: Breast, AJCC 8th Edition - Clinical: Stage IA (cT1c, cN0, cM0, G1, ER+, OK+, HER2-) - Signed by Peggy Rogers MD on 02/04/2023 73 y.o. female here for follow up of bilateral breast cancer with lump above left elbow. - This area has appearance of lipoma, but texture is more hard, like a calcification. I will start with 3 view x ray of the elbow and based on results may do additional imaging. My suspicion for bonemetastasis is low, but I want to rule out any possible pathology. -She expressed agreement and understanding of this plan. Signed: Electronically signed by Analisa Purdy PA-C 11/21/23 3:19 PM EDT documented in this encounter Plan of Treatment Upcoming Encounters Date Type Department Care Team (Late st Contact Info) Description 08/30/2024 2:30 PM EDT Office Visit [facility] [address] [facility] [address] [place] [address] Dina Odonnell MD [address] [place] [address] 08/30/2024 3:00 PM EDT Office Visit [facility] [address] [facility] [address] [place] [id number] Peggy Rogers MD [address] [place] [address] [address] [place], [place] [id number] Scheduled Orders Name Type Priority Associated Diagnoses Orde r Schedule XR elbow 3 views min left Imaging STAT Mass of left elbow Expected: 11/22/2023 (Approximate), Expires: 12/21/2024 documented as of this encounter Visit Diagnoses Diagnosis Mass of left elbow- Primary documented in this encounter Care Teams Manager Of Revenue Relationship Specialty Start Date End Date Jeanine Forbes MD [address] [facility] [address] [place] [address] PCP - General Family Medicine 01/27/23 Peggy Rogers MD [address] [facility] [address] [place] [address] Medical Oncologist Hematology and Oncology 02/02/23 [place], Lisa Morales RN Nurse Navigator 02/02/23 12/18/23 documented as of this encounter
--- OUTSIDE RECORDS SUMMARY | 2024-05-07 13:00 | XMS_ITS | Encounter Summary ---
Author Organization [facility] [employer] [employer] Address [address] [place] [address] Care Team Providers Care Outside Sales Account Executive Name Role Phone Jeanine Forbes MD Primary Care Provider [phone] Peggy Rogers MD Unavailable [phone] Lisa Arreola RN Unavailable Unavailable Reason for Visit * Auth/Cert Specialty Diagnoses / Procedures Referred By Willow t Referred To Contact Diagnoses Malignant neoplasm of right female breast, unspecified estrogen receptor status, unspecified site of breast (HCC) R breast cancer Procedures WV MASTECTOMY, SIMPLE, COMPLETE WV MASTECTOMY, SIMPLE, COMPLETE MASTECTOMY, WITH SENTINEL LYMPH NODE BIOPSY MASTECTOMY, UNILATERAL, SIMPLE [facility] Surgery Department [address] [place] [address] Phone: tel: fax: [facility] Surgery Department [address] [place] [address] Phone: tel: fax: Referral ID Status Reason Start Date Expiration Date Visits Re quested Visits Authorized [id number] 1 1 Encounter Details Date Type Department Care Team (Late st Contact Info) Description 02/15/2023 11:28 AM EDT - 02/15/2023 2:32 PM EDT Surgery [facility] Surgery Department [address] [place] [address] Dina Barnett MD [address] [facility] [address] [place] [address] RIGHT BREAST TOTAL MASTECTOMY WITH SENTINEL NODE BIOPSY, LEFT BREAST TOTAL MASTECOMY Social History Tobacco Use Types Packs/Day Years [...] place to sleep or slept in a alf (including now)? No 02/15/2023 Comments No Sex [...] Sign Reading Time Taken Comments Blood Pressure 93/54 02/15/2023 11:17 AM EDT Pulse 49 02/15/2023 11:17 AM EDT Temperature 36.5 ??C (97.7 ??F) 02/15/2023 9:12 AM ED T Respiratory Rate 15 02/15/2023 11:17 AM EDT Oxygen Saturation 97% 02/15/2023 11:17 AM EDT O2@2L Inhaled Oxygen Concentration - - Weight 65.8 [...] Your Medications These medications were sent to [id number] - [place], [place] - [address] [facility] & [address] [place] [address] ?? HYDROcodone-acetaminophen 5-325 mg per tablet ?? [...] Everywhere. * Acetaminophen; Hydrocodone Capsules or Tablets (Eritrean) * Ondansetron Tablets (Eritrean) * Total or Modified Radical Mastectomy Care After (Eritrean) * Surgical Drain Home Care (Eritrean) * Form - Surgical Drain Record (Eritrean) documented in this encounter Medications at Time [...] breast neoplasm. ATTENDING PHYSICIAN: Dr. Jennings PHYSICIAN BIODIESEL OPERATIONS MANAGER: Brandi Sanches PA-C FINDINGS: After informed consent was obtained and time-out procedure performed, approximately 916 uCi of technetium Lymphoseek was injected intradermally into the right breast. Injections were performed in a periareolar fashion. No films were obtained during this procedure. The patient tolerated the procedure with no immediate complication. Impression: Yamhill node injection of the right breast as [...] Patient contacted Patient has not arrived to [facility] for surgery; Called lockstitch front maker then called patient's cell phone number; Patient stated they were on the way and ran into traffic. documented in this encounter Plan of Treatment Upcoming Encounters Date Type Department Care Team (Late st Contact Info) Description 08/30/2024 2:30 PM EDT Office Visit [facility] [address] [place] [phone] Dina Barnett MD [address] [place] [address] 08/30/2024 3:00 PM EDT Office Visit [facility] Oncology - [address] [place] [address] Peggy Rogers MD [address] [place] [address] documented as of this encounter Procedures Procedure Name Priority Date/Time Associated Diagnosis Comments TISSUE EXAM [facility] Routine 02/15/2023 2:10 PM EDT Malignant neoplasm of right female breast, unspecified estrogen receptor status, unspecified site of breast (HCC) WV MASTECTOMY, SIMPLE, COMPLETE 02/15/2023 1:07 PM EDT Malignant neoplasm of right female breast, unspecified estrogen receptor status, unspecified site of breast (HCC) WV MASTECTOMY, SIMPLE, COMPLETE 02/15/2023 1:07 PM EDT Malignant neoplasm of right female breast, unspecified estrogen receptor status, unspecified site of breast (HCC) documented in this encounter Results * Tissue Exam (02/15/2023 2:10 PM EDT) [facility] AP RESULT See Note: [facility] Comment: [facility] [address] ?[place], [place] ??[address] or [phone] Rivera Paz M.D., Civil Drafter PATIENT NAME ? LABORATORY NO. [id number] ??JASMYN BURTON ? [id number] ? AGE ? SEX ??SSN ? CLIENT REF # [facility] ? 73 ?1950 ??F ?[id number] [address] ?REQUESTING M.D. ? ATTENDING M.D. ? [place] [address] ?DINA BARNETT DATE COLLECTED ?DATE RECEIVED ?DATE REPORTED 02/15/2023 ?02/16/2023 ? 02/22/2023 ADDENDUM PRESENT ADDENDUM: See outside report from [facility] for additional information regarding endocrine therapy benefit (reduced benefit), chemotherapy benefit (no expected benefit) etc. Verified by Juliet Serrano M.D., F.C.A.P. on 06/22/2023 Professional interpretation rendered by Juliet Serrano M.D., F.C.A.P. at [facility], [address] [place] [address]. DIAGNOSIS: A. ?? BREAST, SIMPLE MASTECTOMY, RIGHT: [...] COMMENT: ??A. ??Receptors performed on initial biopsy ([id number]): IMMUNOHISTOCHEMICAL RESULTS (IHC): Estrogen Receptor ?RESULT: positive ?100% ?3+ (INTENSITY SCORE) Progesterone Receptor ? RESULT: positive ?2% ?80+ (INTENSITY SCORE) Her2/Natalie oncoprotein ? RESULT: negative ?10% ?1+ (INTENSITY SCORE) Tissue cold time prior to fixation: less than 60 minutes Total fixation time (neutral buffered formalin): greater than 6 hours and less than 72 hours HER-2/natalie oncoprotein ([place] clone 4B5, polymer, IVD). Test is performed on formalin fixed, paraffin embedded tissue. NEGATIVE TEST is 0+ or 1+ staining. POSITIVE TEST is 3+ staining, with at least 10% of tumor showing strong and uniform membranous staining. EQUIVOCAL TEST is 2+ or questionable 3+ staining and is submitted for testing by DEYANIRA method for HER2/natalie oncogene amplification. ER clone [place] SP1, [place] clone IE2, polymer, IVD approved immunohistochemical stains are performed on formalin-fixed, paraffin- embedded tissue. 1-10% of nuclei staining of any intensity is considered a low positive test, and 11% or greater nuclear staining of any intensity is considered positive in our laboratory. C. ??A selection of (3) immunohistochemical stains is performed, evaluated with the appropriate controls, with the following results: (C3) X-jmrlagfw-tgcmmwas positive within area of interest, calponin B-highlights [...] Examined (sentinel and non-sentinel): 1 Number of Yamhill Nodes Examined: 1 PATHOLOGIC STAGE CLASSIFICATION (pTNM, [...] buffered formalin): Estimated 24 hours HER-2/natalie oncoprotein ([place] clone 4B5, polymer, IVD). Test is performed on formalin fixed, paraffin embedded tissue. ??NEGATIVE TEST is 0+ or 1+ staining. POSITIVE TEST is 3+ staining, with at least 10% of tumor showing strong and uniform membranous staining. ??EQUIVOCAL TEST is 2+ or questionable 3+ staining and is submitted for testing by DEYANIRA method for HER2/natalie oncogene amplification. ER clone [place] SP1, WV clone IE2, polymer, IVD approved immunohistochemical stains are performed on formalin-fixed, paraffin- embedded tissue. 1-10% of nuclei staining of any intensity is considered a low positive test, and 11% or greater nuclear staining of any intensity is considered positive in our laboratory. Estrogen, Progesterone Receptors and Her2/natalie testing is scored and reported as per ASCO/CAP guidelines published in Arch Pathol Lab Med. doi: 10.5858/arpa.9021-7911-RF (2019 update). The reference values for positive, [...] rendered by Juliet Serrano M.D., F.C.A.P. at [facility], [facility], [address] [place] [address], [place] [address]. GROSS DESCRIPTION: A. ??Specimen received in formalin [...] other discrete mass lesions are grossly identified. ??Manager Endoscopy sections are submitted in 10 cassettes as follows: A1-nipple A9-Q2-qtvxqlxn of mass with nearest posterior margin in A2, A5-entirety of central nodule A6-posterior margin nearest central nodule Y2-B79-qztwdeac sections with superior lateral in A7, superior [...] other discrete mass lesions are grossly identified. ??Manager Endoscopy sections are submitted in 11 cassettes as follows: C1-nipple C2-skin papule C3-C5-mass with nearest posterior margin in C3, F2-E2-qvniedx tissue including fibrocystic areas and C7, Y0-Y96-xsgkcdat sections with superior lateral in C8, superior medial in C9, inferior lateral in C10, inferior medial in C11. ??Time in formalin approximately 24 hours. ??JTM/RLL REVIEWED, DIAGNOSED AND ELECTRONICALLY SIGNED BY: Juliet Serrano M.D., F.C.A.P. CPT CODES: ??[id number], [id number], [id number], [id number] Tissue RIGHT BREAST STRUCTURE / Unknown 02/15/2023 2:10 PM EDT Tissue specimen (specimen) SENTINEL LYMPH NODE / Unknown 02/15/2023 2:16 PM EDT Tissue specimen (specimen) LEFT BREAST STRUCTURE / Unknown 02/15/2023 2:57 PM EDT us Dina Barnett MD PATHOLOGY/CYTOLOGY ORDERABLE S Edited Result - Final [facility] [address] [place] [address] documented in this encounter Visit Diagnoses Diagnosis Malignant neoplasm of right female breast, unspecified estrogen receptor status, unspecified site of breast (HCC) Pulmonary embolism (HCC) Other pulmonary embolism and infarction Malignant neoplasm of right female breast, unspecified estrogen receptor status, unspecified site of breast (HCC) documented in this encounter Admitting Diagnoses Diagnosis [...] On Tue02/15/23 at 0900, For 1 dose, Rescue Instructor To O.R., Pre-op, Please choose an indication: [...] , Pre-op 1054 (Given - Provider: Cecile Noe RN) mometasone HFA (ASMANEX) 200 mcg/puff 1 puff 2 times daily (RT), inhalation, First dose on Tue02/15/23 at 2000, Shake well before using. 2108 (Given - Provider: Paula Perez, FLAG MAKER) 905 (Given - Provider: Ivory Dillon, MARY LOU) montelukast (SINGULAIR) tablet 10 mg 10 mg [...] PACU 1607 (Given - Provider: Karon Hartley, RN) morphine injection 4 mg 4 mg Every [...] hours documented in this encounter Care Teams Outside Sales Account Executive Relationship Specialty Start Date End Date Jeanine Forbes MD [address] [place] [phone] PCP - General Family Medicine 01/27/23 Peggy Rogers MD [address] [place] [address] [address] [place] [address] Medical Oncologist Hematology and Oncology 02/02/23 Maxwell, Lisa Morales RN Nurse Navigator 02/02/23 12/18/23 documented as of this encounter
--- OUTSIDE RECORDS SUMMARY | 2024-05-07 13:00 | XMS_ITS | Encounter Summary ---
Author Organization [facility] [employer] Address [address] [place] [address] Care Team Providers Care Caster Investment Casting Name Role Phone Jeanine Forbes MD Primary Care Provider Peggy Rogers MD Unavailable [phone] Lisa Arreola RN Unavailable Unavailable Encounter Details Date Type Department Care Team (Latest Contact Info) Description 11/22/2023 Travel Social History Tobacco Use Types Packs/Day [...] place to sleep or slept in a mcfp (including now)? No 02/15/2023 Interpersonal Safety Answer [...] Date Alvaro rded Speak language other than [place] at home Not on file 06/29/2023 Want [...] Description 08/30/2024 2:30 PM EDT Office Visit [facility] [address] [facility] [address] [place] [address] Sudhir Barnett MD [address] [place] [address] 08/30/2024 3:00 PM EDT Office Visit [facility] - [address] [place] [address] Peggy Rogers MD [address] [facility] [address] [place] [address] documented as of this encounter Visit Diagnoses Not on filedocumented in this encounter Care Teams Caster Investment Casting Relationship Specialty Start Date End Date Jeanine Forbes MD [address] [place] [phone] PCP - General Family Medicine 01/27/23 Peggy Rogers MD [address] [facility] [address] [place] [address] Medical Oncologist Hematology and Oncology 02/02/23 Maxwell, Lisa Morales, RN Nurse Navigator 02/02/23 12/18/23 documented as of this encounter
--- OUTSIDE RECORDS SUMMARY | 2024-05-07 13:01 | XMS_ITS | Encounter Summary ---
Author Organization [facility] Address [address] [place] [address] Care Team Providers Care Client Advisor Name Role Phone Jeanine Forbes MD Primary Care Provider Peggy Rogers MD Unavailable [phone] Case, Lisa Morales RN Unavailable Unavailable Encounter Details Date Type Department Care Team (Late st Contact Info) Description 12/29/2021 Transcribed Document [facility] [address] [place] [address] ProviderLucas MD [address] [place] [id number] Social History Tobacco Use Types Packs/Day Years Used Date Smoking Tobacco: Never Assessed Comments Unknown Sex and Gender Information Value Date Recorded Sex Assigned at Not on file Legal Sex Female 5:48 PM CDT Gender Identity Not on file Sexual Orientation Not on file documented as of this encounter Miscellaneous Notes * Cerner Conversion Note - Historical ProviderMD - 12/29/2021 11:42 AM CDT [facility] Endo IntraOp Summary Primary Physician: JAMAICA MONTEIRO MD-GAE Finalized Date/Time: 12/29/21 11:59:04 Pt. Name: JASMYN BURTON /Sex: 1950 Female Med Rec #: [id number] Physician: JAMAICA MONTEIRO MD-GAE Financial #: [id number] Pt. Type: O Room/Bed: END/ Admit/Disch: 12/29/21 10:30:00 - Institution: [facility] Endo - Case Attendance Entry 1 Entry 2 Entry 3 Case Attendee JAMAICA MONTEIRO MD-GAE Walker, Mary B, RONI Gifford CRNA-ANS Role Performed Surgeon/Proceduralist, Precipitator, First AGRICULTURAL CHEMIST/Nurse Teacher Of The Sight Impaired First Time In 12/29/21 11:32:00 12/29/21 11:32:00 12/29/21 11:32:00 Time Out 12/29/21 12:01:00 12/29/21 12:01:00 12/29/21 12:01:00 Procedure Colonoscopy, Colon Colonoscopy, Colon Colonoscopy, Colon Polypectomy Polypectomy Polypectomy Other Attendee Superficial Wound Closed By: Last Modified By: Sebastián Lama Rn Bowen, Jonathan, Rn Bowen, Jonathan, Rn Flex I 12/29/21 11:58:38 Flex I 12/29/21 11:58:38 Flex I 12/29/21 11:58:38 Entry 4 Entry 5 Case Attendee MIREYA-GENET SUAREZ Bowen, Jonathan, Rn MD-ANS Flex I Role Performed Anesthesiologist of Precipitator, Second Record Time In 12/29/21 11:32:00 12/29/21 11:32:00 Time Out 12/29/21 12:01:00 12/29/21 12:01:00 Procedure Colonoscopy, Colon Colonoscopy, Colon Polypectomy Polypectomy Other Attendee Superficial Wound Closed By: Last Modified By: Sebastián Lama Rn Bowen, Jonathan, Rn Flex I 12/29/21 11:58:38 Flex I 12/29/21 11:58:38 [facility] Endo - Case Attendance Audit 12/29/21 11:58:38 Automotive Design Drafter: [id number] Modifier: [id number] 1 <+> Time Out 1 <*> Procedure Colonoscopy, Colon Polypectomy 2 <+> Time Out 2 <*> Procedure Colonoscopy, Colon Polypectomy 3 <+> Time Out 3 <*> Procedure Colonoscopy, Colon Polypectomy 4 <+> Time Out 4 <*> Procedure Colonoscopy, Colon Polypectomy 5 <+> Time Out 5 <*> Procedure Colonoscopy, Colon Polypectomy 12/29/21 11:49:11 Automotive Design Drafter: [id number] Modifier: [id number] 1 <+> Time In 1 <*> Procedure Colonoscopy 2 <+> Time In 2 <*> Procedure Colonoscopy 3 <+> Time In 3 <*> Procedure Colonoscopy 4 <+> Time In 4 <*> Procedure Colonoscopy 5 <+> Time In 5 <*> Procedure Colonoscopy 12/29/21 11:41:59 Automotive Design Drafter: [id number] Modifier: [id number] <+> 5 Case Attendee <+> 5 Role Performed <+> 5 Procedure 12/29/21 11:00:13 Automotive Design Drafter: [id number] Modifier: [id number] <+> 2 Case Attendee <+> 2 Role Performed <+> 2 Procedure <+> 3 Case Attendee <+> 3 Role Performed <+> 3 Procedure <+> 4 Case Attendee <+> 4 Role Performed <+> 4 Procedure 12/29/21 10:59:20 Automotive Design Drafter: [id number] Modifier: [id number] 1 <*> Procedure Colonoscopy, Esophagogastroduodenoscopy 12/29/21 10:56:26 Automotive Design Drafter: [id number] Modifier: [id number] 1 <*> Procedure Colonoscopy [facility] Endo - Case times Entry 1 Patient In Room Time 12/29/21 11:32:00 Out Room Time 12/29/21 12:01:00 Anesthesia Start Time 12/29/21 11:32:00 Stop Time 12/29/21 11:58:00 Surgery / Procedure Times Start Time 12/29/21 11:42:00 Stop Time 12/29/21 11:58:00 Last Modified By: Sebastián Lama Rn Flex I 12/29/21 11:58:37 [facility] Endo - Case times Audit 12/29/21 11:58:37 Automotive Design Drafter: [id number] Modifier: [id number] <+> 1 Out Room Time <+> 1 Stop Time <+> 1 Stop Time 12/29/21 11:43:42 Automotive Design Drafter: [id number] Modifier: [id number] <+> 1 Start Time [facility] Endo - Cultures and Spec Summary Entry 1 Cultrures and Specimens Specimen Ordered: Yes Test(s) Routine/Path-Lab Requested/Final Disposition Last Modified By: Sebastián Lama Rn Flex I 12/29/21 11:49:28 [facility] Endo - Delays Entry 1 Delay Reason Other Duration 0 Minute(s) Last Modified By: Jagruti Deng Rn 12/29/21 11:00:16 [facility] Endo - Departure from OR Entry 1 Integumentary Assessment Integumentary WDL Assessment WDL Transfer/Handoff Transfer to PACU Phase I Post-op Transport Stretcher/Gurney Via Patient Transport Jagruti Deng, Rn, Accompanied by RONI MARCANO CRNA-ANS Last Modified By: Jagruti Deng Rn 12/29/21 11:00:19 [facility] Endo - Endoscopy Details Entry 1 Abdomen Procedure Soft, Non-distended, Assessment Non-Tender, Soft Procedure Abdomen 12/29/21 11:41:00 Assessment D/T Radio Frequency Ablation Abdominal Pressure Last Modified By: Sebastián Lama Rn Flex I 12/29/21 11:44:01 [facility] Endo - Fire Risk Assessment Entry 1 Fire Info Surgical Site or 0- No Incision Above the Xyphoid Open O2 Source 1- Yes (Mask or Cannula) Available Ignition 1- Yes (ESU, Laser, Light Source) Fire Risk 2 Assessment Score Fire Score Fire Risk Yes Assessment Complete Fire Risk Jagruti Deng Rn Assessment Verified By Fire Risk 12/29/21 11:40:00 Assessment Verified Date/Time Fire Risk Last Modified By: Sebastián Lama Rn Flex I 12/29/21 11:42:24 [facility] Endo - General Case Vibrator Equipment Tester 1 Case Information OR Endo 03 [facility] Case Level 1 Room Verified Yes Wound Class No Incision Specialty Gastroenterology Anesthesia Type General ASA Class 2 Diagnosis Preop Diagnosis screening Postop Same As Preop No Postop Diagnosis SCREENING, CECAL POLYP, DESCENDING COLON POLYP, DIVERTICULOSIS Wound Class Definitions Last Modified By: Sebastián Lama Rn Flex I 12/29/21 11:43:33 [facility] Endo - General Case Data Audit 12/29/21 11:55:59 Automotive Design Drafter: [id number] Modifier: [id number] 1 <*> Postop Diagnosis SCREENING 12/29/21 11:43:33 Automotive Design Drafter: [id number] Modifier: [id number] 1 <+> ASA Class 1 <*> Anesthesia Type MAC 1 <+> Postop Same As Preop 1 <+> Preop Diagnosis 1 <+> Postop Diagnosis 1 <+> Room Verified 12/29/21 11:02:50 Automotive Design Drafter: [id number] Modifier: [id number] <+> 1 Specialty <+> 1 Wound Class <+> 1 Anesthesia Type [facility] Endo - Intraoperative Assessment Entry 1 Valid History / Yes Physical in Chart Preoperative Yes Checklist Reviewed/Evaluated Patient is Latex No Sensitive Level of WDL Consciousness (WDL = Alert, Oriented to Person, Place, and Time) Last Modified By: Jagruti Deng Rn 12/29/21 11:02:51 [facility] Endo - Intraoperative Equipment Entry 1 Type Scope Equipment Intraop Monitoring Electrocardiogram Three lead placement (ECG) Electrode Placement Blood Pressure Non-Invasive BP Device Source Antiembolic Devices Scopes Flexible Endoscopes Colonoscope Used Scope Serial R Number/Identificatio n Number Photo/Video Documentation Last Modified By: Jagruti Deng Rn 12/29/21 11:03:23 [facility] Endo - Patient Positioning Entry 1 Procedure Colonoscopy, Colon Polypectomy Body Position Lateral, right side up Left Arm Position Resting at side Right Arm Position Resting at side Left Leg Position Other Right Leg Position Other Position Comments Right leg over left leg, uncrossed Feet Uncrossed Yes Pressure Points Yes Checked Positioned By Jagruti Deng Rn Position Verified Positioning Yes Verified by Surgeon Last Modified By: Jagruti Deng Rn 12/29/21 11:02:56 [facility] Endo - Patient Positioning Audit 12/29/21 11:49:12 Automotive Design Drafter: [id number] Modifier: [id number] 1 <*> Procedure Colonoscopy [facility] Endo - Sign In Entry 1 Patient, Site, Yes Procedure Identified Surgical Consent Yes Confirmed Relevant Surgical Yes Documents Available Surgical Site N/A Marked by person performing procedure Airway Hypothermia Risk No Warming Measures No Taken Last Modified By: Jagruti Deng Rn 12/29/21 11:03:05 [facility] Endo - Sign Out Entry 1 RN Confirmation Surgical Yes Procedure(s) Identified Instrument, Sponge N/A and Sharps Counts Correct/Documented Equipment Problems N/A Documented Specimen Labeled Yes Correctly Urinary Catheter N/A Documented in IView Wound Yes classification reviewed, verified and updated post case in both the General Case Data and Procedure segments Safety Checklist Yes Elements Complete? RN Sign Out Jagruti Deng Rn Signature RN Sign Out 12/29/21 12:01:00 Signature Date/Time Plan of Care Outcome - Fire Risk OUTCOME STATEMENT: Goal met Patient is free from injury related to surgical fire Plan of Care Outcome - Pt Positioning OUTCOME STATEMENT: Goal met Absence of signs and symptoms of positioning injury. Plan of Care Outcome - Skin Prep OUTCOME STATEMENT: Goal met Intraoperative care is consistent with measures to prevent infection Plan of Care Outcome - Xray/Images OUTCOME STATEMENT: N/A Absence of observable signs or symptoms of radiation injury Plan of Care Outcome - Counts OUTCOME STATEMENT: Goal met Absence of signs and symptoms of injury related to extraneous objects Last Modified By: Sebastián Lama Rn Flex I 12/29/21 11:58:57 [facility] Endo - Surgical Procedures Entry 1 Entry 2 Procedure Colonoscopy Colon Polypectomy Modifiers Additional Procedure Description Primary Procedure Yes No Primary Surgeon JAMAICA MONTEIRO MD-GAE MARTIN, KATHLEEN, MD-GAE Start 12/29/21 11:42:00 12/29/21 11:42:00 Stop 12/29/21 11:58:00 12/29/21 11:58:00 Physician States 12/29/21 11:46:00 12/29/21 11:46:00 Cecum Reached Anesthesia Type General General Specialty Gastroenterology Gastroenterology Wound Class No Incision No Incision Last Modified By: Sebastián Lama Rn Bowen, Jonathan, Rn Flex I 12/29/21 11:48:49 Flex I 12/29/21 11:49:08 [facility] Endo - Surgical Procedures Audit 12/29/21 11:58:45 Automotive Design Drafter: [id number] Modifier: [id number] <+> 1 Stop <+> 2 Stop 12/29/21 11:49:08 Automotive Design Drafter: [id number] Modifier: [id number] <+> 2 Procedure <+> 2 Primary Procedure <+> 2 Primary Surgeon <+> 2 Specialty <+> 2 Start <+> 2 Wound Class <+> 2 Anesthesia Type <+> 2 Physician States Cecum Reached 12/29/21 11:48:49 Automotive Design Drafter: [id number] Modifier: [id number] 1 <*> Procedure Colonoscopy 1 <*> Anesthesia Type MAC 1 <+> Physician States Cecum Reached 12/29/21 11:44:39 Automotive Design Drafter: [id number] Modifier: [id number] <+> 1 Start 12/29/21 10:59:21 Automotive Design Drafter: [id number] Modifier: [id number] 1 <*> Procedure Colonoscopy 1 <*> Primary Procedure Yes 1 <*> Primary Surgeon JAMAICA MONTEIRO MD-GAE 1 <*> Specialty 1 <*> Wound Class No Incision 1 <*> Anesthesia Type MAC Entry 2 was deleted. Higher numbered entries shifted one position to fill the gap. <-> 2 Procedure Esophagogastroduodenoscopy <-> 2 Primary Procedure No <-> 2 Primary Surgeon JAMAICA MONTEIRO MD-LEXUS <-> 2 Specialty <-> 2 Wound Class No Incision <-> 2 Anesthesia Type MAC 12/29/21 10:56:24 Automotive Design Drafter: [id number] Modifier: [id number] <+> 2 Procedure <+> 2 Primary Procedure <+> 2 Primary Surgeon <+> 2 Specialty <+> 2 Wound Class <+> 2 Anesthesia Type [facility] Endo - Time Out Entry 1 Procedure to be Colonoscopy, Colon Performed Polypectomy Time Out Time Out Pause Time 12/29/21 11:41:00 All activity Yes suspended (unless life threatening emergency) Team Verbally Correct patient Confirms Information identity, Consent form is present and accurate, Agreement on the procedure to be done, Correct patient position, Performed in location of procedure after prepped/draped, Performed before each procedure if multiple procedures, Reconcile problems if responses among team members differ Antibiotic N/A Prophylaxis Administered Or In Progress Within the Last 60 Minutes Beta Daniel N/A Administered Venous N/A Thromboembolism Prophylaxis Required Anticipated Critical Events Surgeon None expected Last Modified By: Sebastián Lama Rn Flex I 12/29/21 11:49:12 [facility] Endo - Time Out Audit 12/29/21 11:49:12 Automotive Design Drafter: [id number] Modifier: [id number] 1 <*> Procedure to be Performed Colonoscopy Case Comments <None> Finalized By: Sebastián Lama Rn Flex I Document Signatures Signed By: Sebastián Lama Rn Flex I 12/29/21 11:59 Electronically signed by Christiano [facility] Conversion Hog Driver Cerner at 10/04/2022 12:19 PM CDT documented in this encounter Plan of Treatment Upcoming Encounters Date Type Department Care Team (Late st Contact Info) Description 08/30/2024 2:30 PM EDT Office Visit [facility] [address] [facility] [address] [place] [address] Sudhir Barnett MD [address] [place] [address] 08/30/2024 3:00 PM EDT Office Visit [facility] [address] [place] [address] Peggy Rogers MD [address] [facility] [address] [place] [address] documented as of this encounter Visit Diagnoses Not on filedocumented in this encounter Care Teams Client Advisor Relationship Specialty Start Date End Date Jeanine Forbes MD [address] [place] [phone] PCP - General Family Medicine 01/27/23 Peggy Rogers MD [address] [facility] [address] [place] [address] Medical Oncologist Hematology and Oncology 02/02/23 Maxwell, Lisa Morales RN Nurse Navigator 02/02/23 12/18/23 documented as of this encounter
--- OUTSIDE RECORDS SUMMARY | 2024-05-07 13:01 | XMS_ITS | Encounter Summary ---
Author Organization [employer] [facility] [employer] Address [address] [place] [address] Care Team Providers Care Equipment Associate Name Role Phone Jeanine Forbes MD Primary Care Provider [phone] Reason for Visit * Ultrasound (Routine) - Closed Specialty Diagnoses / Procedures Referred By Contac t Referred To Contact Diagnoses Malignant neoplasm of right female breast, unspecified estrogen receptor status, unspecified site of breast (HCC) Procedures US BREAST BILATERAL LIMITED US BREAST RIGHT LIMITED Sudhir Barnett MD [address] [place] [phone] Phone: tel: fax: Referral ID Status Reason Start Date Expiration Date Visits Re quested Visits Authorized [id number] Closed 01/27/2023 07/26/2023 1 1 Encounter Details Date Type Department Care Team (Latest Contact Info) Description 01/27/2023 12:43 PM EDT - 01/27/2023 11:59 PM EDT Hospital Encounter [facility] [address] [facility] [address] [place] [address] Sudhir Barnett MD [address] [place] [phone] Malignant neoplasm of right female breast, unspecified estrogen receptor status, unspecified site of breast (HCC) Discharge Disposition: Home or Self Care Social History Tobacco Use Types Packs/Day Years Used Date Smoking Tobacco: Never Smokeless Tobacco: Never Alcohol Use Standard Drinks/Week Comments Yes 0 (1 standard drink = 0.6 oz pur e alcohol) Occasional Comments Unknown Sex and Gender Information Value Date Recorded Sex Assigned at Not on file Legal Sex Female 5:48 PM CDT Gender Identity Not on file Sexual Orientation Not on file Occupation Industry Job Start Date Job End Date Not on file Not on file Not on file Not on file documented as of this encounter Medications at Time of Discharge aspirin 81 MG EC tablet Take 1 tablet (81 mg total) by mouth every other day. lisinopriL (PRINIVIL,ZESTRI L) 5 MG tablet Take 1 tablet (5 mg total) by mouth daily. 01/07/2023 mometasone (Asmanex Twisthaler) 220 mcg/ actuation (60) AePB breath activated powder inhaler Asmanex Twisthaler 220 mcg/actuation(60 doses) breath activated inhalr montelukast (SINGULAIR) 10 mg tablet SMARTSI Tablet(s) By Mouth Every Evening 01/04/2023 omeprazole (PriLOSEC) 20 MG capsule Take 1 capsule (20 mg total) by mouth daily as needed. 11/29/2022 rosuvastatin (CRESTOR) 20 MG tablet SMARTSI Tablet(s) By Mouth Every Evening 01/08/2023 documented as of this encounter Plan of Treatment Upcoming Encounters Date Type Department Care Team (Late st Contact Info) Description 08/30/2024 2:30 PM EDT Office Visit [facility] [address] [facility] [address] [place] [address] Sudhir Barnett MD [address] [facility] [address] [place] [address] 08/30/2024 3:00 PM EDT Office Visit [facility] - [place] [address] [facility] [address] [place] [address] Peggy Rogers MD [address] [place] [address] documented as of this encounter Procedures Procedure Name Priority Date/Time Associated Diagnosis Comments US BREAST BILATERAL LIMITED Routine 01/27/2023 1:24 PM EDT Malignant neoplasm of right female breast, unspecified estrogen receptor status, unspecified site of breast (HCC) documented in this encounter Results * (ABNORMAL) US BREAST BILATERAL LIMITED (01/27/2023 1:24 PM EDT) Anatomical Region Laterality Modality Breast Bilateral Ultrasound 01/27/2023 1:49 PM EDT Impressions 01/27/2023 1:59 PM EDT FINAL IMPRESSION: ??ACR BI-RADS 6: Known biopsy proven cancer. RECOMMENDATION: Surgical follow-up The findings and recommendations were discussed with the patient and a report in lay language was given to the patient. Narrative 01/27/2023 1:59 PM EDT PROCEDURE: Bilateral limited Breast Ultrasound, using 18 MHz transducer. 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 FAMILY HISTORY: No family history of breast cancer COMPARISON STUDY: [facility] FINDINGS: There is significant bruising in the right breast surrounding the prior biopsy site. Hypoechoic mass is seen at the 5:00 position and there are areas of hypoechoic shadowing. It is not clear if the hypoechoic mass seen at the 5:00 position is the residua of the mass previously biopsied or another mass. There are hypoechoic areas throughout the tissue however these cannot be distinctly identified as additional suspicious foci within the areas of hematoma and echogenic bruising Ultrasound of the subareolar left breast reveals only some subareolar ductal dilatation. No definite subareolar mass is seen. On discussion with the patient on the she wishes to have bilateral mastectomy; therefore no further radiographic evaluation was performed. us Sudhir Barnett MD IMG US ORDERABLES Final Resu lt documented in this encounter Visit Diagnoses Diagnosis Malignant neoplasm of right female breast, unspecified estrogen receptor status, unspecified site of breast (HCC) documented in this encounter Care Teams Equipment Associate Relationship Specialty Start Date End Date Jeanine Forbes MD [address] [place] [phone] PCP - General Family Medicine 01/27/23 documented as of this encounter
--- OUTSIDE RECORDS SUMMARY | 2024-05-07 13:01 | XMS_ITS | Encounter Summary ---
Author Organization [facility] Address [address] [id number] Care Team Providers Care Real Estate Site Analyst Name Role Phone Jeanine Forbes MD Primary Care Provider [phone] Encounter Details Date Type Department Care Team (Latest Contact Info) Description 11/26/2022 Travel Social History Tobacco Use Types Packs/Day Years Used Date Smoking Tobacco: Never Assessed PHQ-2 Answer Date Recorded Patient Health Questionnaire-2 Score 0 11/26/2022 PHQ-2A Answer Date Recorded Patient Health Questionnaire-2 Score 0 11/26/2022 Comments Unknown Sex and Gender Information Value Date Recorded Sex Assigned at Not on file Legal Sex Female 4:10 PM EDT Gender Identity Not on file Sexual Orientation Not on file documented as of this encounter Plan of Treatment Upcoming Encounters Date Type Department Care Team (Late st Contact Info) Description 07/03/2024 4:00 PM EST Office Visit [facility] [place] [address] [facility] [place] [address] Marco Marinelli MD [address] [place] [phone] documented as of this encounter Visit Diagnoses Not on filedocumented in this encounter Additional Health Concerns Assessment Noted Time A fall risk assessment has been complete d for the patient 11/26/2022 8:19 AM EDT documented as of this encounter Care Teams Real Estate Site Analyst Relationship Specialty Start Date End Date Jeanine Forbes MD [address] [facility] [address] [place] [address] PCP - General 11/26/22 documented as of this encounter
--- OUTSIDE RECORDS SUMMARY | 2024-05-07 13:01 | XMS_ITS | Encounter Summary ---
Author Organization [facility] In [facility]atives Address [address] [place] [address] Care Team Providers Care Filter Machine Operator Name Role Phone Jeanine Forbes MD Primary Care Provider Peggy Rogers MD Unavailable [phone] Lisa Arreola RN Unavailable Unavailable Encounter Details Date Type Department Care Team (Late st Contact Info) Description 12/29/2021 Transcribed Document [facility] [place] [address] [place] [address] ProviderLucas MD [address] [place] [address] Social History Tobacco Use Types Packs/Day Years Used Date Smoking Tobacco: Never Assessed Comments Unknown Sex and Gender Information Value Date Recorded Sex Assigned at Not on file Legal Sex Female 5:48 PM CDT Gender Identity Not on file Sexual Orientation Not on file documented as of this encounter Miscellaneous Notes * Cerner Conversion Note - Historical ProviderMD - 12/29/2021 11:07 AM CDT [facility] [place] [address] JASMYN BURTON :1950 Visit Time:12/29/2021 What to do next Instructions From Your Care Team Diet after Discharge: Resume usual diet as tolerated, Do not drink any alcoholic beverages, Activity after Discharge: Rest and relax today, No strenuous activity Driving after Discharge: Do not drive for 24 hours May Return to Work/School: Tomorrow Notify Provider of: Questions or Concerns, pain, bleeding or fever of 101 Copy of procedure report given to patient If biopsies were taken, office will call or mail results within 7-10 days Follow-Up Appointments Follow Up with JAMAICA MONTEIRO MD-GAE When Only if needed Where: [address] [facility] [address] [place] [address]- Medications What How Much When Instructions Next Dose albuterol (Albuterol (Eqv-ProAir HFA)) Inhalation Every 6 Hours ezetimibe Oral Every Day fluticasone nasal (fluticasone 50 mcg/ inh nasal spray) 2 [place](s) Nasal Two Times A Day mometasone (mometasone 220 mcg/ inh inhalation aerosol powder) Inhalation Every Evening omeprazole (omeprazole 20 mg oral delayed release capsule) 1 Capsule(s) Oral Every Day Take on an empty stomach 30 minutes before breakfast racEPINEPHrine (Asthmanefrin 2.25% inhalation solution) Every 3 Hours rizatriptan Oral Every Day Take your medications faithfully. Do NOT skip medication. Do NOT stop taking medications without the direction of a physician. Carry a list of your medications with you at all times, and take this medication list with you to your first follow up visit. Report any side effects. Avoid herbal remedies unless discussed with your physician. As part of your treatment plan, your physician may have prescribed a limited course of a controlled substance. This medication may be given to help people with moderate or severe pain or for other medical conditions, but there are risks involved with treatment. Common side effects may include nausea, constipation, drowsiness, sweating, itching, dry mouth, and rash. More serious side effects may include cognitive and motor impairment, like problems with thinking, concentrating, alertness, and movement (e.g. slowed reflexes), and driving and operating heavy machinery can be dangerous. It is important for you to talk to your physician if you have these side effects or questions. These controlled substances can produce physical dependence and be habit-forming if taken for an extended period of time, which means that the body has gotten used to them and may experience withdrawal symptoms if they are abruptly stopped. Withdrawal symptoms can include runny nose, sweating, goose bumps, diarrhea, abdominal cramping, rapid heartbeat, difficulty sleeping, and nervousness. Please dispose of unused and medications per pharmacy guidance. Education Materials General Anesthesia, Adult General anesthesia is the use of medicines to make a person go to sleep (unconscious) for a medical procedure. General anesthesia must be used for certain procedures, and is often recommended for procedures that: ??? Last a long time. ??? Require you to be still or in an unusual position. ??? Are major and can cause blood loss. The medicines used for general anesthesia are called general anesthetics. As well as making you unconscious for a certain amount of time, these medicines: ??? Prevent pain. ??? Control your blood pressure. ??? Relax your muscles. Tell a health care provider about: ??? Any allergies you have. ??? All medicines you are taking, including vitamins, herbs, eye drops, creams, and cpdp-xao-geqmcns medicines. ??? Any problems you or family members have had with anesthetic medicines. ??? Types of anesthetics you have had in the past. ??? Any blood disorders you have. ??? Any surgeries you have had. ??? Any medical conditions you have. ??? Any recent upper respiratory, chest, or ear infections. ??? Any history of: ? Heart or lung conditions, such as heart failure, sleep apnea, asthma, or chronic obstructive pulmonary disease (COPD). ? service. ? Depression or anxiety. ??? Any tobacco or drug use, including marijuana or alcohol use. ??? Whether you are or may be . What are the risks? Generally, this is a safe procedure. However, problems may occur, including: ??? Allergic reaction. ??? Lung and heart problems. ??? Inhaling food or liquid from the stomach into the lungs (aspiration). ??? Nerve injury. ??? Dental injury. ??? Air in the bloodstream, which can lead to stroke. ??? Extreme agitation or confusion (delirium) when you wake up from the anesthetic. ??? Waking up during your procedure and being unable to move. This is rare. These problems are more likely to develop if you are having a major surgery or if you have an advanced or serious medical condition. You can prevent some of these complications by answering all of your health care provider's questions thoroughly and by following all instructions before your procedure. General anesthesia can cause side effects, including: ??? Nausea or vomiting. ??? A sore throat from the breathing tube. ??? Hoarseness. ??? Wheezing or coughing. ??? Shaking chills. ??? Tiredness. ??? Body aches. ??? Anxiety. ??? Sleepiness or drowsiness. ??? Confusion or agitation. What happens before the procedure? Staying hydrated Follow instructions from your health care provider about hydration, which may include: ??? Up to 2 hours before the procedure ??? you may continue to drink clear liquids, such as water, clear fruit juice, black coffee, and plain tea. Eating and drinking restrictions Follow instructions from your health care provider about eating and drinking, which may include: ??? 8 hours before the procedure ??? stop eating heavy meals or foods such as meat, fried foods, or fatty foods. ??? 6 hours before the procedure ??? stop eating light meals or foods, such as toast or cereal. ??? 6 hours before the procedure ??? stop drinking milk or drinks that contain milk. ??? 2 hours before the procedure ??? stop drinking clear liquids. Medicines Ask your health care provider about: ??? Changing or stopping your regular medicines. This is especially important if you are taking diabetes medicines or blood thinners. ??? Taking medicines such as aspirin and ibuprofen. These medicines can thin your blood. Do not take these medicines unless your health care provider tells you to take them. ??? Taking vggb-ezi-lcgazze medicines, vitamins, herbs, and supplements. Do not take these during the week before your procedure unless your health care provider approves them. General instructions ??? Starting 3???6 weeks before the procedure, do not use any products that contain nicotine or tobacco, such as cigarettes and e-cigarettes. If you need help quitting, ask your health care provider. ??? If you brush your teeth on the morning of the procedure, make sure to spit out all of the toothpaste. ??? Tell your health care provider if you become ill or develop a cold, cough, or fever. ??? If instructed by your health care provider, bring your sleep apnea device with you on the day of your surgery (if applicable). ??? Ask your health care provider if you will be going home the same day, the following day, or after a longer hospital stay. ? Plan to have a responsible adult take you home from the hospital or clinic. ? Plan to have a responsible adult care for you for the time you are told after you leave the hospital or clinic. This is important. What happens during the procedure? You will be given anesthetics through both of the following: ? A mask placed over your nose and mouth. ? An IV in one of your veins. ??? You may receive a medicine to help you relax (sedative). ??? After you are unconscious, a breathing tube may be inserted down your throat to help you breathe. This will be removed before you wake up. ??? An anesthesia specialist will stay with you throughout your procedure. He or she will: ? Keep you comfortable and safe by continuing to give you medicines and adjusting the amount of medicine that you get. ? Monitor your blood pressure, pulse, and oxygen levels to make sure that the anesthetics do not cause any problems. The procedure may vary among health care providers and hospitals. What happens after the procedure? Your blood pressure, temperature, heart rate, breathing rate, and blood oxygen level will be monitored until the medicines you were given have worn off. ??? You will wake up in a recovery area. You may wake up slowly. ??? If you feel anxious or agitated, you may be given medicine to help you calm down. ??? If you will be going home the same day, your health care provider may check to make sure you can walk, drink, and urinate. ??? Your health care provider will treat any pain or side effects you have before you go home. ??? Do not drive or operate machinery until your health care provider says that it is safe. Summary ??? General anesthesia is used to keep you still and prevent pain during a procedure. ??? It is important to tell your health care provider about your medical history and any surgeries you have had, and previous experience with anesthesia. ??? Follow your health care provider's instructions about when to stop eating, drinking, or taking certain medicines before your procedure. ??? Plan to have a responsible adult take you home from the hospital or clinic. This information is not intended to replace advice given to you by your health care provider. Make sure you discuss any questions you have with your health care provider. Document Revised: 02/16/2021 Document Reviewed: 09/17/2020 [employer] Patient Education ?? 2020 [employer] Colonoscopy, Adult, Care After This sheet gives you information about how to care for yourself after your procedure. Your doctor may also give you more specific instructions. If you have problems or questions, call your doctor. What can I expect after the procedure? After the procedure, it is common to have: ??? A small amount of blood in your poop (stool) for 24 hours. ??? Some gas. ??? Mild cramping or bloating in your belly (abdomen). Follow these instructions at home: Eating and drinking ??? Drink enough fluid to keep your pee (urine) pale yellow. ??? Follow instructions from your doctor about what you cannot eat or drink. ??? Return to your normal diet as told by your doctor. Avoid heavy or fried foods that are hard to digest. Activity ??? Rest as told by your doctor. ??? Do not sit for a long time without moving. Get up to take short walks every 1???2 hours. This is important. Ask for help if you feel weak or unsteady. ??? Return to your normal activities as told by your doctor. Ask your doctor what activities are safe for you. To help cramping and bloating: ??? Try walking around. ??? Put heat on your belly as told by your doctor. Use the heat source that your doctor recommends, such as a moist heat pack or a heating pad. ? Put a towel between your skin and the heat source. ? Leave the heat on for 20???30 minutes. ? Remove the heat if your skin turns bright red. This is very important if you are unable to feel pain, heat, or cold. You may have a greater risk of getting burned. General instructions ??? If you were given a medicine to help you relax (sedative) during your procedure, it can affect you for many hours. Do not drive or use machinery until your doctor says that it is safe. ??? For the first 24 hours after the procedure: ? Do not sign important documents. ? Do not drink alcohol. ? Do your daily activities more slowly than normal. ? Eat foods that are soft and easy to digest. ??? Take xnqm-gtv-ybjuxxe or prescription medicines only as told by your doctor. ??? Keep all follow-up visits as told by your doctor. This is important. Contact a doctor if: ??? You have blood in your poop 2???3 days after the procedure. Get help right away if: ??? You have more than a small amount of blood in your poop. ??? You see large clumps of tissue (blood clots) in your poop. ??? Your belly is swollen. ??? You feel like you may vomit (nauseous). ??? You vomit. ??? You have a fever. ??? You have belly pain that gets worse, and medicine does not help your pain. Summary ??? After the procedure, it is common to have a small amount of blood in your poop. You may also have mild cramping and bloating in your belly. ??? If you were given a medicine to help you relax (sedative) during your procedure, it can affect you for many hours. Do not drive or use machinery until your doctor says that it is safe. ??? Get help right away if you have a lot of blood in your poop, feel like you may vomit, have a fever, or have more belly pain. This information is not intended to replace advice given to you by your health care provider. Make sure you discuss any questions you have with your health care provider. Document Revised: 04/11/2020 Document Reviewed: 12/31/2019 [employer] Patient Education ?? 2020 [employer] Emergency Awareness and Preventative Care STROKE is an EMERGENCY Every Minute Counts Act FAST and Check for these signs: FACE Does the face look uneven? ARM Does one arm drift down? SPEECH Does their speech sound strange? TIME Call at any sign of stroke Stroke Risk Factors Atrial Fibrillation (irregular heartbeat) Diabetes Family history of stroke Heart Disease Heavy alcohol use High Blood Pressure High Cholesterol Physical inactivity and obesity Smoking Cigarette Smoking The facts are clear, cigarette smoking will shorten your life. Smoking can cause many illnesses along the way. As a healthcare provider, we recommend that you stop smoking. Assistance with quitting is available by contacting 4-639-KNIK-NOW. This is a free resource providing counseling, support, and referral. Or you may contact your personal physician. National Suicide Prevention Lifeline: The National Suicide Prevention Lifeline is a national network of local crisis centers that provides free and confidential emotional support to people in suicidal crisis or emotional distress 24 hours a day, 7 days a week. Don't Wait! Stop a Heart Attack Before it Starts What is a heart attack? A heart attack is damage or to a part of the heart from severely decreased or lack of blood flow to the heart. Over time, arteries can become narrow from the buildup of fat and cholesterol, which is called plaque. The plaque can rupture causing a blood clot to form. When the blood clot forms, the artery can become severely narrowed or completely blocked, causing a heart attack. Heart attack is the leading cause of in the [place]. 85% of muscle damage occurs within the first 2 hours. Delay in the recognition of heart attack symptoms increases the chances of . Know the early symptoms of a heart attack: Nausea Feeling of fullness in chest Jaw Pain Pain that travels down one or both arms Fatigue/being tired Anxiety Back Pain Chest pressure, squeezing, or discomfort Shortness of breath Sweating, or a cold sweat Feeling of impending doom There are unusual signs of a heart attack, too! Women, the elderly, and diabetics may present with atypical symptoms: Fainting/dizziness Weakness Confusion Risk Factors for a Heart Attack Some heart disease risk factors, such as age and family history, cannot be changed. Others, like smoking and lack of exercise, can be changed. Smoking High Cholesterol High Blood Pressure Family History Obesity Age Gender (Males are at higher risk) Lack of Exercise Diabetes Diet Stress Excessive Alcohol Intake If you or someone you know is experiencing the signs and symptoms of a heart attack, DON???T DELAY. Call immediately and seek help. If someone collapses, perform CPR! Do not attempt to drive if you are having symptoms of heart attack. Hands-Only CPR Why Hands-Only CPR? Hands-Only CPR has been shown to be as effective as conventional CPR for cardiac arrests that occur outside of a hospital. Survival depends on immediately receiving CPR from someone nearby. How do you perform Hands-Only CPR? There are two easy steps: Call if you see a teen or adult collapse Push hard and fast in the center of the chest at a beat of 100 beats per minute. Save a life! 4 WAYS TO GET AHEAD OF SEPSIS SEPSIS is a MEDICAL EMERGENCY. Time matters! Infections put you and your family at risk for a life-threatening condition called sepsis. Sepsis is the body's extreme response to an infection. It is life-threatening, and without timely treatment, sepsis can rapidly lead to tissue damage, organ failure, and . Sepsis happens when an infection you already have-in your skin, lungs, urinary tract or somewhere else-triggers a chain reaction throughout your body. 1 PREVENT INFECTIONS Take good care of chronic conditions. Talk to your doctor about getting the recommended vaccines. 2 PRACTICE GOOD HYGIENE Wash your hands frequently. Keep cuts or open sores clean and covered until they are healed. 3 KNOW THE SYMPTOMS Confusion or disorientation Shortness of breath High heart rate Fever, shivering, or feeling very cold Extreme pain or discomfort Clammy or sweaty skin 4 ACT FAST Get medical care IMMEDIATELY if you suspect sepsis or if you have an infection that is not getting better or is getting worse. To learn more about sepsis and how to prevent infections, visit www.cdc.gov/sepsis. Test Results Laboratory or Other Results This Visit (last charted value for your 12/29/2021 visit) No Laboratory or Other Results This Visit Patient Name:JASMYN BURTON I have received this information and was given the opportunity to ask questions. Patient/Special Duty Nurse Name: Patient/Special Duty Nurse Signature: Relationship to Patient: Clinician/Hospital Special Duty Nurse Signature: Date: Electronically signed by Christiano, [facility] Conversion Business Systems Consultant Cerner at 10/04/2022 12:37 PM CDT documented in this encounter Plan of Treatment Upcoming Encounters Date Type Department Care Team (Late st Contact Info) Description 08/30/2024 2:30 PM EDT Office Visit [facility] [address] [facility] [address] [place] [address] Sudhir Barnett MD [address] [facility] [address] [place] [address] 08/30/2024 3:00 PM EDT Office Visit [facility] [place] [address] [facility] [address] [place] [id number] Peggy Rogers MD [address] [place] [address] documented as of this encounter Visit Diagnoses Not on filedocumented in this encounter Care Teams Filter Machine Operator Relationship Specialty Start Date End Date Jeanine Forbes MD [address] [facility] [address] [place] [id number] PCP - General Family Medicine 01/27/23 Peggy Rogers MD [address] [place], [place] [id number] Medical Oncologist Hematology and Oncology 02/02/23 Maxwell, Lisa Morales, RN Nurse Navigator 02/02/23 12/18/23 documented as of this encounter
--- OUTSIDE RECORDS SUMMARY | 2024-05-07 13:01 | XMS_ITS | Encounter Summary ---
Author Organization [email or web address] In [employer] Address [address] [place] [address] Care Team Providers Care Home Care Coordinator Name Role Phone Jeanine Forbes MD Primary Care Provider [phone] Peggy Rogers MD Unavailable [phone] Lisa Arreola RN Unavailable Unavailable Encounter Details Date Type Department Care Team (Late st Contact Info) Description 02/02/2023 Patient Outreach [facility] [place] [address] [place] [address] Lisa Arreola, RN Social History Tobacco Use [...] in a longterm (including now)? No 02/15/2023 Comments Unknown Sex and Gender Information Value [...] of this encounter Progress Notes * Lisa Arreola RN - 02/02/2023 1:55 PM EDT Met with patient during provider visit. Gave copy of pathology and reviewed results. Medication education given with direction on when to start. Follow up scheduled as ordered. Patient reminded to call with any questions or concerns. documented in this encounter Plan of Treatment Upcoming Encounters Date Type Department Care Team (Late st Contact Info) Description 08/30/2024 2:30 PM EDT Office Visit [facility] [address] [facility] [address] [place] [address] Sudhir Barnett MD [address] [facility] [address] [place] [address] 08/30/2024 3:00 PM EDT Office Visit [facility] [address] [address] [place] [address] Peggy Rogers MD [address] [place] [address] documented as of this encounter Visit Diagnoses Not on filedocumented in this encounter Care Teams Home Care Coordinator Relationship Specialty Start Date End Date Jeanine Forbes MD [address] [place] [address] [address] [place] [id number] PCP - General Family Medicine 01/27/23 Peggy Rogers MD [address] [facility] [address] [place] [id number] Medical Oncologist Hematology and Oncology 02/02/23 Maxwell, Lisa Morales RN Nurse Navigator 02/02/23 12/18/23 documented as of this encounter
--- OUTSIDE RECORDS SUMMARY | 2024-05-07 13:01 | XMS_ITS | Encounter Summary ---
Author Organization [facility] Address [address] [place] [address] Care Team Providers Care Lathe Set Up Operator Name Role Phone Unavailable Primary Care Provider Unavailabl e Encounter Details Date Type Department Care Team (Late st Contact Info) Description 11/17/2022 Orders Only [facility] [place] [address] [facility] [place] [address] Lupis Bean Social History Tobacco Use Types Packs/Day Years [...] Description 07/03/2024 4:00 PM EST Office Visit [facility] [place] [address] [facility] [place] [id number] Marco Marinelli MD [address] [place] [address] documented as of this encounter Visit Diagnoses Not on filedocumented in this encounter
--- OUTSIDE RECORDS SUMMARY | 2024-05-07 13:01 | XMS_ITS | Encounter Summary ---
Author Organization [facility] In iatives Address [address] [place] [address] Care Team Providers Care Relay Worker Name Role Phone Jeanine Forbes MD Primary Care Provider [phone] Peggy Rogers MD Unavailable [phone] Case, Lisa Morales RN Unavailable Unavailable Encounter Details Date Type Department Care Team (Late st Contact Info) Description 12/29/2021 Transcribed Document [facility] [place] [address] [place] [address] ProviderLucas MD [address] [place] [address] Social History Tobacco Use Types Packs/Day Years Used Date Smoking Tobacco: Never Assessed Comments Unknown Sex and Gender Information Value Date Recorded Sex Assigned at Not on file Legal Sex Female 5:48 PM CDT Gender Identity Not on file Sexual Orientation Not on file documented as of this encounter Miscellaneous Notes * Cerner Conversion Note - Historical ProviderMD - 12/29/2021 11:30 AM CDT [facility] Endo PreOp Summary Primary Physician: JAMAICA MONTEIRO MD-GAE Finalized Date/Time: 12/29/21 10:57:59 Pt. Name: JASMYN BURTON /Sex: 1950 Female Med Rec #: [id number] Physician: JAMAICA MONTEIRO MD-GAE Financial #: [id number] Pt. Type: O Room/Bed: END/ Admit/Disch: 12/29/21 10:30:00 - Institution: [facility] Endo PreOp Case Times Entry 1 In Preop 12/29/21 10:40:00 Ready for Holding n/a Room Patient Ready for 12/29/21 10:57:00 Surgery Patient Out of Preop 12/29/21 10:57:00 Patient Out of n/a Holding Room Last Modified By: Smooth Virk Rn 12/29/21 10:57:57 Finalized By: Smooth Virk, Rn Document Signatures Signed By: Smooth Virk Rn 12/29/21 10:57 Electronically signed by [facility] Conversion Can Cutter Cerner at 10/04/2022 12:34 PM CDT documented in this encounter Plan of Treatment Upcoming Encounters Date Type Department Care Team (Late st Contact Info) Description 08/30/2024 2:30 PM EDT Office Visit [facility] Breast Surgery Clinic [address] [place] [phone] Sudhir Barnett MD [address] [facility] [address] [place] [address] 08/30/2024 3:00 PM EDT Office Visit [facility] - [place] [address] [facility] 300 [place] [address] Peggy Rogers MD [address] [place] [address] [address] [place], [place] [id number] documented as of this encounter Visit Diagnoses Not on filedocumented in this encounter Care Teams Relay Worker Relationship Specialty Start Date End Date Jeanine Forbes MD [address] [facility] 7 [place] [address] PCP - General Family Medicine 01/27/23 Peggy Rogers MD [address] [facility] [address] [place] [address] Medical Oncologist Hematology and Oncology 02/02/23 Case, Lisa Morales RN Nurse Navigator 02/02/23 12/18/23 documented as of this encounter
--- OUTSIDE RECORDS SUMMARY | 2024-05-07 13:01 | XMS_ITS | Encounter Summary ---
Author Organization [employer] Init iatives Address [address] [place] [address] Care Team Providers Care Medical Service Technician Name Role Phone Jeanine Forbes MD Primary Care Provider Encounter Details Date Type Department Care Team (Late st Contact Info) Description 01/27/2023 Patient Outreach [address] [place] [address] Dyan Santamaria, RN Social History Tobacco Use Types Packs/Day [...] as of this encounter Miscellaneous Notes * Nursing Progress Notes - Dyan Santamaria - 01/27/2023 3:55 PM EDTSummary: surgical consult Here for surgical consult. Patient to be contacted by Dr. Barnett's staff regarding surgery date/details. Patient to be contacted by navigator regarding appointment with Dr. Peggy Rogers. Patientprovided new breast cancer patient resource folder and Be a Survivor book. Encouraged patient to review surgery chapter. Patient provided navigator's contact information and instructed to call with questions/concerns or for support. Patient voiced understanding. documented in this encounter Plan of Treatment Upcoming Encounters Date Type Department Care Team (Late st Contact Info) Description 08/30/2024 2:30 PM EDT Office Visit [facility] Breast Surgery Clinic [address] [place] [phone] Sudhir Barnett MD [address] [place] [address] 08/30/2024 3:00 PM EDT Office Visit [facility] - [place] [address] [facility] 300 [place] [phone] Peggy Rogers MD [address] [facility] [address] [place] [address] documented as of this encounter Visit Diagnoses Not on filedocumented in this encounter Care Teams Medical Service Technician Relationship Specialty Start Date End Date Jeanine Forbes MD [address] [facility] 7 [place] [phone] PCP - General Family Medicine 01/27/23 documented as of this encounter
--- OUTSIDE RECORDS SUMMARY | 2024-05-07 13:01 | XMS_ITS | Encounter Summary ---
Author Organization [facility] In iatives Address [address] [place] [address] Care Team Providers Care Vice President Payment Name Role Phone Jeanine Forbes MD Primary Care Provider Reason for Visit * Reason Onset Date Comments Appointment 01/27/2023 Encounter Details Date Type Department Care Team (Late st Contact Info) Description 01/27/[address] [place] [address] Dyan Santamaria, RN Appointment Social History Tobacco Use Types Packs/Day Years [...] encounter Miscellaneous Notes * Telephone Encounter - Dyan Santamaria - 01/27/2023 4:04 PM EDTSummary: appointment Appointment scheduled with Dr. Peggy Rogers 8.18.23@4pm. Phone call to patient. Confirmed patient's identity. Patient informed of appointment date/time/location. Patient voiced understanding. documented in this encounter Plan of Treatment Upcoming Encounters Date Type Department Care Team (Late st Contact Info) Description 08/30/2024 2:30 PM EDT Office Visit [facility] Breast Surgery Clinic [address] [place] [address] [place] [address] Sudhir Barnett MD [address] [facility] [address] [place] [phone] 08/30/2024 3:00 PM EDT Office Visit [facility] [place] [address] [facility] [address] [place] [phone] Peggy Rogers MD [address] [facility] [address] [place] [address] documented as of this encounter Visit Diagnoses Not on filedocumented in this encounter Care Teams Vice President Payment Relationship Specialty Start Date End Date Jeanine Forbes MD [address] [place] [address] 7 [place] [address] PCP - General Family Medicine 01/27/23 documented as of this encounter
--- OUTSIDE RECORDS SUMMARY | 2024-05-07 13:01 | XMS_ITS | Encounter Summary ---
Author Organization [employer] In iatives Address [address] [place] [address] Care Team Providers Care Lead Press Operator Name Role Phone Jeanine Forbes MD Primary Care Provider Reason for Visit * Reason Onset Date Comments Oncology Consult 01/28/2023 See Note Encounter Details Date Type Department Care Team (Late st Contact Info) Description 01/28/2023 Telephone [facility] - [place] [address] [facility] [address] [place] [phone] Peggy Rogers MD [address] [facility] [address] [place] [address] Oncology Consult (See Note) Social History Tobacco Use Types Packs/Day Years [...] Miscellaneous Notes * Telephone Encounter - Elsy Amezcua - 01/28/2023 6:[address] Barnett referring for breast cancer. Docs in pt chart. Pt scheduled 02/04/23 at 3:45pm. Dyan gave pt appt details. I will mail her a packet. documented in this encounter Plan of Treatment Upcoming Encounters Date Type Department Care Team (Late st Contact Info) Description 08/30/2024 2:30 PM EDT Office Visit [facility] Breast Surgery Clinic [address] [place] [phone] Sudhir Barnett MD [address] [employer] [address] [place] [phone] 08/30/2024 3:00 PM EDT Office Visit [facility] - [facility] [address] [place] [address] [address] [place] [phone] Peggy Rogers MD [address] [facility] [address] [place] [address] documented as of this encounter Visit Diagnoses Not on filedocumented in this encounter Care Teams Lead Press Operator Relationship Specialty Start Date End Date Jeanine Forbes MD 2017 [facility] 7 [place] [phone] PCP - General Family Medicine 01/27/23 documented as of this encounter
--- OUTSIDE RECORDS SUMMARY | 2024-05-07 13:01 | XMS_ITS | Encounter Summary ---
Author Organization [employer] Init iatives Address [address] [place] [address] Care Team Providers Care Engineering Technician Name Role Phone Jeanine Forbes MD Primary Care Provider [phone] Encounter Details Date Type Department Care Team (Late st Contact Info) Description 01/27/2023 Orders Only [facility] [address] [facility] [address] [place] [address] Peggy Snider LPN Malignant neoplasm of right female breast, unspecified estrogen receptor status, unspecified site of breast (HCC) (Primary Dx) Social History Tobacco Use [...] Description 08/30/2024 2:30 PM EDT Office Visit [facility] [address] [place] [address] Sudhir Barnett MD [address] [place] [address] 08/30/2024 3:00 PM EDT Office Visit [facility] - [place] [address] [place] [phone] Peggy Rogers MD [address] [place] [address] [place] [address] documented as of this encounter Visit Diagnoses Diagnosis Malignant neoplasm of right female breast, unspecified estrogen receptor status, unspecified site of breast (HCC)- Primary documented in this encounter Care Teams Engineering Technician Relationship Specialty Start Date End Date Jeanine Forbes MD [address] [place] [address] 7 [place] [address] PCP - General Family Medicine 01/27/23 documented as of this encounter
--- OUTSIDE RECORDS SUMMARY | 2024-05-07 13:01 | XMS_ITS | Encounter Summary ---
Author Organization [facility] Init iatives Address [address] [place] [address] Care Team Providers Care Operations Technician Name Role Phone Jeanine Forbes MD Primary Care Provider Peggy Rogers MD Unavailable [phone] Lisa Arreola RN Unavailable Unavailable Encounter Details Date Type Department Care Team (Latest Contact Info) Description 02/03/2023 Travel Social History Tobacco Use Types Packs/Day Years Used Date Smoking Tobacco: Never Smokeless Tobacco: Never Alcohol Use Standard Drinks/Week Comments Yes 0 (1 standard drink = 0.6 oz pur e alcohol) Occasional PHQ-2 Answer Date Recorded PHQ-2 Total Score 0 02/04/2023 Comments Unknown Sex and Gender Information Value [...] suspected to have Coronavirus/COVID-19? No / Unsure 02/03/2023 5:15 PM EDT documented as of this encounter Plan of Treatment Upcoming Encounters Date Type Department Care Team (Late st Contact Info) Description 08/30/2024 2:30 PM EDT Office Visit [facility] Breast Surgery Clinic [address] [place] [address] Sudhir Barnett MD [address] [place] [phone] 08/30/2024 3:00 PM EDT Office Visit [facility] [address] [facility] [address] [place] [address] Peggy Rogers MD [address] [facility] [address] [place] [address] documented as of this encounter Visit Diagnoses Not on filedocumented in this encounter Care Teams Operations Technician Relationship Specialty Start Date End Date Jeanine Forbes MD [address] [place] [address] PCP - General Family Medicine 01/27/23 Peggy Rogers MD [address] [facility] [address] [place] [address] Medical Oncologist Hematology and Oncology 02/02/23 Maxwell, Lisa Morales, RN Nurse Navigator 02/02/23 12/18/23 documented as of this encounter
--- OUTSIDE RECORDS SUMMARY | 2024-05-07 13:01 | XMS_ITS | Encounter Summary ---
Author Organization [facility] In iatives Address [address] [place] [address] Care Team Providers Care Quality Control Systems Manager Name Role Phone Jeanine Forbes MD Primary Care Provider [phone] Peggy Rogers MD Unavailable [phone] Case, Lisa Morales RN Unavailable Unavailable Encounter Details Date Type Department Care Team (Late st Contact Info) Description 12/29/2021 Transcribed Document [facility] [address] [place] [address] ProviderLucas MD [address] [place] [address] Social History Tobacco Use Types Packs/Day Years Used Date Smoking Tobacco: Never Assessed Comments Unknown Sex and Gender Information Value Date Recorded Sex Assigned at Not on file Legal Sex Female 5:48 PM CDT Gender Identity Not on file Sexual Orientation Not on file documented as of this encounter Miscellaneous Notes * Cerner Conversion Note - Lucas ProviderMD - 12/29/2021 11:42 AM CDT [facility] Endo PACU Summary Primary Physician: JAMAICA MONTEIRO MD-GAE Finalized Date/Time: 12/29/21 12:21:05 Pt. Name: JASMYN BURTON /Sex: 1950 Female Med Rec #: [id number] Physician: JAMAICA MONTEIRO MD-GAE Financial #: [id number] Pt. Type: O Room/Bed: END/ Admit/Disch: 12/29/21 10:30:00 - Institution: [facility] Endo PACU Case Times Entry 1 In PACU I 12/29/21 12:00:00 Ready for PACU 12/29/21 12:20:00 Discharge Discharge from PACU 12/29/21 12:20:00 I Last Modified By: Myrna Stark RN-PATIENT CARE BEDSIDE NON-EXEMPT 12/29/21 12:21:02 [facility] Endo PACU Case Times Audit 12/29/21 12:21:02 Water Softener Installer: [id number] Modifier: [id number] <+> 1 Ready for PACU Discharge <+> 1 Discharge from PACU I Finalized By: Myrna Stark RN-PATIENT CARE BEDSIDE NON-EXEMPT Document Signatures Signed By: Myrna Stark RN-PATIENT CARE BEDSIDE NON-EXEMPT 12/29/21 12:21 Electronically signed by [facility] Conversion Cell Tower Climber Cerner at 10/04/2022 12:30 PM CDT documented in this encounter Plan of Treatment Upcoming Encounters Date Type Department Care Team (Late st Contact Info) Description 08/30/2024 2:30 PM EDT Office Visit [facility] [address] [facility] [address] [place] [address] Sudhir Barnett MD [address] [facility] 101 [place] [address] 08/30/2024 3:00 PM EDT Office Visit [facility] - [place] [address] [facility] [address] [place] [address] Peggy Rogers MD [address] [place] [address] [place] [address] documented as of this encounter Visit Diagnoses Not on filedocumented in this encounter Care Teams Quality Control Systems Manager Relationship Specialty Start Date End Date Jeanine Forbes MD [address] [place] [address] 7 [place] [address] PCP - General Family Medicine 01/27/23 Peggy Rogers MD [address] [place] [address] Medical Oncologist Hematology and Oncology 02/02/23 Lisa Arreola RN Nurse Navigator 02/02/23 12/18/23 documented as of this encounter
--- OUTSIDE RECORDS SUMMARY | 2024-05-07 13:01 | XMS_ITS | Encounter Summary ---
Author Organization [employer] In iatives Address [address] [place] [address] Care Team Providers Care Food Safety Field Specialist Name Role Phone Jeanine Forbes MD Primary Care Provider Peggy Rogers MD Unavailable [phone] Lisa Arreola RN Unavailable Unavailable Encounter Details Date Type Department Care Team (Late st Contact Info) Description 12/29/2021 Transcribed Document [facility] [place] [address] [place] [address] ProviderLucas MD [address] [place] [address] Social History Tobacco Use Types Packs/Day Years Used Date Smoking Tobacco: Never Assessed Comments Unknown Sex and Gender Information Value Date Recorded Sex Assigned at Not on file Legal Sex Female 5:48 PM CDT Gender Identity Not on file Sexual Orientation Not on file documented as of this encounter Miscellaneous Notes * Cerner Conversion Note - Historical ProviderMD - 12/29/2021 10:40 AM CDT Pre Procedure Adult Entered On: 12/29/2021 10:50 EDT Performed On: 12/29/2021 10:40 EDT by Smooth Virk Rn Height and Weight, Clinical Dosing Height Source : Stated Height Entry Format : [place] Height, Feet : 5 ft(Converted to: 152 cm, 60 Inch) Height, Inches : 6 Inch(Converted to: 0 ft 6 Inch, 15.24 cm) Clinical Height : 167.64 cm Weight Source : Standing scale Weight Entry Format : [place] Clinical Dosing Weight : 63.18 kg Weight, Pounds : 139 lb Body Surface Area (BSA) : 1.72 m2 Body Mass Index : 22.5 kg/m2 [place] Body Weight : 59 kg Smooth Virk Rn - 12/29/2021 10:47 EDT Health Histories Smoking Status : Never (less than 100 in lifetime; none in last 30 days) Smokeless Tobacco Status : Never Smooth Virk Rn - 12/29/2021 10:47 EDT Social History (As Of: 12/29/2021 10:50:50 EDT) Tobacco: Smoking Status Never smoker. (Last Updated: 07/01/2016 11:04:30 EST by ANDREY BARRERA RN) Alcohol: Date/Time of Last Drink: occasional glass of wine. (Last Updated: 07/01/2016 11:04:49 EST by ANDREY BARRERA RN) Substance Abuse: Drug Use Hx: No. Use in Last 12 Months: No. (Last Updated: 06/21/2017 12:24:14 EST by YOAN CLAY RN) Nutrition/Health: Caffeine intake amount: Coffee Soft drinks. (Last Updated: 07/01/2016 11:05:10 EST by ANDREY BARRERA RN) Infectious Disease History Does patient have symptoms of COVID-19? : No Tested for COVID19 in the past 14 days : No, Patient stated Does the Patient state known exposure to a COVID-19 positive case in the last 14 days? : No Patient Vaccinated for COVID-19 : Fully vaccinated Smooth Virk Rn - 12/29/2021 10:47 EDT Infectious Disease Risk Screening Grid Cough < 2 wks of unknown origin : NO Cough > 2 weeks : NO Blood in Sputum : NO Fever or self-reported Fever : NO Rash of unknown origin : NO Headache : NO Stiff neck : NO Night Sweats : NO Unexplained Weight Loss : NO Diarrhea (3 episode per day) : NO Smooth Virk Rn - 12/29/2021 10:47 EDT Physical contact outside [place] in the last 30 days : No Hospitalized in Foreign Country : No Infectious Disease History : Chicken pox/Shingles, Influenza, Measles, Mumps INF Disease TB Screening Calc : 0 INF Disease Recent Travel Calc : 0 Smooth Virk Rn - 12/29/2021 10:47 EDT COVID19 PreProcedure Screening Is this an Emergent or Add on Procedure? : No Date PreProcedure COVID-19 test known? : No Has patient been isolated since the test : N/A - PreProcedure, in-person visit Exposed to COVID19 symptoms since test? : N/A - PreProcedure, in-person visit Smooth Virk Rn - 12/29/2021 10:47 EDT Anesthesia/Transfusion History Family History of Anesthesia Reaction : Prior transfusion without reaction Transfusion History : Prior anesthesia without reaction Family History of Anesthesia Reaction : None Smooth Virk Rn - 12/29/2021 10:47 EDT Functional Assessment Living Situation : Home Persons Assisting Patient at Home : Spouse Current Home Treatments : None Smooth Virk Rn - 12/29/2021 10:47 EDT [place] Suicide Severity Rating Scale (C-SSRS) CSSRS Past Month Wish to be : No CSSRS Past Month Suicidal Thoughts : No CSSRS Lifetime Suicide Behavior : No Suicide Severity Rating Score : 0 Suicide Severity Rating : No Additional Care Required at this time Smooth Virk Rn - 12/29/2021 10:47 EDT Psychosocial History Currently in Unsafe Situation : No Smooth Virk Rn - 12/29/2021 10:47 EDT Advance Directive Patient has Advance Directive *Q : Yes, Advance Directive not with the patient Advance Directive Type : Living will Copy Advance Directive Verified/on Chart : No Smooth Virk Rn - 12/29/2021 10:47 EDT General Info Want Family/Rep/Phys Notified of Admit : No Emergency Contact #1 : N[place] Emergency Contact #1 Emergency Contact #1 Relationship : Emergency Contact #2 : - Emergency Contact #2 Phone Number : - Emergency Contact #2 Relationship : - Primary Language : Fijian Communication Barrier : None Track Car Operator Needed : No Smooth Virk Rn - 12/29/2021 10:47 EDT Sleep Apnea Risk Assmt Hx of Obstructive Sleep Apnea Diagnosis : No Snore Loudly : No Tired, Fatigued, or Sleepy During Day : No Observed Stopping Breathing During Sleep : No Have/Are Being Treated for Hypertension : No BMI Greater Than 35 kg/m2 : No Age over 50 Years Old : Yes Neck Circumference Greater Than 40 cm : No Gender Male : No STOP-BANG Sleep Apnea Risk Level Score : 1 Smooth Virk Rn - 12/29/2021 10:47 EDT Diego Scale Diego Sensory Perception : No impairment Diego Moisture : Rarely moist Diego Activity : Walks frequently Diego Mobility : No limitation Diego Nutrition : Adequate Diego Friction and Shear : No apparent problem Diego Score : 22 Smooth Virk Rn - 12/29/2021 10:47 EDT Fall Risk Scales ABCs Fall Injury Risk Identification : None SHIELDS Hx Falls Immediate/Within 3 Months : No Shields Secondary Diagnosis : No SHIELDS Use of Ambulatory Aid : None SHIELDS IV Therapy or IV Access : Yes Shields Gait/Transferring : Normal, bedrest, immobile Shields Mental Status : Oriented to own ability Shields Fall Risk Score : 20 SHIELDS Fall Scale Risk Level : 0-24 Low Risk [place] Fall Interventions : Adequate lighting, Bed in low position, Call device within reach, Non-slip footwear, Personal items within reach, Reinforced to call for assistance before getting out of bed, Room free of clutter/spills, Upper side-rails up, Wheels locked, Wires/Cords secured Smooth Virk Rn - 12/29/2021 10:47 EDT Valuables and Belongings Valuables and Belongings : Clothing Clothing : Common streetwear Clothing Disposition : Bedside, With family Smooth Virk Rn - 12/29/2021 10:47 EDT Electronically signed by Lorie Alvarado Conversion Director Of Clinical Education Cerner at 10/04/2022 12:34 PM CDT documented in this encounter Plan of Treatment Upcoming Encounters Date Type Department Care Team (Late st Contact Info) Description 08/30/2024 2:30 PM EDT Office Visit [facility] Breast Surgery Clinic [address] [facility] [address] [place] [address] Sudhir Barnett MD [address] [facility] 101 [place] [address] 08/30/2024 3:00 PM EDT Office Visit [facility] - [place] [address] [place] [address] Peggy Rogers MD [address] [facility] [address] [place] [address] documented as of this encounter Visit Diagnoses Not on filedocumented in this encounter Care Teams Food Safety Field Specialist Relationship Specialty Start Date End Date Jeanine Forbes MD [address] [place] [address] PCP - General Family Medicine 01/27/23 Peggy Rogers MD [address] [facility] [address] [place] [address] Medical Oncologist Hematology and Oncology 02/02/23 Maxwell, Lisa Morales RN Nurse Navigator 02/02/23 12/18/23 documented as of this encounter
--- OUTSIDE RECORDS SUMMARY | 2024-05-07 13:01 | XMS_ITS | Encounter Summary ---
Author Organization [facility] Address [address] [place] [address] Care Team Providers Care Installation Coordinator Name Role Phone Unavailable Primary Care Provider Unavailabl e Encounter Details Date Type Department Care Team (Late st Contact Info) Description 11/23/2022 Telephone [facility] [place] [address] [facility] [place] [id number] Sherita Bhatti RN [facility] Social History Tobacco Use Types Packs/Day Years Used Date Smoking Tobacco: Never Assessed Comments Unknown Sex and Gender Information Value Date Recorded Sex Assigned at Not on file Legal Sex Female 4:10 PM EDT Gender Identity Not on file Sexual Orientation Not on file documented as of this encounter Miscellaneous Notes * Telephone Encounter - Sherita Solis RN - 11/23/2022 9:58 AM EDT Called and spoke with patient. Advised her that Dr. Rodriguez does not see patient's for generalized chest pain and offered to make her an appt with Gen Brand Sales Consultant. Patient is agreeable. Dr. Rodriguez recommending Dr. Marco Marinelli and appt was made for November 26 at 0820. Patient was notified and verbalized understanding. documented in this encounter Plan of Treatment Upcoming Encounters Date Type Department Care Team (Late st Contact Info) Description 07/03/2024 4:00 PM EST Office Visit [facility] [place] [address] [facility], [address] [place] [phone] Marco Marinelli MD [address] [place] [address] documented as of this encounter Visit Diagnoses Not on filedocumented in this encounter
--- OUTSIDE RECORDS SUMMARY | 2024-05-07 13:01 | XMS_ITS | Encounter Summary ---
Author Organization [facility] Address [address] [place] [address] Care Team Providers Care Farm Worker Name Role Phone Jeanine Forbes MD Primary Care Provider [phone] Peggy Rogers MD Unavailable [phone] Lisa Arreola RN Unavailable Unavailable Reason for Referral * Nuclear Medicine (Routine) - Closed Specialty Diagnoses / Procedures Referred By Contac t Referred To Contact Diagnoses Malignant neoplasm of right female breast, unspecified estrogen receptor status, unspecified site of breast (HCC) Procedures NM sentinel node study (injection only) Sudhir Barnett MD [address] [address] Phone: tel: fax: Referral ID Status Reason Start Date Expiration Date Visits Re quested Visits Authorized [id number] Closed 02/04/2023 08/03/2023 1 1 Encounter Details Date Type Department Care Team (Late st Contact Info) Description 02/04/2023 Orders Only [facility] Surgery Department [address] [place] [address] Juliet Martin LPN Malignant neoplasm of right female breast, unspecified estrogen receptor status, unspecified site of breast (HCC) (Primary Dx) Social History Tobacco Use Types Packs/Day Years Used Date Smoking Tobacco: Never Smokeless Tobacco: Never Alcohol Use Standard Drinks/Week Comments Yes 0 (1 standard drink = 0.6 oz pur e alcohol) Occasional PHQ-2 Answer Date Recorded PHQ-2 Total Score 0 02/04/2023 Comments No Sex and Gender Information Value [...] [facility] [address] [facility] [address] [place] [address] Sudhir Barnett MD [address] [facility] [address] [place] [address] 08/30/2024 3:00 PM EDT Office Visit [facility] [address] [facility] [address] [place] [phone] Peggy Rogers MD [address] [facility] [address] [place] [address] documented as of this encounter Results * NM sentinel node study (injection only) (02/15/2023 10:23 AM EDT) Anatomical Region Laterality Modality Nuclear Medicine 02/15/2023 2:07 PM EDT Impressions 02/15/2023 2:27 PM EDT [place] node injection of the right breast as discussed above. Films reviewed, interpreted, and dictated by Dr. Jennings. Transcribed by Brandi Sanches PA-C. Narrative 02/15/2023 2:27 PM EDT SENTINEL NODE INJECTION HISTORY: Right breast neoplasm. ATTENDING PHYSICIAN: Dr. Jennings PHYSICIAN SAMPLE TESTER: Brandi Sanches PA-C FINDINGS: After informed consent [...] breast neoplasm. ATTENDING PHYSICIAN: Dr. Jennings PHYSICIAN SAMPLE TESTER: Brandi Sanches PA-C FINDINGS: After informed consent was obtained and time-out procedure performed, approximately 916 uCi of technetium Lymphoseek was injected intradermally into the right breast. Injections were performed in a periareolar fashion. No films were obtained during this procedure. The patient tolerated the procedure with no immediate complication. IMPRESSION: [place] node injection of the right breast as discussed above. Films reviewed, interpreted, and dictated by Dr. Jennings. Transcribed by Brandi Sanches PA-C. Sudhir Barnett MD IMG NM ORDERABLES Final Resu lt documented in this encounter Visit Diagnoses Diagnosis Malignant neoplasm of right female breast, unspecified estrogen receptor status, unspecified site of breast (HCC)- Primary Malignant neoplasm of right female breast, unspecified estrogen receptor status, unspecified site of breast (HCC) documented in this encounter Care Teams Farm Worker Relationship Specialty Start Date End Date Jeanine Forbes MD [address] [phone] PCP - General Family Medicine 01/27/23 Peggy Rogers MD [address] [facility] [address] [place] [address] Medical Oncologist Hematology and Oncology 02/02/23 Lisa Arreola RN Nurse Navigator 02/02/23 12/18/23 documented as of this encounter
--- OUTSIDE RECORDS SUMMARY | 2024-05-07 13:01 | XMS_ITS | Clinical Summary ---
Author Organization [facility] Address [address] [id number] Care Team Providers Care Air Grinder Name Role Phone Jeanine Forbes MD Primary Care Provider [phone] Allergies Active Allergy Reactions Criticality Noted Date Comments Nitrofurantoin Other - please docum ent in the comment field,Headache High 11/17/2022 Medications rosuvastatin (Crestor) 20 MG tablet rosuvastatin 20 mg tablet TAKE 1 TABLET BY MOUTH EVERY DAY IN THE EVENING Active rizatriptan INDUSTRIAL RADIOGRAPHER (Maxalt-INDUSTRIAL RADIOGRAPHER) 10 MG disintegrating tablet rizatriptan 10 mg disintegrating tablet DISSOLVE 1 TABLET ON THE TONGUE EVERY DAY NEEDED Active promethazine (Phenergan) 25 MG tablet every 4 (four) hours. Active omeprazole (PriLOSEC) [address] capsule omeprazole 20 mg capsule,delayed release TAKE 1 CAPSULE BY MOUTH EVERY DAY NEEDED Active multivitamin (Theragran-M) tablet Take 1 tablet by mouth 1 (one) time each day. Active montelukast (Singulair) 10 MG tablet montelukast 10 mg tablet TAKE 1 TABLET BY MOUTH EVERY DAY IN THE EVENING 10/17/19 23 Active mometasone (Asmanex, 60 Metered Doses,) 220 MCG/ACT inhaler Asmanex Twisthaler 220 mcg/actuation(60 doses) breath activated inhalr Active lisinopril 5 MG tablet lisinopril 5 mg tablet Active metroNIDAZOLE (Flagyl) 500 MG tablet metronidazole 500 mg tablet take 1 tablet by mouth every 8 hours Active fluticasone (Flonase) 50 MCG/ACT nasal spray fluticasone propionate 50 mcg/actuation nasal spray,suspension SHAKE LIQUID AND USE 1 SPRAY IN EACH NOSTRIL EVERY DAY NEEDED Active estradiol (Estrace) 0.1 MG/GM vaginal cream estradiol 0.01% (0.1 mg/gram) vaginal cream APPLY 1 APPLICATOR FULL VAGINALLY TWICE WEEKLY AND A PEA SIZED AMOUNT EXTERNALLY 3 TO 4 TIMES WEEKLY Active EPINEPHrine (Epipen) 0.3 MG/0.3ML injection syringe epinephrine 0.3 mg/0.3 mL injection, auto-injector Active aspirin 81 MG EC tablet Take 81 mg by mouth 1 (one) time each day. Active albuterol 0.63 MG/3ML nebulizer solution Take 0.63 mg by nebulization every 6 (six) hours if needed for wheezing. Active azelastine (Astelin) 0.1 % nasal spray Administer 1 spray into each nostril 2 (two) times a day. Use in each nostril as directed Active Active Problems Problem Noted Date Diagnosed Date Mild CAD 11/25/2022 Essential hypertension 11/25/2022 Abdominal pain 11/17/2022 Acute bronchitis 11/17/2022 Asthma 11/17/2022 Disorder of tendon of biceps 11/17/2022 Disorder of urinary tract 11/17/2022 Diverticulitis of colon 11/17/2022 Dysuria 11/17/2022 Fatigue 11/17/2022 Increased frequency of urination 11/17/2022 Malaise and fatigue 11/17/2022 Migraine 11/17/2022 Multiple joint pain 11/17/2022 Onychomycosis 11/17/2022 Skin nodule 11/17/2022 Abnormal EKG 11/06/2019 Chest pain, atypical 11/06/2019 Hyperlipidemia 11/06/2019 Immunizations Name Administration Dates Next Due Influenza, high-dose, quadrivalent 02/19,03/05/2021,03/25/2020,03/08,03/24/2018,05/23/2017,05/04/2016 ,04/14/2015 Influenza, seasonal, injectable 04/25/2014 Moderna COVID-19 Vaccine (Re d Cap) 12+ years 05/11/2021 ATG Access COVID-19 Vac cine (Purple Cap) 12+ 08/12/2020,07/19/2020 Pneumococcal 20-chata Conj Vaccine 10/15/2022 Pneumococcal Conjugate PCV 13 04/14/2015 Pneumococcal Polysaccharide PPV23 05/10/2016,06/2006 Tdap 05/23/2017 Social History Tobacco Use Types Packs/Day Years [...] Sign Reading Time Taken Comments Blood Pressure 119/74 11/26/2022 8:12 AM EDT Pulse 57 11/26/2022 8:12 AM EDT Temperature - - Respiratory Rate - - Oxygen Saturation 95% 11/26/2022 8:12 AM EDT Inhaled Oxygen Concentration - - Weight 65.8 kg (145 lb) 11/26/2022 8:12 AM EDT Height 167.6 cm (5' 6 ) 11/26/2022 8:12 AM EDT Body Mass Index 23.4 11/26/2022 8:12 AM EDT Plan of Treatment Upcoming Encounters Date Type Department Care Team (Late st Contact Info) Description 07/03/2024 4:00 PM EST Office Visit [facility] [place] [address] [facility], [address] [place] [address] Marco Marinelli MD [address] [place] [address] Health Maintenance Due Date Last Done Comments [facility]-Bone Density Scan 1950 [facility]-Hepatitis C Screening 1950 [facility]-Medicare Annual Wellness (AWV) 1950 [facility]-Infant/Child/Adol SDOH Screenings 1950 [facility]- SDOH Screenings 02/01/1968 [facility]-Adult SDOH Screenings 02/01/1968 CT Colonography 1995 Colonoscopy 1995 FIT-DNA 1995 FIT 1995 FOBT 1995 Sigmoidoscopy 1995 [facility]-Colorectal Cancer Screening 1995 [facility]-Breast Cancer Screening 02/01/2000 [facility]-RSV Vaccine: 60+ Years or (1 - Risk 60-74 years 1-dose series) 2010 [facility]-Zoster Vaccines (2 of 2) 01/12/2023 11/17/2022 [facility]-Depression Screening 11/27/2023 11/26/2022 IAT-TUHCL-01 Vaccine (4 - season) 2024 05/11/2021, 08/12/2020, 07/19/2020 [facility]-Influenza Vaccine (#1) 02/19/202402/19, 03/05/2021, 03/25/2020, Additional history exists [facility]-DTaP,Tdap,and Td Vaccines (2 - Td or Tdap) 05/23/2027 05/23/2017 [facility]-Pneumococcal Vaccine: 65+ Years Completed 10/15/2022, 05/10/2016, 04/14/2015, Additional history exists [facility]-HIB Vaccines Aged Out No longer e ligible based on patient's age to complete this topic [facility]-HPV Vaccines Aged Out No longer e ligible based on patient's age to complete this topic [facility]-Hepatitis A Vaccines Aged Out No longer eligible based on patient's age to complete this topic [facility]-IPV Vaccines Aged Out No longer e ligible based on patient's age to complete this topic [facility]-Rotavirus Vaccines Aged Out No lo nger eligible based on patient's age to complete this topic Insurance MEDICARE [facility] Care Teams Air Grinder Relationship Specialty Start Date End Date Jeanine Forbes MD [address] [place] [address] [address] [place] [phone] PCP - General 11/26/22
--- OUTSIDE RECORDS SUMMARY | 2024-05-07 13:01 | XMS_ITS | Encounter Summary ---
Author Organization [facility] Address [address] [place] [address] Care Team Providers Care Catalogue Clerk Name Role Phone Jeanine Forbes MD Primary Care Provider [phone] Reason for Visit * Consultation (Routine) - Closed Specialty Diagnoses / Procedures Referred By Contthnag t Referred To Contact Cardiology Diagnoses Atypical chest pain Jeanine Forbes MD [address] [facility] [address] [place] [address] Phone: tel: fax: Referral ID Status Reason Start Date Expiration Date V isits Requested Visits Authorized [id number] Closed Specialty Services Required 10/18/2022 04/18/2024 1 1 Encounter Details Date Type Department Care Team (Late st Contact Info) Description 11/26/2022 8:20 AM EDT Consult [facility] [place] [address] [facility], [address] [place] [address] Marco Marinelli MD [address] [place] [address] Mild CAD (Primary Dx); Hyperlipidemia, unspecified hyperlipidemia type; Essential hypertension; Atypical chest pain Social History Tobacco Use Types Packs/Day [...] Mass Index 23.4 11/26/2022 8:12 AM EDT documented in this encounter Miscellaneous Notes * Patient Instructions - Marco Marinelli MD - 11/26/2022 8:20 AM EDT Images from the original note were not included. [facility] [address] [facility] [address] [place] [address] Clinic [facility] RN: [phone] Our Lab: [address] [place] [address] (call to schedule a lab appointment) Thank you for coming to clinic today! Here is what we discussed and what I recommend: - Call me if you develop any new or worsening symptoms * Progress Notes - Karma Perkins MD - 11/26/2022 8:20 AM EDT Images from the original note were not included. Cardiology Clinic Note Referring provider: Jeanine Forbes MD [address] [place] [address] [address] [place] [id number] PCP: Jeanine Forbes MD Reason for consult: Chest pain History of Present Illness Jasmyn Burton is a 72 y.o. female with a past medical history notable for asthma, HLD, HTN, nonobstructive CAD who presents for evaluation of chest pain. Patient was seen in family Medicine Clinic in September 2022 and at that time reported some episodes ofchest discomfort. She previously had a stress echo done in 2019 due to the chest discomfort, which was normal. She also underwent cardiac catheterization in December 2021 at [facility] which reportedly showed mild, nonobstructive coronary disease. Patient requested referral to Cardiology for further evaluation. Since December 2021, patient has not had an increase in symptom burden. Chest pain is described as substernal and pressure-like. No triggers, but says it can be associated with asthma attacks. Says her inhalers often help with symptoms. 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 No trouble with her ADLs and is not limited by shortness of breath on exertion or rest. The patient otherwise denies recent/worsening chest pain, shortnessof breath, syncope, palpitations, orthopnea, PND, lower extremity edema, or bleeding issues. Tobacco Use: Denies Alcohol Use: Denies Illicit/Recreational Drug Use: Denies The following portions of the chart were reviewed this encounter and updated as appropriate: Review of Systems 14 point review of systems performed, pertinent positives documented in the HPI, and remaining reviewed systems are negative. Past Medical History Non-obstructive CAD Asthma HTN Surgical History No past surgical history on file. Family History Family history of [place], HLD, CAD Allergies Nitrofurantoin Medications Current Outpatient Medications Medication Instructions albuterol 0.63 mg, Nebulization, Every 6 hours PRN aspirin 81 mg, Oral, Daily azelastine (Astelin) 0.1 % nasal spray 1 spray, Each Nostril, 2 times daily, Use in each nostril asdirected EPINEPHrine (Epipen) 0.3 MG/0.3ML injection syringe epinephrine 0.3 mg/0.3 mL injection, auto-injector estradiol (Estrace) 0.1 MG/GM vaginal cream estradiol 0.01% (0.1 mg/gram) vaginal cream APPLY 1 APPLICATOR FULL VAGINALLY TWICE WEEKLY AND A PEA SIZED AMOUNT EXTERNALLY 3 TO 4 TIMES WEEKLY fluticasone (Flonase) 50 MCG/ACT nasal spray fluticasone propionate 50 mcg/actuation nasal spray,suspension SHAKE LIQUID AND USE 1 SPRAY IN EACH NOSTRIL EVERY DAY NEEDED lisinopril 5 MG tablet lisinopril 5 mg tablet metroNIDAZOLE (Flagyl) 500 MG tablet metronidazole 500 mg tablet take 1 tablet by mouth every 8 hours mometasone (Asmanex, 60 Metered Doses,) 220 MCG/ACT inhaler Asmanex Twisthaler 220 mcg/actuation(60doses) breath activated inhalr montelukast (Singulair) 10 MG tablet montelukast 10 mg tablet TAKE 1 TABLET BY MOUTH EVERY DAY IN THE EVENING multivitamin (Theragran-M) tablet 1 tablet, Oral, ZZ Daily RT omeprazole (PriLOSEC) [address] capsule omeprazole 20 mg capsule,delayed release TAKE 1 CAPSULE BY MOUTH EVERY DAY NEEDED promethazine (Phenergan) 25 MG tablet ZZ Every 4 hours RT rizatriptan BACKUP ADMINISTRATOR (Maxalt-BACKUP ADMINISTRATOR) 10 MG disintegrating tablet rizatriptan 10 mg disintegrating tablet DISSOLVE 1 TABLET ON THE TONGUE EVERY DAY NEEDED rosuvastatin (Crestor) 20 MG tablet rosuvastatin 20 mg tablet TAKE 1 TABLET BY MOUTH EVERY DAY IN THE EVENING Objective Visit Vitals BP 119/74 Pulse 57 Ht 1.676 m (5' 6 ) Wt 65.8 kg (145 lb) SpO2 95% BMI 23.40 kg/m?? BSA 1.75 m?? Physical Exam Blood pressure 119/74, pulse 57, height 1.676 m (5' 6 ), weight 65.8 kg (145 lb), SpO2 95 %. GENERAL: NAD HEENT: NCAT NECK: No appreciable JVD CARDIAC: bradycardic, regular rhythm, normal S1/S2, no m/r/g, 2+ radial pulses bilaterally PULM: CTAB without increased work of breathing ABD: Soft, NT, ND EXT: Warm and well perfused, no LE edema SKIN: No rashes or lesions NEURO: A&Ox4, moving all extremities spontaneously Primary Study Review: I personally reviewed the the report of the following studies: ECG and heart cath OS Cath 12/2021: Encounter Date: 11/26/22 ECG Adult (Now - Performed in your clinic) Result Value EKG DIAGNOSIS CLASS Borderline Abnormal Ventricular Rate 51 Atrial Rate 51 AR Interval 254 QRSD Interval 92 QT Interval 424 QTC Interval 390 P [place] 54 R [place] -15 T Wave [place] 17 Diagnosis Sinus bradycardia Diagnosis with 1st degree AV block Diagnosis Otherwise normal ECG *Note: Due to a large number of results and/or encounters for the requested time period, some results have not been displayed. A complete set of results can be found in Results Review. Lab Review No results found for: CHOL, TRIG, HDL, LDLDIRECT, LDLCALC, TSH No results found for: HGBA1C Assessment/Plan Assessment and Plan Problem List Items Addressed This Visit Circulatory Mild CAD - Primary Relevant Orders ECG Adult (Now - Performed in your clinic) (Completed) Essential hypertension Relevant Orders ECG Adult (Now - Performed in your clinic) (Completed) Endocrine/Metabolic Hyperlipidemia Relevant Orders ECG Adult (Now - Performed in your clinic) (Completed) Other Visit Diagnoses Atypical chest pain Jasmyn Burton is a 72 y.o. female with a past medical history notable for asthma, HLD, HTN, nonobstructive CAD who presents for evaluation of chest pain. # Nonobstructive CAD / HLD -Continue aspirin 81 mg daily -Continue rosuvastatin 20 mg daily - Recent lipid panel in 09/2022 (under care everywhere) - LDL< 70 - Encouraged continuing daily exercise and low-salt diet # HTN -Recommend home blood pressure monitoring -Discussed importance of heart healthy, sodium restricted diet -Avoid NSAIDs and use Tylenol first-line for analgesia -Continue lisinopril 5 mg daily Follow up: 1 year I spent 30 minutes performing the following components of the encounter (on the day of the encounter): reviewing History, examining the patient, reviewing imaging and/or labs, and Independently interpreting echocardiogram, ECG and/or other imaging results. Greater than 50% of the time spent on the encounter was face to face providing direct patient care, counseling for the patient/caregiver, and care coordination. Karma Perkins MD Internal Medicine PGY-2 Cosigned by Marco Marinelli MD at 11/26/2022 11:32 AM EDT Associated attestation - Marco Marinelli MD - 11/26/2022 11:32 AM EDT I saw and evaluated the patient with the resident/fellow. I discussed the case with the resident/fellow and agree with the findings and plan as documented. 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 We reviewed her prior cardiac testing and offered to evaluate with functional testing for possible microvascular angina versus empiric treatment for microvascular angina versus simply focusing on risk factor modification. Given her excellent functional status, atypical symptoms we opted to focus on risk factor management alone and hold off on further testing at this time. documented in this encounter Plan of Treatment Upcoming Encounters Date Type Department Care Team (Late st Contact Info) Description 07/03/2024 4:00 PM EST Office Visit [facility] [place] [address] [facility], [address] [place] [address] Marco Marinelli MD [address] [place] [address] Pending Results Name Type Priority Associated Diagnoses Date /Time ECG Adult (Now - Performed in your clinic) ECG Routine Mild CAD Hyperlipidemia, unspecified hyperlipidemia type Essential hypertension 11/26/2022 8:28 AM EDT documented as of this encounter Procedures Procedure Name Priority Date/Time Associated Diagnosis Comments ECG ADULT Routine 11/26/2022 8:28 AM EDT Mild CAD Hyperlipidemia, unspecified hyperlipidemia type Essential hypertension documented in this encounter Visit Diagnoses Diagnosis Mild CAD- Primary Hyperlipidemia, unspecified hyperlipidemia type Essential hypertension Unspecified essential hypertension Atypical chest pain Other chest pain documented in this encounter Additional Health Concerns Assessment Noted Time A fall risk assessment has been complete d for the patient 11/26/2022 8:19 AM EDT documented as of this encounter Care Teams Catalogue Clerk Relationship Specialty Start Date End Date Jeanine Forbes MD [address] [place] [address] [address] [place] [address] PCP - General 11/26/22 documented as of this encounter
--- OUTSIDE RECORDS SUMMARY | 2024-05-07 13:01 | XMS_ITS | Encounter Summary ---
Author Organization [employer] Address [address] [place] [address] Care Team Providers Care Poker In Name Role Phone Jeanine Forbes MD Primary Care Provider [phone] Peggy Rogers MD Unavailable [phone] Lisa Arreola RN Unavailable Unavailable Reason for Visit * Auth/Cert Specialty Diagnoses / Procedures Referred By Willow t Referred To Contact Diagnoses Malignant neoplasm of right female breast, unspecified estrogen receptor status, unspecified site of breast (HCC) R breast cancer Procedures RI MASTECTOMY, SIMPLE, COMPLETE RI MASTECTOMY, SIMPLE, COMPLETE MASTECTOMY, WITH SENTINEL LYMPH NODE BIOPSY MASTECTOMY, UNILATERAL, SIMPLE [facility] [address] [place] [phone] Phone: tel: fax: [facility] [address] [place] [address] Phone: tel: fax: Referral ID Status Reason Start Date Expiration Date Visits Re quested Visits Authorized [id number] 1 1 Encounter Details Date Type Department Care Team (Late st Contact Info) Description 02/15/2023 1:09 PM EDT Anesthesia Event [facility] [address] [place] [address] Aruna Cerrato, SHOP FIRER/FIREMAN [address] [place] [address] Jose Funes MD [address] [place] [address] Anesthesia Record Procedure Summary Procedure Name Responsible Anesthesiologist Anesthesia Start Time Anesthesia Stop Time RIGHT BREAST TOTAL MASTECTOMY WITH SENTINEL NODE BIOPSY, LEFT BREAST TOTAL MASTECOMY (Right: Breast) Aruna Cerrato, SHOP FIRER/FIREMAN 02/15/23 1309 02/15/23 1541 Events Date Time Event Comment 02/15/2023 0845 1309 An Start Patient identif ied and chart reviewed. 1309 An Start Data Anesthesia mac yara and monitors checked. 1313 Pre-Induction Eval FDA anest hesia machine pre-use checkout completed. Patient status reassessed prior to start of anesthesia care. 1315 An Induction 1316 An Intubation 1318 Anesthesia Ready 1530 An Extubation 1530 an stop data 1537 Handoff to Receiving I compl eted my handoff to the receiving clinician during which we: 1. Identified the patient. 2. Identified the responsible provider. 3. Reviewed the pertinent medical history. 4. Discussed the surgical course. 5. Reviewed intra-op anesthesia management and issues during anesthesia. 6. Set expectations for post-procedure period. 7. Allowed opportunity for questions and acknowledgement of understanding. 1541 An Stop Meds Name Total dexamethasone (DECADRON) injection 4 mg/ mL 8 mg dexAMETHasone (DECADRON) injection 4 mg/ mL 2 mg dexAMETHasone (DECADRON) injection 4 mg/ mL 2 mg ePHEDrine injection 50 mg/mL 10 mg fentaNYL (SUBLIMAZE) injection 100 mcg lidocaine (XYLOCAINE) injection 2% 100 m g ondansetron (ZOFRAN) injection vial 4 mg propofol (DIPRIVAN) injection 10 mg/mL b olus 200 mg ropivacaine PF (NAROPIN) injection 0.5 % 15 mL ropivacaine PF (NAROPIN) injection 0.5 % 15 mL dexmedeTOMIDine (PRECEDEX) injection 200 mcg/2 mL 25 mcg dexmedeTOMIDine (PRECEDEX) injection 200 mcg/2 mL 25 mcg EPINEPHrine (ADRENALIN) injection 1 mg/m L 150 mcg EPINEPHrine (ADRENALIN) injection 1 mg/m L 150 mcg ceFAZolin (ANCEF) 2g IVPB (DUPLEX) in D5 W 50 mL 2 g lactated ringers (LR) infusion 1,500 mL * Agents Name O2 N2O Air SEVOFLURANE * Blood No blood administrations on file. Lines, Drains, and Airways Type Details Placement Removal Wound 02/15/23; 1337; N; Incision; Breast; Right 02/15/23 1337 by Kee Figueredo RN Wound 02/15/23; 1343; Incision; Breast; Coverlet island dressings to Drain sites 02/15/23 1343 by Kee Figueredo RN Closed/Suction Drain 02/15/23; 1359; 1; Inferior, Right; Breast; Bulb (x1); Flat (x1); 10 in (10mm) 02/15/23 1359 by Kee Figueredo RN Closed/Suction Drain 02/15/23; 1405; 1; Inferior, Lateral, Left; Breast; Bulb; Flat; 10 in (10mm) 02/15/23 1405 by Kee Figueredo RN Peripheral IV Placement Date: 02/15/23; Placement Time: 09; Size: 20 G; Orientation: Left; Location: Antecubital; Site Prep: Chlorhexidine ; Inserted by: Bernice Romero RN; Insertion attempts: 1; Securement Method: Taped; Removal Date: 02/20/23; Removal Time: 0932 02/15/23 0902 by Juliet Landis RN 02/20/23 0932 by Automatic Discharge Provider ETT Placement Date 02/15; Placement Time 1316 (created via procedure documentation); Removal Date 02/15/23; Removal Time 1530 02/15/23 1316 by Aruna Cerrato CRNA 02/15/23 1530 by Aruna Cerrato CRNA documented in this encounter Social History Tobacco Use Types Packs/Day Years [...] AM EDT documented as of this encounter OR Notes * Anesthesia Postprocedure Evaluation - Aruna Cerrato CRNA - 02/15/2023 3:37 PM EDT Patient: Jasmyn Burton Procedure Summary Date: 02/15/23 Room / Location: [facility] OR [facility] OPERATING ROOM Anesthesia Start: 1309 Anesthesia Stop: Procedures: RIGHT BREAST TOTAL MASTECTOMY WITH SENTINEL NODE BIOPSY, LEFT BREAST TOTAL MASTECOMY (Right: Breast) MASTECTOMY, UNILATERAL, SIMPLE (Left: Breast) Diagnosis: Malignant neoplasm of right female breast, unspecified estrogen receptor status, unspecified site of breast (HCC) (R breast cancer) Surgeons: Sudhir Barnett MD Responsible Provider: Aruna Cerarto CRNA Anesthesia Type: general, regional ASA Status: 3 Anesthesia Type: general, regional Vitals Value Taken Time BP 108/63 02/15/23 1537 Temp 97.1 02/15/23 1537 Pulse 55 02/15/23 1537 Resp 12 02/15/23 1537 SpO2 95 02/15/23 1537 Ht 1.651 m (5' 5 ) Wt 65.8 kg (145 lb) BMI 24.13 kg/m?? Anesthesia Post Evaluation Patient location during evaluation: PACU Patient participation: complete - patient participated Level of consciousness: awake Pain management: adequate Multimodal analgesia pain management approach Airway patency: patent Cardiovascular status: stable Respiratory status: room air Hydration status: stable No notable events documented. Aruna Cerrato CRNA 02/15/2023 3:37 PM EDT * Anesthesia Procedure Notes - Aruna Cerrato CRNA - 02/15/2023 1:35 PM EDT Associated Order(s): Intubation Intubation Date/Time: 02/15/2023 1:16 PM Urgency: elective General Information and Staff Patient location during procedure: OR Performed: resident/SHOP FIRER/FIREMAN Indications and Patient Condition Indications for airway management: anesthesia Spontaneous ventilation: present Sedation level: general anesthesia Preoxygenated: yes Patient position: sniffing Mask difficulty assessment: 0 - not attempted Final Airway Details Final airway type: supraglottic airway Supraglottic airway type: classic Size: 3 Number of attempts at approach: 1 * Anesthesia Procedure Notes - Jaylen Whitten DO - 02/15/2023 10:54 AM EDT Associated Order(s): Peripheral Nerve Block Images from the original note were not included. Peripheral Nerve Block Patient location during procedure: pre-op Start time: 02/15/2023 10:41 AM End time: 02/15/2023 10:49 AM Reason for block: at surgeon's request and post-op pain management Staffing Performed: anesthesiologist Anesthesiologist: Jaylen Whitten DO Preanesthetic Checklist Completed: patient identified, IV checked, site marked, risks and benefits discussed, surgical consent, monitors and equipment checked, pre-op evaluation and timeout performed Peripheral Block Patient position: supine Prep: ChloraPrep Patient monitoring: heart rate, gambling monitor and continuous pulse ox Block type: PECS Laterality: left Injection technique: single-shot Guidance: ultrasound guided Needle Needle type: short-bevel Needle gauge: 20 G Needle length: 10 cm Needle localization: ultrasound guidance Test dose: negative Medications Administered Ropivacaine (NAROPIN) (PF) injection 5 mg/mL (0.5%), 15 mL dexamethasone (DECADRON) injection 4 mg/mL, 2 mg dexmedetomidine (PRECEDEX) injection 100 mcg/mL, 25 mcg EPINEPHrine (ADRENALIN) injection 1 mg/mL, 150 mcg Assessment Injection assessment: negative aspiration for heme, no paresthesia on injection, incremental injection and local visualized surrounding nerve on ultrasound Paresthesia pain: none Heart rate change: no Slow fractionated injection: yes Additional Notes 15cc NaCl * Anesthesia Procedure Notes - Jaylen Whitten DO - 02/15/2023 10:53 AM EDT Associated Order(s): Peripheral Nerve Block Images from the original note were not included. Peripheral Nerve Block Patient location during procedure: pre-op Start time: 02/15/2023 10:41 AM End time: 02/15/2023 10:49 AM Reason for block: at surgeon's request and post-op pain management Staffing Performed: anesthesiologist Anesthesiologist: Jaylen Whitten DO Preanesthetic Checklist Completed: patient identified, IV checked, site marked, risks and benefits discussed, surgical consent, monitors and equipment checked, pre-op evaluation and timeout performed Peripheral Block Patient position: supine Prep: ChloraPrep Patient monitoring: heart rate, gambling monitor and continuous pulse ox Block type: PECS Laterality: right Injection technique: single-shot Guidance: ultrasound guided Needle Needle type: short-bevel Needle gauge: 20 G Needle length: 10 cm Needle localization: ultrasound guidance Test dose: negative Medications Administered Ropivacaine (NAROPIN) (PF) injection 5 mg/mL (0.5%), 15 mL dexamethasone (DECADRON) injection 4 mg/mL, 2 mg dexmedetomidine (PRECEDEX) injection 100 mcg/mL, 25 mcg EPINEPHrine (ADRENALIN) injection 1 mg/mL, 150 mcg Assessment Injection assessment: negative aspiration for heme, no paresthesia on injection, incremental injection and local visualized surrounding nerve on ultrasound Paresthesia pain: none Heart rate change: no Slow fractionated injection: yes Additional Notes 15cc NaCl * Anesthesia Preprocedure Evaluation - Jaylen Whitten DO - 02/15/2023 8:43 AM EDT Anesthesia Pre Evaluation Ms. Jasmyn Burton is a 73 y.o. 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 Patient was not previously instructed to abstain from smoking on day of procedure. Patient did not smoke on day of procedure. Induction: intravenous Postoperative Plan- Postoperative administration of opioids is intended. Informed Consent- Anesthetic plan and risks discussed with patient. Plan discussed with SHOP FIRER/FIREMAN. documented in this encounter Plan of Treatment Upcoming Encounters Date Type Department Care Team (Late st Contact Info) Description 08/30/2024 2:30 PM EDT Office Visit [facility] [address] [facility] [address] [place] [address] Sudhir Barnett MD [address] [facility] [address] [place] [address] 08/30/2024 3:00 PM EDT Office Visit [facility] [address] [place] [address] Peggy Rogers MD [address] [place] [address] documented as of this encounter Procedures Procedure Name Priority Date/Time Associated Diagnosis Comments ANESTHESIA INTUBATION Routine 02/15/2023 1:16 PM EDT HC PERIPHERAL NERVE BLOCK SINGLE SHOT Routine 02/15/2023 10:41 AM EDT HC PERIPHERAL NERVE BLOCK SINGLE SHOT Routine 02/15/2023 10:41 AM EDT documented in this encounter Results * AN SINGLE LUMEN INTUBATION (02/15/2023 1:16 PM EDT) Aruna Santa CRNA - 02/15/2023 1:16 PM EDT Aruna Cerrato CRNA ? 02/15/2023 ??1:35 PM Intubation Date/Time: 02/15/2023 1:16 PM Urgency: elective General Information and Staff Patient location during procedure: OR Performed: resident/SHOP FIRER/FIREMAN Indications and Patient Condition Indications for airway management: anesthesia Spontaneous ventilation: present Sedation level: general anesthesia Preoxygenated: yes Patient position: sniffing Mask difficulty assessment: 0 - not attempted Final Airway Details Final airway type: supraglottic airway Supraglottic airway type: classic Size: 3 Number of attempts at approach: 1 Aruna Cerrato CRNA ANESTHESIA ORDERABLES Final Result * HC PERIPHERAL NERVE BLOCK SINGLE SHOT (02/15/2023 10:41 AM EDT) Jaylen Parker DO - 02/15/2023 10:41 AM EDT Jaylen Whitten DO ? 02/15/2023 10:55 AM Peripheral Nerve Block Patient location during procedure: pre-op Start time: 02/15/2023 10:41 AM End time: 02/15/2023 10:49 AM Reason for block: at surgeon's request and post-op pain management Staffing Performed: anesthesiologist Anesthesiologist: Jaylen Whitten DO Preanesthetic Checklist Completed: patient identified, IV checked, site marked, risks and benefits discussed, surgical consent, monitors and equipment checked, pre-op evaluation and timeout performed Peripheral Block Patient position: supine Prep: ChloraPrep Patient monitoring: heart rate, gambling monitor and continuous pulse ox Block type: PECS Laterality: left Injection technique: single-shot Guidance: ultrasound guided Needle Needle type: short-bevel Needle gauge: 20 G Needle length: 10 cm Needle localization: ultrasound guidance Test dose: negative Medications Administered Ropivacaine (NAROPIN) (PF) injection 5 mg/mL (0.5%), 15 mL dexamethasone (DECADRON) injection 4 mg/mL, 2 mg dexmedetomidine (PRECEDEX) injection 100 mcg/mL, 25 mcg EPINEPHrine (ADRENALIN) injection 1 mg/mL, 150 mcg Assessment Injection assessment: negative aspiration for heme, no paresthesia on injection, incremental injection and local visualized surrounding nerve on ultrasound Paresthesia pain: none Heart rate change: no Slow fractionated injection: yes Additional Notes 15cc NaCl Jaylen Whitten DO ANESTHESIA ORDERABLES Final Res ult * HC PERIPHERAL NERVE BLOCK SINGLE SHOT (02/15/2023 10:41 AM EDT) aJylen Parker DO - 02/15/2023 10:41 AM EDT Jaylen Whitten DO ? 02/15/2023 10:54 AM Peripheral Nerve Block Patient location during procedure: pre-op Start time: 02/15/2023 10:41 AM End time: 02/15/2023 10:49 AM Reason for block: at surgeon's request and post-op pain management Staffing Performed: anesthesiologist Anesthesiologist: Jaylen Whitten DO Preanesthetic Checklist Completed: patient identified, IV checked, site marked, risks and benefits discussed, surgical consent, monitors and equipment checked, pre-op evaluation and timeout performed Peripheral Block Patient position: supine Prep: ChloraPrep Patient monitoring: heart rate, gambling monitor and continuous pulse ox Block type: PECS Laterality: right Injection technique: single-shot Guidance: ultrasound guided Needle Needle type: short-bevel Needle gauge: 20 G Needle length: 10 cm Needle localization: ultrasound guidance Test dose: negative Medications Administered Ropivacaine (NAROPIN) (PF) injection 5 mg/mL (0.5%), 15 mL dexamethasone (DECADRON) injection 4 mg/mL, 2 mg dexmedetomidine (PRECEDEX) injection 100 mcg/mL, 25 mcg EPINEPHrine (ADRENALIN) injection 1 mg/mL, 150 mcg Assessment Injection assessment: negative aspiration for heme, no paresthesia on injection, incremental injection and local visualized surrounding nerve on ultrasound Paresthesia pain: none Heart rate change: no Slow fractionated injection: yes Additional Notes 15cc NaCl Jaylen Whitten DO ANESTHESIA ORDERABLES Final Res ult documented in this encounter Visit Diagnoses Not on filedocumented in this encounter Administered Medications Inactive Administered Medications - up to 3 most recent administrations Medication Order MAR Action Action Date Dose Rate Site ceFAZolin (ANCEF) 2g IVPB (DUPLEX) in D5W 50 mL 2 g Once, intravenous, Administer over 30 Minutes, On Tue02/15/23 at 0900, For 1 dose, Furniture Inspector To O.R., Pre-op, Please choose an indication: Surgical Prophylaxis Given 02/15/2023 1:32 PM EDT 2 g dexamethasone (DECADRON) injection perineural, Starting on Tue02/15/23 at 1041, Anesthesia Intra-op Given 02/15/2023 10:41 AM EDT 2 mg dexamethasone (DECADRON) injection perineural, Starting on Tue02/15/23 at 1041, Anesthesia Intra-op Given 02/15/2023 10:41 AM EDT 2 mg dexamethasone (DECADRON) injection As needed, intravenous, Starting on Tue02/15/23 at 1315, Anesthesia Intra-op Given 02/15/2023 1:15 PM EDT 8 mg dexmedetomidine (PRECEDEX) injection perineural, Starting on Tue02/15/23 at 1041, Anesthesia Intra-op Given 02/15/2023 10:41 AM EDT 25 mcg dexmedetomidine (PRECEDEX) injection perineural, Starting on Tue02/15/23 at 1041, Anesthesia Intra-op Given 02/15/2023 10:41 AM EDT 25 mcg ePHEDrine injection As needed, intravenous, Starting on Tue02/15/23 at 1330, Anesthesia Intra-op Given 02/15/2023 1:30 PM EDT 10 mg EPINEPHrine (ADRENALIN) injection perineural, Starting on Tue02/15/23 at 1041, Anesthesia Intra-op Given 02/15/2023 10:41 AM EDT 150 mcg EPINEPHrine (ADRENALIN) injection perineural, Starting on Tue02/15/23 at 1041, Anesthesia Intra-op Given 02/15/2023 10:41 AM EDT 150 mcg fentaNYL (SUBLIMAZE) injection As needed, intravenous, Starting on Tue02/15/23 at 1315, Anesthesia Intra-op Given 02/15/2023 3:27 PM EDT 25 mcg Given 02/15/2023 2:07 PM EDT 25 mcg Given 02/15/2023 1:56 PM EDT 25 mcg lactated ringers (LR) infusion Continuous PRN, intravenous, Starting on e 02/15/23 at 1309, Anesthesia Intra-op New Bag 02/15/2023 1:53 PM EDT New Bag 02/15/2023 1:09 PM EDT lidocaine (XYLOCAINE) injection 2% As needed, intravenous, Starting on Tue02/15/23 at 1315, Anesthesia Intra-op Given 02/15/2023 1:15 PM EDT 100 mg ondansetron PF (ZOFRAN) injection As needed, intravenous, Starting on Tue02/15/23 at 1520, Anesthesia Intra-op Given 02/15/2023 3:20 PM EDT 4 mg propofol (DIPRIVAN) injection 10 mg/mL bolus As needed, intravenous, Starting on Tue02/15/23 at 1315, Anesthesia Intra-op Given 02/15/2023 1:15 PM EDT 200 mg ropivacaine (NAROPIN) (PF) injection 5 mg/mL (0.5%) perineural, Starting on Tue02/15/23 at 1041, Anesthesia Intra-op Given 02/15/2023 10:41 AM EDT 15 mLs ropivacaine (NAROPIN) (PF) injection 5 mg/mL (0.5%) perineural, Starting on Tue02/15/23 at 1041, Anesthesia Intra-op Given 02/15/2023 10:41 AM EDT 15 mLs documented in this encounter Care Teams Poker In Relationship Specialty Start Date End Date Jeanine Forbes MD [address] [place] [phone] PCP - General Family Medicine 01/27/23 Peggy Rogers MD [address] [facility] [address] [place] [address] Medical Oncologist Hematology and Oncology 02/02/23 Maxwell, Lisa Morales RN Nurse Navigator 02/02/23 12/18/23 documented as of this encounter
--- OUTSIDE RECORDS SUMMARY | 2024-05-07 13:01 | XMS_ITS | Encounter Summary ---
Author Organization [employer] Address [address] [place] [address] Care Team Providers Care Outreach Rep Name Role Phone Jeanine Forbes MD Primary Care Provider Reason for Visit * Reason Comments Breast Cancer New consult/outside workup CB Encounter Details Date Type Department Care Team (Late st Contact Info) Description 01/27/2023 1:00 PM EDT Office Visit [facility] [address] [facility] [address] [place] [address] Sudhir Barnett MD [address] [facility] [address] [place] [address] Malignant neoplasm of overlapping sites of right breast in female, estrogen receptor positive (HCC) (Primary Dx); Radial scar of left breast Social History Tobacco Use Types Packs/Day Years [...] Progress Notes * Sudhir Barnett MD - 01/27/2023 1:00 PM EDT Images from the original note were not included. 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 She had an abnormality on her screening mammogram which was followed up with biopsies to confirm a grade 1 invasive ductal carcinoma that is 100% ER positive and [place] and HER2 negative. Further imaging included a breast MRI which revealed non-mass enhancement on the left. This was followed up with an MRI guided biopsy which revealed LCIS and a radial scar. She states that she has also had an inverted nipple on the left for the last 2 years. She has had biopsies in both the right and leftbreast in the past for benign disease. She does not have a family history of breast cancer and doesnot take any hormone replacement medications. Allergies: Nitrofurantoin Medications: Current Outpatient Medications on File Prior to Visit Medication Sig Dispense Refill ??? aspirin 81 MG EC tablet Take 1 tablet (81 mg total) by mouth. ??? lisinopriL (PRINIVIL,ZESTRIL) 5 [...] facility-administered medications on file prior to visit. Past Medical History: Patient Active Problem List Diagnosis ??? Abdominal pain ??? Abnormal EKG ??? Acute bronchitis ??? Asthma ??? Chest pain, atypical ??? Difficult or painful urination ??? Disorder of tendon of biceps ??? Disorder of urinary tract ??? Diverticulitis of colon ??? Encounter for general adult medical examination without abnormal findings ??? Essential hypertension ??? Family history of early CAD ??? Fatigue ??? Gastroesophageal reflux disease ??? Hyperlipidemia ??? Increased frequency of urination ??? Malaise and fatigue ??? Migraine ??? Mild CAD ??? Multiple joint pain ??? Onychomycosis ??? Skin nodule Past Medical History: Diagnosis Date ??? Asthma ??? Ectopic ??? High cholesterol Past Surgical History: Procedure Laterality Date ??? ANTERIOR CRUCIATE LIGAMENT REPAIR ??? HAND FUSION Family History: Family History Problem Relation Age of Onset ??? Hypertension Mother ??? Heart disease Mother ??? Clotting disorder Mother ??? Hypertension Father ??? Heart disease Father ??? Colon cancer Brother Social History: Social History Substance and Sexual Activity Alcohol Use Yes Comment: Occasional Social History Tobacco Use Smoking Status Never Smokeless Tobacco Never Social History Substance and Sexual Activity Drug Use Not on file ROS: Review of Systems Eyes: Positive for double vision. Gastrointestinal: Positive for constipation. Skin: Bruising Breast mass/New breast cancer Neurological: Positive for headaches. PE: There were no vitals taken for this visit. Physical Exam Constitutional: Appearance: Normal appearance. HENT: Head: Normocephalic and atraumatic. Eyes: Extraocular Movements: Extraocular movements intact. Pupils: Pupils are equal, round, and reactive to light. Cardiovascular: Rate and Rhythm: Normal rate and regular rhythm. Pulmonary: Effort: Pulmonary effort is normal. Breath sounds: Normal breath sounds. Chest: Abdominal: Palpations: Abdomen is soft. Musculoskeletal: General: Normal range of motion. Cervical back: Normal range of motion and neck supple. Skin: General: Skin is warm and dry. Neurological: General: No focal deficit present. Mental Status: She is alert. Psychiatric: Mood and Affect: Mood normal. Labs: No visits with results within 4 Month(s) from this visit. Latest known visit with results is: No results found for any previous visit. Assessment and Plan: Problem List Items Addressed This Visit None Visit Diagnoses Malignant neoplasm of overlapping sites of right breast in female, estrogen receptor positive (HCC)(Chronic) - Primary Radial scar of left breast I had a long discussion with her regarding this clinical T1 N0 stage I invasive breast cancer on the right as well as her radial scar on the left. I explained her the results of her surgical pathology as well as the results of her imaging studies. I reviewed the imaging studies. I explained to her in detail the differences between breast conserving surgery and mastectomy. Her MRI on the right reveals evidence of likely satellite lesions surrounding the approximately 1.3 cm breast cancer but there is no correlate on ultrasound or mammogram. Furthermore the non-mass enhancement on the left associated with a radial scar is not evident on mammogram or ultrasound. Given the amount of biopsies that she has had and the uncertainty she has requested bilateral mastectomy. I think it is reasonable given the difficulty with her imaging and the multiple biopsies she has undergone over the years. Accordingly we will plan for right breast total mastectomy with sentinel lymph node biopsy as well as a left breast total mastectomy. She has declined the possibility of reconstruction. She is in complete agreement with the plan. Electronically signed by Juliet Martin LPN - 01/27/2023 - 1:58 PM EDT documented in this encounter Plan of Treatment Upcoming Encounters Date Type Department Care Team (Late st Contact Info) Description 08/30/2024 2:30 PM EDT Office Visit [facility] [address] [place] [phone] Sudhir Barnett MD [address] [facility] [address] [place] [address] 08/30/2024 3:00 PM EDT Office Visit [facility] - [address] [place] [phone] Peggy Rogers MD [address] [facility] [address] [place] [address] documented as of this encounter Visit Diagnoses Diagnosis Malignant neoplasm of overlapping sites of right breast in female, estrogen receptor positive (HCC)- Primary Radial scar of left breast documented in this encounter Care Teams Outreach Rep Relationship Specialty Start Date End Date Jeanine Forbes MD [address] [place] [address] 7 [place] [address] PCP - General Family Medicine 01/27/23 documented as of this encounter
--- OUTSIDE RECORDS SUMMARY | 2024-05-07 13:01 | XMS_ITS | Encounter Summary ---
Author Organization [employer] Address [address] [place] [address] Care Team Providers Care Heater Operator Name Role Phone Jeanine Forbes MD Primary Care Provider [phone] Gaby Rogers MD Unavailable [phone] Lisa Arreola RN Unavailable Unavailable Reason for Referral * Consultation (Routine) - Closed Specialty Diagnoses / Procedures Referred By Willow howard Referred To Contact Genetics / Hematology and Oncology Diagnoses Radial scar of left breast Malignant neoplasm of lower-inner quadrant of right breast of female, estrogen receptor positive (HCC) Gaby oRgers MD [address] [facility] [address] [place] [address] Phone: tel: fax:[phone] [facility] [place] [address] [place] [address] Phone: tel: fax:[phone] Referral ID Status Reason Start Date Expiration Date V isits Requested Visits Authorized [id number] Closed Specialty Services Required 02/04/2023 08/03/2023 1 1 Reason for Visit * Reason Comments Establish Care Encounter Details Date Type Department Care Team (Late st Contact Info) Description 02/04/2023 3:45 PM EDT Office Visit [facility] [place] [address] [place] [address] Gaby oRgers MD [address] [facility] [address] [place] [address] Radial scar of left breast (Primary Dx); Malignant neoplasm of lower-inner quadrant of right [...] Sign Reading Time Taken Comments Blood Pressure 122/67 02/04/2023 3:40 PM EDT Pulse 82 02/04/2023 3:40 PM EDT Temperature 36.3 ??C (97.3 ??F) 02/04/2023 3:40 PM ED T Respiratory Rate 16 02/04/2023 3:40 PM EDT Oxygen Saturation 97% 02/04/2023 3:40 PM EDT Inhaled Oxygen Concentration - - Weight 65.3 kg (144 lb) 02/04/2023 3:40 PM EDT Height 160.1 cm (5' 3.03 ) 02/04/2023 3:40 PM ED T Body Mass Index 25.48 02/04/2023 3:40 PM EDT documented in this encounter Progress Notes * Gaby Rogers MD - 02/04/2023 3:45 PM EDT [facility] Note Establish Care History of Present Illness: Jasmyn Burton is a 73 y.o. female referred for consultation RE: breast cancer. Patient has no breast concerns and presented for screening mammography at outside hospital with dense breast tissue, vague abnormality which was confirmed on MRI. In the right breast at 5-6 o'clock and approximately1 cm mass as well as distortion within the left breast. Biopsies were taken of both. Right breast revealed invasive ductal carcinoma, grade 1, ER/MN positive and HER2 negative, background ALH. Left breast with ALH and radial scar. She is planning bilateral mastectomy and presents today to discuss adjuvant treatment recommendations. Patient is postmenopausal, denies any hormone replacement therapy. She is in excellent health, fit,and appears younger than her stated age. She did have bilateral PEs during recovery from an ACL repair, no longer on anticoagulation. Has some arthritis and migraines, reflux but no complaints today. Past Medical History: Diagnosis Date ??? Asthma ??? Ectopic ??? High cholesterol Past Surgical History: Procedure Laterality Date ??? ANTERIOR CRUCIATE LIGAMENT REPAIR ??? HAND FUSION Social History Socioeconomic History ??? Marital status: [...] Food Insecurity: Not on file Transportation Needs: Not on file Physical Activity: Not on file Stress: Not on file Social Connections: Not on file Intimate Partner Violence: Not on file Housing Stability: Not on file Family History Problem Relation Age of Onset ??? Hypertension Mother ??? Heart disease Mother ??? Clotting disorder Mother ??? Hypertension Father ??? Heart disease Father ??? Colon cancer Brother Allergies: Nitrofurantoin Medications: Current Outpatient Medications on File Prior to Visit Medication Sig Dispense Refill ??? ascorbic acid, vitamin C, (vitamin C) 250 MG tablet Take 1 tablet (250 mg total) by mouth. ??? aspirin 81 MG EC tablet Take 1 tablet (81 mg total) by mouth. ??? cholecalciferol (Vitamin D3) 25 mcg (1,000 unit) tablet Take [...] except as noted per HPI Vitals Vitals: 02/04/23 1540 BP: 122/67 Pulse: 82 Resp: 16 Temp: 97.3 ??F (36.3 ??C) SpO2: 97% Weight: 65.3 kg (144 lb) Height: 1.601 m (5' 3.03 ) Physical Exam Vitals reviewed. Constitutional: Appearance: Normal appearance. She is normal weight. HENT: Head: Normocephalic and atraumatic. Nose: Nose normal. Mouth/Throat: Mouth: Mucous membranes are moist. Pharynx: Oropharynx is clear. Eyes: Extraocular Movements: Extraocular movements intact. Pupils: Pupils are equal, round, and reactive to light. Cardiovascular: Rate and Rhythm: Normal rate and regular rhythm. Pulmonary: Effort: Pulmonary effort is normal. No respiratory distress. Breath sounds: Normal breath sounds. No wheezing, rhonchi or rales. Chest: Chest wall: No mass, deformity, swelling, tenderness or edema. Breasts: Right: Normal. No inverted nipple, mass, nipple discharge, skin change or tenderness. Left: Normal. No inverted nipple, mass, nipple discharge, skin change or tenderness. Comments: Postbiopsy ecchymosis but no masses. Abdominal: General: Abdomen is flat. Bowel sounds are normal. Palpations: Abdomen is soft. Musculoskeletal: General: No swelling, tenderness or deformity. Normal range of motion. Cervical back: Normal range of motion and neck supple. Right lower leg: No edema. Left lower leg: No edema. Lymphadenopathy: Cervical: No cervical adenopathy. Upper Body: Right upper body: No supraclavicular or axillary adenopathy. Left upper body: No supraclavicular or axillary adenopathy. Skin: General: Skin is warm and dry. Coloration: Skin is not jaundiced or pale. Neurological: General: No focal deficit present. Mental Status: She is alert and oriented to person, place, and time. Psychiatric: Mood and Affect: Mood normal. Behavior: Behavior normal. Thought Content: Thought content normal. Judgment: Judgment normal. Relevant Results: 12/23/22 Breast MRI BILATERAL BREAST MRI WITH AND WITHOUT ??CONTRAST [...] post contrast T1 weighted sagittal images were also??obtained. ?? A CAD system ([employer]) was utilized for data analysis. COMPARISON: Exam [...] internal dark septations. This may represent a fibroadenoma.??This is best seen on PACS series 7 [...] image #91. There is no axillary lymphadenopathy. Impression 1. Right breast: Oval mass in the [...] diagnostic imaging is recommended as detailed above. 01/11/23 Diagnostic Mammography and US: Right breast: In the 5/6:00 right breast [...] the 9:00 region on the breast MRI. Impression 1. Right breast: Hypoechoic mass in the [...] the time of the examination by myself. 01/27/23 PROCEDURE: Bilateral limited Breast Ultrasound, using 18 MHz transducer. ?? 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 ?? FAMILY HISTORY: No family history of breast cancer ?? COMPARISON STUDY: MRI from [facility] 12/23/2022 ?? FINDINGS: There is significant bruising in the [...] the areas of hematoma and echogenic bruising ?? Ultrasound of the subareolar left breast reveals only some subareolar ductal dilatation. No definite subareolar mass is seen. ?? On discussion with the patient on the she wishes to have bilateral mastectomy; therefore no further radiographic evaluation was performed. ?? IMPRESSION: FINAL IMPRESSION: ACR BI-RADS 6: Known biopsy proven cancer. ?? RECOMMENDATION: Surgical follow-up Pathology: 01/11/23 Final Diagnosis 1. RIGHT BREAST, 5-6:00, MASS, ULTRASOUND-GUIDED CORE NEEDLE BIOPSIES: Invasive ductal carcinoma, preliminary [place] grade 1 (tubular score 1, nuclear score 1, mitotic score 1), measuring up to 3.5 mm on glass slides. Biomarkers: ER positive, MN positive, HER2 negative. Atypical lobular hyperplasia. IMMUNOHISTOCHEMICAL RESULTS (IHC): Estrogen Receptor?RESULT:??positive 100%?3+ (INTENSITY SCORE) Progesterone Receptor? RESULT:??positive 2% ?80+ (INTENSITY SCORE) Her2/Natalie oncoprotein? RESULT:??negative 10%?1+ (INTENSITY SCORE) 1. 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 No evidence of malignancy. Plan: Cancer Staging Malignant neoplasm of lower-inner quadrant of right breast of female, estrogen receptor positive (HCC) Staging form: Breast, AJCC 8th Edition - Clinical: Stage IA (cT1c, cN0, cM0, G1, ER+, MN+, HER2-) - Signed by Gaby Rogers MD on 02/04/2023 73 y.o. female presents for new diagnosis of breast cancer. Stage I, hormone receptor positive, planning bilateral mastectomy. I do not anticipate the need for adjuvant radiation unless final pathologic stage T3 or node positive, radiographically T1N0. There is question of satellite lesions around the primary mass. She will need to have excision at least of the left-sided radial scar. Patient hasactually elected for bilateral mastectomy. Adjuvantly, my recommendation would be for at least 5 years of endocrine therapy such as anastrozole. Risks of aromatase inhibitors as well as tamoxifen reviewed in detail. Patient is not an ideal candidate for tamoxifen therapy given her prior venous thromboembolism. She indicates a history of osteopenia, will request these records. She also indicates a history of reaction to prior Zometa for bone density. I would not consider adjuvant chemotherapy unless T2 or node positive in which case I would evaluate benefit with Oncotype. Patient does indicate a desire to undergo genetic testing. She does have a brother with both colon and prostate cancer, son with melanoma, but no breast or ovarian cancer in the family. She understands that this may not be covered but she would like to pursue self-pay testing. Pathology, imaging, diagnosis, staging, prognosis, treatment intent, and plan reviewed in detail. All questions were answered to the patient's satisfaction. Orders Placed This Encounter Procedures ??? Ambulatory referral to Genetics ??? Follow-up: There are no discontinued medications. Signed: Electronically signed by GABY ROGERS MD 02/04/23 4:53 PM EDT Total visit time 65 minutes. documented in this encounter Plan of Treatment Upcoming Encounters Date Type Department Care Team (Late st Contact Info) Description 08/30/2024 2:30 PM EDT Office Visit [facility] [address] [facility] [address] [place] [address] Sudhir Barnett MD [address] [facility] [address] [place] [address] 08/30/2024 3:00 PM EDT Office Visit [facility] - [address] [facility] [address] [place] [address] Gaby Rogers MD [address] [facility] [address] [place] [address] Scheduled Referrals Name Type Priority Associated Diagnoses Order Schedule Ambulatory referral to Genetics Outpatient Referral Routine Radial scar of left breast Malignant neoplasm of lower-inner quadrant of right breast of female, estrogen receptor positive (HCC) Ordered: 02/04/2023 documented as of this encounter Visit Diagnoses Diagnosis Radial scar of left breast- Primary Malignant neoplasm of lower-inner quadrant of right breast of female, estrogen receptor positive (HCC) Post-menopausal Asymptomatic postmenopausal status (age-related) (natural) documented in this encounter Care Teams Heater Operator Relationship Specialty Start Date End Date Jeanine Forbes MD [address] [place] [phone] PCP - General Family Medicine 01/27/23 Gaby Rogers MD [address] [place] [address] Medical Oncologist Hematology and Oncology 02/02/23 Lisa Arreola RN Nurse Navigator 02/02/23 12/18/23 documented as of this encounter
--- OUTSIDE RECORDS SUMMARY | 2024-05-07 13:01 | XMS_ITS | Encounter Summary ---
Author Organization [employer] Address [address] [place] [address] Care Team Providers Care Chemical Plant Manager Name Role Phone Jeanine Forbes MD Primary Care Provider Peggy Rogers MD Unavailable [phone] Lisa Arreola RN Unavailable Unavailable Encounter Details Date Type Department Care Team (Late st Contact Info) Description 12/29/2021 Transcribed Document [facility] Family Medicine [address] [place] [address] ProviderLucas MD [address] [place] [address] Social History Tobacco Use Types Packs/Day Years Used Date Smoking Tobacco: Never Assessed Comments Unknown Sex and Gender Information Value Date Recorded Sex Assigned at Not on file Legal Sex Female 5:48 PM CDT Gender Identity Not on file Sexual Orientation Not on file documented as of this encounter Miscellaneous Notes * Cerner Conversion Note - Lucas ProviderMD - 12/29/2021 11:07 AM CDT Patient Education Materials Follows: General Anesthesia, Adult General anesthesia is the [...] including vitamins, herbs, eye drops, creams, and cozi-suk-rcsqvzq medicines. ??? Any problems you or family [...] Up to 2 hours before the procedure ? you may continue to drink clear liquids, such as water, clear fruit juice, black coffee, and plain tea. Eating and drinking restrictions Follow instructions from your health care provider about eating and drinking, which may include: ??? 8 hours before the procedure ? stop eating heavy meals or foods such as meat, fried foods, or fatty foods. ??? 6 hours before the procedure ? stop eating light meals or foods, such as toast or cereal. ??? 6 hours before the procedure ? stop drinking milk or drinks that contain milk. ??? 2 hours before the procedure ? stop drinking clear liquids. Medicines Ask your health care provider about: ??? Changing or stopping your regular medicines. This is especially important if you are taking diabetes medicines or blood thinners. ??? Taking medicines such as aspirin and ibuprofen. These medicines can thin your blood. Do not take these medicines unless your health care provider tells you to take them. ??? Taking jiyv-pxm-fxexszo medicines, vitamins, herbs, and supplements. Do not take these during the week before your procedure unless your health care provider approves them. General instructions ??? Starting 3?6 weeks before the procedure, do not use [...] provider. Document Revised: 02/16/2021 Document Reviewed: 09/17/2020 [employer] Patient Education ? 2020 [employer]. Radiology Colonoscopy, Adult, Care After This sheet gives [...] Get up to take short walks every 1?2 hours. This is important. Ask for help [...] source. ? Leave the heat on for 20?30 minutes. ? Remove the heat if your [...] soft and easy to digest. ??? Take kdem-jjb-cjfrmjb or prescription medicines only as told by your doctor. ??? Keep all follow-up visits as told by your doctor. This is important. Contact a doctor if: ??? You have blood in your poop 2?3 days after the procedure. Get help right [...] provider. Document Revised: 04/11/2020 Document Reviewed: 12/31/2019 [employer] Patient Education ? 2020 [employer]. documented in this encounter Plan of Treatment Upcoming Encounters Date Type Department Care Team (Late st Contact Info) Description 08/30/2024 2:30 PM EDT Office Visit [facility] [address] [facility] [address] [place] [address] Sudhir Barnett MD [address] [facility] [place] [address] [place] [address] 08/30/2024 3:00 PM EDT Office Visit [facility] [place] [address] [facility] [address] [place] [phone] Peggy Rogers MD [address] [place] [address] documented as of this encounter Visit Diagnoses Not on filedocumented in this encounter Care Teams Chemical Plant Manager Relationship Specialty Start Date End Date Jeanine Forbes MD [address] [place] [address] 7 [place] [phone] PCP - General Family Medicine 01/27/23 Peggy Rogers MD [address] [place] [address] Medical Oncologist Hematology and Oncology 02/02/23 Lisa Arreola RN Nurse Navigator 02/02/23 12/18/23 documented as of this encounter
[2024-05-07 13:30] VITALS: PULSE 70; PULSE 75
[2024-05-07] MEDS: ALBUTEROL 0.083% 2.5 MG/3 ML NEB IH (13:30)
== END 2024-05-07 23:59 | disposition home or self-care (01) ==
LOC: RT 12:56
PROVIDERS: PCP Family Medicine; Visit Provider Internal Medicine Pulmonary Disease
DX: R06.02 Shortness of breath (principal)
CPT/HCPCS: 94060; 94640; J7613

== ENCOUNTER 2024-07-02 12:58 | Emergency (ER) | payer MEDICARE, BC, SELFPAY ==
[2024-07-02] VITALS (9 sets, daily range): BP systolic 97–126; BP diastolic 60–72; PULSE 55–72; RESP 14–21; TEMP 36.6–36.7; O2SAT 92–98; BMI 24.0
--- NOTE | 2024-07-02 13:03 | ECG_ITS ---
APPROVED REPORT Exam: Resting ECG HR:69 bpm ECG Measurements Heart Rate 69 AXES MO 235 P 73 QRSd 89 QRS 38 QT 362 T 59 QTc 381 Conclusion SINUS RHYTHM WITH FIRST DEGREE AV BLOCK ABNORMAL ECG UNCONFIRMED REPORT Electronically signed by : ARMANI MARK, 07/02/2024 23:03:50
--- NOTE | 2024-07-02 13:32 | XR_ITS ---
FINAL REPORT CLINICAL HISTORY: Shortness of breath, immunosuppressed COMPARISON: None FINDINGS: No acute pulmonary density is evident. There is no evidence of effusion or other pleural disease. There are surgical clips projecting over bilateral anterior chest prestno. The cardiac silhouette is unremarkable. IMPRESSION: Unremarkable chest exam. Reviewed, Interpreted and Dictated by Eva Eden MD Transcribed by Jocy Latif Authenticated and [facility]
[2024-07-02 13:43] LABS: Basophils % 0.4 % (0.1-2.0); Hematocrit 38.7 % (37.0-47.0); Hemoglobin 12.9 g/dL (12.2-16.2); Lymphocytes # 0.9 K/mm3 (0.7-4.5); Lymphocytes % 9.4 % (10-50); Mean Corpuscular HGB Conc 33.3 g/dL (31.8-35.4); Mean Corpuscular Hemoglobin 30.9 pg (27.0-31.2); Mean Corpuscular Volume 92.8 fl (81-99); Mean Platelet Volume 10.6 fl (7.4-10.4); Monocytes # 0.3 K/mm3 (0.1-1.0); Monocytes % 2.9 % (1.7-9.3); Neutrophils # 8.5 K/mm3 (1.8-7.8); Neutrophils % 86.5 % (37.0-80.0); Platelet Count 249 K/mm3 (142-424); Red Blood Count 4.17 M/mm3 (4.20-5.40); Red Cell Distribution Width 13.2 % (11.5-17.5); White Blood Count 9.8 K/mm3 (4.8-10.8)
--- NOTE | 2024-07-02 13:45 | PC.NURSE ---
RESPIRATORY CALLED ABOUT [facility]
--- NOTE | 2024-07-02 13:49 | PC.NURSE ---
PT ARRIVED BACK TO ROOM FROM XRAY
[2024-07-02 13:50] LABS: Alanine Aminotransferase 34 U/L (12-78); Albumin Level 4.3 g/dl (3.5-5.0); Albumin/Globulin Ratio 1.9 (1.1-1.8); Alkaline Phosphatase 68 U/L (38-126); Anion Gap 11.3 mEq/L (5-15); Aspartate Amino Transferase 31 U/L (14-36); Bilirubin,Total 0.3 mg/dl (0.2-1.3); Blood Urea Nitrogen 17 mg/dl (7-17); Calcium 9.8 mg/dl (8.4-10.2); Carbon Dioxide 26 mmol/L (22.0-30.0); Chloride 105 mmol/L (98-107); Estimated Glomerular Filt Rate 70 ml/min (>60); GFR (African American) 85 ML/MIN (>60); Globulin 2.3 g/dL (1.3-3.2); Glucose 191 mg/dl (74-100); Potassium 4.3 mmoL/L (3.5-5.1); Sodium 138 mmol/L (136-145); Total Protein,Serum 6.6 g/dl (6.3-8.2)
[2024-07-02 13:53] LABS: VBG Base Excess -0.3 mmol/L (-2.4-2.3); VBG HCO3 23.6 mmol/L (23-30); VBG Oxygen Saturation 91.8 % (50-70); VBG PCO2 34.7 mmol/L (35-51); VBG PH 7.45 mmol/L (7.31-7.41); VBG PO2 59.5 mmol/L (28-40); VBG Total CO2 24.7 mmol/L (23-27)
[2024-07-02 13:54] LABS: Activated Partial Thrombo Time 23.1 seconds (22.5-28.5)
--- NOTE | 2024-07-02 13:54 | [facility].EDCP ---
Discharge Plan Disposition Patient Disposition: Home, Self-Care Condition: Good Prescriptions Prescriptions: No Action montelukast 10 mg tablet 10 mg PO DAILY rosuvastatin 20 mg tablet 20 mg PO DAILY azelastine 137 mcg (0.1 %) aerosol,spray 1 spray intranasal BID 90 Days Qty: 90 3RF Rx Instructions: administer into each nostril omeprazole 20 MG tablet,delayed release (DR/EC) 20 mg PO DAILY prednisone 5 mg tablet 5 mg PO TID Asmanex Twisthaler 220 mcg/ actuation (60) aerosol powdr breath activated 1 inh INHALATION DIRECTED rizatriptan 10 mg tablet,disintegrating 10 mg translingual DIRECTED Referrals Follow up/Referrals: Jeanine Forbes [Primary Care Provider] - See instructions Activity Restrictions/Add. Instructions Additional Instructions/Restrictions: You were evaluated in the emergency department today. CT scan at this time shows a small lesion on your left kidney, for which I recommend close follow-up with primary care because they can obtain further imaging to discern what this may be. Your workup is otherwise reassuring. I recommend keeping close follow-up with pulmonology as scheduled and also recommend seeing cardiology over the next week for reassessment as well. Return to the emergency department for new or worsening symptoms. Clinical Impressions Clinical Impression: Lesion of left [place] kidney, Shortness of breath Instructions Patient Instructions: DI for Shortness of Breath Print Language Print Language: Setswana Discharge ED Provider: Ramonita Corral HPI <Willi Kenney MD - Last Filed: 07/02/24 15:13> General Chief Complaint: Shortness of Breath/Dyspnea Stated Complaint: SOA Time Seen by Provider: 07/02/24 13:15 History of Present Illness HPI narrative: Please note that above description of symptoms, in this electronic medical record under categorization of recalled from ER triage doctor by RN are reflective of an initial nursing assessment, however, is not reflective of my full history and physical exam that was personally taken and clarified. Consequentially, this preceding description of symptoms, which may include the patient's categorized chief complaint in the EMR, do not reflect my personal clinical impression, and the ultimate description of history of present illness and patient stated complaints should be deferred to this section of the note. Unless stated otherwise or congruent with this section of the note, additional signs, symptoms, or incongruence should be interpreted as inaccurate with my clinical impression. Related Data Home Medications ?Medication ?Instructions ?Recorded ?Confirmed omeprazole 20 mg tablet,delayed 20 mg PO DAILY stomach 01/05/22 07/02/24 release rosuvastatin 20 mg tablet 20 mg PO DAILY 01/12/22 07/02/24 montelukast 10 mg tablet 10 mg PO DAILY 05/05/23 07/02/24 mometasone 220 mcg/actuation(60 1 inh inhalation DIRECTED 07/02/24 07/02/24 doses) breath activated powder inhaler (Asmanex Twisthaler) prednisone 5 mg tablet 5 mg PO TID 07/02/24 07/02/24 rizatriptan 10 mg disintegrating 10 mg translingual DIRECTED 07/02/24 07/02/24 tablet Previous Rx's ?Medication ?Instructions ?Recorded azelastine 137 mcg (0.1 %) nasal 1 spray intranasal BID 90 days #90 05/18/22 spray mL Allergies Allergy/AdvReac Type Severity Reaction Status Date / Time No Known Allergies Allergy Verified 05/07/24 14:17 [facility] <Willi Kenney MD - Last Filed: 07/02/24 15:13> [facility] Disclaimer: The information contained in this section may have been updated after the patient was seen, as this information can be updated by other users. Medical History Asthma Allergic rhinitis, unspecified History of 2019 novel coronavirus disease (COVID-19) Elevated d-dimer History of pulmonary embolism Moderate persistent asthma Dyspnea on exertion Shortness of breath Fatigue Dizziness 1st degree AV block HTN (hypertension) Gastroesophageal reflux disease Atypical chest pain CAD (coronary artery disease) Surgical History History of knee surgery Hx of bilateral breast biopsy History of colonoscopy Family History Other Asthma Emphysema of lung Hypertension Social History Smoking Status: Current every day smoker alcohol intake: never current occupational status: retired Travel in the last 8 weeks: None household members: spouse Have you lived/traveled outside [place] in past 30 days?: No Contact w/someone who lives/traveled outside US past 30 days?: No Exposure to someone with infectious disease in past 14 days?: No Do you have a fever (greater than 100.4 F or 38 C)?: No Have you tested positive for COVID-19: No Exposed to someone with COVID-19 in past 14 days?: No Do you have a sore throat?: No Do you have a cough?: No Do you have any weakness?: No Do you have any diarrhea?: No Are you experiencing any unusual bleeding?: No Do you have any muscle aches/pain?: No Do you have any abdominal pain?: No Are you experiencing loss of taste or smell?: No Other Medical History Have you received the Flu Vaccine for this season: Yes Have you received the Pneumonia Vaccine: Yes <Willi Kenney MD - Last Filed: 07/02/24 15:13> ROS Obtained: Yes All systems reviewed & no additional complaints except as documented Physical Exam <Willi Kenney MD - Last Filed: 07/02/24 15:13> General General appearance: alert Neck Neck exam: Present trachea midline Chest Chest inspection: Present normal inspection and symmetric chest wall rise Respiratory Respiratory exam: Present normal lung sounds bilaterally; Absent respiratory distress, wheezes, stridor, accessory muscle use or prolonged expiratory phase Cardiovascular Cardiovascular exam: Present regular rate, normal rhythm and other (Pulses equal and symmetric in upper and lower extremities) Extremities Exam Extremities exam: Absent edema Neurological Exam Neurological exam: Present alert, oriented X3 and CN II-XII intact Skin Skin exam: Present warm and dry; Absent cyanosis, diaphoresis or pallor HEART Score <Willi Kenney MD - Last Filed: 07/02/24 15:13> HEART Score HEART Score assessment performed?: Yes History (anamnesis): Slightly suspicious ECG: Normal Age: >65 years Risk factors: 3 or more risk factors Troponin: </= normal limit HEART Score: 4 <Ramonita Corral DO - Last Filed: 07/02/24 17:39> HEART Score HEART Score: 4 Procedures <Willi Kenney MD - Last Filed: 07/02/24 15:13> Limited Ultrasound Indication:: Limited cardiac ultrasound Indication: Shortness of breath Identified cardiac views: -Cardiac parasternal long axis -Cardiac parasternal short axis -Cardiac apical four-chamber Findings: -Cardiac activity present -Gross wall motion normal -Pericardial effusion absent -Right heart strain absent Impression: -Normal cardiac ultrasound Images were saved to permanent archive The study was technically adequate CPT: 13835 This study was performed by me, and I personally interpreted all images/videos. Based on my clinical judgement, these images were adequate and did not necessitate further imaging Critical Care <Willi Kenney MD - Last Filed: 07/02/24 15:13> Critical Care Time Critical Care Time: No Medical Decision Making <Willi Kenney MD - Last Filed: 07/02/24 15:13> Medical Records Medical records reviewed: Yes I reviewed the patient's medical records. Martin Inquiry Pt receiving controlled substance: No Martin was queried for this patient: No Vital Signs Vital Signs: 07/02/24 12:58 07/02/24 13:30 07/02/24 14:00 Temperature 97.8 F Temperature Source Oral Pulse Rate 70 57 L Pulse Rate [Right] 72 Respiratory Rate 21 15 16 Blood Pressure 120/65 114/63 Blood Pressure [Right Arm] 123/71 Blood Pressure Mean [Right Arm] 88 Blood Pressure Source Blood Pressure Source [Right Arm] Automatic Cuff 02 Sat by Pulse Oximetry 95 96 93 L Oxygen Delivery Method Room Air Room Air Room Air 07/02/24 14:30 07/02/24 15:00 07/02/24 15:30 Temperature Temperature Source Pulse Rate 55 L 59 L 61 Pulse Rate [Right] Respiratory Rate 16 14 16 Blood Pressure 97/60 L 108/65 L 126/72 Blood Pressure [Right Arm] Blood Pressure Mean [Right Arm] Blood Pressure Source Blood Pressure Source [Right Arm] 02 Sat by Pulse Oximetry 92 L 94 L 98 Oxygen Delivery Method Room Air Room Air Room Air 07/02/24 16:00 07/02/24 16:30 07/02/24 16:48 Temperature 98.0 F Temperature Source Oral Pulse Rate 57 L 58 L 60 Pulse Rate [Right] Respiratory Rate 15 18 20 Blood Pressure 126/66 120/71 126/70 Blood Pressure [Right Arm] Blood Pressure Mean [Right Arm] Blood Pressure Source Automatic Cuff Blood Pressure Source [Right Arm] 02 Sat by Pulse Oximetry 95 94 L Oxygen Delivery Method Room Air Room Air Room Air Lab Data Labs: Lab Results 07/02/24 13:06: WBC 9.8, RBC 4.17 L, Hgb 12.9, Hct 38.7, MCV 92.8, MCH 30.9, MCHC 33.3, RDW 13.2, Plt Count 249, MPV 10.6 H, Neut % (Auto) 86.5 H, Lymph % (Auto) 9.4 L, [place] % (Auto) 2.9, Eos % (Auto) 0.0 L, Baso % (Auto) 0.4, Neut # (Auto) 8.5 H, Lymph # (Auto) 0.9, [place] # (Auto) 0.3, Eos # (Auto) 0.0, Baso # (Auto) 0.0, PT 9.9, INR 0.89 L, APTT 23.1, D-Dimer 1.20 H, Sodium 138, Potassium 4.3, Chloride 105, Carbon Dioxide 26, Anion Gap 11.3, BUN 17, Creatinine 0.80, Estimated GFR 70, Est GFR ( Amer) 85, Glucose 191 H, Calcium 9.8, Magnesium 2.0, Total Bilirubin 0.3, AST 31, ALT 34, Alkaline Phosphatase 68, Troponin I < 0.01, NT-Pro-B Natriuret Pep 54.5, Total Protein 6.6, Albumin 4.3, Globulin 2.3, Albumin/Globulin Ratio 1.9 H, TSH 0.52, Thyroxine (T4) 8.8, HCV Ab PEDRO w/Rflx PCR Qn Negative, HIV Ag/Ab Combo Qual Negative 07/02/24 13:48: VBG pH 7.45 H, VBG pCO2 34.7 L, VBG pO2 59.5 H, VBG HCO3 23.6, VBG Total CO2 24.7, VBG O2 Saturation 91.8 H, VBG Base Excess -0.3, VBG Lactic Acid 2.4 H 07/02/24 15:34: Troponin I < 0.01 07/02/24 13:06 07/02/24 13:06 Response Orders (Tests/Meds): ED MEDICATIONS Discontinued Medications Generic Name Dose Route Start Last Admin Trade Name Freq PRN Reason Stop Dose Admin Iopamidol 70 ml 07/02/24 15:10 07/02/24 15:10 Iopamidol-370 (76%);100ml Bottle IV 07/02/24 15:11 70 ml ONCE ONE Administration Sodium Chloride 50 ml 07/02/24 15:10 07/02/24 15:10 0.9 % Sodium Chloride 50 Ml Vial IV 07/02/24 15:11 50 ml ONCE ONE Administration Sodium Chloride 10 ml 07/02/24 15:10 07/02/24 15:13 Sodium Chloride 0.9% 10ml Syr (Rad Only) IV 08/01/24 15:09 10 ml NEEDED PRN Administration Maintain IV Site ORDERS Category Date Time Status CT angio chest PE protocol Stat Cat Scan 07/02/24 14:35 Completed CXR 2 view (NOT portable) [XR chest 2V] Stat Exams 07/02/24 13:32 Completed POCUS Point of Care (ER Only) Stat Exams 07/02/24 13:33 Completed Complete Blood Count Auto Diff Stat Lab 07/02/24 13:06 Completed Comprehensive Metabolic Panel Stat Lab 07/02/24 13:06 Completed D-Dimer Stat Lab 07/02/24 13:06 Completed HIV Combo Stat Lab 07/02/24 13:06 Completed Hepatitis C Ab Qual. W/ RFX Stat Lab 07/02/24 13:06 Completed Magnesium Stat Lab 07/02/24 13:06 Completed NT Pro Brain Natriuretic Pep. Stat Lab 07/02/24 13:06 Completed PT INR [Prothrombin Time INR] Stat Lab 07/02/24 13:06 Completed PTT [Activated Partial Thrombo Time] Stat Lab 07/02/24 13:06 Completed T4 (Thyroxine) Stat Lab 07/02/24 13:06 Completed TSH [Thyroid Stimulating Hormone] Stat Lab 07/02/24 13:06 Completed Troponin I Q3H Lab 07/02/24 15:34 Completed Troponin I Q3H Lab 07/02/24 19:45 Ordered Troponin I Stat Lab 07/02/24 13:06 Completed Venous Blood Gas Stat RT 07/02/24 13:48 Completed MDM Narrative Medical Decision Narrative: This is a 74-year-old female with history of chronic left upper extremity swelling on 15 mg prednisone daily, asthma, hypertension, CAD, chronic shortness of breath, provoked PEs in the remote past secondary to knee arthroplasty following with pulmonology presenting with shortness of breath and lower extremity weakness. States that this has been going on for couple days. States that it feels like my legs are made of light and I am walking through mud. No chest pain, nausea, vomiting, diaphoresis, PND, orthopnea, swelling, night sweats, systemic signs or symptoms, etc. Called pulmonology office who recommended she come to the emergency department. History was obtained via conversation with patient. On arrival, patient hemodynamically stable, alert, oriented x4, appropriate, GCS 15, moving all extremities spontaneously, pupils equal and reactive to light. Full physical exam performed and significant for no acute distress. Lungs are clear. Cardiac exam without murmurs gallops rubs. No lower extremity edema. Pulses equal and symmetric. She is grossly neurologically intact and speaking in full sentences. Differential includes progressive lung disease, CHF, CAD, pneumonia, otitis, malignancy, PE, among others. Patient placed on continuous cardiac monitoring and continuous pulse ox with initial blood pressure 120/65, heart rate 70, saturation 96% on room air. Independent interpretation of EKG shows sinus rhythm first-degree AV block with [place] 235, QRS 89, QTc 381. Normal axis. No acute ischemic change.. Workup independently interpreted and significant for nonactionable CBC or chemistry. Troponin negative, BNP negative. Thyroid studies normal. On independent interpretation of imaging, no acute cardiothoracic or airspace disease on chest x-ray. See radiology read for full review of final results. Heart score 4. Bedside [id number] ultrasound was performed. Normal parasternal long, parasternal short, apical four-chamber views with no acute abnormalities. No evidence of regurgitation or right heart strain. On reevaluation, patient resting comfortably. Given elevated D-dimer, CT PE was ordered given history of previous PEs. Prior to this being performed, care handed off to oncoming physician. Mathematical Physicist disclaimer Much of this encounter note is an electronic tracer lathe set up operator spoken language to printed text. Electronic tracer lathe set up operator of the spoken language may permit errors. Although I have reviewed the note, some errors may still exist. <Ramonita Corral, DO - Last Filed: 07/02/24 17:39> Vital Signs Vital Signs: 07/02/24 12:58 07/02/24 13:30 07/02/24 14:00 Temperature 97.8 F Temperature Source Oral Pulse Rate 70 57 L Pulse Rate [Right] 72 Respiratory Rate 21 15 16 Blood Pressure 120/65 114/63 Blood Pressure [Right Arm] 123/71 Blood Pressure Mean [Right Arm] 88 Blood Pressure Source Blood Pressure Source [Right Arm] Automatic Cuff 02 Sat by Pulse Oximetry 95 96 93 L Oxygen Delivery Method Room Air Room Air Room Air 07/02/24 14:30 07/02/24 15:00 07/02/24 15:30 Temperature Temperature Source Pulse Rate 55 L 59 L 61 Pulse Rate [Right] Respiratory Rate 16 14 16 Blood Pressure 97/60 L 108/65 L 126/72 Blood Pressure [Right Arm] Blood Pressure Mean [Right Arm] Blood Pressure Source Blood Pressure Source [Right Arm] 02 Sat by Pulse Oximetry 92 L 94 L 98 Oxygen Delivery Method Room Air Room Air Room Air 07/02/24 16:00 07/02/24 16:30 07/02/24 16:48 Temperature 98.0 F Temperature Source Oral Pulse Rate 57 L 58 L 60 Pulse Rate [Right] Respiratory Rate 15 18 20 Blood Pressure 126/66 120/71 126/70 Blood Pressure [Right Arm] Blood Pressure Mean [Right Arm] Blood Pressure Source Automatic Cuff Blood Pressure Source [Right Arm] 02 Sat by Pulse Oximetry 95 94 L Oxygen Delivery Method Room Air Room Air Room Air Lab Data Labs: Lab Results 07/02/24 13:06: WBC 9.8, RBC 4.17 L, Hgb 12.9, Hct 38.7, MCV 92.8, MCH 30.9, MCHC 33.3, RDW 13.2, Plt Count 249, MPV 10.6 H, Neut % (Auto) 86.5 H, Lymph % (Auto) 9.4 L, [place] % (Auto) 2.9, Eos % (Auto) 0.0 L, Baso % (Auto) 0.4, Neut # (Auto) 8.5 H, Lymph # (Auto) 0.9, [place] # (Auto) 0.3, Eos # (Auto) 0.0, Baso # (Auto) 0.0, PT 9.9, INR 0.89 L, APTT 23.1, D-Dimer 1.20 H, Sodium 138, Potassium 4.3, Chloride 105, Carbon Dioxide 26, Anion Gap 11.3, BUN 17, Creatinine 0.80, Estimated GFR 70, Est GFR ( Amer) 85, Glucose 191 H, Calcium 9.8, Magnesium 2.0, Total Bilirubin 0.3, AST 31, ALT 34, Alkaline Phosphatase 68, Troponin I < 0.01, NT-Pro-B Natriuret Pep 54.5, Total Protein 6.6, Albumin 4.3, Globulin 2.3, Albumin/Globulin Ratio 1.9 H, TSH 0.52, Thyroxine (T4) 8.8, HCV Ab PEDRO w/Rflx PCR Qn Negative, HIV Ag/Ab Combo Qual Negative 07/02/24 13:48: VBG pH 7.45 H, VBG pCO2 34.7 L, VBG pO2 59.5 H, VBG HCO3 23.6, VBG Total CO2 24.7, VBG O2 Saturation 91.8 H, VBG Base Excess -0.3, VBG Lactic Acid 2.4 H 07/02/24 15:34: Troponin I < 0.01 Response Orders (Tests/Meds): ED MEDICATIONS Discontinued Medications Generic Name Dose Route Start Last Admin Trade Name Freq PRN Reason Stop Dose Admin Iopamidol 70 ml 07/02/24 15:10 07/02/24 15:10 Iopamidol-370 (76%);100ml Bottle IV 07/02/24 15:11 70 ml ONCE ONE Administration Sodium Chloride 50 ml 07/02/24 15:10 07/02/24 15:10 0.9 % Sodium Chloride 50 Ml Vial IV 07/02/24 15:11 50 ml ONCE ONE Administration Sodium Chloride 10 ml 07/02/24 15:10 07/02/24 15:13 Sodium Chloride 0.9% 10ml Syr (Rad Only) IV 08/01/24 15:09 10 ml NEEDED PRN Administration Maintain IV Site ORDERS Category Date Time Status CT angio chest PE protocol Stat Cat Scan 07/02/24 14:35 Completed CXR 2 view (NOT portable) [XR chest 2V] Stat Exams 07/02/24 13:32 Completed POCUS Point of Care (ER Only) Stat Exams 07/02/24 13:33 Completed Complete Blood Count Auto Diff Stat Lab 07/02/24 13:06 Completed Comprehensive Metabolic Panel Stat Lab 07/02/24 13:06 Completed D-Dimer Stat Lab 07/02/24 13:06 Completed HIV Combo Stat Lab 07/02/24 13:06 Completed Hepatitis C Ab Qual. W/ RFX Stat Lab 07/02/24 13:06 Completed Magnesium Stat Lab 07/02/24 13:06 Completed NT Pro Brain Natriuretic Pep. Stat Lab 07/02/24 13:06 Completed PT INR [Prothrombin Time INR] Stat Lab 07/02/24 13:06 Completed PTT [Activated Partial Thrombo Time] Stat Lab 07/02/24 13:06 Completed T4 (Thyroxine) Stat Lab 07/02/24 13:06 Completed TSH [Thyroid Stimulating Hormone] Stat Lab 07/02/24 13:06 Completed Troponin I Q3H Lab 07/02/24 15:34 Completed Troponin I Q3H Lab 07/02/24 19:45 Ordered Troponin I Stat Lab 07/02/24 13:06 Completed Venous Blood Gas Stat RT 07/02/24 13:48 Completed MDM Narrative Medical Decision Narrative: This is a 74-year-old female with history of chronic left upper extremity swelling on 15 mg prednisone daily, asthma, hypertension, CAD, chronic shortness of breath, provoked PEs in the remote past secondary to knee arthroplasty following with pulmonology presenting with shortness of breath and lower extremity weakness. States that this has been going on for couple days. States that it feels like my legs are made of light and I am walking through mud. No chest pain, nausea, vomiting, diaphoresis, PND, orthopnea, swelling, night sweats, systemic signs or symptoms, etc. Called pulmonology office who recommended she come to the emergency department. History was obtained via conversation with patient. On arrival, patient hemodynamically stable, alert, oriented x4, appropriate, GCS 15, moving all extremities spontaneously, pupils equal and reactive to light. Full physical exam performed and significant for no acute distress. Lungs are clear. Cardiac exam without murmurs gallops rubs. No lower extremity edema. Pulses equal and symmetric. She is grossly neurologically intact and speaking in full sentences. Differential includes progressive lung disease, CHF, CAD, pneumonia, otitis, malignancy, PE, among others. Patient placed on continuous cardiac monitoring and continuous pulse ox with initial blood pressure 120/65, heart rate 70, saturation 96% on room air. Independent interpretation of EKG shows sinus rhythm first-degree AV block with [place] 235, QRS 89, QTc 381. Normal axis. No acute ischemic change.. Workup independently interpreted and significant for nonactionable CBC or chemistry. Troponin negative, BNP negative. Thyroid studies normal. On independent interpretation of imaging, no acute cardiothoracic or airspace disease on chest x-ray. See radiology read for full review of final results. Heart score 4. Bedside [id number] ultrasound was performed. Normal parasternal long, parasternal short, apical four-chamber views with no acute abnormalities. No evidence of regurgitation or right heart strain. On reevaluation, patient resting comfortably. Given elevated D-dimer, CT PE was ordered given history of previous PEs. Prior to this being performed, care handed off to oncoming physician. Mathematical Physicist disclaimer Much of this encounter note is an electronic tracer lathe set up operator spoken language to printed text. Electronic tracer lathe set up operator of the spoken language may permit errors. Although I have reviewed the note, some errors may still exist. DO Ellis: On my assessment of the patient, she is lying in bed in no acute distress. She states she is feeling a lot better. Vitals are normal on cardiac telemetry and she has reassuring exam. Labs are reassuring with troponins negative x 2. CT PE protocol demonstrates concerns for a renal mass but no PE or other acute concern. Ultimately given reassuring exam, improvement in symptoms, and reassuring workup I feel the patient is appropriate for discharge home with close outpatient follow-up with primary care for further evaluation of the renal lesion. She already has pulmonology and cardiology care established and I recommended that she follow-up closely with them as well. Strict return precautions were given.
[2024-07-02 13:55] LABS: Lactate Venous 2.4 mmol/L (0.4-2.0)
[2024-07-02 14:00] LABS: NT Pro Brain Natriuretic Pep. 54.5 pg/mL (0-125)
[2024-07-02 14:06] LABS: INR 0.89 (0.9-1.1); Prothrombin Time 9.9 seconds (9.2-12.1)
[2024-07-02 14:10] LABS: T4 (Thyroxine) 8.8 ug/dl (5.53-11.0); Troponin I < 0.01 ng/ml (0.00-0.034)
[2024-07-02 14:23] LABS: Thyroid Stimulating Hormone 0.52 uIU/mL (0.465-4.68)
--- NOTE | 2024-07-02 14:35 | CT_ITS ---
FINAL REPORT TECHNIQUE: Thin section axial CT with contrast with multiplanar reconstruction This study was performed with techniques to keep radiation doses as low as reasonably achievable, (ALARA). Individualized dose reduction techniques using automated exposure control or adjustment of mA and/or kV according to the patient's size were employed. CLINICAL HISTORY: elevated dimer, new worsening soa, h/o BL PE COMPARISON: None FINDINGS: Pulmonary vessels enhance in normal fashion without evidence of embolism. Thoracic aorta shows no dissection or aneurysm. No pulmonary mass or infiltrate is present. There is no significant pleural effusion. There is no significant pericardial effusion. The heart is moderately enlarged. No mediastinal or hilar adenopathy is present. There is an indeterminate left renal lesion noted in the upper abdomen, measuring 10 mm in size. IMPRESSION: No evidence of pulmonary embolism. Moderate cardiomegaly. Indeterminate left renal 10 mm mass, consider renal mass protocol CT for further evaluation. Reviewed, Interpreted and Dictated by Eva Eden MD Transcribed by Pretty Lucas Authenticated and [facility]
[2024-07-02] MEDS: 0.9 % SODIUM CHLORIDE 50 ML VIAL IV (15:10)
[2024-07-02] MEDS: IOPAMIDOL-370 (76%);100ML BOTTLE 70 ML IV (15:10)
[2024-07-02] MEDS: SODIUM CHLORIDE 0.9% 10ML SYR (RAD ONLY) 10 ML IV (15:13)
[2024-07-02 15:37] LABS: HIV Combo NEGATIVE (Negative)
[2024-07-02 15:44] LABS: Hepatitis C Ab Qual. W/ RFX NEGATIVE (Negative)
[2024-07-02 16:19] LABS: Troponin I < 0.01 ng/ml (0.00-0.034)
[2024-07-02 17:56] LABS: Reflex Lactic Add Lactic Reflex
== END 2024-07-02 16:54 | disposition home or self-care (01) ==
PROVIDERS: Emergency Medicine; Emergency Provider Emergency Medicine; PCP Family Medicine
DX: R06.02 Shortness of breath (principal); N28.9 Disorder of kidney and ureter, unspecified
CPT/HCPCS: 71046; 71275; 80053; 82803; 83735; 83880; 84436; 84443; 84484; 85025; 85378; 85610; 85730; 86803; 87389; 93005; 99285; Q9967

== ENCOUNTER 2024-09-11 07:45 | Outpatient (CLI) | payer MEDICARE, BC, SELFPAY ==
[2024-09-11] MEDS: ALBUTEROL 0.083% 2.5 MG/3 ML NEB IH (08:32)
--- NOTE | 2024-09-11 08:32 | PC.NURSE ---
PFT and 6 Minute Walk Test completed without incident. Albuterol 0.083% given via HHN, per written protocol, Pt tolerated tx well.
--- NOTE | 2024-09-11 08:54 | CT_ITS ---
FINAL REPORT TECHNIQUE: Thin section axial images were obtained from the lung apices through the upper abdomen without contrast. This study was performed with techniques to keep radiation doses as low as reasonably achievable (ALARA). Individualized dose reduction techniques using automated exposure control or adjustment of mA and/or kV according to the patient's size were employed. CLINICAL HISTORY: Bronchiectasis, soa HR x3 , supine inspiration , expiration, prone inspiration COMPARISON: 07/02/2024 FINDINGS: CT with high-resolution imaging was performed using supine inspiration, supine expiration, prone inspiration views, as well as multiplanar reconstructions in the sagittal and coronal planes. There is no mediastinal, hilar, or axillary lymphadenopathy. No pleural or pericardial effusion. The lungs are clear. There is no interlobular septal thickening, no evidence of interstitial fibrosis. No evidence of bronchiectasis is noted, and no significant air trapping is present. Limited, unenhanced evaluation of the upper abdomen is without acute abnormality. There is no acute osseous abnormality. IMPRESSION: No acute intrathoracic abnormality. Reviewed, Interpreted and Dictated by Cami Purdy MD Transcribed by Pretty Lucas Authenticated and [facility]
== END 2024-09-11 23:59 | disposition home or self-care (01) ==
LOC: RT 07:46
PROVIDERS: PCP Family Medicine; Visit Provider Internal Medicine Pulmonary Disease
DX: R06.09 Other forms of dyspnea (principal); J84.9 Interstitial pulmonary disease, unspecified
CPT/HCPCS: 71250; 94060; 94618; 94726; 94729; J7613